=== PATIENT | male | born 1950 | race Caucasian/White ===

== ENCOUNTER 2019-12-12 09:28 | Outpatient (CLI) | payer MEDICARE, SELFPAY ==
[2019-12-12 10:20] LABS: Blood Urea Nitrogen 15 mg/dL (9-20); Calcium 9.4 mg/dL (8.4-10.2); Carbon Dioxide 25 mmol/L (22-30); Chloride 100 mmol/L (98-107); Cholesterol 134 mg/dL (0-200); Estimated Glomerular Filt Rate > 60; Glucose 105 mg/dL (75-110); HDL Direct 41 mg/dL; Potassium 3.6 mmol/L (3.4-5.0); Sodium 136 mmol/L (137-145); Triglycerides 160 mg/dL (<150)
[2019-12-12 10:31] LABS: LDL Cholesterol Direct 80 mg/dL
[2019-12-12 10:50] LABS: Prostate Specific Antigen 0.5 ng/mL (< OR = 4.0)
== END 2019-12-12 09:29 | disposition home or self-care (01) ==
LOC: ANHLAB 09:30
PROVIDERS: PCP Internal Medicine; Visit Provider Internal Medicine
DX: E53.8 Deficiency of other specified B group vitamins (principal); I10 Essential (primary) hypertension; E78.5 Hyperlipidemia, unspecified; Z12.5 Encounter for screening for malignant neoplasm of prostate
CPT/HCPCS: 36415; 80048; 80061; 82607; 84153; G0103

== ENCOUNTER 2020-10-11 12:47 | Outpatient (CLI) | payer MEDICARE, SELFPAY ==
[2020-10-11 13:53] LABS: Anion Gap 7 mmol/L (8-16); Blood Urea Nitrogen 13 mg/dL (9-20); Calcium 9.4 mg/dL (8.4-10.2); Carbon Dioxide 31 mmol/L (22-30); Chloride 92 mmol/L (98-107); Cholesterol 138 mg/dL (0-200); Estimated Glomerular Filt Rate > 60; Glucose 106 mg/dL (75-110); HDL Direct 30 mg/dL; Sodium 130 mmol/L (137-145); Triglycerides 199 mg/dL (<150)
[2020-10-11 14:04] LABS: LDL Cholesterol Direct 85 mg/dL
[2020-10-11 14:24] LABS: Prostate Specific Antigen 0.5 ng/mL (< OR = 4.0)
== END 2020-10-11 12:48 | disposition home or self-care (01) ==
LOC: ANHLAB 12:52
PROVIDERS: PCP Internal Medicine; Visit Provider Nurse Practitioner
DX: Z13.6 Encounter for screening for cardiovascular disorders (principal); I10 Essential (primary) hypertension; F32.9 Major depressive disorder, single episode, unspecified; Z12.5 Encounter for screening for malignant neoplasm of prostate
CPT/HCPCS: 36415; 80048; 80061; 84153; 84443; G0103

== ENCOUNTER 2020-11-13 14:12 | Outpatient (CLI) | payer MEDICARE, SELFPAY ==
[2020-11-13 15:12] LABS: Anion Gap 10 mmol/L (8-16); Blood Urea Nitrogen 14 mg/dL (9-20); Calcium 9.4 mg/dL (8.4-10.2); Carbon Dioxide 27 mmol/L (22-30); Chloride 98 mmol/L (98-107); Estimated Glomerular Filt Rate > 60; Glucose 87 mg/dL (75-110); Potassium 3.9 mmol/L (3.4-5.0); Sodium 135 mmol/L (137-145)
== END 2020-11-13 14:13 | disposition home or self-care (01) ==
LOC: ANHLAB 14:13
PROVIDERS: PCP Internal Medicine; Visit Provider Internal Medicine
DX: I10 Essential (primary) hypertension (principal)
CPT/HCPCS: 36415; 80048

== ENCOUNTER 2021-02-15 08:45 | Outpatient (RCR) | payer MEDICARE, SELFPAY ==
[2021-02-15] MEDS: ACETAMINOPHEN 325 MG TABLET 650 MG PO (12:40)
[2021-02-15] MEDS: FAMOTIDINE 20 MG TABLET PO (12:41)
[2021-02-15] MEDS: diphenhydrAMINE HCl CAP 25 MG CAPSULE PO (12:41)
[2021-02-15 12:43] VITALS: BP 126/55; PULSE 83; RESP 16; TEMP 37.7; O2SAT 94
--- NOTE | 2021-02-15 13:02 | PC.NURSE ---
Patient with cough, low grade fever and tiredness.
--- NOTE | 2021-02-15 13:20 | PC.NURSE ---
Patient given written instruction guide on covid infusion guidelines with understanding stated to instruction.
[2021-02-15 14:55] VITALS: BP 115/54
== END 2021-02-15 11:30 | disposition home or self-care (01) ==
LOC: AMCINF 08:45
PROVIDERS: PCP Internal Medicine; Visit Provider Internal Medicine Hematology & Oncology
DX: Z23 Encounter for immunization (principal); U07.1 COVID-19; I10 Essential (primary) hypertension; J44.9 Chronic obstructive pulmonary disease, unspecified
CPT/HCPCS: A9270; M0239; Q0245

== ENCOUNTER 2021-03-06 14:03 | Outpatient (CLI) | payer MEDICARE, SELFPAY ==
[2021-03-06 15:07] LABS: Alanine Aminotransferase 14 U/L (4-50); Albumin Level 4.2 g/dL (3.5-5.1); Alkaline Phosphatase 91 U/L (38-126); Anion Gap 10 mmol/L (8-16); Aspartate Amino Transferase 22 U/L (17-59); Bilirubin,Total 0.3 mg/dL (0.2-1.3); Blood Urea Nitrogen 10 mg/dL (9-20); Carbon Dioxide 25 mmol/L (22-30); Chloride 104 mmol/L (98-107); Estimated Glomerular Filt Rate > 60; Glucose 94 mg/dL (75-110); Potassium 3.5 mmol/L (3.4-5.0); Sodium 139 mmol/L (137-145)
== END 2021-03-06 14:04 | disposition home or self-care (01) ==
LOC: ANHLAB 14:05
PROVIDERS: PCP Internal Medicine; Visit Provider Internal Medicine
DX: I10 Essential (primary) hypertension (principal); Z87.19 Personal history of other diseases of the digestive system
CPT/HCPCS: 36415; 80053

== ENCOUNTER 2021-04-13 07:51 | Outpatient (CLI) | payer MEDICARE, SELFPAY ==
[2021-04-13 08:37] LABS: Cholesterol 142 mg/dL (0-200); HDL Direct 34 mg/dL; Triglycerides 100 mg/dL (<150)
[2021-04-13 08:48] LABS: LDL Cholesterol Direct 75 mg/dL
== END 2021-04-13 07:52 | disposition home or self-care (01) ==
PROVIDERS: PCP Internal Medicine; Visit Provider Internal Medicine
DX: E78.5 Hyperlipidemia, unspecified (principal); E53.8 Deficiency of other specified B group vitamins
CPT/HCPCS: 36415; 80061; 82607

== ENCOUNTER 2021-04-17 11:54 | Outpatient (CLI) | payer MEDICARE, SELFPAY ==
[2021-04-17 13:39] LABS: Vitamin D 25 Hydroxy 37.5 ng/mL
== END 2021-04-17 11:55 | disposition home or self-care (01) ==
PROVIDERS: PCP Internal Medicine; Visit Provider Internal Medicine
DX: M85.80 Other specified disorders of bone density and structure, unspecified site (principal)
CPT/HCPCS: 36415; 82306

== ENCOUNTER 2021-04-22 16:02 | Outpatient (CLI) | payer MEDICARE, SELFPAY ==
--- NOTE | ~2021-04-22 | MR_ITS ---
EXAMINATION: MR brain/brain stem wo/w con DATE: 04/22/2021 17:53 INDICATION: Amnesia. Altered mental status. TECHNIQUE: Magnetic resonance imaging (MRI) of the brain and brainstem was performed without intraven ous contrast. Sequences included sagittal and axial T1-weighted SE, axial diffusion-weighted FS SE, a xial T2*-weighted GRE, axial T2-weighted FLAIR Propeller, and axial T2-weighted Propeller. Apparent d iffusion coefficient (ADC) maps were created. COMPARISON: None. FINDINGS: No acute intracranial hemorrhage, mass, mass effect infarction or abnormal contrast enhance ment. Mild generalized atrophy. There are scattered mild periventricular and subcortical white matter changes, most likely related to small vessel ischemic disease (microangiopathy). No ventriculomegaly or or midline shift. Structures of the posterior fossa including 7/8th cranial nerve complexes are n ormal. Midline sagittal images are within normal limits. Orbits are symmetric without disconjugate ga ze. There is mucosal thickening of the ethmoid and frontal sinuses. IMPRESSION: 1. No acute intracranial abnormality. 2: Chronic age-related findings. 3: Mild sinus disease. Reviewed, dictated and finalized at location A.
[2021-04-22 17:29] LABS: Estimated Glomerular Filt Rate > 60
== END 2021-04-22 16:03 | disposition home or self-care (01) ==
PROVIDERS: PCP Internal Medicine; Visit Provider Nurse Practitioner
DX: R41.3 Other amnesia (principal); J32.9 Chronic sinusitis, unspecified
CPT/HCPCS: 70553; A9577

== ENCOUNTER 2021-09-16 18:37 | Inpatient (IN) | payer MEDICARE, SELFPAY ==
[2021-09-16] VITALS (8 sets, daily range): BP systolic 149–179; BP diastolic 69–87; PULSE 90–101; RESP 15–26; TEMP 37.2–37.9; O2SAT 74–96
--- NOTE | ~2021-09-16 | XR_ITS ---
EXAMINATION: XR chest 1V portable EXAM DATE: 09/16/2021 19:05 INDICATION: Cough, sob, HX COPD, HTN, TECHNIQUE: Portable AP frontal chest x-ray was obtained. There is no prior study for comparison. FINDINGS: The lungs are clear. There are no pleural effusions. Cardiac silhouette is prominent but magnified on this AP technique. There is no pneumothorax suspected. The bones and soft tissues are unremarkable. IMPRESSION: No acute cardiopulmonary findings. Reviewed, dictated and finalized at location A. ORK SPECIALIST
--- NOTE | ~2021-09-16 | CT_ITS ---
EXAMINATION: CTA chest PE protocol EXAM DATE: 09/16/2021 21:21 INDICATION: Shortness of breath. TECHNIQUE: Spiral CTA of the chest (pulmonary arteries) was performed with 100 cc Omnipaque 350 intr avenous contrast injection. Images were acquired during the pulmonary arterial phase. Coronal maxi mum intensity projection 3D-reconstructions were created by the technologist on dedicated workstation . Axial, coronal and sagittal reformatted images were reviewed. The dose-length product (DLP) for t his examination was 827.75 mGy-cm. The exposure was tailored according to patient size (auto mA exp osure control), and iterative reconstruction (ASIR) was used as additional dose reduction technique. Comparison is made to prior examination from 03/25/2019. FINDINGS: There are no pulmonary emboli in the 1st through 3rd order (central and interlobar) pulmon lindsey arteries. Some loss of attenuation in the segmental pulmonary arteries due to respiratory motion , but no intraluminal filling defects suspected. No thoracic aortic dissection. Some small patchy regions of bilateral lower lobe airspace disease most likely pneumonia. Small bila teral pleural effusions. Tracheobronchial tree is patent. There is mediastinal and prevascular lym phadenopathy, a precarinal lymph node measuring 1.4 x 2.3 cm, a prevascular lymph node measuring 1.2 x 1.6 cm. Borderline sized bilateral hilar lymph nodes. These lymph nodes are larger than on previous examination. There is no pneumothorax. Heart normal in size. Dense coronary artery calcificatio ns and/or stents, correlate with history. Renal lesions consistent with cysts. There is thoracic sp ondylosis without osteoblastic or osteolytic lesions identified. IMPRESSION: 1. Small regions bilateral lower lobe pneumonia. 2. Mediastinal, prevascular, hilar lymphadenopathy. Could be reactive, but lymphoma or other maligna ncy not excludable. Consider 3 month follow-up chest CT. 3. Small bilateral pleural effusions. Reviewed, dictated and finalized at location A. EREAU CLERK IMPRESSION: 1. Small regions bilateral lower lobe pneumonia. 2. Mediastinal, prevascular, hilar lymphadenopathy. Could be reactive, but lym phoma or other malignancy not excludable. Consider 3 month follow-up chest CT. 3. Small bilateral pleural effusions.
--- NOTE | ~2021-09-16 | XR_ITS ---
EXAMINATION: XR chest 2V 09/20/2021 13:31 INDICATION: Pneumonia PROCEDURE: 2 view chest COMPARISON: 09/16/2021 FINDINGS: The lungs are clear. The cardiomediastinal silhouette is within normal limits. There are no pleural effusions. There is no pneumothorax suspected. IMPRESSION: 1: NO ACUTE CARDIOPULMONARY DISEASE. Reviewed, dictated and finalized at location A. ABLE GRINDING MACHINE OPERATOR
--- NOTE | ~2021-09-16 | US_ITS ---
EXAMINATION: US venous doppler LE EXAM DATE: 09/17/2021 17:49 INDICATION: Lower extremity edema, elevated D-dimer TECHNIQUE: Multiple grayscale, color flow and Doppler images of the lower extremity deep venous syste ms bilaterally were obtained and reviewed. There is no prior study for comparison. FINDINGS: Right side: The right common femoral, femoral and profunda veins demonstrate normal color flow, respi ratory variation, augmentation and compressibility. Compressibility, color flow confirmed within the right popliteal, posterior tibial, peroneal, and greater saphenous veins. There is a Scott's cyst m easuring 4.0 x 2.6 x 2.6 cm. Left side: The left common femoral, femoral and profunda veins demonstrate normal color flow, respira tory variation, augmentation and compressibility. Compressibility, color flow confirmed within the l eft popliteal, posterior tibial, peroneal, and greater saphenous veins. IMPRESSION: 1. No lower extremity deep venous thrombosis bilaterally. 2. Moderate-sized Scott's cyst. Reviewed, dictated and finalized at location A. NSE EXAMINER
--- NOTE | 2021-09-16 18:48 | ECG_ITS ---
Measurements Intervals Adams Rate: 86 P: W[place]: 0 QRS: 70 QRSD: 90 T: 62 QT: 340 QTc: 407 Interpretive Statements ATRIAL FIBRILLATION BASELINE ARTIFACT- III, V3-V5 ABNORMAL ECG Electronically Signed On 09-16-2021 19:44:24 [employer]/TRACK AND FIELD COACH by David Cintron D.O.
--- NOTE | 2021-09-16 18:54 | ED.GENADULT ---
HPI - General Adult General Chief complaint: Shortness of Breath/Dyspnea Stated complaint: SOB Time Seen by Provider: 09/16/21 18:51 Source: patient and RN notes reviewed History of Present Illness HPI narrative: Patient is a 71 y/o male complaining of severe SOB since yesterday. He states that he has history of COPD. He has no chest pain or cough. However, he has a fever. His SOB is worse with exertion. Related Data Home Medications Medication Instructions Recorded Confirmed lansoprazole 30 mg capsule,delayed 30 mg PO DAILY 04/11/20 04/16/21 release Allergies Allergy/AdvReac Type Severity Reaction Status Date / Time No Known Allergies Allergy Verified 09/16/21 18:51 Review of Systems Constitutional: Constitutional: Denies chills, Denies fever(s), Denies headache(s) and Denies weakness Eyes: Eyes: Denies blurry vision ENT: Denies headache(s) and Denies neck pain Cardiovascular: Cardiovascular: Denies chest pain and Reports dyspnea Respiratory: Respiratory: Denies cough and Reports dyspnea Gastrointestinal: Gastrointestinal: Denies abdominal pain, Denies diarrhea, Denies nausea and Denies vomiting Genitourinary: Genitourinary: Denies hematuria and Denies dysuria Musculoskeletal: Musculoskeletal: Denies back pain and Denies neck pain Neurologic: Denies headache(s) and Denies weakness [facility] Past Medical History Medical History (Updated 09/17/21 @ 00:35 by Maya Doyle MD) Alcohol-induced acute pancreatitis Anemia B12 deficiency BPH w urinary obs/LUTS Chronic GERD Chronic gout of left ankle COPD (chronic obstructive pulmonary disease) Depression History of colon cancer Hx of chronic hepatitis Hyperlipemia Hypertension Memory impairment Moderate single current episode of major depressive disorder Neuropathy Opioid dependence Osteoarthritis involving multiple joints on both sides of body Tobacco abuse Surgical History Surgical History History of carpal tunnel release Family History Family History Mother Patient's mother is Family history of lupus erythematosus Father Family history of cardiovascular disease Family history of heart disease in male family member before age 55 Patient's father is Sibling Patient's sister is in good health Social History Social History (Reviewed 09/16/21 @ 22:38 by MELINDA Sanchez Smoking packs per day: 1 Smoking cigarettes per day: 20.0 Years smoked: 55 Smoking pack-years: 55.00 Smoking status: Current every day smoker Tobacco type: cigarettes Second hand tobacco smoke exposure: Yes Additional smoking assessment comments: States that he has no intention of stopping smoking. Alcohol intake: current Drinks per week: 10 Spiritual care concerns: No Exam Const: General: no acute distress and well developed Orientation/consciousness: oriented to person, oriented to place, oriented to time and patient oriented x3 HENMT: Head: normocephalic Ears: external ears normal General nose exam: Normal external nose present Eyes: General: appearance normal, both eyes and all related structures Conjunctivae: conjunctivae normal Neck: Neck: normal visual inspection and full ROM Chest: Chest palpation & inspection: normal inspection of the chest and no tenderness Resp: Effort & Inspection: tachypneic Auscultation: wheezes Cardio: Rate: regular rate Rhythm: regular rhythm GI: GI Palp: No abdominal tenderness and Yes Soft to palpation Skin: General skin exam: normal color and turgor normal Neuro: General: oriented to person, oriented to place, oriented to time and patient oriented x3 Cognition (Neuro): normal cognition Extrem: General: normal to inspection, full ROM and no pedal edema Psych: Appearance: grossly normal Mental Status: mental status grossly normal Affec
[2021-09-16 19:33] LABS: Basophils Percent Auto 0.3 % (0.2-1.2); Eosinophils Absolute Auto 0.2 K/mm3 (0-0.3); Eosinophils Percent Auto 1.2 % (0-4.4); Hematocrit 45.8 % (42.0-52.0); Hemoglobin 14.8 g/dL (14.0-18.0); Immature Granulocyte Absolute 0.07 K/mm3 (0.00-0.031); Immature Granulocyte Percent A 0.4 % (0-0.5); Lymphocytes Absolute Auto 0.96 K/mm3 (0.9-3.2); Lymphocytes Percent Auto 6.1 % (18.3-44.2); Mean Corpuscular HGB Conc 32.3 g/dl (32-36); Mean Corpuscular Hemoglobin 31.9 pg (26-34); Mean Corpuscular Volume 98.7 fl (80-100); Mean Platelet Volume 9.9 fl (7.4-10.4); Monocytes Absolute Auto 1.2 K/mm3 (0.1-0.6); Monocytes Percent Auto 7.6 % (2.6-8.5); Neutrophils Absolute Auto 13.2 K/mm3 (1.3-6.7); Neutrophils Percent Auto 84.4 % (45.5-73.1); Platelet Count Result 184 k/mm3 (150-375); Red Blood Count 4.64 M/mm3 (4.6-6.20); Red Cell Distribution Width 13.6 % (11.5-14.5); White Blood Count 15.6 K/mm3 (4.5-10.0)
[2021-09-16 19:43] LABS: Anion Gap 15 mmol/L (8-16); Blood Urea Nitrogen 17 mg/dL (9-20); Calcium 9.2 mg/dL (8.4-10.2); Carbon Dioxide 23 mmol/L (22-30); Chloride 101 mmol/L (98-107); Estimated CRCL calculation 68 ml/min; Estimated Glomerular Filt Rate > 60; Glucose 124 mg/dL (65-110); Lactic Acid Reflex 1.2 mmol/L (0.7-2.1); Potassium 3.8 mmol/L (3.4-5.0); Sodium 139 mmol/L (137-145)
[2021-09-16 19:46] LABS: INR 1.1; Prothrombin Time 14.1 Seconds (11.1-14.7)
[2021-09-16 19:47] LABS: Partial Thromboplastin Time 33.1 SECONDS (22.3-36.8)
[2021-09-16 19:53] LABS: Alveolar/Arterial O2 Gradient 131.6 mmHg; Base Excess ABG 0.7 mEq/l (+/-2.0); Device NASAL CANNULA; Fractional Inspired Oxygen 36 %; HCO3 ABG 26.6 mEq/l (22.0-26.0); Modified Allen's Test Pass; Oxygen Content ABG 19.1 %vol (16.0-22.0); Oxygen Saturation ABG 93.7 % (95.0-100.0); Oxyhemoglobin 91.1 % THb (90.0-100.0); PO2 ABG 70.6 mmHg (80.0-100.0); PO2 FiO2 Ratio Arterial Blood 1.96 %; Site Drawn LEFT RADIAL; Total Hemoglobin 14.9 g/dL (12.0-18.0)
[2021-09-16 19:53] LABS: NT Pro B Type Natriuretic Pept 1500 pg/mL (5-100)
[2021-09-16] MEDS: IPRATROPIUM BR 0.02% INH SOLN 0.5 MG/2.5 ML VIAL INHALATION (20:40)
[2021-09-16] MEDS: ALBUTEROL SULFATE NEB 2.5 MG/0.5 ML INH 5 MG INHALATION (20:40)
[2021-09-16] MEDS: methylPREDNISolone SOD SUCC 125 MG VIAL IV PUSH (20:54)
[2021-09-16 20:56] LABS: D Dimer 3.31 ug/mL (<0.48)
--- NOTE | 2021-09-16 22:36 | PM.IMHP ---
H&P: HPI History of Present Illness Date/Time: 09/16/21 22:36 Chief Complaint: Cough, shortness of breath Narrative: 71-year-old male with a past medical history of COPD, continuous tobacco abuse, hypertension, hyperlipidemia, chronic pain syndrome and GERD who presented to the ER via private vehicle due to shortness of breath. Patient reported that he started having a nonproductive cough 2 or 3 days ago. The cough has increased in severity over the last 24 hours. He came into the ER when he suddenly could not breathe for the last 24 hours. He has been having low-grade temperatures at home between 101 101?. He denies any known recent ill contacts. He did have COVID 19 back in January 2021. He was actually planning to get his COVID vaccine this week but when he went to [facility] they were too busy to give him is vaccine. He reports that he has chronic changes in his sense of taste and smell since his prior COVID infection. He reports that things smell and taste like chemicals. He has had increased generalized myalgias. He does snore and is a restless sleeper. He is frequently fatigued and has been more so over the last couple of days. He has never been tested for sleep apnea. He denies any significant headache. He has chronic low back, hip and knee pain. He has noticed increased lower extremity swelling over the last 4 weeks. He reports that the right leg has been swelling up to about the mid rhoades for the last 4 weeks and that his left lower extremity has started swelling over the last week. He denies any significant calf pain or tenderness. He reports that his chest is uncomfortable with deep breathing and has generalized chest tightness. He has noticed increased wheezing. He has been taking his home controller inhalers. He does not like to take his albuterol inhaler unless he absolutely has to because he does not ?want to become dependent upon it.? He still continues to smoke 1.5 packs of cigarettes per day. He reports that after how he feels today he does not plan on smoking when he returns home. He denies any nausea or vomiting. He has not had any changes in his bowel habits. On arrival to the ER the patient was noted to be markedly hypoxic with sats of 74% on room air. He does not use oxygen at home. He has had increased nasal congestion over the last several days. He denies any dysphagia or odynophagia. Review of Systems Review of Systems: 12 systems were reviewed with pertinent positives and negatives per HPI. Except as documented in the HPI, all other systems were reviewed and are negative. [facility] Past Medical History Medical History (Updated 09/17/21 @ 03:04 by Wendy Hollingsworth DO) Alcohol-induced acute pancreatitis B12 deficiency BPH w urinary obs/LUTS Chronic GERD Chronic gout of left ankle COPD (chronic obstructive pulmonary disease) Depression Hx of chronic hepatitis History of hepatitis C treated with interferon in 1999 with subsequent care Hyperlipemia Hypertension Memory impairment Moderate single current episode of major depressive disorder Neuropathy Opioid dependence Osteoarthritis involving multiple joints on both sides of body Rectal cancer (~1999) Tobacco abuse Surgical History Surgical History (Updated 09/17/21 @ 02:34 by Wendy Hollingsworth DO) History of bowel resection Due to rectal cancer History of carpal tunnel release Family History Family History (Updated 09/17/21 @ 02:40 by Wendy Hollingsworth DO) Mother SLE (systemic lupus erythematosus related syndrome) Father , Age 75 Heart disease CHF (congestive heart failure) Sibling COPD (chronic obstructive pulmonary disease) Sibling Pulmonary embolism Sibling Accidental Sibling Hypertension Social History Social History (Updated 09/17/21 @ 02:43 by Wendy Hollingsworth DO) Social History: He has been since 2011 but lives with a girlfriend. He has 3 daughters who are healt
[2021-09-16] MEDS: ACETAMINOPHEN 325 MG TABLET 650 MG PO (23:00)
[2021-09-17] VITALS (12 sets, daily range): BP systolic 126–161; BP diastolic 64–95; PULSE 54–89; RESP 18–24; TEMP 36.4–36.9; O2SAT 95–100; BMI 29.9
[2021-09-17] MEDS: ALBUTEROL SULFATE (*SP) INHALER 4 PUFF INHALATION ×4 (02:07→21:33)
--- NOTE | 2021-09-17 02:12 | ADMGEN ---
This patient, Matteo Da Silva, was admitted to [facility] Room 328-01. Patient/family oriented to hospital policies and general routines including ID bracelet, bed and alarms, visiting hours, pain management, procedures, bathroom and other care routines, personal items, smoking policy, room service/diet, and visiting hours. Information on how to activate the Rapid Response Team has been discussed. Patient/Family are encouraged to report perceived risks to care and to ask questions if they do not understand what they are told or what they should do.
[2021-09-17 06:36] LABS: Basophils Percent Auto 0.1 % (0.2-1.2); Hematocrit 41.5 % (42.0-52.0); Hemoglobin 13.8 g/dL (14.0-18.0); Immature Granulocyte Absolute 0.04 K/mm3 (0.00-0.031); Immature Granulocyte Percent A 0.4 % (0-0.5); Lymphocytes Absolute Auto 0.28 K/mm3 (0.9-3.2); Lymphocytes Percent Auto 2.8 % (18.3-44.2); Mean Corpuscular HGB Conc 33.3 g/dl (32-36); Mean Corpuscular Hemoglobin 32.2 pg (26-34); Mean Platelet Volume 9.8 fl (7.4-10.4); Monocytes Absolute Auto 0.1 K/mm3 (0.1-0.6); Monocytes Percent Auto 1.3 % (2.6-8.5); Neutrophils Absolute Auto 9.4 K/mm3 (1.3-6.7); Neutrophils Percent Auto 95.4 % (45.5-73.1); Platelet Count Result 153 k/mm3 (150-375); Red Blood Count 4.28 M/mm3 (4.6-6.20); Red Cell Distribution Width 13.5 % (11.5-14.5); White Blood Count 9.8 K/mm3 (4.5-10.0)
[2021-09-17 06:57] LABS: Alanine Aminotransferase 15 U/L (4-50); Albumin Level 4.4 g/dL (3.5-5.1); Alkaline Phosphatase 89 U/L (38-126); Anion Gap 13 mmol/L (8-16); Aspartate Amino Transferase 32 U/L (17-59); Bilirubin,Total 0.6 mg/dL (0.2-1.3); Blood Urea Nitrogen 14 mg/dL (9-20); CRP 7.6 mg/dL (<1.0); Calcium 9.2 mg/dL (8.4-10.2); Carbon Dioxide 23 mmol/L (22-30); Chloride 102 mmol/L (98-107); Estimated CRCL calculation 75 ml/min; Estimated Glomerular Filt Rate > 60; Glucose 179 mg/dL (65-110); Lactate Dehydrogenase 431 U/L (313-618); Potassium 4.1 mmol/L (3.4-5.0); Sodium 138 mmol/L (137-145)
[2021-09-17] MEDS: UMECLIDINIUM/VILANTEROL 62.5-25 MCG ELLIPTA 1 PUFF INHALATION (09:32)
[2021-09-17] MEDS: oxyCODONE HCL (*CRX) 5 MG TAB IR 10 MG PO ×2 (10:18→21:54)
[2021-09-17] MEDS: lisinopriL 20 MG TABLET 40 MG PO (11:20)
[2021-09-17] MEDS: ENOXAPARIN 40 MG/0.4 ML SYRINGE SUB-Q (11:20)
[2021-09-17] MEDS: amLODIPine BESYLATE 5 MG TABLET 10 MG PO (11:21)
--- NOTE | 2021-09-17 16:05 | P.PNIM_ITS ---
Progress Note: A&P Assessment and Plan (1) Sepsis: Qualifiers: Sepsis type: sepsis due to unspecified organism Sepsis acute organ dysfunction status: with acute organ dysfunction Severe sepsis acute organ dysfunction type: acute respiratory failure Acute respiratory failure type: with hypoxia Severe sepsis shock status: without septic shock Qualified Code(s): A41.9 - Sepsis, unspecified organism; R65.20 - Severe sepsis without septic shock; J96.01 - Acute respiratory failure with hypoxia Code(s): A41.9 - Sepsis, unspecified organism Status: Acute Assessment and Plan: Met criteria for sepsis on presentation with fever, tachycardia, tachypnea, and leukocytosis. Source of infection is bilateral pneumonia. Lactic 1.0 * Continue IV antibiotics. * Blood cultures pending * Monitor vital signs, labs, and intake and output (2) Acute and chronic respiratory failure with hypoxia: Code(s): J96.21 - Acute and chronic respiratory failure with hypoxia Status: Acute Assessment and Plan: Noted to be hypoxic down to 74% on presentation. He has required up to 5 L supplemental O2 * Currently requiring 4 L per nasal cannula. * Continue supplemental O2 as needed with goal saturation 92% or above * Likely multifactorial related to COPD exacerbation, bilateral pneumonia (bacterial vs viral) * Continue Anoro Ellipta * CTA negative for PE * Echocardiogram pending to rule out possible component of congestive heart failure, though less likely based on overall clinical picture (3) COPD with acute exacerbation: Code(s): J44.1 - Chronic obstructive pulmonary disease with (acute) exacerbation Status: Acute Assessment and Plan: Diffuse wheezing on exam. * Continue dexamethasone 6 mg IV daily * Albuterol q.6h * Transition to nebulizers if COVID test is negative (4) Pneumonia: Qualifiers: Laterality: bilateral Lung location: unspecified part of lung Pneumonia type: due to unspecified organism Qualified Code(s): J18.9 - Pneumonia, unspecified organism Code(s): J18.9 - Pneumonia, unspecified organism Status: Acute Assessment and Plan: Imaging consistent with bilateral pneumonia and patient was febrile up to 100.2 * Continue azithromycin and Rocephin for coverage for community-acquired pneumonia * Influenza negative * COVID-19 test pending * Supplemental O2 as needed * Supportive care to include bronchodilators, expectorants, antipyretics, and incentive spirometry (5) Suspected COVID-19 virus infection: Code(s): Z20.822 - Contact with and (suspected) exposure to COVID-19 Status: Acute Assessment and Plan: Patient does have history of COVID-19 in January 2020. He has not been vaccinated for COVID-19. * Continue isolation precautions will COVID-19 test is pending * Continue dexamethasone * Will hold off on remdesivir while awaiting final results as his O2 requirements have remained stable * Would discontinue IV antibiotics if COVID 19 test is positive (6) Tobacco abuse: Code(s): Z72.0 - Tobacco use Status: Acute Assessment and Plan: He reports smoking 1.5 packs daily. * Declines need for nicotine patch * Continue to reinforce smoking cessation (7) Alcohol abuse: Code(s): F10.10 - Alcohol abuse, uncomplicated Status: Acute Assessment and Plan: Reports drinking 4 beers nightly. Does endorse history of alcohol withdrawal but denies seizures * [facility] protocol init
--- NOTE | 2021-09-17 16:05 | PM.IMPN ---
Progress Note: A&P Assessment and Plan (1) Sepsis: Qualifiers: Sepsis type: sepsis due to unspecified organism Sepsis acute organ dysfunction status: with acute organ dysfunction Severe sepsis acute organ dysfunction type: acute respiratory failure Acute respiratory failure type: with hypoxia Severe sepsis shock status: without septic shock Qualified Code(s): A41.9 - Sepsis, unspecified organism; R65.20 - Severe sepsis without septic shock; J96.01 - Acute respiratory failure with hypoxia Code(s): A41.9 - Sepsis, unspecified organism Status: Acute Assessment and Plan: Met criteria for sepsis on presentation with fever, tachycardia, tachypnea, and leukocytosis. Source of infection is bilateral pneumonia. Lactic 1.0 Continue IV antibiotics. Blood cultures pending Monitor vital signs, labs, and intake and output (2) Acute and chronic respiratory failure with hypoxia: Code(s): J96.21 - Acute and chronic respiratory failure with hypoxia Status: Acute Assessment and Plan: Noted to be hypoxic down to 74% on presentation. He has required up to 5 L supplemental O2 Currently requiring 4 L per nasal cannula. Continue supplemental O2 as needed with goal saturation 92% or above Likely multifactorial related to COPD exacerbation, bilateral pneumonia (bacterial vs viral) Continue Anoro Ellipta CTA negative for PE Echocardiogram pending to rule out possible component of congestive heart failure, though less likely based on overall clinical picture (3) COPD with acute exacerbation: Code(s): J44.1 - Chronic obstructive pulmonary disease with (acute) exacerbation Status: Acute Assessment and Plan: Diffuse wheezing on exam. Continue dexamethasone 6 mg IV daily Albuterol q.6h Transition to nebulizers if COVID test is negative (4) Pneumonia: Qualifiers: Laterality: bilateral Lung location: unspecified part of lung Pneumonia type: due to unspecified organism Qualified Code(s): J18.9 - Pneumonia, unspecified organism Code(s): J18.9 - Pneumonia, unspecified organism Status: Acute Assessment and Plan: Imaging consistent with bilateral pneumonia and patient was febrile up to 100.2 Continue azithromycin and Rocephin for coverage for community-acquired pneumonia Influenza negative COVID-19 test pending Supplemental O2 as needed Supportive care to include bronchodilators, expectorants, antipyretics, and incentive spirometry (5) Suspected COVID-19 virus infection: Code(s): Z20.822 - Contact with and (suspected) exposure to COVID-19 Status: Acute Assessment and Plan: Patient does have history of COVID-19 in January 2020. He has not been vaccinated for COVID-19. Continue isolation precautions will COVID-19 test is pending Continue dexamethasone Will hold off on remdesivir while awaiting final results as his O2 requirements have remained stable Would discontinue IV antibiotics if COVID 19 test is positive (6) Tobacco abuse: Code(s): Z72.0 - Tobacco use Status: Acute Assessment and Plan: He reports smoking 1.5 packs daily. Declines need for nicotine patch Continue to reinforce smoking cessation (7) Alcohol abuse: Code(s): F10.10 - Alcohol abuse, uncomplicated Status: Acute Assessment and Plan: Reports drinking 4 beers nightly. Does endorse history of alcohol withdrawal but denies seizures CIWA protocol initiated Ativan as needed for CIWA >8 He has not had a drink in a couple of days as he has not been feeling well, perhaps he is out of the acute withdrawal phase as he remains asymptomatic Will need to be monitor closely given his history of withdrawal symptoms (8) Abnormal chest CT: Code(s): R93.89 - Abnormal findings on diagnostic imaging of other specified body structures Status: Acute Assessment and Plan: CT shows
[2021-09-17 16:54] LABS: SARS-CoV-2 RNA PCR Negative
[2021-09-17 18:37] LABS: Add Urine Microscopic? YES; Appearance Urine Clear (Clear); Bilirubin Urine Negative (Negative); Blood Urine Negative (Negative); Color Urine Yellow (Yellow); Glucose Urine UA Negative (Negative); Ketones Urine Negative (Negative); Leukocyte Esterase Ur Negative LEU/UL (Negative); Mucus Urine Rare /lpf; Nitrate Urine Negative (Negative); Protein Urine 2+ mg/dL (Negative); Squamous Epithelial Cell Urine Rare /hpf (Few); WBC Urine 0-3 /hpf
[2021-09-17] MEDS: guaiFENesin 12 HR 600 MG TABCR PO (19:56)
[2021-09-17] MEDS: GABAPENTIN 100 MG CAPSULE 200 MG PO (19:56)
[2021-09-17] MEDS: BENZONATATE 100 MG CAPSULE 200 MG PO (19:56)
[2021-09-17] MEDS: TEMAZEPAM (*CRX) 15 MG CAPSULE PO (21:14)
[2021-09-18] VITALS (15 sets, daily range): BP systolic 140–146; BP diastolic 76–80; PULSE 68–89; RESP 18–20; TEMP 36.4–36.7; O2SAT 86–99
--- NOTE | 2021-09-18 | ECHO_ITS ---
Patient Info Name: Matteo Da Silva Age: 71 years : 1950 Gender: Male Ht: 74 in Wt: 233 lbs BSA: 2.37 m2 HR: 78 bpm BP: 140 / 77 mmHg Technical Quality: Good Exam Date: 09/18/2021 11:23 AM Exam Location: [facility] Pulmonary Exam Room: [facility] Patient Status: Inpatient Admit Date: 09/18/2021 Staff Ordering Physician: Wendy Hollingsworth DO Secure Software Assessor: Veronique Bundy RCS Attending Provider: Nova Wade PA-C Referring Physician: Darrick VYAS; Exam Type: CA echo doppler color flow Study Info Indications - SANDRA Complete two-dimensional, color flow and Doppler transthoracic echocardiogram is performed. Summary 1. Complete two-dimensional, color flow and Doppler transthoracic echocardiogram is performed. 2. Left ventricular chamber dimension is normal. 3. Left ventricular systolic function is normal, estimated at 60-65%. 4. The left ventricular diastolic function is normal. 5. E/e' 9 is minimally elevated. 6. Left atrial chamber dimension is moderately enlarged. 7. Right atrial chamber dimension is moderately enlarged. 8. There is mild mitral valve regurgitation. 9. There is mild tricuspid valve regurgitation. 10. Mild pulmonary hypertension, estimated pulmonary arterial systolic pressure is 44 mmHg. 11. Normal inferior vena cava with <50% collapse upon inspiration consistent with elevated right atrial pressure, 10 mmHg. Left Ventricle E/e' 9 is minimally elevated. Left ventricular chamber dimension is normal. Left ventricular systolic function is normal, estimated at 60-65%. The left ventricular diastolic function is normal. Right Ventricle Right ventricular chamber dimension is normal. Right ventricular systolic function is normal. Left Atria Left atrial chamber dimension is moderately enlarged. Right Atria Right atrial chamber dimension is moderately enlarged. Aortic Valve The aortic valve is trileaflet. There is no aortic valve stenosis. There is no aortic valve regurgitation. Pulmonic Valve There is no pulmonic regurgitation. Mitral Valve There is no mitral valve stenosis. There is mild mitral valve regurgitation. Tricuspid Valve There is mild tricuspid valve regurgitation. Mild pulmonary hypertension, estimated pulmonary arterial systolic pressure is 44 mmHg. Pericardium/Pleural There is no pericardial effusion. Inferior Vena Cava Normal inferior vena cava with <50% collapse upon inspiration consistent with elevated right atrial pressure, 10 mmHg. Aorta The aortic root size at the sinus of Valsalva is normal. Left Ventricular Outflow Tract Name Value Normal LVOT 2D LVOT Diameter 2.1 cm LVOT Doppler LVOT Peak Gradient 5 mmHg LVOT Mean Gradient 3 mmHg LVOT VTI 22 cm LVOT VTI/AV VTI Ratio 0.9 LVOT Stroke Volume 77 ml LVOT CO 17.3 l/min LVOT CI 7.3 l/min/m2 Pulmonic Valve
[2021-09-18] MEDS: ACETAMINOPHEN 325 MG TABLET 650 MG PO (00:34)
[2021-09-18] MEDS: ALBUTEROL SULFATE (*SP) INHALER 4 PUFF INHALATION ×3 (02:16→13:55)
[2021-09-18] MEDS: BENZONATATE 100 MG CAPSULE 200 MG PO ×2 (06:11→20:44)
[2021-09-18 06:39] LABS: Hematocrit 39.3 % (42.0-52.0); Hemoglobin 13.1 g/dL (14.0-18.0); Mean Corpuscular HGB Conc 33.3 g/dl (32-36); Mean Corpuscular Hemoglobin 32.6 pg (26-34); Mean Corpuscular Volume 97.8 fl (80-100); Platelet Count Result 164 k/mm3 (150-375); Red Blood Count 4.02 M/mm3 (4.6-6.20); Red Cell Distribution Width 13.5 % (11.5-14.5); White Blood Count 15.8 K/mm3 (4.5-10.0)
[2021-09-18 07:06] LABS: Anion Gap 10 mmol/L (8-16); Blood Urea Nitrogen 24 mg/dL (9-20); Calcium 9.4 mg/dL (8.4-10.2); Carbon Dioxide 27 mmol/L (22-30); Chloride 103 mmol/L (98-107); Estimated CRCL calculation 83 ml/min; Estimated Glomerular Filt Rate > 60; Glucose 129 mg/dL (65-110); Potassium 4.3 mmol/L (3.4-5.0); Sodium 140 mmol/L (137-145)
[2021-09-18] MEDS: THIAMINE HCL 100 MG TABLET PO (09:22)
[2021-09-18] MEDS: amLODIPine BESYLATE 5 MG TABLET 10 MG PO (09:23)
[2021-09-18] MEDS: lisinopriL 20 MG TABLET 40 MG PO (09:23)
[2021-09-18] MEDS: guaiFENesin 12 HR 600 MG TABCR PO ×2 (09:23→20:44)
[2021-09-18] MEDS: ENOXAPARIN 40 MG/0.4 ML SYRINGE SUB-Q (09:23)
[2021-09-18] MEDS: FOLIC ACID 1 MG TABLET PO (09:23)
[2021-09-18] MEDS: UMECLIDINIUM/VILANTEROL 62.5-25 MCG ELLIPTA 1 PUFF INHALATION (09:30)
--- NOTE | 2021-09-18 17:01 | P.PNIM_ITS ---
Progress Note: A&P Assessment and Plan (1) Sepsis: Qualifiers: Sepsis type: sepsis due to unspecified organism Sepsis acute organ dysfunction status: with acute organ dysfunction Severe sepsis acute organ dysfunction type: acute respiratory failure Acute respiratory failure type: with hypoxia Severe sepsis shock status: without septic shock Qualified Code(s): A41.9 - Sepsis, unspecified organism; R65.20 - Severe sepsis without septic shock; J96.01 - Acute respiratory failure with hypoxia Code(s): A41.9 - Sepsis, unspecified organism Status: Acute Assessment and Plan: Met criteria for sepsis on presentation with fever, tachycardia, tachypnea, and leukocytosis. Source of infection is bilateral pneumonia. Lactic 1.0 * Continue IV antibiotics. * Blood cultures pending, negative to date * Monitor vital signs, labs, and intake and output (2) Acute and chronic respiratory failure with hypoxia: Code(s): J96.21 - Acute and chronic respiratory failure with hypoxia Status: Acute Assessment and Plan: Noted to be hypoxic down to 74% on presentation. He has required up to 5 L supplemental O2 * Currently requiring 1 L per nasal cannula and maintaining adequate O2 sats. * Continue supplemental O2 as needed with goal saturation 92% or above * Likely multifactorial related to COPD exacerbation, bilateral pneumonia * CTA negative for PE * Echocardiogram performed to rule out possible component of congestive heart failure showed normal systolic and diastolic function (3) COPD with acute exacerbation: Code(s): J44.1 - Chronic obstructive pulmonary disease with (acute) exacerbation Status: Acute Assessment and Plan: Diffuse wheezing on exam. * Solu-Medrol 60 mg q8h * Albuterol and ipratropium nebs q6H scheduled * Continue Anoro Ellipta (4) Pneumonia: Qualifiers: Laterality: bilateral Lung location: unspecified part of lung Pneumonia type: due to unspecified organism Qualified Code(s): J18.9 - Pneumo dai, unspecified organism Code(s): J18.9 - Pneumonia, unspecified organism Status: Acute Assessment and Plan: Imaging consistent with bilateral pneumonia and patient was febrile up to 100.2 * Continue azithromycin and Rocephin for coverage of community-acquired pneumonia * Influenza negative, COVID-19 negative. * Supplemental O2 as needed * Supportive care to include bronchodilators, expectorants, antipyretics, and incentive spirometry (5) Tobacco abuse: Code(s): Z72.0 - Tobacco use Status: Acute Assessment and Plan: He reports smoking 1.5 packs daily. * Declines need for nicotine patch * Continue to reinforce smoking cessation (6) Alcohol abuse: Code(s): F10.10 - Alcohol abuse, uncomplicated Status: Acute Assessment and Plan: Reports drinking 4 beers nightly. Does endorse history of alcohol withdrawal but denies seizures * CIWA protocol initiated. CIWA scores have been 0-3 * Ativan as needed for CIWA >8 * He has not had a drink in a couple of days as he had not been feeling well, he is likely out of the acute withdrawal phase as he remains asymptomatic * Will need to be monitor closely given his history of withdrawal symptoms (7) Abnormal chest CT: Code(s): R93.89 - Abnormal findings on diagnostic imaging of other specified body structures Status: Acute Assessment and Plan: CT shows mediastinal and prevascular lymphadenopathy with borderline bilateral hilar lymphade
--- NOTE | 2021-09-18 17:01 | PM.IMPN ---
Progress Note: A&P Assessment and Plan (1) Sepsis: Qualifiers: Sepsis type: sepsis due to unspecified organism Sepsis acute organ dysfunction status: with acute organ dysfunction Severe sepsis acute organ dysfunction type: acute respiratory failure Acute respiratory failure type: with hypoxia Severe sepsis shock status: without septic shock Qualified Code(s): A41.9 - Sepsis, unspecified organism; R65.20 - Severe sepsis without septic shock; J96.01 - Acute respiratory failure with hypoxia Code(s): A41.9 - Sepsis, unspecified organism Status: Acute Assessment and Plan: Met criteria for sepsis on presentation with fever, tachycardia, tachypnea, and leukocytosis. Source of infection is bilateral pneumonia. Lactic 1.0 Continue IV antibiotics. Blood cultures pending, negative to date Monitor vital signs, labs, and intake and output (2) Acute and chronic respiratory failure with hypoxia: Code(s): J96.21 - Acute and chronic respiratory failure with hypoxia Status: Acute Assessment and Plan: Noted to be hypoxic down to 74% on presentation. He has required up to 5 L supplemental O2 Currently requiring 1 L per nasal cannula and maintaining adequate O2 sats. Continue supplemental O2 as needed with goal saturation 92% or above Likely multifactorial related to COPD exacerbation, bilateral pneumonia CTA negative for PE Echocardiogram performed to rule out possible component of congestive heart failure showed normal systolic and diastolic function (3) COPD with acute exacerbation: Code(s): J44.1 - Chronic obstructive pulmonary disease with (acute) exacerbation Status: Acute Assessment and Plan: Diffuse wheezing on exam. Solu-Medrol 60 mg q8h Albuterol and ipratropium nebs q6H scheduled Continue Anoro Ellipta (4) Pneumonia: Qualifiers: Laterality: bilateral Lung location: unspecified part of lung Pneumonia type: due to unspecified organism Qualified Code(s): J18.9 - Pneumonia, unspecified organism Code(s): J18.9 - Pneumonia, unspecified organism Status: Acute Assessment and Plan: Imaging consistent with bilateral pneumonia and patient was febrile up to 100.2 Continue azithromycin and Rocephin for coverage of community-acquired pneumonia Influenza negative, COVID-19 negative. Supplemental O2 as needed Supportive care to include bronchodilators, expectorants, antipyretics, and incentive spirometry (5) Tobacco abuse: Code(s): Z72.0 - Tobacco use Status: Acute Assessment and Plan: He reports smoking 1.5 packs daily. Declines need for nicotine patch Continue to reinforce smoking cessation (6) Alcohol abuse: Code(s): F10.10 - Alcohol abuse, uncomplicated Status: Acute Assessment and Plan: Reports drinking 4 beers nightly. Does endorse history of alcohol withdrawal but denies seizures CIWA protocol initiated. CIWA scores have been 0-3 Ativan as needed for CIWA >8 He has not had a drink in a couple of days as he had not been feeling well, he is likely out of the acute withdrawal phase as he remains asymptomatic Will need to be monitor closely given his history of withdrawal symptoms (7) Abnormal chest CT: Code(s): R93.89 - Abnormal findings on diagnostic imaging of other specified body structures Status: Acute Assessment and Plan: CT shows mediastinal and prevascular lymphadenopathy with borderline bilateral hilar lymphadenopathy Most likely reactive secondary to infectious process Malignancy is not excludable. Given his extensive smoking history, he is at higher risk for malignancy. He will benefit from 3 month follow-up chest CT. Subjective Date/time seen: 09/18/21 17:01 Interval history: Date of service: 09/18/2021 Matteo cox is a 71-year-old male with history of COPD, BPH, hypertension, hyperlipidemia, tobacco abuse,
[2021-09-18] MEDS: GABAPENTIN 100 MG CAPSULE 200 MG PO (20:44)
[2021-09-18] MEDS: ALBUTEROL SULFATE NEB 2.5 MG/0.5 ML INH INHALATION (21:26)
[2021-09-18] MEDS: IPRATROPIUM BR 0.02% INH SOLN 0.5 MG/2.5 ML VIAL INHALATION (21:26)
[2021-09-18] MEDS: methylPREDNISolone SOD SUCC 125 MG VIAL 60 MG IV PUSH (22:19)
[2021-09-18] MEDS: TEMAZEPAM (*CRX) 15 MG CAPSULE PO (23:20)
[2021-09-19] VITALS (15 sets, daily range): BP systolic 139–168; BP diastolic 75–93; PULSE 64–86; RESP 16–20; TEMP 36.2–36.8; O2SAT 93–98
[2021-09-19] MEDS: oxyCODONE HCL (*CRX) 5 MG TAB IR 10 MG PO ×2 (01:47→18:39)
[2021-09-19] MEDS: IPRATROPIUM BR 0.02% INH SOLN 0.5 MG/2.5 ML VIAL INHALATION ×4 (02:01→20:34)
[2021-09-19] MEDS: ALBUTEROL SULFATE NEB 2.5 MG/0.5 ML INH INHALATION ×4 (02:01→20:34)
[2021-09-19] MEDS: methylPREDNISolone SOD SUCC 125 MG VIAL 60 MG IV PUSH ×3 (06:10→21:09)
[2021-09-19 06:59] LABS: Hematocrit 40.2 % (42.0-52.0); Hemoglobin 13.2 g/dL (14.0-18.0); Mean Corpuscular HGB Conc 32.8 g/dl (32-36); Mean Corpuscular Hemoglobin 32.5 pg (26-34); Mean Platelet Volume 9.6 fl (7.4-10.4); Platelet Count Result 163 k/mm3 (150-375); Red Blood Count 4.06 M/mm3 (4.6-6.20); Red Cell Distribution Width 13.9 % (11.5-14.5); White Blood Count 13.1 K/mm3 (4.5-10.0)
[2021-09-19 07:07] LABS: Anion Gap 11 mmol/L (8-16); Blood Urea Nitrogen 23 mg/dL (9-20); Calcium 9.2 mg/dL (8.4-10.2); Carbon Dioxide 27 mmol/L (22-30); Chloride 102 mmol/L (98-107); Estimated CRCL calculation 94 ml/min; Estimated Glomerular Filt Rate > 60; Glucose 132 mg/dL (65-110); Potassium 4.3 mmol/L (3.4-5.0); Sodium 140 mmol/L (137-145)
[2021-09-19] MEDS: UMECLIDINIUM/VILANTEROL 62.5-25 MCG ELLIPTA 1 PUFF INHALATION (08:34)
[2021-09-19] MEDS: lisinopriL 20 MG TABLET 40 MG PO (09:37)
[2021-09-19] MEDS: amLODIPine BESYLATE 5 MG TABLET 10 MG PO (09:37)
[2021-09-19] MEDS: ENOXAPARIN 40 MG/0.4 ML SYRINGE SUB-Q (09:37)
[2021-09-19] MEDS: FOLIC ACID 1 MG TABLET PO (09:37)
[2021-09-19] MEDS: THIAMINE HCL 100 MG TABLET PO (09:38)
[2021-09-19] MEDS: guaiFENesin 12 HR 600 MG TABCR PO ×2 (09:38→21:09)
--- NOTE | 2021-09-19 12:21 | P.PNIM_ITS ---
Progress Note: A&P Assessment and Plan (1) Sepsis: Qualifiers: Acute respiratory failure type: with hypoxia Sepsis acute organ dysfunction status: with acute organ dysfunction Sepsis type: sepsis due to unspecified organism Severe sepsis acute organ dysfunction type: acute respiratory failure Severe sepsis shock status: without septic shock Qualified Code(s): A41.9 - Sepsis, unspecified organism; R65.20 - Severe sepsis without septic shock; J96.01 - Acute respiratory failure with hypoxia Code(s): A41.9 - Sepsis, unspecified organism Status: Acute Assessment and Plan: Met criteria for sepsis on presentation with fever, tachycardia, tachypnea, and leukocytosis. Source of infection is bilateral pneumonia. Lactic 1.0 * Continue IV antibiotics. * Blood cultures pending, negative to date * Monitor vital signs, labs, and intake and output (2) Acute and chronic respiratory failure with hypoxia: Code(s): J96.21 - Acute and chronic respiratory failure with hypoxia Status: Acute Assessment and Plan: Noted to be hypoxic down to 74% on presentation. He has required up to 5 L supplemental O2 * Currently requiring 1 L per nasal cannula and maintaining adequate O2 sats. Wean oxygen as tolerated. * Likely multifactorial related to COPD exacerbation, bilateral pneumonia * CTA negative for PE * Echocardiogram performed to rule out possible component of congestive heart failure showed normal systolic and diastolic function (3) COPD with acute exacerbation: Code(s): J44.1 - Chronic obstructive pulmonary disease with (acute) exacerbation Status: Acute Assessment and Plan: Diffuse wheezing on exam. * Solu-Medrol 60 mg q12h. Transition to p.o. prednisone 50 mg tomorrow * Albuterol and ipratropium nebs q6H scheduled * Continue Anoro Ellipta (4) Pneumonia: Qualifiers: Laterality: bilateral Lung location: unspecified part of lung Pneumonia type: due to unspecified organism Qualified Code(s): J18.9 - P neumonia, unspecified organism Code(s): J18.9 - Pneumonia, unspecified organism Status: Acute Assessment and Plan: Imaging consistent with bilateral pneumonia and patient was febrile up to 100.2 * Continue azithromycin and Rocephin for coverage of community-acquired pneumonia * Influenza negative, COVID-19 negative. * Supplemental O2 as needed * Supportive care to include bronchodilators, expectorants, antipyretics, and incentive spirometry (5) Tobacco abuse: Code(s): Z72.0 - Tobacco use Status: Acute Assessment and Plan: He reports smoking 1.5 packs daily. * Declines need for nicotine patch * Continue to reinforce smoking cessation. He is motivated to quit smoking (6) Alcohol abuse: Code(s): F10.10 - Alcohol abuse, uncomplicated Status: Acute Assessment and Plan: Reports drinking 4 beers nightly. Does endorse history of alcohol withdrawal but denies seizures * CIWA protocol initiated. CIWA scores have been 0-3 * Ativan as needed for CIWA >8 * He has not had a drink in a couple of days as he had not been feeling well, he is likely out of the acute withdrawal phase as he remains asymptomatic * Will need to be monitor closely given his history of withdrawal symptoms (7) Abnormal chest CT: Code(s): R93.89 - Abnormal findings on diagnostic imaging of other specified body structures Status: Acute Assessment and Plan: CT shows mediastinal and prevascular lymphadenopathy with b
--- NOTE | 2021-09-19 12:21 | PM.IMPN ---
Progress Note: A&P Assessment and Plan (1) Sepsis: Qualifiers: Acute respiratory failure type: with hypoxia Sepsis acute organ dysfunction status: with acute organ dysfunction Sepsis type: sepsis due to unspecified organism Severe sepsis acute organ dysfunction type: acute respiratory failure Severe sepsis shock status: without septic shock Qualified Code(s): A41.9 - Sepsis, unspecified organism; R65.20 - Severe sepsis without septic shock; J96.01 - Acute respiratory failure with hypoxia Code(s): A41.9 - Sepsis, unspecified organism Status: Acute Assessment and Plan: Met criteria for sepsis on presentation with fever, tachycardia, tachypnea, and leukocytosis. Source of infection is bilateral pneumonia. Lactic 1.0 Continue IV antibiotics. Blood cultures pending, negative to date Monitor vital signs, labs, and intake and output (2) Acute and chronic respiratory failure with hypoxia: Code(s): J96.21 - Acute and chronic respiratory failure with hypoxia Status: Acute Assessment and Plan: Noted to be hypoxic down to 74% on presentation. He has required up to 5 L supplemental O2 Currently requiring 1 L per nasal cannula and maintaining adequate O2 sats. Wean oxygen as tolerated. Likely multifactorial related to COPD exacerbation, bilateral pneumonia CTA negative for PE Echocardiogram performed to rule out possible component of congestive heart failure showed normal systolic and diastolic function (3) COPD with acute exacerbation: Code(s): J44.1 - Chronic obstructive pulmonary disease with (acute) exacerbation Status: Acute Assessment and Plan: Diffuse wheezing on exam. Solu-Medrol 60 mg q12h. Transition to p.o. prednisone 50 mg tomorrow Albuterol and ipratropium nebs q6H scheduled Continue Anoro Ellipta (4) Pneumonia: Qualifiers: Laterality: bilateral Lung location: unspecified part of lung Pneumonia type: due to unspecified organism Qualified Code(s): J18.9 - Pneumonia, unspecified organism Code(s): J18.9 - Pneumonia, unspecified organism Status: Acute Assessment and Plan: Imaging consistent with bilateral pneumonia and patient was febrile up to 100.2 Continue azithromycin and Rocephin for coverage of community-acquired pneumonia Influenza negative, COVID-19 negative. Supplemental O2 as needed Supportive care to include bronchodilators, expectorants, antipyretics, and incentive spirometry (5) Tobacco abuse: Code(s): Z72.0 - Tobacco use Status: Acute Assessment and Plan: He reports smoking 1.5 packs daily. Declines need for nicotine patch Continue to reinforce smoking cessation. He is motivated to quit smoking (6) Alcohol abuse: Code(s): F10.10 - Alcohol abuse, uncomplicated Status: Acute Assessment and Plan: Reports drinking 4 beers nightly. Does endorse history of alcohol withdrawal but denies seizures CIWA protocol initiated. CIWA scores have been 0-3 Ativan as needed for CIWA >8 He has not had a drink in a couple of days as he had not been feeling well, he is likely out of the acute withdrawal phase as he remains asymptomatic Will need to be monitor closely given his history of withdrawal symptoms (7) Abnormal chest CT: Code(s): R93.89 - Abnormal findings on diagnostic imaging of other specified body structures Status: Acute Assessment and Plan: CT shows mediastinal and prevascular lymphadenopathy with borderline bilateral hilar lymphadenopathy Most likely reactive secondary to infectious process Malignancy is not excludable. Given his extensive smoking history, he is at higher risk for malignancy. He will benefit from 3 month follow-up chest CT. Subjective Date/time seen: 09/19/21 12:21 Interval history: Date of service: 09/19/2021 Matteo Da Silva is a 71-year-old male with history of COPD, BPH, hypert
[2021-09-19] MEDS: BENZONATATE 100 MG CAPSULE 200 MG PO (12:39)
[2021-09-19] MEDS: GABAPENTIN 100 MG CAPSULE 200 MG PO (21:09)
[2021-09-19] MEDS: TEMAZEPAM (*CRX) 15 MG CAPSULE PO (21:09)
[2021-09-20] VITALS (8 sets, daily range): BP systolic 150–162; BP diastolic 87–88; PULSE 74–85; RESP 18–20; TEMP 36.3–36.6; O2SAT 96–99
[2021-09-20] MEDS: ALBUTEROL SULFATE NEB 2.5 MG/0.5 ML INH INHALATION ×2 (02:18→08:40)
[2021-09-20] MEDS: IPRATROPIUM BR 0.02% INH SOLN 0.5 MG/2.5 ML VIAL INHALATION ×2 (02:18→08:40)
[2021-09-20 06:37] LABS: Hematocrit 40.8 % (42.0-52.0); Hemoglobin 13.7 g/dL (14.0-18.0)
[2021-09-20 06:52] LABS: Anion Gap 9 mmol/L (8-16); Blood Urea Nitrogen 22 mg/dL (9-20); Calcium 9.4 mg/dL (8.4-10.2); Carbon Dioxide 27 mmol/L (22-30); Chloride 103 mmol/L (98-107); Estimated CRCL calculation 94 ml/min; Estimated Glomerular Filt Rate > 60; Glucose 136 mg/dL (65-110); Potassium 4.5 mmol/L (3.4-5.0); Sodium 139 mmol/L (137-145)
[2021-09-20] MEDS: UMECLIDINIUM/VILANTEROL 62.5-25 MCG ELLIPTA 1 PUFF INHALATION (08:40)
[2021-09-20] MEDS: ENOXAPARIN 40 MG/0.4 ML SYRINGE SUB-Q (09:33)
[2021-09-20] MEDS: guaiFENesin 12 HR 600 MG TABCR PO (09:34)
[2021-09-20] MEDS: predniSONE 40 MG, predniSONE 10 MG 50 MG PO (09:34)
[2021-09-20] MEDS: amLODIPine BESYLATE 5 MG TABLET 10 MG PO (09:34)
[2021-09-20] MEDS: lisinopriL 20 MG TABLET 40 MG PO (09:34)
[2021-09-20] MEDS: THIAMINE HCL 100 MG TABLET PO (09:35)
[2021-09-20] MEDS: FOLIC ACID 1 MG TABLET PO (09:35)
[2021-09-20] MEDS: AZITHROMYCIN 250 MG TABLET 500 MG PO (14:34)
--- NOTE | 2021-09-20 15:06 | PM.DS ---
DS: Admitting Diagnosis Discharge Date 09/20/2021 Admitting Diagnosis Acute respiratory failure, sepsis DS: Discharge Diagnosis Discharge Diagnosis (1) Sepsis: Qualifiers: Sepsis type: sepsis due to unspecified organism Sepsis acute organ dysfunction status: with acute organ dysfunction Severe sepsis acute organ dysfunction type: acute respiratory failure Acute respiratory failure type: with hypoxia Severe sepsis shock status: without septic shock Qualified Code(s): A41.9 - Sepsis, unspecified organism; R65.20 - Severe sepsis without septic shock; J96.01 - Acute respiratory failure with hypoxia Code(s): A41.9 - Sepsis, unspecified organism Status: Acute Assessment and Plan: Met criteria for sepsis on presentation with fever, tachycardia, tachypnea, and leukocytosis. Source of infection is bilateral pneumonia. Lactic 1.0. He was treated with antibiotics. Sepsis resolved. Preliminary blood cultures negative to date and final cultures will be monitored. (2) Acute and chronic respiratory failure with hypoxia: Code(s): J96.21 - Acute and chronic respiratory failure with hypoxia Status: Acute Assessment and Plan: Noted to be hypoxic down to 74% on presentation. He required up to 5 L supplemental O2. He was able to be weaned to room air and tolerated this without any further desaturations. [place] to be secondary to COPD exacerbation and bilateral pneumonia. CTA negative for PE. Echocardiogram performed to rule out possible component of CHF which showed normal systolic and diastolic function. (3) COPD with acute exacerbation: Code(s): J44.1 - Chronic obstructive pulmonary disease with (acute) exacerbation Status: Acute Assessment and Plan: Diffuse wheezing on exam. Received IV Solu-Medrol as well as albuterol and ipratropium nebs. Wheezing improved significantly. He was transitioned to p.o. prednisone and will continue 50 mg p.o. prednisone to complete 5 days. Continue Anoro Ellipta and albuterol as needed. (4) Pneumonia: Qualifiers: Laterality: bilateral Lung location: unspecified part of lung Pneumonia type: due to unspecified organism Qualified Code(s): J18.9 - Pneumonia, unspecified organism Code(s): J18.9 - Pneumonia, unspecified organism Status: Acute Assessment and Plan: Imaging consistent with bilateral pneumonia and patient was febrile up to 100.2?. Received IV azithromycin and Rocephin for coverage of community-acquired pneumonia. Influenza negative, COVID-19 negative. Supportive care provided including bronchodilators, expectorants, antipyretics, and incentive spirometry. He will continue p.o. cefdinir and azithromycin to complete a full course of antibiotic therapy. (5) Tobacco abuse: Code(s): Z72.0 - Tobacco use Status: Acute Assessment and Plan: He reports smoking 1.5 packs daily. Declined need for nicotine patch during hospitalization. I discussed smoking cessation with him at length and he is motivated to quit smoking. (6) Alcohol abuse: Code(s): F10.10 - Alcohol abuse, uncomplicated Status: Acute Assessment and Plan: Reports drinking 4 beers nightly. Does endorse history of alcohol withdrawal but denies seizures. CIWA protocol initiated during hospital stay and scores were low between 0-3. No withdrawal symptoms. Discussed with him limiting alcohol intake to recommended to beers or less per day. (7) Abnormal chest CT: Code(s): R93.89 - Abnormal findings on diagnostic imaging of other specified body structures Status: Acute Assessment and Plan: CT shows mediastinal and prevascular lymphadenopathy with borderline bilateral hilar lymphadenopathy. Most likely reactive secondary to infectious process. Malignancy not excludable. Given his extensive smoking history, he is at high risk for malignancy. He will benefit from three-month fol
== END 2021-09-20 14:45 | disposition home or self-care (01) | DRG 193 ==
LOC: ANHED 18:51 → ANH3MEDSUR 09-17 00:35
PROVIDERS: Physician Assistant; Admitting Provider Internal Medicine; Emergency Provider Emergency Medicine; PCP Internal Medicine; Visit Provider Internal Medicine
DX: J18.9 Pneumonia, unspecified organism (principal); J96.21 Acute and chronic respiratory failure with hypoxia; J44.1 Chronic obstructive pulmonary disease with (acute) exacerbation; J44.0 Chronic obstructive pulmonary disease with (acute) lower respiratory infection; Z20.822 Contact with and (suspected) exposure to COVID-19; F17.210 Nicotine dependence, cigarettes, uncomplicated; F10.10 Alcohol abuse, uncomplicated; I10 Essential (primary) hypertension; E78.5 Hyperlipidemia, unspecified; K21.9 Gastro-esophageal reflux disease without esophagitis; R93.89 Abnormal findings on diagnostic imaging of other specified body structures; N40.0 Benign prostatic hyperplasia without lower urinary tract symptoms; M19.09 Primary osteoarthritis, other specified site; G89.4 Chronic pain syndrome; Z79.899 Other long term (current) drug therapy
CPT/HCPCS: 36415; 36600; 71045; 71046; 71275; 80048; 80053; 81001; 82728; 82805; 83605; 83615; 83880; 85014; 85018; 85025; 85027; 85380; 85610; 85730; 86140; 87040; 87804; 93005; 93306; 93970; 94640; 96366; 96372; 96374; 96375; 96376; 99291; A9270; C9803; G0378; J0456; J0696; J1100; J1650; J2930; J7512; Q9967; U0003; U0005

== ENCOUNTER 2021-10-16 13:45 | Outpatient (CLI) | payer MEDICARE, SELFPAY ==
[2021-10-16 14:05] LABS: Basophils Percent Auto 0.4 % (0.2-1.2); Eosinophils Absolute Auto 0.4 K/mm3 (0-0.3); Eosinophils Percent Auto 4.2 % (0-4.4); Hematocrit 45.5 % (42.0-52.0); Hemoglobin 15.2 g/dL (14.0-18.0); Immature Granulocyte Absolute 0.05 K/mm3 (0.00-0.031); Immature Granulocyte Percent A 0.6 % (0-0.5); Lymphocytes Absolute Auto 2.23 K/mm3 (0.9-3.2); Lymphocytes Percent Auto 26.8 % (18.3-44.2); Mean Corpuscular HGB Conc 33.4 g/dl (32-36); Mean Corpuscular Hemoglobin 32.1 pg (26-34); Mean Platelet Volume 9.1 fl (7.4-10.4); Monocytes Absolute Auto 0.8 K/mm3 (0.1-0.6); Neutrophils Absolute Auto 4.9 K/mm3 (1.3-6.7); Platelet Count Result 179 k/mm3 (150-375); Red Blood Count 4.74 M/mm3 (4.6-6.20); Red Cell Distribution Width 13.2 % (11.5-14.5); White Blood Count 8.3 K/mm3 (4.5-10.0)
[2021-10-16 14:20] LABS: Alanine Aminotransferase 17 U/L (4-50); Albumin Level 4.5 g/dL (3.5-5.1); Alkaline Phosphatase 103 U/L (38-126); Anion Gap 9 mmol/L (8-16); Aspartate Amino Transferase 26 U/L (17-59); Bilirubin,Total 0.4 mg/dL (0.2-1.3); Blood Urea Nitrogen 15 mg/dL (9-20); Calcium 9.5 mg/dL (8.4-10.2); Carbon Dioxide 29 mmol/L (22-30); Chloride 102 mmol/L (98-107); Cholesterol 182 mg/dL (0-200); Estimated Glomerular Filt Rate > 60; Glucose 127 mg/dL (65-110); HDL Direct 42 mg/dL; Sodium 140 mmol/L (137-145); Triglycerides 76 mg/dL (<150)
[2021-10-16 14:32] LABS: LDL Cholesterol Direct 125 mg/dL
[2021-10-16 16:23] LABS: Prostate Specific Antigen 0.6 ng/mL (< OR = 4.0)
== END 2021-10-16 13:46 | disposition home or self-care (01) ==
PROVIDERS: PCP Internal Medicine; Visit Provider Nurse Practitioner
DX: N40.1 Benign prostatic hyperplasia with lower urinary tract symptoms (principal); E78.5 Hyperlipidemia, unspecified; N13.8 Other obstructive and reflux uropathy; G47.00 Insomnia, unspecified; D64.9 Anemia, unspecified
CPT/HCPCS: 36415; 80053; 80061; 84153; 84443; 85025

== ENCOUNTER 2022-02-04 09:23 | Outpatient (CLI) | payer MEDICARE, SELFPAY ==
--- NOTE | ~2022-02-04 | CT_ITS ---
EXAMINATION: CT diagnostic chest w con EXAM DATE: 02/04/2022 10:03 INDICATION: R93.89 - Abnormal findings on diagnostic imaging of other... TECHNIQUE: Spiral CT of the chest following intravenous injection of 75 mL Omnipaque 350. Axial, cor onal and sagittal images of the chest were reviewed. Coronal maximum intensity pixel images of chest reviewed. The dose-length product (DLP) for this examination was 427.42 mGy-cm. The exposure was t ailored according to patient size (auto mA exposure control), and iterative reconstruction (ASIR) was used as additional dose reduction technique. Comparison is made to prior examination from 09/16/2021. FINDINGS: Stable to minimal interval decrease in size of mildly enlarged mediastinal, right hilar lym ph nodes compared to prior study which would favor benign etiology such as reactive from granulomatou s process/infection over lymphoma. Previously seen scattered basilar groundglass opacities, pneumonia have resolved. There are chronic tree-in-bud pattern reticular nodular opacities probably postinfectious unchanged. Previously seen small pleural effusions have resolved. There is small pericardial effusion. Tracheob ronchial tree is patent. There is no pneumothorax. Heart normal in size. There are likely coron lindsey arterial stent or stents. Correlate with prior cardiac history. Multiple renal lesions, imaged p ortions are consistent with cysts. Mildly nodular liver contour, possible cirrhosis. Patient has dif fuse idiopathic skeletal hyperostosis (DISH). There are no osteoblastic or osteolytic lesions identif ied. IMPRESSION: 1. Resolution of previously seen pneumonia and small pleural effusions. 2. Stable to mildly decreased size of mediastinal lymphadenopathy. This favors reactive etiology. 3. Chronic postinfectious residua. 4. Possible cirrhosis. Reviewed, dictated and finalized at location B.
[2022-02-04 14:27] LABS: Estimated Glomerular Filt Rate > 60
== END 2022-02-04 09:24 | disposition home or self-care (01) ==
LOC: ANHIMG 09:28
PROVIDERS: PCP Internal Medicine; Visit Provider Nurse Practitioner
DX: R93.89 Abnormal findings on diagnostic imaging of other specified body structures (principal)
CPT/HCPCS: 71260; Q9967

== ENCOUNTER 2022-02-18 08:24 | Outpatient (CLI) | payer MEDICARE, SELFPAY ==
--- NOTE | ~2022-02-18 | CT_ITS ---
EXAMINATION: CT abdomen w con EXAM DATE: 02/18/2022 08:47 INDICATION: R93.2 - Abnormal findings on diagnostic imaging of liver ... TECHNIQUE: Spiral CT of the abdomen was performed following intravenous injection of 100 mL Omnipaque 350. Axial, coronal and sagittal images of the abdomen were reviewed. The dose-length product (DLP ) for this examination was 696.52 mGy-cm. The exposure was tailored according to patient size (auto mA exposure control), and iterative reconstruction (ASIR) was used as additional dose reduction techn ique. Comparison is made to prior examination from 04/11/2016, 08/12/2012. Correlation was made with [facility] CT from 02/04/2022. FINDINGS: Liver has undulations to the contour, appearance is suspicious for cirrhosis. gallbladder i s undistended with enhancing mucosa, thickened wall but no adjacent inflammation or calcified choleli thiasis. This gallbladder wall edema could be reactive from underlying liver disease. There are scatt ered geographically shaped regions of increased liver attenuation, slightly more pronounced enhanceme nt than other regions which could be regenerating nodules. No suspicion of hepatocellular cancer. Pne umobilia. Spleen is normal in size as is the portal vein. Pancreas, adrenal glands are unremarkable. Kidneys en tanya symmetrically, no hydronephrosis. Multiple renal cysts bilaterally up to about 5 cm. There is 8 mm left mid calyceal stone. There is no retroperitoneal lymphadenopathy. There is moderate scattere d arteriosclerotic disease. The stomach and small bowel are unremarkable. There is expected amount of colonic stool. No free i ntraperitoneal gas. The heart is normal in size. There are no pericardial or pleural effusions. T he lung bases are unremarkable. There are no osteoblastic or osteolytic lesions identified. IMPRESSION: Gallbladder wall edema probably reactive from underlying liver disease, cirrhosis. Reviewed, dictated and finalized at location B. IMPRESSION: Gallbladder wall edema probably reactive from underlying liver dise ase, cirrhosis.
[2022-02-18 08:48] LABS: Estimated Glomerular Filt Rate > 60
== END 2022-02-18 08:25 | disposition home or self-care (01) ==
PROVIDERS: PCP Internal Medicine; Visit Provider Nurse Practitioner
DX: R93.2 Abnormal findings on diagnostic imaging of liver and biliary tract (principal)
CPT/HCPCS: 74160; Q9967

== ENCOUNTER 2022-04-22 13:30 | Outpatient (CLI) | payer MEDICARE, SELFPAY ==
[2022-04-22 14:16] LABS: Alanine Aminotransferase 12 U/L (6-50); Albumin Level 4.8 g/dL (3.5-5.1); Alkaline Phosphatase 113 U/L (38-126); Anion Gap 11 mmol/L (8-16); Aspartate Amino Transferase 23 U/L (17-59); Bilirubin,Total 0.5 mg/dL (0.2-1.3); Blood Urea Nitrogen 19 mg/dL (9-20); Calcium 9.1 mg/dL (8.4-10.2); Carbon Dioxide 24 mmol/L (22-30); Chloride 103 mmol/L (98-107); Cholesterol 147 mg/dL (0-200); Estimated Glomerular Filt Rate > 60; Glucose 101 mg/dL (65-110); HDL Direct 38 mg/dL; Sodium 138 mmol/L (137-145); Triglycerides 112 mg/dL (<150)
[2022-04-22 14:26] LABS: LDL Cholesterol Direct 87 mg/dL
[2022-04-22 15:05] LABS: Vitamin B12 > 1000.0 pg/mL (239-931)
== END 2022-04-22 13:31 | disposition home or self-care (01) ==
LOC: ANHLAB 13:35
PROVIDERS: PCP Internal Medicine; Visit Provider Internal Medicine
DX: E78.5 Hyperlipidemia, unspecified (principal); I10 Essential (primary) hypertension; E53.8 Deficiency of other specified B group vitamins
CPT/HCPCS: 36415; 80053; 80061; 82607

== ENCOUNTER 2022-06-27 13:39 | Outpatient (CLI) | payer MEDICARE, SELFPAY ==
--- NOTE | ~2022-06-27 | MR_ITS ---
EXAMINATION: MR cervical spine wo/w con DATE: 06/27/2022 15:17 INDICATION: Anesthesia of skin. Left arm tingling. TECHNIQUE: Magnetic resonance imaging (MRI) of the cervical spine was performed without and with 18 m L MultiHance intravenous contrast. COMPARISON: None FINDINGS: There is 2 mm anterolisthesis of C5 on C6. Vertebral body heights are normal. There is mild ly decreased disc height at C5-C6 and severely decreased disc height at C6-C7. There is increased T2- weighted signal intensity in the spinal cord at C3-C4, consistent with myelomalacia. The following di sc levels are specifically discussed: C2-C3: There is a central extrusion. There is mild left uncovertebral joint osteoarthritis. There is severe bilateral facet joint osteoarthritis. There is mild left neural foraminal stenosis. There is n o central canal stenosis. C3-C4: The disc is bulging. There is mild bilateral uncovertebral joint osteoarthritis. There is letty re bilateral facet joint osteoarthritis. There is mild right and moderate left neural foraminal steno sis. There is moderate central canal stenosis with ventral and dorsal indentation of the spinal cord. C4-C5: There is a central extrusion. There is moderate bilateral uncovertebral joint osteoarthritis. There is severe bilateral facet joint osteoarthritis. There is mild bilateral neural foraminal stenos is. There is mild central canal stenosis. C5-C6: There is a central extrusion. There is severe bilateral uncovertebral joint osteoarthritis. Th ere is severe bilateral facet joint osteoarthritis. There is moderate bilateral neural foraminal sten osis. There is mild central canal stenosis. C6-C7: The disc is bulging. There is severe bilateral uncovertebral joint osteoarthritis. There is mo derate right and severe left facet joint osteoarthritis. There is mild right and moderate left neural foraminal stenosis. There is mild central canal stenosis. C7-T1: There is a central extrusion. There is no uncovertebral joint osteoarthritis. There is severe bilateral facet joint osteoarthritis. There is mild bilateral neural foraminal stenosis. There is no central canal stenosis. IMPRESSION: 1. Severe cervical spondylosis. 2. Myelomalacia at C3-C4. Reviewed, dictated and finalized at location A.
--- NOTE | ~2022-06-27 | MR_ITS ---
EXAMINATION: MR brain/brain stem wo/w con DATE: 06/27/2022 15:17 INDICATION: Anesthesia of skin. Left-sided facial numbness. TECHNIQUE: Magnetic resonance imaging (MRI) of the brain and brainstem was performed without and with 18 mL MultiHance intravenous contrast. COMPARISON: Brain MRI 04/22/2021 FINDINGS: There is an acute infarct in right cerebellum. There are scattered areas of nonspecific inc reased T2-weighted signal intensity in the cerebral white matter, which is within normal limits for t he patient's age. There is no intracranial hemorrhage or abnormal mass lesion. The ventricles are nor mal in size. There is mucosal thickening in the paranasal sinuses. Left maxillary sinus is small. The re is a trace left mastoid effusion. IMPRESSION: 1. 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 Reviewed, dictated and finalized at location A.
== END 2022-06-27 13:40 | disposition home or self-care (01) ==
PROVIDERS: PCP Internal Medicine; Visit Provider Psychiatry & Neurology Neurology
DX: R20.0 Anesthesia of skin (principal); M47.892 Other spondylosis, cervical region; I63.9 Cerebral infarction, unspecified
CPT/HCPCS: 70553; 72156; A9577

== ENCOUNTER 2022-10-29 13:08 | Outpatient (CLI) | payer MEDICARE, SELFPAY ==
[2022-10-29 16:31] LABS: Alanine Aminotransferase 16 U/L (6-50); Albumin Level 4.4 g/dL (3.5-5.1); Alkaline Phosphatase 89 U/L (38-126); Anion Gap 9 mmol/L (8-16); Aspartate Amino Transferase 30 U/L (17-59); Bilirubin,Total 0.8 mg/dL (0.2-1.3); Blood Urea Nitrogen 20 mg/dL (9-20); Calcium 9.3 mg/dL (8.4-10.2); Carbon Dioxide 29 mmol/L (22-30); Chloride 100 mmol/L (98-107); Cholesterol 119 mg/dL (0-200); Estimated Glomerular Filt Rate > 60; Glucose 71 mg/dL (65-110); HDL Direct 38 mg/dL; Potassium 4.5 mmol/L (3.4-5.0); Sodium 138 mmol/L (137-145); Triglycerides 170 mg/dL (<150)
[2022-10-29 16:42] LABS: LDL Cholesterol Direct 57 mg/dL
== END 2022-10-29 13:09 | disposition home or self-care (01) ==
LOC: ANHLAB 13:11
PROVIDERS: PCP Internal Medicine; Visit Provider Nurse Practitioner
DX: E78.5 Hyperlipidemia, unspecified (principal); F32.9 Major depressive disorder, single episode, unspecified; E53.8 Deficiency of other specified B group vitamins
CPT/HCPCS: 36415; 80053; 80061; 82607; 84443

== ENCOUNTER 2022-12-09 14:42 | Outpatient (CLI) | payer MEDICARE, SELFPAY ==
[2022-12-12 00:08] LABS: PCP NEGATIVE ng/mL (<25)
[2022-12-15 09:00] LABS: Amphetamines Negative; Barbiturates Negative; Benzodiazepines Positive; Cocaine Metabolites Negative; Marijuana Metabolites Positive
== END 2022-12-09 14:43 | disposition home or self-care (01) ==
LOC: ANHLAB 14:45
PROVIDERS: PCP Internal Medicine; Visit Provider Internal Medicine
DX: Z79.899 Other long term (current) drug therapy (principal)
CPT/HCPCS: 80307

== ENCOUNTER 2022-12-23 17:23 | Emergency (ER) | payer MEDICARE, SELFPAY ==
[2022-12-23 17:26] VITALS: BP 149/76; PULSE 86; RESP 18; TEMP 36.6; O2SAT 98
[2022-12-23 17:42] LABS: Basophils Absolute Auto 0.1 K/mm3 (0.0-0.1); Basophils Percent Auto 0.4 % (0.2-1.2); Eosinophils Absolute Auto 0.1 K/mm3 (0-0.3); Eosinophils Percent Auto 0.5 % (0-4.4); Hemoglobin 14.9 g/dL (14.0-18.0); Immature Granulocyte Absolute 0.07 K/mm3 (0.00-0.031); Immature Granulocyte Percent A 0.5 % (0-0.5); Lymphocytes Absolute Auto 1.75 K/mm3 (0.9-3.2); Lymphocytes Percent Auto 11.7 % (18.3-44.2); Mean Corpuscular HGB Conc 33.1 g/dl (32-36); Mean Corpuscular Hemoglobin 31.3 pg (26-34); Mean Corpuscular Volume 94.5 fl (80-100); Monocytes Absolute Auto 1.6 K/mm3 (0.1-0.6); Monocytes Percent Auto 10.4 % (2.6-8.5); Neutrophils Absolute Auto 11.5 K/mm3 (1.3-6.7); Neutrophils Percent Auto 76.5 % (45.5-73.1); Platelet Count Result 210 k/mm3 (150-375); Red Blood Count 4.76 M/mm3 (4.6-6.20); Red Cell Distribution Width 13.2 % (11.5-14.5)
[2022-12-23 17:51] LABS: Alanine Aminotransferase 14 U/L (6-50); Albumin Level 4.4 g/dL (3.5-5.1); Alkaline Phosphatase 103 U/L (38-126); Anion Gap 6 mmol/L (8-16); Aspartate Amino Transferase 27 U/L (17-59); Bilirubin,Total 0.6 mg/dL (0.2-1.3); Blood Urea Nitrogen 16 mg/dL (9-20); Calcium 8.7 mg/dL (8.4-10.2); Carbon Dioxide 29 mmol/L (22-30); Chloride 95 mmol/L (98-107); Estimated CRCL calculation 77 ml/min; Estimated Glomerular Filt Rate > 60; Glucose 102 mg/dL (65-110); Lipase 36 U/L (23-300); Potassium 3.8 mmol/L (3.4-5.0); Sodium 130 mmol/L (137-145)
[2022-12-23 18:17] LABS: Appearance Urine Clear (Clear); Bilirubin Urine 1+ (Negative); Blood Urine Trace-intact (Negative); Color Urine Amber (Yellow); Glucose Urine UA Negative (Negative); Ketones Urine Trace mg/dL (Negative); Leukocyte Esterase Ur Negative LEU/UL (Negative); Nitrate Urine Negative (Negative); Protein Urine 2+ mg/dL (Negative); pH Urine 5.5 (5.0-9.0)
[2022-12-23 18:18] LABS: Mucus Urine Rare /lpf
[2022-12-23 18:32] LABS: Add Urine Microscopic? YES
[2022-12-23 18:46] LABS: WBC Urine 0-3 /hpf
--- NOTE | 2022-12-23 20:45 | PC.NURSE ---
patyient states i just cant sit here anymore and left from waiting area
== END 2022-12-23 21:31 | disposition left against medical advice (07) ==
PROVIDERS: Emergency Provider Emergency Medicine; PCP Internal Medicine
DX: R10.9 Unspecified abdominal pain (principal)
CPT/HCPCS: 36415; 80053; 81001; 83690; 85025; 99199

== ENCOUNTER 2023-05-15 14:21 | Outpatient (CLI) | payer MEDICARE, SELFPAY ==
[2023-05-15 14:49] LABS: Alanine Aminotransferase 18 U/L (6-50); Albumin Level 4.6 g/dL (3.5-5.1); Alkaline Phosphatase 106 U/L (38-126); Anion Gap 9 mmol/L (8-16); Aspartate Amino Transferase 28 U/L (17-59); Bilirubin,Total 0.5 mg/dL (0.2-1.3); Blood Urea Nitrogen 18 mg/dL (9-20); Calcium 9.1 mg/dL (8.4-10.2); Carbon Dioxide 27 mmol/L (22-30); Chloride 102 mmol/L (98-107); Cholesterol 119 mg/dL (0-200); Estimated Glomerular Filt Rate > 60; Glucose 112 mg/dL (65-110); HDL Direct 41 mg/dL; Potassium 4.1 mmol/L (3.4-5.0); Sodium 138 mmol/L (137-145); Triglycerides 59 mg/dL (<150)
[2023-05-15 15:00] LABS: LDL Cholesterol Direct 62 mg/dL
== END 2023-05-15 14:22 | disposition home or self-care (01) ==
PROVIDERS: PCP Family Medicine; Visit Provider Family Medicine
DX: E53.8 Deficiency of other specified B group vitamins (principal); E78.5 Hyperlipidemia, unspecified; I10 Essential (primary) hypertension; K74.60 Unspecified cirrhosis of liver
CPT/HCPCS: 36415; 80053; 80061; 82607

== ENCOUNTER 2023-10-09 10:13 | Outpatient (CLI) | payer MEDICARE, SELFPAY ==
--- NOTE | ~2023-10-09 | CT_ITS ---
EXAMINATION: CT lung screening DATE: 10/09/2023 11:37 INDICATION: Personal history of nicotine dependence TECHNIQUE: Computed tomography (CT) of the chest was performed without intravenous contrast. The dose -length product was 229.20 mGy-cm. Automated exposure control and iterative reconstruction technique were employed. COMPARISON: CT dated 02/04/2022 FINDINGS: No significant pleural or pericardial effusion. There is mediastinal lymphadenopathy which appears chronic. No significant pleural or pericardial effusion. There are small scattered nodules so me of which have a groundglass appearance measuring 5 mm or less. No endobronchial lesions. There is a new 6 mm left lower lobe nodule adjacent to the diaphragm. There is pneumobilia. There is gas in th e gallbladder lumen. Correlate for prior history of sphincterotomy. There are complicated and simple bilateral renal cysts which appear unchanged from prior studies. There are nonobstructing left renal stones. IMPRESSION: 1. Lung-RADS category 3: Probably benign. Further evaluation is recommended with noncontrast low-dose chest CT in 6 months. Reviewed, dictated and finalized at location B. LY LAW MEDIATOR IMPRESSION: 1. Lung-RADS category 3: Probably benign. Further evaluation is recommended wit h noncontrast low-dose chest CT in 6 months.
== END 2023-10-09 10:14 | disposition home or self-care (01) ==
LOC: ANHIMG 10:14
PROVIDERS: PCP Family Medicine; Visit Provider Internal Medicine Pulmonary Disease
DX: Z12.2 Encounter for screening for malignant neoplasm of respiratory organs (principal); Z87.891 Personal history of nicotine dependence; R91.8 Other nonspecific abnormal finding of lung field
CPT/HCPCS: 71271

== ENCOUNTER 2023-10-09 10:15 | Outpatient (CLI) | payer MEDICARE, SELFPAY ==
[2023-10-09 10:54] LABS: Alveolar/Arterial O2 Gradient 23.3 mmHg; Base Excess ABG 1.1 mEq/l (+/-2.0); Carboxyhemoglobin 5.6 % THb (0-2.0); Fractional Inspired Oxygen 21 %; HCO3 ABG 25.9 mEq/l (22.0-26.0); Methemoglobin ABG 0.3 %THb (0-1.5); Oxygen Content ABG 18.1 %vol (16.0-22.0); Oxygen Saturation ABG 95.4 % (95.0-100.0); Oxyhemoglobin 88.4 % THb (90.0-100.0); PCO2 ABG 41.9 mmHg (35.0-45.0); PO2 ABG 76.3 mmHg (80.0-100.0); PO2 FiO2 Ratio Arterial Blood 3.63 %; Reduced Hemoglobin 5.7 %THb (0-5.0); Total Hemoglobin 14.5 g/dL (12.0-18.0); pH ABG 7.409 (7.350-7.450)
[2023-10-09 10:56] LABS: Device ROOM AIR; Modified Allen's Test Pass
--- NOTE | 2023-10-09 14:04 | WPDPFTINT ---
PFT Procedure Performed PFT Procedure Performed Spirometry with Pre/Post Bronchodilator Plethysmography (Lung Vol) Diffusing Cap (DLCO) Flow Vol Loop PFT Interpretation This is a pulmonary function test with pre and post-bronchodilator spirometry, plethysmography and diffusing capacity. The test was performed and results interpreted in accordance with the 2019 and 2005 ATS/ERS Task Force guidelines respectively using the Global Lung Function Initiative-2012 reference equations. Patient demonstrated good effort and cooperation. Reproducibility criteria were met. The quality of the pre bronchodilator spirometry maneuver was Grade A and post bronchodilator spirometry maneuver was Grade A. Findings: Spirometry: There is decreased maximal expiratory airflow at all lung volumes with concave expiratory flow tracing. The contour the inspiratory flow tracing is normal. The pre bronchodilator FEV1 is 3.21 L, 72% predicted. The pre bronchodilator FEV1 is 1.54 L, 47% predicted. The pre bronchodilator FEV1: FVC ratio is 48%. The post bronchodilator FVC is 3.95 L, representing a 23% increase. The post bronchodilator FEV1 is 1.75 L, representing a 13% increase. The post bronchodilator FEV1: FVC ratio is 44%. Plethysmography: The total lung capacity is 8.39 L, 110% predicted. The functional residual capacity is 5.87 L, 142% predicted. The residual volume is 5.18 L, 191% predicted. Diffusing capacity: The diffusing capacity unadjusted for hemoglobin and carboxyhemoglobin is 10.1, 38% predicted. The diffusing capacity adjusted for alveolar volume is 2.88, 80% predicted. Impression: There is a severe obstructive abnormality with significant improvement after inhaling a single dose of albuterol. The increase in residual volume is consistent with air trapping from an obstructive abnormality. Hyperinflation is present as demonstrated by the increase in functional residual capacity and is consistent with an obstructive abnormality. The diffusing capacity unadjusted for hemoglobin and carboxyhemoglobin is severely decreased and normalizes when adjusted for alveolar volume. There are no prior studies for comparison
--- NOTE | 2023-10-09 16:39 | WPDSIXMINUTE ---
Six Minute Walk Procedure Procedure Performed Pulmonary Stress Test (6 min walk) Six Minute Walk Six Minute Walk: This is a 6 minute walk test. The test was performed and interpreted in accordance with the 2014 ERS/ATS task force guidelines. Findings:? The patient's resting room air oxygen saturation measured by pulse oximetry was 93% and heart rate was 75 bpm.? Patient ambulated for 305 meters and oxygen saturation remained 91 to 96%.? Heart rate at the end of the study was 69 bpm. The patient did not qualify for supplemental oxygen at rest or with ambulation. There are no prior studies for comparison.
== END 2023-10-09 10:16 | disposition home or self-care (01) ==
PROVIDERS: PCP Family Medicine; Visit Provider Internal Medicine Pulmonary Disease
DX: J44.9 Chronic obstructive pulmonary disease, unspecified (principal); R94.2 Abnormal results of pulmonary function studies
CPT/HCPCS: 36600; 82375; 82805; 83050; 94060; 94618; 94726; 94729

== ENCOUNTER 2023-11-26 10:20 | Outpatient (CLI) | payer MEDICARE, SELFPAY ==
[2023-11-26 10:48] LABS: Hematocrit 45.7 % (42.0-52.0); Hemoglobin 14.3 g/dL (14.0-18.0); Mean Corpuscular HGB Conc 31.3 g/dl (32-36); Mean Corpuscular Hemoglobin 30.4 pg (26-34); Mean Platelet Volume 9.1 fl (7.4-10.4); Platelet Count Result 229 k/mm3 (150-375); Red Blood Count 4.71 M/mm3 (4.6-6.20); Red Cell Distribution Width 13.6 % (11.5-14.5); White Blood Count 10.3 K/mm3 (4.5-10.0)
[2023-11-26 10:56] LABS: Add Urine Microscopic? YES; Appearance Urine Clear (Clear); Bacteria Urine None Seen /hpf; Bilirubin Urine Negative (Negative); Blood Urine Negative (Negative); Color Urine Yellow (Yellow); Glucose Urine UA Negative (Negative); Ketones Urine Negative (Negative); Leukocyte Esterase Ur Negative LEU/UL (NEGATIVE); Nitrate Urine Negative (Negative); Non Pathogenic Casts 0-2; Protein Urine 1+ mg/dL (Negative); RBC Urine 0-2 /hpf (0-2); Specific Grav Ur 1.012 (1.001-1.035); Squamous Epithelial Cell Urine None seen /hpf (Few); WBC Urine 0-5 /hpf (0-3)
[2023-11-26 10:58] LABS: Alanine Aminotransferase 12 U/L (6-50); Albumin Level 4.2 g/dL (3.5-5.1); Alkaline Phosphatase 111 U/L (38-126); Anion Gap 9 mmol/L (8-16); Aspartate Amino Transferase 29 U/L (17-59); Bilirubin,Total 0.5 mg/dL (0.2-1.3); Blood Urea Nitrogen 13 mg/dL (9-20); Calcium 9.1 mg/dL (8.4-10.2); Carbon Dioxide 29 mmol/L (22-30); Chloride 101 mmol/L (98-107); Cholesterol 123 mg/dL (0-200); Estimated Glomerular Filt Rate > 60; Glucose 92 mg/dL (65-110); HDL Direct 39 mg/dL; Potassium 4.4 mmol/L (3.4-5.0); Sodium 139 mmol/L (137-145); Triglycerides 57 mg/dL (<150)
[2023-11-26 11:08] LABS: LDL Cholesterol Direct 73 mg/dL
[2023-11-26 11:25] LABS: Vitamin D 25 Hydroxy 15.7 ng/mL
[2023-11-26 11:28] LABS: Prostate Specific Antigen 0.7 ng/mL (< OR = 4.0)
== END 2023-11-26 10:21 | disposition home or self-care (01) ==
LOC: ANHLAB 10:25
PROVIDERS: PCP Family Medicine; Visit Provider Family Medicine
DX: F10.10 Alcohol abuse, uncomplicated (principal); F32.9 Major depressive disorder, single episode, unspecified; G47.00 Insomnia, unspecified; G62.9 Polyneuropathy, unspecified; G89.29 Other chronic pain; I10 Essential (primary) hypertension; J44.9 Chronic obstructive pulmonary disease, unspecified; K21.9 Gastro-esophageal reflux disease without esophagitis; K74.60 Unspecified cirrhosis of liver; A41.9 Sepsis, unspecified organism; J44.1 Chronic obstructive pulmonary disease with (acute) exacerbation; M51.36 Other intervertebral disc degeneration, lumbar region; Z12.5 Encounter for screening for malignant neoplasm of prostate
CPT/HCPCS: 36415; 80053; 80061; 81001; 82306; 82607; 84153; 84443; 85027; G0103

== ENCOUNTER 2024-03-10 15:14 | Outpatient (CLI) | payer MEDICARE, SELFPAY ==
[2024-03-10 15:58] LABS: Alanine Aminotransferase 12 U/L (6-50); Albumin Level 4.4 g/dL (3.5-5.1); Alkaline Phosphatase 94 U/L (38-126); Anion Gap 7 mmol/L (4-12); Aspartate Amino Transferase 25 U/L (17-59); Bilirubin,Total 0.6 mg/dL (0.2-1.3); Blood Urea Nitrogen 22 mg/dL (9-20); Calcium 9.4 mg/dL (8.4-10.2); Carbon Dioxide 23 mmol/L (22-30); Chloride 96 mmol/L (98-107); Estimated Glomerular Filt Rate 49; Glucose 101 mg/dL (65-110); Potassium 5.1 mmol/L (3.4-5.0); Sodium 126 mmol/L (137-145)
[2024-03-10 16:06] LABS: NT Pro B Type Natriuretic Pept 2250 pg/mL (19.9-100)
== END 2024-03-10 15:15 | disposition home or self-care (01) ==
LOC: ANHLAB 15:15
PROVIDERS: PCP Family Medicine; Visit Provider Family Medicine
DX: I50.42 Chronic combined systolic (congestive) and diastolic (congestive) heart failure (principal); M79.89 Other specified soft tissue disorders
CPT/HCPCS: 36415; 80053; 83880

== ENCOUNTER 2024-03-23 15:35 | Outpatient (CLI) | payer MEDICARE, SELFPAY ==
[2024-03-23 16:09] LABS: Anion Gap 8 mmol/L (4-12); Blood Urea Nitrogen 20 mg/dL (9-20); Calcium 9.2 mg/dL (8.4-10.2); Carbon Dioxide 27 mmol/L (22-30); Chloride 97 mmol/L (98-107); Estimated Glomerular Filt Rate 59; Glucose 90 mg/dL (65-110); Potassium 4.3 mmol/L (3.4-5.0); Sodium 132 mmol/L (137-145)
[2024-03-23 21:54] LABS: NT Pro B Type Natriuretic Pept 1590 pg/mL (19.9-100)
== END 2024-03-23 15:36 | disposition home or self-care (01) ==
PROVIDERS: PCP Family Medicine; Visit Provider Family Medicine
DX: E87.1 Hypo-osmolality and hyponatremia (principal); R06.89 Other abnormalities of breathing
CPT/HCPCS: 36415; 80048; 83880

== ENCOUNTER 2024-03-25 12:38 | Outpatient (CLI) | payer MEDICARE, SELFPAY ==
--- NOTE | ~2024-03-25 | XR_ITS ---
XR chest 2V DATE: 03/25/2024 12:58 INDICATION: Cough. History of COPD. TECHNIQUE: PA and lateral views COMPARISON: 10/09/2023 CT lung screening FINDINGS: Normal heart size. No hilar or mediastinal enlargement. Moderate bilateral hyperinflation. No pulmonary infiltrate or consolidation, pleural effusion or pulm onary vascular congestion or pneumothorax. Diffuse hepatic skeletal hyperostosis of the thoracic spine. IMPRESSION: Moderate hyperinflation; no active cardiopulmonary disease Reviewed, dictated and finalized at location B.
== END 2024-03-25 12:39 | disposition home or self-care (01) ==
PROVIDERS: PCP Family Medicine; Visit Provider Family Medicine
DX: R79.89 Other specified abnormal findings of blood chemistry (principal); R60.9 Edema, unspecified; R91.8 Other nonspecific abnormal finding of lung field
CPT/HCPCS: 71046

== ENCOUNTER 2024-04-09 08:59 | Outpatient (CLI) | payer MEDICARE, SELFPAY ==
--- NOTE | ~2024-04-09 | CT_ITS ---
EXAMINATION:CT diagnostic chest w con DATE: 04/09/2024 09:42 INDICATION: Abnormal findings on diagnostic imaging. TECHNIQUE: Computed tomography (CT) of the chest was performed with 75 mL Omnipaque 350 intravenous c ontrast. Automated exposure control and iterative reconstruction technique were employed. The dose-le ngth product (DLP) was 607.34 mGy-cm. COMPARISON: Chest CT 10/09/2023 FINDINGS: There is mild emphysema. Calcified left lung nodules and calcified mediastinal lymph nodes are consistent with old granulomatous disease. There is mild bronchiectasis in right lower lobe. Ther e is minimal atelectasis bilaterally. There is a new 7 mm nodule in left lung lower lobe. Other left lower lobe nodules have resolved. No pleural effusion. Cardiomegaly is noted. There are coronary maria antonia ry calcifications. No pericardial effusion. There is chronic mild mediastinal lymphadenopathy, likely reactive. Pneumobilia is noted, likely secondary to sphincterotomy. There are cysts in the kidneys m easuring up to 6.5 cm on the left. Partially visualized is a 6 mm stone in left kidney. There are idris dging endplate osteophytes at multiple levels in the spine, consistent with diffuse idiopathic skelet al hyperostosis (DISH). There is moderate thoracic spondylosis. IMPRESSION: 1. Lung-RADS category 4A: Suspicious. Noncontrast low-dose chest CT is recommended in 3 months. Reviewed, dictated and finalized at location E. IMPRESSION: 1. Lung-RADS category 4A: Suspicious. Noncontrast low-dose chest CT is recommen ded in 3 months.
== END 2024-04-09 09:00 | disposition home or self-care (01) ==
PROVIDERS: PCP Family Medicine; Visit Provider Internal Medicine Pulmonary Disease
DX: R93.89 Abnormal findings on diagnostic imaging of other specified body structures (principal); R91.8 Other nonspecific abnormal finding of lung field
CPT/HCPCS: 71260; Q9967

== ENCOUNTER 2024-06-04 13:04 | Outpatient (CLI) | payer MEDICARE, SELFPAY ==
[2024-06-04 13:19] LABS: Hematocrit 44.1 % (42.0-52.0); Hemoglobin 14.2 g/dL (14.0-18.0); Mean Corpuscular HGB Conc 32.2 g/dl (32-36); Mean Corpuscular Hemoglobin 29.3 pg (26-34); Mean Corpuscular Volume 91.1 fl (80-100); Mean Platelet Volume 8.8 fl (7.4-10.4); Platelet Count Result 216 k/mm3 (150-375); Red Blood Count 4.84 M/mm3 (4.6-6.20); Red Cell Distribution Width 13.5 % (11.5-14.5); White Blood Count 9.5 K/mm3 (4.5-10.0)
[2024-06-04 13:33] LABS: Alanine Aminotransferase 11 U/L (6-50); Albumin Level 4.6 g/dL (3.5-5.1); Alkaline Phosphatase 109 U/L (38-126); Anion Gap 11 mmol/L (4-12); Aspartate Amino Transferase 26 U/L (17-59); Bilirubin,Total 0.7 mg/dL (0.2-1.3); Blood Urea Nitrogen 19 mg/dL (9-20); Calcium 9.1 mg/dL (8.4-10.2); Carbon Dioxide 29 mmol/L (22-30); Chloride 94 mmol/L (98-107); Estimated Glomerular Filt Rate 59; Glucose 98 mg/dL (65-110); Potassium 4.2 mmol/L (3.4-5.0); Sodium 134 mmol/L (137-145)
[2024-06-04 13:39] LABS: NT Pro B Type Natriuretic Pept 1410 pg/mL (19.9-100)
== END 2024-06-04 13:05 | disposition home or self-care (01) ==
PROVIDERS: PCP Family Medicine; Visit Provider Family Medicine
DX: E87.1 Hypo-osmolality and hyponatremia (principal); R79.89 Other specified abnormal findings of blood chemistry; F10.10 Alcohol abuse, uncomplicated; F32.9 Major depressive disorder, single episode, unspecified; G62.9 Polyneuropathy, unspecified; I10 Essential (primary) hypertension; J44.9 Chronic obstructive pulmonary disease, unspecified; K21.9 Gastro-esophageal reflux disease without esophagitis; K74.60 Unspecified cirrhosis of liver; E78.5 Hyperlipidemia, unspecified; I50.42 Chronic combined systolic (congestive) and diastolic (congestive) heart failure
CPT/HCPCS: 36415; 80053; 83880; 85027

== ENCOUNTER 2024-07-04 12:37 | Outpatient (CLI) | payer MEDICARE, SELFPAY ==
--- NOTE | 2024-07-04 12:48 | ECHO_ITS ---
Patient Info Name: Matteo Da Silva Age: 73 years : 1950 Gender: Male Ht: 74 in Wt: 210 lbs BSA: 2.24 m2 HR: 70 bpm BP: 133 / 68 mmHg Heart Rhythm: Atrial Fibrillation Technical Quality: Fair Exam Date: 07/04/2024 12:56 PM Exam Location: Echo Lab Patient Status: Outpatient Admit Date: 07/04/2024 Staff Ordering Physician: Lucien King MD In Service Educator: Lisa Bush RDCS Attending Provider: Lucien King MD Referring Physician: Fernando CHANDLER; Exam Type: CA echo doppler color flow Study Info Indications R60.9 - Edema, unspecified Complete two-dimensional, color flow and Doppler transthoracic echocardiogram is performed. Summary 1. Complete two-dimensional, color flow and Doppler transthoracic echocardiogram is performed. 2. Left ventricular chamber dimension is mildly enlarged. 3. Left ventricular systolic function is normal, estimated at 55-60%. 4. The left ventricular diastolic function is normal. 5. E/e' 9 is minimally elevated. 6. Left atrial chamber dimension is mildly enlarged. 7. There is trace mitral valve regurgitation. 8. No pulmonary hypertension, estimated pulmonary arterial systolic pressure is 34 mmHg. Left Ventricle E/e' 9 is minimally elevated. Left ventricular chamber dimension is mildly enlarged. Left ventricular systolic function is normal, estimated at 55-60%. The left ventricular diastolic function is normal. Right Ventricle Right ventricular systolic function is normal and with normal TAPSE 1.9 cm. Right ventricular chamber dimension is normal. Left Atria Left atrial chamber dimension is mildly enlarged. Right Atria Right atrial chamber dimension is normal. Aortic Valve The aortic valve is trileaflet. There is no aortic valve stenosis. There is no aortic valve regurgitation. Pulmonic Valve There is no pulmonic regurgitation. Mitral Valve There is no mitral valve stenosis. There is trace mitral valve regurgitation. Tricuspid Valve There is no tricuspid valve regurgitation. No pulmonary hypertension, estimated pulmonary arterial systolic pressure is 34 mmHg. Pericardium/Pleural There is no pericardial effusion. Inferior Vena Cava Normal inferior vena cava with >50% collapse upon inspiration consistent with normal right atrial pressure, 5 mmHg. Aorta The aortic root size at the sinus of Valsalva is normal. Left Ventricular Outflow Tract Name Value Normal LVOT 2D LVOT Diameter 2.1 cm LVOT Doppler LVOT Peak Gradient 3 mmHg LVOT Mean Gradient 2 mmHg LVOT VTI 16 cm LVOT VTI/AV VTI Ratio 0.8 LVOT Stroke Volume 56 ml LVOT CO 3.8 l/min LVOT CI 1.7 l/min/m2 Pulmonic Valve Name Value Normal RVOT Doppler RVOT Peak Gradient 1 mmHg PV Doppler ---------
== END 2024-07-04 12:38 | disposition home or self-care (01) ==
LOC: ANHCARD 12:41
PROVIDERS: PCP Family Medicine; Visit Provider Family Medicine
DX: R60.9 Edema, unspecified (principal); R79.89 Other specified abnormal findings of blood chemistry; Z12.11 Encounter for screening for malignant neoplasm of colon
CPT/HCPCS: 93306

== ENCOUNTER 2024-07-18 13:55 | Outpatient (CLI) | payer MEDICARE, SELFPAY ==
--- NOTE | ~2024-07-18 | CT_ITS ---
CT Scan of the Chest without Contrast: Clinical Indication: Pulmonary nodule Technique: Contiguous sections were acquired throughout the chest without intravenous contrast. Dose reduction technique was used on this scan by utilizing automated exposure control and iterative recon struction technique. The dose-length product (DLP) was 186.53 mGy-cm. COMPARISON: 04/09/2024 Findings: Stable mild mediastinal lymphadenopathy, largest node at the precarinal region. Extensive coronary ar ananya calcifications are present. No aortic aneurysm. There is no evidence of pleural or pericardial effusion. There are probable scattered focal areas of minimal tree-in-bud opacity and mild bronchiolectasis at the lung bases. Previously noted 7 mm left lower lobe pulmonary nodule is improved. Images through the upper abdomen reveal pneumobilia. Impression: Minimal scattered tree-in-bud opacities and minimal bronchiolectasis, suggestive of small airways inf ectious process. 7 mm left lower lobe pulmonary nodule seen on prior exam is improved. Reviewed, dictated and finalized at [facility]. Impression: Minimal scattered tree-in-bud opacities and minimal bronchiolectasis, suggestiv e of small airways infectious process. 7 mm left lower lobe pulmonary nodule seen on prior exam is improved.
== END 2024-07-18 13:56 | disposition home or self-care (01) ==
LOC: ANHIMG 13:59
PROVIDERS: PCP Family Medicine; Visit Provider Internal Medicine Pulmonary Disease
DX: R91.1 Solitary pulmonary nodule (principal)
CPT/HCPCS: 71250

== ENCOUNTER 2024-12-12 14:37 | Outpatient (CLI) | payer MEDICARE, SELFPAY ==
[2024-12-12 15:08] LABS: Hematocrit 41.7 % (42.0-52.0); Hemoglobin 13.6 g/dL (14.0-18.0); Mean Corpuscular HGB Conc 32.6 g/dl (32-36); Mean Corpuscular Volume 88.9 fl (80-100); Mean Platelet Volume 9.2 fl (7.4-10.4); Platelet Count Result 214 k/mm3 (150-375); Red Blood Count 4.69 M/mm3 (4.6-6.20); Red Cell Distribution Width 12.9 % (11.5-14.5); White Blood Count 8.7 K/mm3 (4.5-10.0)
[2024-12-12 15:17] LABS: Alanine Aminotransferase 13 U/L (6-50); Albumin Level 4.3 g/dL (3.5-5.1); Alkaline Phosphatase 128 U/L (38-126); Anion Gap 8 mmol/L (4-12); Aspartate Amino Transferase 27 U/L (17-59); Bilirubin,Total 0.9 mg/dL (0.2-1.3); Blood Urea Nitrogen 20 mg/dL (9-20); Calcium 9.3 mg/dL (8.4-10.2); Carbon Dioxide 32 mmol/L (22-30); Chloride 93 mmol/L (98-107); Cholesterol 114 mg/dL (0-200); Estimated Glomerular Filt Rate > 60; Glucose 93 mg/dL (65-110); HDL Direct 41 mg/dL; Potassium 4.9 mmol/L (3.4-5.0); Sodium 133 mmol/L (137-145); Triglycerides 110 mg/dL (<150)
[2024-12-12 15:28] LABS: LDL Cholesterol Direct 62 mg/dL
--- OUTSIDE RECORDS SUMMARY | 2024-12-12 15:34 | XMS_ITS | Clinical Summary ---
Author Organization [facility] Address [address] [place] [address] Phone Care Team Providers Care Eligibility And Occupancy Interviewer Name Role Phone Provider, None Primary Care Provider Unavailabl e Allergies No known active allergies Medications albuterol 108 (90 Base) MCG/ACT Aerosol Solution take 90 mcg by inhalation 5 times daily as needed. 3 Active amLODIPine (NORVASC) 10 MG Tablet Take 10 mg by mouth daily. 2 Active Benzonatate 200 MG Capsule Take 200 mg by mouth 3 times daily as needed. 3 Active lisinopril (PRINIVIL, ZESTRIL) 40 MG Tablet Take 40 mg by mouth daily. Active thiamine (VITAMIN B1) 100 MG Tablet Take 100 mg by mouth daily. 2 Active oxyCODONE 10 MG Tablet Take 10 mg by mouth every 8 hours as needed. 3 Active albuterol (ACCUNEB) 0.63 MG/3ML Nebulizer Soln 0.63 mg by Nebulization route every 4 hours as needed. 3 Active gabapentin (NEURONTIN) 300 MG Capsule Take 300 mg by mouth nightly. 2 Active temazepam (RESTORIL) 15 MG Capsule Take 15 mg by mouth nightly. 3 Active tamsulosin (FLOMAX) 0.4 MG Capsule Take 1 Capsule by mouth every morning. 90 Capsule 3 Active Active Problems Problem Noted Date Diagnosed Date Acute colitis 12/26/2022 Resolved Problems Problem Noted Date Diagnosed Date Resolved Date Acute cholecystitis 12/25/2022 12/26/19 23 Family History Medical History Relation Name Comments Hypertension Brother No Known Problems Daughter 1 No Known Problems Daughter 2 No Known Problems Daughter 3 Chronic Obstructive Pulmonary Disease Father Heart Attack Father Lupus Mother Chronic Obstructive Pulmonary Disease Sister Relation Name Status Comments Brother Alive Daughter 1 Alive Daughter 2 Alive Daughter 3 Alive Father Mother Sister Alive Social History Tobacco Use Types Packs/Day Years Used Date Smoking Tobacco: Every Day Cigarettes 1.5 59.1 Started: 1967 Smokeless Tobacco: Never Tobacco Cessation:Ready to Q uit: Not Asked; Counseling Given: Not Answered Alcohol Use Standard Drinks/Week Comments Yes 0 (1 standard drink = 0.6 oz pure alcohol) 4-5 beers per day, used to drink 12 pack a day Sexually Active Control Partners Comments Not Currently Female Sex and Gender Information Value Date Recorded Sex Assigned at Not on file Legal Sex Male 5:43 PM CDT Gender Identity Not on file Sexual Orientation Not on file Last Filed Vital Signs Vital Sign Reading Time Taken Comments Blood Pressure 150/86 12/27/2022 5:32 AM ENRICHMENT DIRECTOR Pulse 93 12/27/2022 8:12 AM ENRICHMENT DIRECTOR Temperature 36.6 ??C (97.9 ??F) 12/27/2022 5:32 AM CS T Respiratory Rate 18 12/27/2022 8:12 AM ENRICHMENT DIRECTOR Oxygen Saturation 93% 12/27/2022 8:12 AM ENRICHMENT DIRECTOR Inhaled Oxygen Concentration - - Weight 90.7 kg (200 lb) 12/24/2022 8:02 PM ENRICHMENT DIRECTOR Height 182.9 cm (6') 12/24/2022 8:02 PM ENRICHMENT DIRECTOR Body Mass Index 27.12 12/24/2022 8:02 PM ENRICHMENT DIRECTOR Plan of Treatment Health Maintenance Due Date Last Done Comments Hepatitis C Virus (HCV) Screening 1950 TdaP Immunization 1950 Zoster Immunization (1 of 2) 1998 Pneumococcal Immunization (5 0+ years) (2 of 2 - PCV) 07/08/2016 07/08/2015 Respiratory Syncytial Virus (RSV) Immunization (Adult) (1 - 1-dose 75+ series) 2023 Influenza Immunization (#1) 2024 08/23/2013 SARS-COV-2 Immunization ( season) 2024 Colonoscopy High Risk Discontinued 03/11/2018 Colonoscopy Discontinued 03/11/2018 Colorectal Cancer Screening Discontinued Immunochemical Fecal Occult Blood Discontinued 023 Cologuard Discontinued Hepatitis B Immunization Aged Out No longer eligible based on patient's age to complete this topic Meningococcal Immunization (ACWY) Aged Out No longer eligible based on patient's age to complete this topic Rotavirus Immunization Aged Out No lo nger eligible based on patient's age to complete this topic Procedures Procedure Name Priority Date/Time Associated Diagnosis Comments STOOL, OCCULT BLOOD, DIAGNOSTIC, VIA GUAIAC STAT 12/25/2022 12:39 AM ENRICHMENT DIRECTOR from Last 3 Months or Most Recently Relevant to Health Maintenance Results * Stool Occult Blood - Diagnostic (12/25/2022 12:39 AM ENRICHMENT DIRECTOR) OCCULT BLOOD DIAG, GI BLEED Negative Negative 12/25/2022 12:50 AM ENRICHMENT DIRECTOR [facility] Stool Non-Phlebotomy Collection / Unknown 12/25/2022 12:39 AM ENRICHMENT DIRECTOR 12/25/2022 12:45 AM ENRICHMENT DIRECTOR us Hira Quinteros MD BODY FLUIDS & STOOLS MARIANN SCHMITZ Final Result [facility] [address] [place] [address] from Last 3 Months or Most Recently Relevant to Health Maintenance Insurance [facility]IC[facility] Advance Directives * Full Code (Latest Code Status on File) Date Activated Date Inactivated Comments 12/25/2022 11:11 AM 12/27/2022 5:52 PM CPR-Full Tr eatment: FULL ARREST: Attempt Resuscitation/CPR wit intubation and mechanical ventilation. PRE-ARREST: Use entire range of life support measures to stabilize the patient. Care Teams Eligibility And Occupancy Interviewer Relationship Specialty Start Date End Date Provider, None [place] PCP - General 12/24/22
--- OUTSIDE RECORDS SUMMARY | 2024-12-12 15:34 | XMS_ITS | Clinical Summary ---
Author Organization [facility] [employer] Address [address] [place] [address] Care Team Providers Care Production Graphic Designer Name Role Phone Supa Valentin Primary Care Provider [phone] Source Comments [facility] [employer],non-owned Affiliates and Associated Physician Practices is amultiple site organization consisting of ambulatory clinics and hospital sitesin [place], [place], [place] and [place]. This disclosure is being madepursuant to the Care Everywhere program and may not contain all information available regarding this patient. Last updated 18.[employer] Allergies No known active allergies Medications * Be aware that medications may not be up to date on this document. Alwaysverify current medications with the patient. Medication Sig Dispensed Refills Start Date End Date Status lisinopril (PRINIVIL; ZESTRIL) 40 MG tablet Take 40 mg by mouth once daily Active verapamil CR (ISOPTIN-SR) 240 MG tablet Take 240 mg by mouth daily with breakfast Active buPROPion (WELLBUTRIN) 75 MG tablet Take 75 mg by mouth once daily Active mirtazapine (REMERON) 15 MG tablet Take 20 mg by mouth at bedtime Active lansoprazole (PREVACID) 15 MG capsule Take 40 mg by mouth daily before breakfast Active folic acid (FOLVITE) 1 MG tablet Take 1 mg by mouth once daily Active Multiple Vitamin (MULTI VITAMIN PO) Take 1 tablet by mouth once daily Active fluticasone-salmetero l hfa (ADVAIR HFA) 115-21 MCG/ACT Inhale 2 puffs by mouth 4 times daily Active oxyCODONE, immediate release, 10 MG tablet Take 1 tablet by mouth 3 times daily 0 05/11/2018 Active Active Problems No known active problems Encounters Date Type Department Care Team Description 10/05/2024 Travel 10/05/2024 Telephone [facility] - GI [address] [place] [address] Emanuel Holbrook Future Appointment (Called pt to reschedule) from Last 3 Months Social History Tobacco Use Types Packs/Day Years Used Date Smoking Tobacco: Every Day Cigarettes 1.5 60 Smokeless Tobacco: Never Tobacco Cessation:Ready to Q uit: Yes Alcohol Use Standard Drinks/Week Comments No 0 (1 standard drink = 0.6 oz pur e alcohol) PHQ-2 Answer Date Recorded PHQ2 TOTAL SCORE 0 04/09/2021 Sex and Gender Information Value Date Recorded Sex Assigned at Not on file Gender Identity Male 03/11/2018 9:53 AM CDT Sexual Orientation Not on file Last Filed Vital Signs Vital Sign Reading Time Taken Comments Blood Pressure 161/83 06/24/2018 1:59 PM CDT Pulse 61 06/24/2018 1:59 PM CDT Temperature 36.1 ??C (96.9 ??F) 06/24/2018 1:29 PM CD T Respiratory Rate 20 06/24/2018 1:59 PM CDT Oxygen Saturation 98% 06/24/2018 1:59 PM CDT Inhaled Oxygen Concentration - - Weight 90.7 kg (200 lb) 06/24/2018 9:12 AM CDT Height 188 cm (6' 2 ) 06/24/2018 9:12 AM CDT Body Mass Index 25.68 06/24/2018 9:12 AM CDT Plan of Treatment Upcoming Encounters Date Type Department Care Team (Late st Contact Info) Description 02/27/2025 1:00 PM CDT Office Visit [facility] - GI [address] [place] [address] Merrick Dias MD [address] [place] [address] [place] [address] Health Maintenance Due Date Last Done Comments DTAP/TDAP/TD VACCINES (1 - Tdap) 1967 PNEUMOCOCCAL VACCINE 50+ (1 of 2 - PCV) 1967 LUNG CANCER SCREENING 1998 ZOSTER VACCINE (1 of 2) 1998 HEPATITIS B VACCINE (1 of 3 - Risk 3-dose series) 2008 SCREENING FOR DIABETES 05/31/2021 8, 02/08/2018, 10/15/2017, Additional history exists Respiratory Syncytial Virus (RSV) Vaccine Pt: or over 60 yrs (1 - 1-dose 75+ series) 2023 COVID-19 VACCINE ( - 2023-25 season) 2024 INFLUENZA VACCINE (#1) 2024 10/16/2017 DEPRESSION SCREENING 11/09/2024 MEDICARE AWV ? CALENDAR YEAR 2024 HEPATITIS C SCREENING Completed 10/13/2017 , 08/15/2013, 08/15/2013, Additional history exists HIB VACCINE Aged Out No longer eligi ble based on patient's age to complete this topic HPV VACCINE Aged Out No longer eligi ble based on patient's age to complete this topic MENINGOCOCCAL (Group B) VACCINE Aged Out No longer eligible based on patient's age to complete this topic MENINGOCOCCAL VACCINE Aged Out No juarez sherlyn eligible based on patient's age to complete this topic Goals Goal Patient Goal Type Associated Problems Recent Progress Patient-Stated? Author Safety General On track( 018 12:55 PM CDT) Sofy Madera RN Note: Expected end date: Ongoing Interventions: Your nurse will assess your risk for falls/injury each visit Use appropriate and safe transfer methods Medication Management General On track( 018 12:55 PM CDT) No Sofy Gee RN Note: Expected end date: Ongoing Interventions: Take all medications as prescribed Let your doctor know right away about any changes in your medications Medical Devices Explanted Type Area Sales Account Leader Device Identifier Shelf Expiration Date Model / Serial / Lot Wall Flex Biliary Fully Covered Stent System Implanted:Qty: 1 on 04/30/2018 by Kassie Yeboah MD at [facility] Explanted:Qty: 1 on 06/24/2018 by Kassie Yeboah MD at [facility] N/A: Bile Duct [employer] Tha 02/11/2020 [id number] / / [id number] Procedures Procedure Name Priority Date/Time Associated Diagnosis Comments COMPREHENSIVE METABOLIC PANEL Routine 05/31/2018 11:19 AM CDT Alcoholic cirrhosis of liver without ascites (HCC) HEPATITIS C RNA QUANTITATIVE Routine 10/13/2017 12:49 PM DESIGN CENTER CONSULTANT from Last 3 Months or Most Recently Relevant to Health Maintenance Results * (ABNORMAL) COMPREHENSIVE METABOLIC PANEL (05/31/2018 11:19 AM CDT) BUN 18 7 - 26 mg/dL 05/31/2018 12:39 PM [facility] Creatinine 0.9 0.6 - 1.2 mg/dL 05/31/2018 12:39 PM [facility] Sodium 140 136 - 145 mmol/L 05/31/2018 12:39 PM [facility] Potassium 4.2 3.5 - 4.5 mmol/L 05/31/2018 12:39 PM [facility] Chloride 103 98 - 107 mmol/L 05/31/2018 12:39 PM [facility] CO2 27 22 - 29 mmol/L 05/31/2018 12:39 PM [facility] Glucose 105 70 - 115 mg/dL 05/31/2018 12:39 PM [facility] Calcium 9.2 8.4 - 10.2 mg/dL 05/31/2018 12:39 PM [facility] Protein Total 7.5 6.0 - 8.3 g/dL 05/31/2018 12:39 PM [facility] Albumin 3.7 3.4 - 5.0 g/dL 05/31/2018 12:39 PM [facility] Bilirubin Total 0.4 0.2 - 1.2 mg/dL 05/31/2018 12:39 PM [facility] Alkaline Phosphatase 113 40 - 150 Units/L 05/31/2018 12:39 PM [facility] ALT 11 0 - 55 Units/L 05/31/2018 12:39 PM [facility] AST 17 5 - 34 Units/L 05/31/2018 12:39 PM [facility] Anion Gap 14 8 - 18 05/31/2018 12:39 PM [facility] BUN/Creatinine Ratio 20 7 - 23 05/31/2018 12:39 PM [facility] Osmolality Calculated 292 270 - 300 mOsm/kg 05/31/2018 12:39 PM [facility] Albumin/Globulin Ratio 1.0(L) 1.1 - 2.3 05/31/2018 12:39 PM [facility] eGFR >60 >60 mL/min/1.7 3 m2 05/31/2018 12:39 PM [facility] Blood BLOOD SPECIMEN / Unknown Lab Venipuncture / Unknown 05/31/2018 11:19 AM CDT 05/31/2018 12:05 PM [facility] Anthony Knox MD LAB - [facility] Organization Address City/State/ZIP Co de Phone Number [address] [phone] * HEPATITIS C RNA QUANTITATIVE PCR (10/13/2017 12:49 PM DESIGN CENTER CONSULTANT) Pathologist [facility] Hepatitis C Virus RNA PCR Accession No: [id number] Specimen: Serum Reference: [id number] Test: Hepatitis C RT-PCR (Quantitative) RESULT Not Detected Reference Range Not Detected INTERPRETATION The quantitative Hepatitis C viral RNA RT-PCR determination was performed on a serum sample and is reported in IU/ml. Hepatitis C viral RNA was not detected. COMMENT The Hepatitis C viral (HCV) RNA analysis utilized a serum sample, real-time reverse orthopedic tech PCR, and is reported as Not Detected, Detected (<12 IU/ml), Quantity (IU/ml) or >100,000,000 IU/ml. The limit of quantiation of the assay is 12 IU/ml (100% of samples with this HCV RNA level were detected). The linear range is from 12 IU/ml to 100,000,000 IU/ml. Values less than 12 IU/ml are reported as Detected (<12 IU/ml). Values greater than 100,000,000 IU/ml are reported as >100,000,000 IU/ml. The detection/quantit ation of HCV RNA in serum is based on the isolation of HCV RNA with reverse orthopedic tech of genomic HCV RNA followed by real-time PCR in the presence of an unrelated RNA internal control. The internal control ensures that RNA is isolated, and that no general significant inhibitors of the RT-PCR process are present. This analysis was performed using an [place] FDA approved test methodology ([employer] RealTime HCV). Test performed at [facility], [address] [place] [address] ??[phone] This case has been personally reviewed and interpreted by the attending (teaching) pathologist. Final Diagnosis performed by Fabio Dias PHD. Electronically signed 10/15/2017 [facility] ([facility]) Blood specimen (specimen) BLOOD SPECIMEN / Unknown 10/13/2017 12:49 PM DESIGN CENTER CONSULTANT 10/13/2017 12:49 PM DESIGN CENTER CONSULTANT Dino Manzo MD LAB - CHEMISTRY MARIANN SCHMITZ [facility] ([facility]) [address] [place] [address]. [place] [address], [facility] [phone] from Last 3 Months or Most Recently Relevant to Health Maintenance Care Teams Production Graphic Designer Relationship Specialty Start Date End Date Supa Valentin DO [address] [place], [place] [id number] PCP - General 12/20/19
--- OUTSIDE RECORDS SUMMARY | 2024-12-12 15:34 | XMS_ITS | Referral Summary ---
Author Organization [facility] Address [address] [place] [address] Care Team Providers Care Data Network Architect Name Role Phone Supa Valentin Primary Care Provider [phone] Source Comments [facility],non-owned Affiliates and Associated Physician Practices is amultiple site organization consisting of ambulatory clinics and hospital sitesin [place], [place], [place] and [place]. This disclosure is being madepursuant to the Care Everywhere program and may not contain all information available regarding this patient. Last updated 18.[facility] Encounters Date Type Department Care Team Description 10/05/2024 Travel 10/05/2024 Telephone [facility] [place] [place] [address] Emanuel Holbrook Future Appointment (Called pt to reschedule) from Last 3 Months Allergies No known active allergies Medications * [...] Active Active Problems No known active problems Social History Tobacco Use Types Packs/Day Years [...] Mass Index 25.68 06/24/2018 9:12 AM CDT Functional Status Functional Status Response Date of Assess ment Is person deaf or have serious hearing difficult y? No 04/30/2018 Is person blind or have serious difficulty seein g? No 04/30/2018 Does person have serious dif ficulty walking/climbing stairs? No 04/30/2018 Does person have difficulty dressing/bathing? No 04/30/2018 Does person have difficulty doing errands alone? No 04/30/2018 Cognitive Status Response Date of Assessm ent Does person have difficulty concentrating/remembering/making decisions? No 04/30/2018 Plan of Treatment Upcoming Encounters Date Type Department Care Team (Late st Contact Info) Description 02/27/2025 1:00 PM CDT Office Visit [facility] - GI [address] [place] [address], [place] [address] Merrick Dias MD [address] [place] [address] [address] [facility] [place] [address] Goals Goal Patient Goal Type Associated Problems Recent Progress Patient-Stated? Author Safety General On track( 12:55 PM CDT) No Sofy Gee, ALANA Note: Expected end date: Ongoing Interventions: Your nurse will assess your risk for falls/injury each visit Use appropriate and safe transfer methods Medication Management General On track( 12:55 PM CDT) No Sofy Gee RN Note: Expected end date: Ongoing Interventions: Take all medications as prescribed Let your doctor know right away about any changes in your medications Medical Devices Explanted Type Area Debt And Budget Counselor Device Identifier Shelf Expiration Date Model / Serial / Lot Wall Flex Biliary Fully Covered Stent System Implanted:Qty: 1 on 04/30/2018 by Kassie Yeboah MD at [facility] Explanted:Qty: 1 on 06/24/2018 by Kassie Yeboah MD at [facility] N/A: Bile Duct [employer] 02/11/2020 [id number] / / [id number] Procedures Procedure Name Priority Date/Time Associated Diagnosis Comments COMPREHENSIVE METABOLIC PANEL Routine 05/31/2018 11:19 AM CDT Alcoholic cirrhosis of liver without ascites (HCC) HEPATITIS C RNA QUANTITATIVE Routine 10/13/2017 12:49 PM DIRECTOR BEHAVIORAL HEALTH from Last 3 Months or Most Recently Relevant to Health Maintenance Results * (ABNORMAL) COMPREHENSIVE METABOLIC PANEL (05/31/2018 11:19 AM CDT) BUN 18 7 - 26 mg/dL 05/31/2018 12:39 PM [facility] Creatinine 0.9 0.6 - 1.2 mg/dL 05/31/2018 12:39 PM [facility] Sodium 140 136 - 145 mmol/L 05/31/2018 12:39 PM [facility] Potassium 4.2 3.5 - 4.5 mmol/L 05/31/2018 12:39 PM [facility] Chloride 103 98 - 107 mmol/L 05/31/2018 12:39 PM [facility] CO2 27 22 - 29 mmol/L 05/31/2018 12:39 PM [facility] Glucose 105 70 - 115 mg/dL 05/31/2018 12:39 PM [facility] Calcium 9.2 8.4 - 10.2 mg/dL 05/31/2018 12:39 PM [facility] Protein Total 7.5 6.0 - 8.3 g/dL 05/31/2018 12:39 PM [facility] Albumin 3.7 3.4 - 5.0 g/dL 05/31/2018 12:39 PM [facility] Bilirubin Total 0.4 0.2 - 1.2 mg/dL 05/31/2018 12:39 PM [facility] Alkaline Phosphatase 113 40 - 150 Units/L 05/31/2018 12:39 PM [facility] ALT 11 0 - 55 Units/L 05/31/2018 12:39 PM [facility] AST 17 5 - 34 Units/L 05/31/2018 12:39 PM [facility] Anion Gap 14 8 - 18 05/31/2018 12:39 PM [facility] BUN/Creatinine Ratio 20 7 - 23 05/31/2018 12:39 PM [facility] Osmolality Calculated 292 270 - 300 mOsm/kg 05/31/2018 12:39 PM [facility] Albumin/Globulin Ratio 1.0(L) 1.1 - 2.3 05/31/2018 12:39 PM [facility] eGFR >60 >60 mL/min/1.7 3 m2 05/31/2018 12:39 PM [facility] Blood BLOOD SPECIMEN / Unknown Lab Venipuncture / Unknown 05/31/2018 11:19 AM CDT 05/31/2018 12:05 PM CDT Anthony Knox MD LAB - CHEMISTRY MARIANN SCHMITZ [facility] Organization Address City/State/ZIP Co de Phone Number [facility] [address] [place] [address], [facility] [phone] * HEPATITIS C RNA QUANTITATIVE PCR (10/13/2017 12:49 PM DIRECTOR BEHAVIORAL HEALTH) Hepatitis C Virus RNA PCR Accession No: [id number] Specimen: Serum Reference: [id number] Test: Hepatitis C RT-PCR (Quantitative) RESULT Not Detected Reference Range Not Detected INTERPRETATION The quantitative Hepatitis C viral RNA RT-PCR determination was performed on a serum sample and is reported in IU/ml. Hepatitis C viral RNA was not detected. COMMENT The Hepatitis C viral (HCV) RNA analysis utilized a serum sample, real-time reverse link and link knitting machine operator PCR, and is reported as Not Detected, [...] the isolation of HCV RNA with reverse link and link knitting machine operator of genomic HCV RNA followed by real-time PCR in the presence of an unrelated RNA internal control. The internal control ensures that RNA is isolated, and that no general significant inhibitors of the RT-PCR process are present. This analysis was performed using an [place] FDA approved test methodology ([employer] RealTime HCV). Test performed at [facility], [address] [place] [address] ??[phone] This case has been personally reviewed and interpreted by the attending (teaching) pathologist. Final Diagnosis performed by Fabio Dias PHD. Electronically signed 10/15/2017 [facility] ([facility]) Blood specimen (specimen) BLOOD SPECIMEN / Unknown 10/13/2017 12:49 PM DIRECTOR BEHAVIORAL HEALTH 10/13/2017 12:49 PM DIRECTOR BEHAVIORAL HEALTH Dino Manzo MD LAB - CHEMISTRY MARIANN SCHMITZ [facility] ([facility]) [address] [place] [address], [facility] [phone] from Last 3 Months or Most Recently Relevant to Health Maintenance Care Teams Data Network Architect Relationship Specialty Start Date End Date Supa Valentin DO [address] [place] [id number] PCP - General 12/20/19
--- OUTSIDE RECORDS SUMMARY | 2024-12-12 15:34 | XMS_ITS | Patient Health Summary ---
Author Organization [facility] Address [address] [place] [address] Care Team Providers Care Steam Roller Operator Name Role Phone Supa Valentin DO Primary Care Provider [phone] Note from [facility],non-owned Affiliates and Associated Physician Practices is amultiple site organization consisting of ambulatory clinics and hospital sitesin [place], [place], [place] and [place]. This disclosure is being madepursuant to the Care Everywhere program and may not contain all information available regarding this patient. Last updated 18.[facility] Allergies No known active allergies Medications * Be aware that medications may not be up to date on this document. Alwaysverify current medications with the patient. * lisinopril (PRINIVIL; ZESTRIL) 40 MG tablet Take 40 mg by mouth once daily * verapamil CR (ISOPTIN-SR) 240 MG tablet Take 240 mg by mouth daily with breakfast * buPROPion (WELLBUTRIN) 75 MG tablet Take 75 mg by mouth once daily * mirtazapine (REMERON) 15 MG tablet Take 20 mg by mouth at bedtime * lansoprazole (PREVACID) 15 MG capsule Take 40 mg by mouth daily before breakfast * folic acid (FOLVITE) 1 MG tablet Take 1 mg by mouth once daily * Multiple Vitamin (MULTI VITAMIN PO) Take 1 tablet by mouth once daily * fluticasone-salmeterol hfa (ADVAIR HFA) 115-21 MCG/ACT Inhale 2 puffs by mouth 4 times daily * oxyCODONE, immediate release, 10 MG tablet(Started 05/11/2018) Take 1 tablet by mouth 3 times daily Active Problems No known active problems Social [...] Mass Index 25.68 06/24/2018 9:12 AM CDT Medical Devices Explanted Type Area Mold Unloader Device Identifier Shelf Expiration Date Model / Serial / Lot Wall Flex Biliary Fully Covered Stent System Implanted:Qty: 1 on 04/30/2018 by Kassie Yeboah MD at [facility] Explanted:Qty: 1 on 06/24/2018 by Kassie Yeboah MD at [facility] N/A: Bile Duct [employer] 02/11/2020 [id number] / / [id number] Procedures * ENDOSCOPIC RETROGRADE CHOLANGIOPANCREATOGRAPHY (ERCP)(Performed 06/24/2018) Performed for Bile duct calculus without cholecystitis and no obstruction * ERCP(Performed 06/24/2018) * CT ABDOMEN MULTI PHASE W CONT(Performed 06/24/2018) Performed for Alcoholic cirrhosis of liver without ascites (HCC) * VITAMIN D 25-HYDROXY(Performed 05/31/2018) Performed for Alcoholic cirrhosis, unspecified whether ascites present (HCC) * PT-INR [facility](Performed 05/31/2018) Performed for Alcoholic cirrhosis of liver without ascites (HCC) * COMPREHENSIVE METABOLIC PANEL(Performed 05/31/2018) Performed for Alcoholic cirrhosis of liver without ascites (HCC) * CBC W AUTO DIFFERENTIAL(Performed 05/31/2018) Performed for Alcoholic cirrhosis of liver without ascites (HCC) * ENDOSCOPIC RETROGRADE CHOLANGIOPANCREATOGRAPHY (ERCP)(Performed 04/30/2018) Performed for Dilation of biliary tract * ERCP(Performed 04/30/2018) * PATHOLOGY TISSUE(Performed 03/19/2018) Performed for Acute pancreatitis, unspecified complication status, unspecified pancreatitis type (HCC) * ESOPHAGOGASTRODUODENOSCOPY (EGD) /ESOPHAGOSCOPY WITH ULTRASOUND (EUS) (Performed 03/19/2018) Performed for Acute pancreatitis, unspecified complication status, unspecified pancreatitis type (HCC) * ENDOSCOPIC ULTRASONOGRAPHY, GI(Performed 03/19/2018) * COLONOSCOPY DIAGNOSTIC(Performed 03/11/2018) Performed for History of rectal cancer * ENDOSCOPY, COLON, DIAGNOSTIC(Performed 03/11/2018) * COMPREHENSIVE METABOLIC PANEL(Performed 02/08/2018) * CBC W AUTO DIFFERENTIAL(Performed 02/08/2018) * PT-INR [facility](Performed 02/08/2018) * TRANSFERRIN(Performed 10/16/2017) * IRON BLOOD(Performed 10/16/2017) * FERRITIN(Performed 10/16/2017) * HEPATITIS B SURFACE ANTIGEN W RFLX CONFIRMATION(Performed 10/16/2017) * HEPATITIS B SURFACE ANTIBODY(Performed 10/16/2017) * CERULOPLASMIN(Performed 10/16/2017) * [id number] BLOOD PHENOTYPING PANEL(Performed 10/16/2017) * [place] BLOOD SCREEN W/REFLEX TITER(Performed 10/16/2017) * MITOCHONDRIAL ANTIBODY SCREEN(Performed 10/16/2017) * SMOOTH MUSCLE ANTIBODY(Performed 10/16/2017) * CBC W AUTO DIFFERENTIAL(Performed 10/16/2017) * CBC W AUTO DIFFERENTIAL(Performed 10/16/2017) * C DIFFICILE GDH AG + TOXIN A+B(Performed 10/15/2017) * MRI ABDOMEN W MRCP WWO CONT W3D(Performed 10/15/2017) * CBC W AUTO DIFFERENTIAL(Performed 10/15/2017) * COMPREHENSIVE METABOLIC PANEL(Performed 10/15/2017) * CBC W AUTO DIFFERENTIAL(Performed 10/15/2017) * LIPASE BLOOD(Performed 10/14/2017) * COMPREHENSIVE METABOLIC PANEL(Performed 10/14/2017) * PHOSPHORUS BLOOD(Performed 10/14/2017) * MAGNESIUM BLOOD(Performed 10/14/2017) * CBC W AUTO DIFFERENTIAL(Performed 10/14/2017) * CBC W AUTO DIFFERENTIAL(Performed 10/14/2017) * US ABDOMEN LIMITED(Performed 10/14/2017) * HEPATITIS C RNA QUANTITATIVE(Performed 10/13/2017) * LIPID PROFILE(Performed 10/13/2017) * LDH BLOOD(Performed 10/13/2017) * LIPASE BLOOD(Performed 10/13/2017) * COMPREHENSIVE METABOLIC PANEL(Performed 10/13/2017) * PT-INR [facility](Performed 10/13/2017) * CBC W AUTO DIFFERENTIAL(Performed 10/13/2017) * DIFFERENTIAL MANUAL(Performed 10/13/2017) * CBC W AUTO DIFFERENTIAL(Performed 10/13/2017) * AMMONIA(Performed 10/13/2017) * URINALYSIS REFLEX TO MICROSCOPIC NO CULTURE(Performed 10/13/2017) * CULTURE URINE(Performed 10/13/2017) * EKG 12-LEAD(Performed 10/13/2017) * CULTURE STOOL+ E COLI SHIGA-LIKE TOXIN(Performed 10/17/2014) * CRYPTOSPORIDIUM ANTIGEN(Performed 10/17/2014) * GIARDIA SCREEN DFA(Performed 10/17/2014) * HEPATITIS C RNA QUANTITATIVE(Performed 08/15/2013) * CBC W AUTO DIFFERENTIAL(Performed 11/09/1998) * HEPATITIS C REAL-TIME PCR QUANTASURE(Performed 11/09/1998) * COMPREHENSIVE METABOLIC PANEL(Performed 11/09/1998) Results * ERCP (06/24/2018 12:39 PM CDT) Report Endoscopy POC Endoscopy Department Report _ Patient Name: Matteo Da Silva ?Procedure Date: 06/24/2018 12:39 PM ? Date of : 1950 Classification: Outpatient ?Gender: Male _ Providers: ?Kassie Yeboah Referring MD: ? Procedure: ?ERCP Indications: ?Stent removal Medications: ?Monitored Anesthesia Care Description of Procedure: After obtaining informed consent, the scope was ?passed under direct vision. Throughout the ?procedure, the patient's blood pressure, pulse, and ?oxygen saturations were monitored continuously. The ?TJF-Q180V was introduced through the mouth, and ?advanced to the duodenum and used to inject ?contrast into the bile duct. The ERCP was ?accomplished without difficulty. The patient ?tolerated the procedure well. ? Findings: ? A ammunition assembly i laborer film of the abdomen was obtained. One stent ending in the main ? bile duct was seen. The scope was passed through the upper GI tract ? under direct vision. A benign-appearing, intrinsic stenosis was found at ? the pylorus. Pyloric stricture was successfully dilated with an 18-19-20 ? mm x 5.5 cm CRE balloon (to a maximum balloon size of 20 mm) dilator. ? One covered metal stent originating in the common bile duct was emerging ? from the major papilla. One stent was removed from the common bile duct ? using a snare. A long 0.035 inch Soft Jagwire was passed into the ? biliary tree. The 15 mm balloon was passed over the guidewire and the ? bile duct was then deeply cannulated. Contrast was injected. I ? personally interpreted the bile duct images. Ductal flow of contrast was ? adequate. Image quality was adequate. Contrast extended to the entire ? biliary tree. The main bile duct was diffusely dilated. The largest ? diameter was 11mm. The biliary tree was swept with a 15 mm balloon ? starting at the bifurcation. Nothing was found. ? Estimated Blood Loss: ? Estimated blood loss: none. Complications: ?No immediate complications. Impression: ? - The previously known pyloric stenosis was seen ?- Balloon dilation of the pyloric stricture up to ?20 to allow passage of the duodenoscope. ?- Removal of the old metal biliay stent ?- The entire main bile duct was diffusely dilated ?up to 11 mm with smooth taper at the ampulla. ?- The biliary tree was swept and nothing was found. ?- Good drainage of contrast from the biliary tree Recommendation: ? - Discharge patient to home. ?- Clear liquid diet today. ?- Return to GI clinic as previously scheduled. ? Attending Participation: ??I personally performed the entire procedure. ? Procedure Code(s): ? --- Professional --- ? 90009, Endoscopic retrograde cholangiopancreatography (ERCP); with ? removal of foreign body(s) or stent(s) from biliary/pancreatic duct(s) ? 70595, Endoscopic catheterization of the biliary ductal system, ? radiological supervision and interpretation Diagnosis Code(s): ?--- Professional --- ?K31.1, Adult hypertrophic pyloric stenosis ?Z96.89, Presence of other specified functional ?implants ?Z46.59, Encounter for fitting and adjustment of ?other gastrointestinal appliance and device ?K83.8, Other specified diseases of biliary tract CPT copyright 2016 [employer]. All rights reserved. The codes documented in this report are preliminary and upon engine emission technician review may be revised to meet current compliance requirements. Kassie Yeboah, 06/24/2018 1:27:59 PM Note Initiated On: 06/24/2018 12:39 PM Number of Addenda: 0 ? [facility] ? [address] [place] [address] [facility] PROVATION 06/24/2018 12:3 9 PM CDT Kassie Yeboah MD GI PROCEDURE ORDERAB LES [facility] PROVATION * CT ABDOMEN MULTI PHASE W CONT (06/24/2018 8:30 AM CDT) Anatomical Region Laterality Modality Computed Tomogra phy 06/24/2018 8:42 AM CDT Impressions 06/24/2018 2:28 PM CDT IMPRESSION: 1. No arterially-enhancing hepatic lesion concerning for hepatocellular carcinoma. The previously identified hyperenhancing observation in hepatic segment 3 is not seen on this examination. 2. Hepatic cirrhosis with sequela of portal hypertension. 3. 7 mm nonobstructive left inferior renal pole calculus. Dictated by Jj Ramírez M.D. (vice president compliance) I, Dr. Radha ECHAVARRIA M.D. have personally reviewed and interpreted this examination/study. This report was electronically signed by Radha ECHAVARRIA M.D. ??on 06/24/2018 2:28 PM . Narrative 06/24/2018 2:28 PM CDT EXAMINATION: Computed tomography (CT) of the abdomen with contrast HISTORY: HCC screening in patient with cirrhosis , patient with known LR 3 lesions TECHNIQUE: CT of the abdomen was performed following the uneventful administration of 150 mL of Omnipaque 350 intravenous contrast according to a three-phase liver protocol. COMPARISON: MR abdomen with MRCP with and without contrast dated 10/15/2017 FINDINGS: The aorta is normal in course and caliber. Atherosclerotic calcifications are seen in the descending abdominal aorta and its major branching vessels. The visible lung bases are clear. The heart size is normal without pericardial effusion. The liver is shrunken and has a nodular surface, consistent with hepatic cirrhosis. The previously identified LR 3 lesion on MR abdomen dated 10/15/2017 is not identified on this examination. No arterially enhancing observation is seen. There is interval development of significant intrahepatic and extrahepatic pneumobilia. A biliary stent is identified. Significant amount of air is also present within the gallbladder. The hepatic arterial anatomy is conventional. The portal vein is nondilated. The portal and main hepatic veins are patent without evidence of thrombi. No ascites or varices is identified. The spleen is not enlarged. The gallbladder is moderately distended with intraluminal air. No evidence of wall thickening, pericholecystic fluid, or cholelithiasis is identified to suggest acute cholecystitis. The intrahepatic and extrahepatic bile ducts are nondilated. The pancreas is atrophic. Multiple bilateral simple renal cysts are identified measuring up to 4.3 cm in the right renal midpole and 4.9 cm and the left superior renal pole. The kidneys otherwise enhance symmetrically. No renal mass or hydronephrosis is seen. A 7 mm calcification in the left inferior renal pole represents a nonobstructive stone. No nephrolithiasis is seen on the right. The distal esophagus and stomach appear normal. The visible portions of the small bowel and large bowel are normal in caliber without evidence of wall thickening or obstruction. No free intraperitoneal air is seen. No lymphadenopathy is identified. Bone windows demonstrate no suspicious lytic or blastic lesions. Mild multilevel degenerative joint and disc disease is identified. Partial fusion of the L2 and L3 vertebral bodies is identified. Procedure Note Cecy Echavarria MD - 06/24/2018 EXAMINATION: Computed tomography (CT) of the abdomen with contrast HISTORY: HCC screening in patient with cirrhosis , patient with known LR3 lesions TECHNIQUE: CT of the abdomen was performed following the uneventful administration of 150 mL of Omnipaque 350 intravenous contrast according to a three-phase liver protocol. COMPARISON: MR abdomen with MRCP with and without contrast dated112/16/2016 FINDINGS: The aorta is normal in course and caliber. Atheroscleroticcalcifications are seen in the descending abdominal aorta and its major branching vessels. The visible lung bases are clear. The heart size is normal without pericardial effusion. The liver is shrunken and has a nodular surface, consistent with hepatic cirrhosis. The previously identified LR 3 lesion on MR abdomen dated 10/15/2017 is not identified on this examination. No arterially enhancing observation is seen. There is interval development of significant intrahepatic and extrahepatic pneumobilia. A biliary stent isidentified. Significant amount of air is also present within the gallbladder. The hepatic arterial anatomy is conventional. The portal vein is nondilated. The portal and main hepatic veins are patent withoutevidence of thrombi. No ascites or varices is identified. The spleen is not enlarged. The gallbladder is moderately distended with intraluminal air. Noevidence of wall thickening, pericholecystic fluid, or cholelithiasis isidentified to suggest acute cholecystitis. The intrahepatic and extrahepatic bile ducts are nondilated. The pancreas is atrophic. Multiple bilateralsimple renal cysts are identified measuring up to 4.3 cm in the right renal midpole and 4.9 cm and the left superior renal pole. The kidneysotherwise enhance symmetrically. No renal mass or hydronephrosis is seen. A 7 mm calcification in the left inferior renal pole represents anonobstructive stone. No nephrolithiasis is seen on the right. The distal esophagus and stomach appear normal. The visible portions of the small bowel and large bowel are normal in caliber without evidenceof wall thickening or obstruction. No free intraperitoneal air is seen. No lymphadenopathy is identified. Bone windows demonstrate no suspicious lytic or blastic lesions. Mild multilevel degenerative joint and disc disease is identified. Partial fusion of the L2 and L3 vertebral bodies is identified. IMPRESSION: 1. No arterially-enhancing hepatic lesion concerning for hepatocellular carcinoma. The previously identified hyperenhancing observation inhepatic segment 3 is not seen on this examination. 2. Hepatic cirrhosis with sequela of portal hypertension. 3. 7 mm nonobstructive left inferior renal pole calculus. Dictated by Jj Ramírez M.D. (vice president compliance) I, Dr. Radha ECHAVARRIA M.D. have personally reviewed and interpretedthis examination/study. This report was electronically signed by Radha ECHAVARRIA M.D. on 06/24/2018 2:28 PM . Anthony Knox MD CT ORDERABLES * PT-INR [facility] (05/31/2018 11:19 AM CDT) Only the most recent of3 resultswithin the time period is included. PT 12.7 12.1 - 14.8 Seconds 05/31/2018 12:24 PM T [facility] LABORATORY [facility] INR 1.0 See Comment 05/31/2018 12:24 PM [facility] Comment: The suggested therapeutic range for standard coumadin (warfarin) therapy is an INR of 2.0-3.0. For high-risk patients (Mechanical Mitral Valve Prosthesis, etc.), the suggested prophylactic therapeutic range is an INR of 2.5-3.5. Blood BLOOD SPECIMEN / Unknown Lab Venipuncture / Unknown 05/31/2018 11:19 AM CDT 05/31/2018 12:05 PM CDT Anthony Knox MD LAB - COAGULATION OR DERABLES [facility] [address] [phone] * (ABNORMAL) VITAMIN D 25-HYDROXY (05/31/2018 11:19 AM CDT) Vitamin D, 25 Hydroxy 15.6(L) See comment: ng/mL 05/31/2018 1:02 PM CDT [facility] Comment: The recommendations for 25-Hydroxy Vitamin D clinical decision points are as follows: ? Deficient: ? <20.0 ng/mL ? Insufficient: ??20.0 - 29.9 ng/mL ? Sufficient: ? > or =30.0 ng/mL If the 25-Hydroxy Vitamin D results are inconsitent with clinical evidence, it is recommended that follow-up testing using a method such as LC/MS/MS be performed to confirm the result. Reference: ?The Endocrine Society Clinical Practice Guidelines. 2010 ? Blood BLOOD SPECIMEN / Unknown Lab Venipuncture / Unknown 05/31/2018 11:19 AM CDT 05/31/2018 12:05 PM CDT Anthony Knox MD LAB - CHEMISTRY [facility] [place] [address] [address] [phone] * (ABNORMAL) CBC W AUTO DIFFERENTIAL (05/31/2018 11:19 AM CDT) Only the most recent of11 resultswithin the time period is included. WBC 8.4 3.5 - 10.5 10? 3 /uL 05/31/2018 12:21 PM [facility] RBC 4.95 4.30 - 5.70 10? 6 /uL 05/31/2018 12:21 PM [facility] Hemoglobin 15.0 13.5 - 17.5 g/dL 05/31/2018 12:21 PM [facility] Hematocrit 45.1 39.0 - 50.0 % 05/31/2018 12:21 PM [facility] MCV 91.1 81.0 - 97.0 fL 05/31/2018 12:21 PM [facility] MCH 30.3 28.0 - 34.0 pg 05/31/2018 12:21 PM [facility] MCHC 33.3 32.0 - 36.0 g/dL 05/31/2018 12:21 PM [facility] Platelet Count 189 150 - 400 10? 3 /uL 05/31/2018 12:21 PM [facility] RDW-SD 42.5 36.0 - 50.0 fL 05/31/2018 12:21 PM [facility] RDW-CV 12.8 11.2 - 14.8 % 05/31/2018 12:21 PM [facility] MPV 9.8 9.3 - 12.8 fL 05/31/2018 12:21 PM [facility] Neutrophils % 53.6 35.0 - 70.0 % 05/31/2018 12:21 PM [facility] Lymphocytes % 33.3 19.7 - 55.1 % 05/31/2018 12:21 PM [facility] Monocytes % 10.0 3.0 - 15.0 % 05/31/2018 12:21 PM [facility] Eosinophils % 2.7 0.0 - 6.0 % 05/31/2018 12:21 PM [facility] Basophil % 0.4 0.0 - 1.5 % 05/31/2018 12:21 PM [facility] Neutrophils Absolute 4.5 1.6 - 7.0 10? 3 /uL 05/31/2018 12:21 PM [facility] Lymphocyte Absolute 2.8 0.8 - 2.9 10? 3 /uL 05/31/2018 12:21 PM T [facility] Monocytes Absolute 0.84(H) 0.14 - 0.66 10? 3 /uL 05/31/2018 12:21 PM [facility] Eosinophils Absolute 0.23(H) 0.00 - 0.22 10? 3 /uL 05/31/2018 12:21 PM [facility] Basophils Absolute 0.03 0.00 - 0.06 10? 3 /uL 05/31/2018 12:21 PM [facility] Immature Granulocytes % 0.5 0.0 - 1.0 % 05/31/2018 12:21 PM [facility] Blood BLOOD SPECIMEN / Unknown Lab Venipuncture / Unknown 05/31/2018 11:19 AM CDT 05/31/2018 12:05 PM CDT Anthony Knox MD LAB - HEMATOLOGY ORD ERABLES [facility] [address] [place] [address] * (ABNORMAL) COMPREHENSIVE METABOLIC PANEL (05/31/2018 11:19 AM CDT) Only the most recent of6 resultswithin the time period is included. BUN 18 7 - 26 mg/dL 05/31/2018 12:39 PM [facility] Creatinine 0.9 0.6 - 1.2 mg/dL 05/31/2018 12:39 PM [facility] Sodium 140 136 - 145 mmol/L 05/31/2018 12:39 PM [facility] Potassium 4.2 3.5 - 4.5 mmol/L 05/31/2018 12:39 PM [facility] Chloride 103 98 - 107 mmol/L 05/31/2018 12:39 PM [facility] CO2 27 22 - 29 mmol/L 05/31/2018 12:39 PM [facility] Glucose 105 70 - 115 mg/dL 05/31/2018 12:39 PM [facility] Calcium 9.2 8.4 - 10.2 mg/dL 05/31/2018 12:39 PM [facility] Protein Total 7.5 6.0 - 8.3 g/dL 05/31/2018 12:39 PM [facility] Albumin 3.7 3.4 - 5.0 g/dL 05/31/2018 12:39 PM [facility] Bilirubin Total 0.4 0.2 - 1.2 mg/dL 05/31/2018 12:39 PM [facility] Alkaline Phosphatase 113 40 - 150 Units/L 05/31/2018 12:39 PM [facility] ALT 11 0 - 55 Units/L 05/31/2018 12:39 PM [facility] AST 17 5 - 34 Units/L 05/31/2018 12:39 PM [facility] Anion Gap 14 8 - 18 05/31/2018 12:39 PM [facility] BUN/Creatinine Ratio 20 7 - 23 05/31/2018 12:39 PM [facility] Osmolality Calculated 292 270 - 300 mOsm/kg 05/31/2018 12:39 PM [facility] Albumin/Globulin Ratio 1.0(L) 1.1 - 2.3 05/31/2018 12:39 PM [facility] eGFR >60 >60 mL/min/1.7 3 m2 05/31/2018 12:39 PM [facility] Blood BLOOD SPECIMEN / Unknown Lab Venipuncture / Unknown 05/31/2018 11:19 AM CDT 05/31/2018 12:05 PM [facility] Anthony Knox MD LAB - CHEMISTRY [facility] Organization Address City/State/ZIP Co de Phone Number [address] [phone] * ERCP (04/30/2018 1:54 PM [facility]) Report Endoscopy POC Endoscopy Department Report _ Patient Name: Matteo Da Silva ?Procedure Date: 04/30/2018 1:54 PM ? Date of : 1950 Classification: Outpatient ?Gender: Male _ Providers: ?Kassie Yeboah Referring MD: ? Procedure: ?ERCP Indications: ?Common bile duct stone(s) Medications: ?Monitored Anesthesia Care Description of Procedure: After obtaining informed consent, the scope was ?passed under direct vision. Throughout the ?procedure, the patient's blood pressure, pulse, and ?oxygen saturations were monitored continuously. The ?TJF-Q180V was introduced through the mouth, and ?advanced to the duodenum and used to inject ?contrast into the bile duct. The ERCP was ?accomplished without difficulty. The patient ?tolerated the procedure well. ? Findings: ? The ammunition assembly i laborer film was normal. The scope was passed through the upper GI ? tract under direct vision. A benign-appearing, intrinsic stenosis was ? found at the pylorus. This was after dilation. Pyloric stricture were ? successfully dilated with an 18-19-20 mm balloon (to a maximum balloon ? size of 18 mm) dilator. A biliary sphincterotomy had been performed. The ? sphincterotomy appeared stenosed or narrowed. A 0.035 inch angled ? Glidewire was passed into the biliary tree. The short-nosed traction ? sphincterotome was passed over the guidewire and the bile duct was then ? deeply cannulated. Contrast was injected. I personally interpreted the ? bile duct images. Ductal flow of contrast was adequate. Image quality ? was adequate. Contrast extended to the entire biliary tree. The main ? bile duct was diffusely dilated. The largest diameter was 13 mm. The ? biliary sphincterotomy was extended to a total of 12 mm in length with a ? traction (standard) sphincterotome using [employer] electrocautery. Moderate ? bleeding from the sphincterotomy stopped within 5 minutes. The biliary ? tree was swept with a 15 mm balloon starting at the bifurcation. Debris ? was swept from the duct. Area was successfully injected with of a ? 1:10,000 solution of epinephrine through the ERCP scope for hemostasis. ? One 10 mm by 6 cm transpapillary covered metal stent was placed 4 cm ? into the common bile duct. Bile flowed through the stent. The stent was ? in good position. ? Estimated Blood Loss: ? Estimated blood loss was minimal. Complications: ?No immediate complications. Impression: ? - Pyloric stricture were successfully dilated up to ?18 mm to allow ERCP scope to pass through the ?pylorus. ?- Prior biliary sphincterotomy appeared stenosed or ?narrowed. ?- Cholangiogram showed the entire main bile duct ?was dilated up to 13 mm with smooth taper at the ?ampulla. ?- Extension of biliary sphincterotomy was performed. ?- The biliary tree was swept and debris was found. ?- Bleeding from the sphincterotomy site was ?controlled by epinephrine injection and placement ?of 10-60 covered metal stent into the common bile ?duct. Recommendation: ? - Discharge patient to home. ?- Clear liquid diet today. ?- Repeat ERCP in 6 to 8 weeks to remove stent. ? Attending Participation: ??I personally performed the entire procedure. ? Procedure Code(s): ? --- Professional --- ? 27945, Endoscopic retrograde cholangiopancreatography (ERCP); with ? placement of endoscopic stent into biliary or pancreatic duct, including ? pre- and post-dilation and guide wire passage, when performed, including ? sphincterotomy, when performed, each stent ? 43919, Endoscopic retrograde cholangiopancreatography (ERCP); with ? removal of calculi/debris from biliary/pancreatic duct(s) ? 47576, Endoscopic catheterization of the biliary ductal system, ? radiological supervision and interpretation ? 67712, Unlisted procedure, biliary tract Diagnosis Code(s): ?--- Professional --- ?K31.1, Adult hypertrophic pyloric stenosis ?K80.50, Calculus of bile duct without cholangitis ?or cholecystitis without obstruction ?K83.8, Other specified diseases of biliary tract CPT copyright 2016 [employer]. All rights reserved. The codes documented in this report are preliminary and upon engine emission technician review may be revised to meet current compliance requirements. Kassie Yeboah, 04/30/2018 3:15:44 PM Note Initiated On: 04/30/2018 1:54 PM Number of Addenda: 0 ? [facility] ? [address] at [place] [id number] [facility] 04/30/2018 1:54 PM CDT Kassie Yeboah MD GI PROCEDURE ORDERAB LES [facility] * PATHOLOGY TISSUE (03/19/2018 10:56 AM CDT) Case Report Surgical Pathology Report ? Case: [id number] ? Authorizing Provider: ??Kassie Yeboah MD ? Collected: ? 03/19/2018 10:56 AM ? Ordering Location: ? [facility] ?Received: ?03/19/2018 12:24 PM ? Pathologist: ? Luisa Loo MD ? Specimen: ?Stomach, pyloric stricture ? 03/23/2018 11:32 AM [facility] Final Diagnosis Stomach, biopsy: - Chronic gastritis - Negative for H. pylori - See comment 03/23/2018 11:32 AM [facility] Microscopic Description and Comment Sections show superficial fragments of gastric mucosa with nonspecific chronic inflammation and reactive changes. There is no active inflammation. Additionally, there is a separate fragment of benign unremarkable smooth muscle which may represent either thickened muscularis mucosa or muscularis propria. An H. pylori immunostain was performed and is negative. DC/PF 03/23/2018 11:32 AM [facility] Clinical History 67-year-old man. Pre-op Diagnosis: Acute pancreatitis, unspecified complication status, unspecified pancreatitis type [K85.90]. Operative procedure/findings: EUS/EGD--pyloric stricture. 03/23/2018 11:32 AM [facility] Gross Description The specimen is received fixed in formalin in one container, labeled with the patient's name, Matteo Da Silva, and pyloric stricture , and consists of three soft, irregular, pink-knight tissue fragments measuring 0.4 x 0.3 x 0.2 cm in aggregate. The specimen is submitted entirely in cassette A1. NK/met 03/23/2018 11:32 AM CDT [facility] Disclaimer The performance characteristics of all immunohistochemical and indirect immunofluorescence stains (if any) cited in this report were determined by the Histopathology Laboratory of [facility]. Some of these tests were developed by our own laboratory and have not been cleared or approved by the US Food and Drug Administration. The FDA does not require this test to go through premarket FDA review. These tests are used for clinical purposes. They should not be regarded as investigational or for research. This laboratory is certified under the Clinical Laboratory Improvement Amendments (CLIA) as qualified to perform high complexity clinical laboratory testing. This case has been personally reviewed and interpreted by the attending (teaching) pathologist. 03/23/2018 11:32 AM CDT [facility] Embedded Images 03/23/2018 11:32 AM CDT [facility] Biopsy, NOS ENTIRE STOMACH / Unknown 03/19/2018 10:56 AM CDT 03/19/2018 12:24 PM CDT Kassie Yeboah MD LAB - PATHOLOGY/CYTO LOGY ORDERABLES [facility] [address] [phone] * ENDOSCOPIC ULTRASONOGRAPHY, GI (03/19/2018 10:33 AM CDT) Report Endoscopy POC Endoscopy Department Report _ Patient Name: Matteo Da Silva ?Procedure Date: 03/19/2018 10:33 AM ? Date of : 1950 Classification: Outpatient ?Gender: Male _ Providers: ?Kassie Yeboah Referring MD: ? Mikaela Petty MD (Referring MD) Procedure: ?Upper EUS Indications: ?Common bile duct dilation (acquired) seen on MRCP, ?Dilated pancreatic duct on MRCP, Elevated liver ?enzymes, Acute pancreatitis Medications: ?Monitored Anesthesia Care Description of Procedure: After obtaining informed consent, the endoscope was ?passed under direct vision. Throughout the ?procedure, the patient's blood pressure, pulse, and ?oxygen saturations were monitored continuously. The ?[id number] was introduced through the mouth, and ?advanced to the second part of duodenum. The ?[id number] was introduced through the mouth, and ?advanced to the second part of duodenum. The upper ?EUS was accomplished without difficulty. The ?patient tolerated the procedure well. ? Findings: ? Endoscopic Finding : ? A benign-appearing, intrinsic stenosis was found at the pylorus. This ? was traversed. A TTS dilator was passed through the scope. Dilation with ? an 18-19-20 mm balloon dilator was performed to 20 mm. Biopsies were ? taken with a cold forceps for histology. ? The ampulla and examined duodenum were normal. ? Endosonographic Finding : ? There was dilation in the common bile duct which measured up to 12 mm. ? One stone was visualized endosonographically in the common bile duct. ? The stone measured 3 mm in greatest dimension. The stone was round. It ? was hyperechoic. ? The pancreatic duct had a dilated endosonographic appearance in the ? pancreatic head and genu of the pancreas. The pancreatic duct measured ? up to 6 mm in diameter. ? Anechoic lesions suggestive of two cysts were identified in the ? pancreatic body. The largest lesion measured 5 mm by 4 mm in maximal ? cross-sectional diameter. There was no associated mass. ? There was no sign of significant endosonographic abnormality in the ? ampulla. ? There was no sign of significant endosonographic abnormality in the left ? lobe of the liver. ? Estimated Blood Loss: ? Estimated blood loss was minimal. Complications: ?No immediate complications. Impression: ? 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 Biopsied. ?- Normal ampulla and examined duodenum. ?- There was dilation in the common bile duct which ?measured up to [address] down to the ?ampulla. ?- One small stone was visualized ?endosonographically in the distal common bile duct. ?- The pancreatic duct had a dilated endosonographic ?appearance in the pancreatic head and genu of the ?pancreas all the way to the ampulla with smooth ?taper toward the tail of the pancreas. The ?pancreatic duct measured up to 6 mm in diameter. ?- Two small cystic lesions were seen in the ?pancreatic body. The largest measured 5 by 4 mm. ?- There was no sign of significant pathology in the ?ampulla. ?- There was no evidence of significant pathology in ?the left lobe of the liver. Recommendation: ? - Discharge patient to home. ?- Clear liquid diet today. ?- Await path results. ?- Perform an ERCP at appointment to be scheduled. ?Patient had history of acute biliary pancreatitis. ? Attending Participation: ??I personally performed the entire procedure. ? Procedure Code(s): ? --- Professional --- ? 11367, Esophagogastroduodenos copy, flexible, transoral; with endoscopic ? ultrasound examination limited to the esophagus, stomach or duodenum, ? and adjacent structures ? 17331, Esophagogastroduodenos copy, flexible, transoral; with dilation of ? gastric/duodenal stricture(s) (eg, balloon, bougie) ? 83942, 59, Esophagogastroduodenos copy, flexible, transoral; with biopsy, ? single or multiple Diagnosis Code(s): ?--- Professional --- ?K31.1, Adult hypertrophic pyloric stenosis ?K83.8, Other specified diseases of biliary tract ?K80.50, Calculus of bile duct without cholangitis ?or cholecystitis without obstruction ?K86.2, Cyst of pancreas ?K86.89, Other specified diseases of pancreas ?R74.8, Abnormal levels of other serum enzymes ?K85.90, Acute pancreatitis without necrosis or ?infection, unspecified ?R93.3, Abnormal findings on diagnostic imaging of ?other parts of digestive tract CPT copyright 2016 [employer]. All rights reserved. The codes documented in this report are preliminary and upon engine emission technician review may be revised to meet current compliance requirements. Kassie Yeboah, 03/19/2018 11:28:18 AM Note Initiated On: 03/19/2018 10:33 AM Number of Addenda: 0 ? [facility] ? [address] [place] [address] [facility] 03/19/2018 10:3 3 AM CDT Kassie Yeboah MD GI PROCEDURE ORDERAB LES [facility] * ENDOSCOPY, COLON, DIAGNOSTIC (03/11/2018 10:56 AM CDT) Report Endoscopy POC Endoscopy Department Report _ Patient Name: Matteo Da Silva ?Procedure Date: 03/11/2018 10:56 AM ? Date of : 1950 Classification: Outpatient ?Gender: Male _ Providers: ?Mikaela Petty MD Referring MD: ? Procedure: ?Colonoscopy Indications: ?High risk colon cancer surveillance: Personal ?history of colon cancer Medications: ?Monitored Anesthesia Care Description of Procedure: Pre-Anesthesia Assessment: ?- Prior to the procedure, a History and Physical ?was performed, and patient medications and ?allergies were reviewed. The patient's tolerance of ?previous anesthesia was also reviewed. The risks ?and benefits of the procedure and the sedation ?options and risks were discussed with the patient. ?All questions were answered, and informed consent ?was obtained. Prior Anticoagulants: The patient has ?taken no previous anticoagulant or antiplatelet ?agents. ASA Grade Assessment: II - A patient with ?mild systemic disease. After reviewing the risks ?and benefits, the patient was deemed in ?satisfactory condition to undergo the procedure. ?After I obtained informed consent, the scope was ?passed under direct vision. Throughout the ?procedure, the patient's blood pressure, pulse, and ?oxygen saturations were monitored continuously. The ?[id number] was introduced through the anus and ?advanced to the cecum, identified by appendiceal ?orifice and ileocecal valve. The colonoscopy was ?performed without difficulty. The patient tolerated ?the procedure well. The quality of the bowel ?preparation was good. The terminal ileum, ileocecal ?valve, appendiceal orifice, and rectum were ?photographed. ? Findings: ? The perianal and digital rectal examinations were normal. ? Many small-mouthed diverticula were found in the sigmoid colon. ? The exam was otherwise without abnormality on direct and retroflexion ? views. ? Estimated Blood Loss: ? Estimated blood loss was minimal. Complications: ?No immediate complications. Impression: ? - Diverticulosis in the sigmoid colon. ?- The examination was otherwise normal on direct ?and retroflexion views. ?- No specimens collected. Recommendation: ? - Discharge patient to home (ambulatory). ?- Patient has a contact number available for ?emergencies. The signs and symptoms of potential ?delayed complications were discussed with the ?patient. Return to normal activities tomorrow. ?Written discharge instructions were provided to the ?patient. ?- Resume previous diet. ?- Continue present medications. ?- Repeat colonoscopy in 5 years for surveillance ?given hx of colon cancer. ? Attending Participation: ??I personally performed the entire procedure. ? Procedure Code(s): ? --- Professional --- ? 38201, Colonoscopy, flexible; diagnostic, including collection of ? specimen(s) by brushing or washing, when performed (separate procedure) Diagnosis Code(s): ?--- Professional --- ?Z85.038, Personal history of other malignant ?neoplasm of large intestine ?K57.30, Diverticulosis of large intestine without ?perforation or abscess without bleeding CPT copyright 2016 [employer]. All rights reserved. The codes documented in this report are preliminary and upon engine emission technician review may be revised to meet current compliance requirements. _ Mikaela Petty MD 03/11/2018 11:15:28 AM Note Initiated On: 03/11/2018 10:56 AM Number of Addenda: 0 ? [facility] ? [address] [place] [address] 03/11/2018 10:5 6 AM CDT Mikaela Petty MD GI PROCEDURE MARIANN SCHMITZ Performing Organization Address [facility] Co de Phone Number [facility] * TRANSFERRIN (10/16/2017 2:13 PM DIAL BUFFER) Transferrin 232 174 - 382 mg/dL [facility] Transferrin Saturation % 40 16 - 50 % [facility] Blood specimen (specimen) BLOOD SPECIMEN / Unknown 10/16/2017 2:13 PM DIAL BUFFER 10/16/2017 2:22 PM DIAL BUFFER Rigoberto Mohan MD LAB - CHEMIS TRY ORDERABLES Performing Organization Address [facility] Co de Phone Number [place] [address] [address] [phone] * CERULOPLASMIN (10/16/2017 2:13 PM DIAL BUFFER) Ceruloplasmin 36 20 - 60 mg/dL [facility] Blood specimen (specimen) BLOOD SPECIMEN / Unknown 10/16/2017 2:13 PM DIAL BUFFER 10/16/2017 2:22 PM DIAL BUFFER Rigoberto Mohan MD LAB - CHEMIS TRY ORDERABLES Performing Organization Address [facility]/State/ZIP Co de Phone Number [address] [phone] * IRON BLOOD (10/16/2017 2:13 PM DIAL BUFFER) Pathologist [facility] Iron 115 50 - 175 mcg/dL [facility] Blood specimen (specimen) BLOOD SPECIMEN / Unknown 10/16/2017 2:13 PM DIAL BUFFER 10/16/2017 2:22 PM DIAL BUFFER Rigoberto Mohan MD LAB - CHEMIS TRY ORDERABLES Performing Organization Address [facility] Co de Phone Number [address] [phone] * HEPATITIS B SURFACE ANTIBODY (10/16/2017 2:13 PM DIAL BUFFER) Pathologist [facility] Hepatitis B Virus Surface Antibody Non-react bruce Non-react bruce [facility] Comment: < 8 mIU/mL Hepatitis B surface Antibody (HBsAb). Nonreactive for HBsAb - individual is considered not immune to Hepatitis B Virus infection. Hepatitis B Surface Antibody Quantitative 1.4 <8.0 mIU/mL [facility] Comment: Hepatitis B Surface Antibody Numeric Result Interpretation: ? Nonreactive: ?<8.0 mIU/mL ? Indeterminate: ??8.0 - 12.0 mIU/mL ? Reactive: ?>12.0 mIU/mL ? Blood specimen (specimen) BLOOD SPECIMEN / Unknown 10/16/2017 2:13 PM DIAL BUFFER 10/16/2017 2:22 PM DIAL BUFFER Rigoberto Mohan MD LAB - CHEMIS TRY ORDERABLES Performing Organization Address [facility] de Phone Number [address] [phone] * HEPATITIS B SURFACE ANTIGEN W RFLX CONFIRMATION (10/16/2017 2:13 PM DIAL BUFFER) [facility] Hepatitis B Virus Surface Antigen Non-reacti ve Non-reacti ve [facility] Blood specimen (specimen) BLOOD SPECIMEN / Unknown 10/16/2017 2:13 PM DIAL BUFFER 10/16/2017 2:22 PM DIAL BUFFER Rigoberto Mohan MD LAB - CHEMIS TRY ORDERABLES Performing Organization Address [facility] de Phone Number [address] [phone] * (ABNORMAL) FERRITIN (10/16/2017 2:13 PM DIAL BUFFER) [facility] Ferritin 301(H) 22 - 275 ng/mL [facility] Blood specimen (specimen) BLOOD SPECIMEN / Unknown 10/16/2017 2:13 PM DIAL BUFFER 10/16/2017 2:22 PM DIAL BUFFER Rigoberto Mohan MD LAB - CHEMIS TRY ORDERABLES Performing Organization Address [facility] de Phone Number [address] [phone] * [id number] BLOOD PHENOTYPING PANEL (10/16/2017 2:13 PM DIAL BUFFER) [facility] Kphye-1-Emsitwdeld n 156 90 - 200 mg/dL [facility] ([facility]) Phenotype (PI) MM [facility] ([facility]) Comment: ? Phenotype ?? Population ?A-1-AT Concentration ? Incidence % ?Reference Interval ? MM ?86.5% ?96 - 189 ? MS ? 8.0% ?83 - 161 ? MZ ? 3.9% ?60 - 111 ? FM ? 0.4% ?93 - 191 ? SZ ? 0.3% ?42 - ??75 ? SS ? 0.1% ?62 - 119 ? ZZ ? 0.05% ? 16 - ??38 ? FS ? 0.05% ? 70 - 128 ? FZ ?Unknown ?44 - ??88 ? FF ?Unknown ?Unknown Blood specimen (specimen) BLOOD SPECIMEN / Unknown 10/16/2017 2:13 PM DIAL BUFFER 10/16/2017 2:22 PM DIAL BUFFER Narrative [facility] ([facility]) - 10/19/2017 4:18 PM DIAL BUFFER Performed at: ??01 - [facility] [address] [place], [place] ??[id number] Music Promoter: Dontae Morocho PhD, Phone: ??[phone] Performed at: ??02 - [facility] ??[id number] Music Promoter: Stas Griffin MD, Phone: ??[phone] Rigoberto Mohan MD LAB - CHEMIS TRY ORDERABLES Performing Organization Address [facility] Co de Phone Number [facility] [address] [place] [address] * [place] BLOOD SCREEN W/REFLEX TITER (10/16/2017 2:13 PM DIAL BUFFER) [place] IFA Negative [facility]) Comment: ? Negative ?? <1:80 ? Borderline ??1:80 ? Positive ?? >1:80 Blood specimen (specimen) BLOOD SPECIMEN / Unknown 10/16/2017 2:13 PM DIAL BUFFER 10/16/2017 2:22 PM DIAL BUFFER Narrative [facility] ([facility]) - 10/19/2017 3:11 PM DIAL BUFFER Performed at: ??01 - [facility] [address] [place], [place] ??[id number] Music Promoter: Dontae Morocho PhD, Phone: ??[phone] Rigoberto Mohan MD LAB - CHEMIS TRY ORDERABLES Performing Organization Address [facility] Co de Phone Number [facility]) [address] [place] [address], [facility] * (ABNORMAL) MITOCHONDRIAL ANTIBODY SCREEN (10/16/2017 2:13 PM DIAL BUFFER) Mitochondrial M2 Antibody 32.3(H) 0.0 - 20.0 Units [facility] Comment: Mitochondrial M2 Antibody Numeric Result Interpretation: ?<20.1 Units: ??Negative ?20.1 - 24.9 Units: ??Equivocal ?>24.9 Units: ??Positive ? Blood specimen (specimen) BLOOD SPECIMEN / Unknown 10/16/2017 2:13 PM DIAL BUFFER 10/16/2017 2:22 PM DIAL BUFFER Rigoberto Mohan MD LAB - CHEMДМИТРИЙ JOSEPH ORDERABLES Performing Organization Address [facility] de Phone Number [address] [phone] * (ABNORMAL) SMOOTH MUSCLE ANTIBODY (10/16/2017 2:13 PM DIAL BUFFER) F-Actin Antibody IgG 20.8(H) 0.0 - 19.9 Units [facility] Comment: F-Actin Antibody Numeric Result Interpretation: ?<20.0 Units: ??Negative ?20.0 - 30.0 Units: ??Weak Positive ?>30.0 Units: ??Moderate to Strong Positive ? Blood specimen (specimen) BLOOD SPECIMEN / Unknown 10/16/2017 2:13 PM DIAL BUFFER 10/16/2017 2:22 PM DIAL BUFFER Rigoberto Mohan MD LAB - SERJOSHUA FRENCH ORDERABLES Performing Organization Address [facility] Phone Number [address] [phone] * CLOSTRIDIUM DIFFICILE [facility] + TOXIN A+B (10/15/2017 9:49 AM DIAL BUFFER) C difficile Antigen Negative Negative [facility] C difficile Toxin Negative Negative [facility] Stool specimen (specimen) STOOL SPECIMEN / Unknown 10/15/2017 9:49 AM DIAL BUFFER 10/15/2017 10:19 AM DIAL BUFFER Narrative [facility] - 10/15/2017 4:39 PM DIAL BUFFER Specimen Type->Stool Resulting Lab: ?? [facility] [address] [place] [address] PH: [phone] Rigoberto Mohan MD LAB - MICROB IOLOGY ORDERABLES [facility] [address] [place], [place] [id number] [place] [address] * MRI ABDOMEN W MRCP WWO CONT W3D (10/15/2017 8:37 AM DIAL BUFFER) Anatomical Region Laterality Modality Other Impressions 10/15/2017 10:30 AM DIAL BUFFER IMPRESSION: 1. Nondilated gallbladder with a markedly thickened and edematous wall measuring up to 1.2 cm in thickness as well as a mildly dilated common bile duct without evidence of cholelithiasis or choledocholithiasis. A nuclear medicine hepatobiliary scan may be helpful if there is clinical concern for cholecystitis. 2. Hepatic cirrhosis. 3. Hepatic segment 3 arterially enhancing observation measuring 1.2 cm without washout is indeterminate probability for hepatocellular carcinoma (LR 3). Multiple additional smaller peripheral arterially enhancing observations are indeterminate (LR 3). 4. Subcentimeter pancreatic cysts. Recommend follow-up MRI in 1 year. Dictated by Romulo Corbin MD (vice president compliance). I, Dr. BOWEN TANNER M.D. have personally reviewed and interpreted this examination/study. This report was electronically signed by BOWEN TANNER M.D. ??on 10/15/2017 10:30 AM . Narrative 10/15/2017 10:30 AM DIAL BUFFER EXAMINATION: 1. Magnetic resonance imaging (MRI) of the abdomen without and with contrast 2. Magnetic resonance cholangiopancreatography (MRCP) with 3-D reconstruction and analysis HISTORY: 67-year-old male with a history of rectal cancer and hepatitis C, with abdominal pain and dilatation of the biliary tree seen on prior imaging. TECHNIQUE: MRI of the abdomen was performed prior to and following the uneventful administration of 20 mL of Multihance intravenous gadolinium contrast according to standard protocol, including dynamic imaging for MRCP. Image data was analyzed on a dedicated 3-D workstation for the MRCP portion of the exam. COMPARISON: Comparison is made to a right upper quadrant ultrasound from 10/14/2017 and [address] outside institution CT of the abdomen and pelvis from 10/13/2017. FINDINGS: MRI: The examination is degraded by respiratory motion. There are trace bilateral pleural effusions. The liver has a mildly nodular surface contour with hypertrophy of the left lateral segment and a heterogenous enhancement pattern, consistent with cirrhosis. A 1.2 x 1.1 observation of enhancement in hepatic segment 3 (series 14 image 32) does not demonstrate washout (LR 3). There are multiple additional small peripheral subcentimeter arterially enhancing observations without washout (LR 3). The hepatic arterial anatomy is conventional. The portal vein and its major branches are patent. The hepatic veins are patent. The spleen and adrenal glands are normal. The kidneys contain multiple large cysts, some of which contain septations and small amounts of layering hemorrhage, measuring up to 4.9 cm on the right and 5.1 cm on the left. No free intraperitoneal fluid is identified. Prominent periportal lymph nodes are nonspecific. There are severe degenerative changes in the spine. MRCP: The gallbladder is nondilated without evidence of gallstones. The gallbladder wall is markedly thickened and edematous, measuring 1.2 cm in thickness (series 20 image 12). The intrahepatic bile ducts are nondilated. The common bile duct is mildly dilated, measuring 9 mm in diameter (series 20 image 16). No filling defect is seen within the biliary system. The pancreas demonstrates normal signal intensity. There is no peripancreatic fluid collection. No pancreatic mass is identified. Several cysts are identified in the pancreas, with the largest measuring 8 mm in the uncinate process (series 4 image 22). The pancreatic duct is not dilated. Procedure Note Cm Corbin MD - 02/05/2018 EXAMINATION: 1. Magnetic resonance imaging (MRI) of the abdomen without and withcontrast 2. Magnetic resonance cholangiopancreatography (MRCP) with 3-Dreconstruction and analysis HISTORY: 67-year-old male with a history of rectal cancer and hepatitis C,with abdominal pain and dilatation of the biliary tree seen on priorimaging. TECHNIQUE: MRI of the abdomen was performed prior to and following theuneventful administration of 20 mL of Multihance intravenous gadoliniumcontrast according to standard protocol, including dynamic imaging forMRCP. Image data was analyzed on a dedicated 3-D workstation for the MRCP portion of the exam. COMPARISON: Comparison is made to a right upper quadrant ultrasound from10/14/2017 and an outside institution CT of the abdomen and pelvis from10/13/2017. FINDINGS: MRI: The examination is degraded by respiratory motion. There are trace bilateral pleural effusions. The liver has a mildly nodular surface contour with hypertrophy of theleft lateral segment and a heterogenous enhancement pattern, consistentwith cirrhosis. A 1.2 x 1.1 observation of enhancement in hepatic segment3 (series 14 image 32) does not demonstrate washout (LR 3). There are multiple additional small peripheralsubcentimeter arterially enhancing observations without washout (LR 3). The hepatic arterial anatomy is conventional. The portal vein and itsmajor branches are patent. The hepatic veins are patent. The spleen and adrenal glands are normal. The kidneys contain multiplelarge cysts, some of which contain septations and small amounts oflayering hemorrhage, measuring up to 4.9 cm on the right and 5.1 cm on theleft. No free intraperitoneal fluid is identified. Prominent periportal lymph nodes are nonspecific. There are severe degenerative changes in the spine. MRCP: The gallbladder is nondilated without evidence of gallstones. Thegallbladder wall is markedly thickened and edematous, measuring 1.2 cm inthickness (series 20 image 12). The intrahepatic bile ducts arenondilated. The common bile duct is mildly dilated, measuring 9 mm in diameter (series 20 image 16). No fillingdefect is seen within the biliary system. The pancreas demonstrates normal signal intensity. There is noperipancreatic fluid collection. No pancreatic mass is identified. Severalcysts are identified in the pancreas, with the largest measuring 8 mm inthe uncinate process (series 4 image 22). The pancreatic duct is not dilated. IMPRESSION IMPRESSION: 1. Nondilated gallbladder with a markedly thickened and edematous wallmeasuring up to 1.2 cm in thickness as well as a mildly dilated commonbile duct without evidence of cholelithiasis or choledocholithiasis. Anuclear medicine hepatobiliary scan may be helpful if there is clinical concern for cholecystitis. 2. Hepatic cirrhosis. 3. Hepatic segment 3 arterially enhancing observation measuring 1.2 cmwithout washout is indeterminate probability for hepatocellular carcinoma(LR 3). Multiple additional smaller peripheral arterially enhancingobservations are indeterminate (LR 3). 4. Subcentimeter pancreatic cysts. Recommend follow-up MRI in 1 year. Dictated by Romulo Corbin MD (vice president compliance). I, Dr. BOWEN TANNER M.D. have personally reviewed and interpreted thisexamination/study. This report was electronically signed by BOWEN TANNER M.D. on 10/15/201710:30 AM . Rigoberto Mohan MD MR ORDERABLE S * PHOSPHORUS BLOOD (10/14/2017 9:58 AM DIAL BUFFER) Phosphorus 2.3 2.3 - 4.7 mg/dL [facility] Blood specimen (specimen) BLOOD SPECIMEN / Unknown 10/14/2017 9:58 AM DIAL BUFFER 10/14/2017 10:30 AM DIAL BUFFER Rigoberto Mohan MD LAB - CHEMIS TRY ORDERABLES [address] [phone] * (ABNORMAL) MAGNESIUM BLOOD (10/14/2017 9:58 AM DIAL BUFFER) Magnesium 1.5(L) 1.6 - 2.6 mg/dL [facility] Blood specimen (specimen) BLOOD SPECIMEN / Unknown 10/14/2017 9:58 AM DIAL BUFFER 10/14/2017 10:30 AM DIAL BUFFER Rigoberto Mohan MD LAB - CHEMIS TRY ORDERABLES Performing Organization Address [facility]/State/ZIP Co de Phone Number [address] [phone] * (ABNORMAL) LIPASE BLOOD (10/14/2017 9:58 AM DIAL BUFFER) Only the most recent of2 resultswithin the time period is included. Lipase 84(H) 8 - 78 Units/L [facility] Comment:Confirmed by repeat analysis. Blood specimen (specimen) BLOOD SPECIMEN / Unknown 10/14/2017 9:58 AM DIAL BUFFER 10/14/2017 10:30 AM DIAL BUFFER Rigoberto Mohan MD LAB - CHEMIS TRY ORDERABLES [address] [phone] * US ABDOMEN LIMITED (10/14/2017 9:05 AM DIAL BUFFER) Anatomical Region Laterality Modality Abdomen Other Impressions 10/15/2017 1:43 PM DIAL BUFFER IMPRESSION: 1. Gallbladder sludge with mild pericholecystic edema and wall thickening without sonographic evidence of cholelithiasis. While this may be due to the liver disease, however acute cholecystitis cannot be entirely excluded. 2. Mild to moderate intra and extrahepatic biliary dilatation. The distal most portion of the CBD is not well visualized. MRI/MRCP can be considered for further evaluation if clinically indicated. 3. Mild left hepatic lobe surface nodularity which is nonspecific but can be seen associated with chronic parenchymal disease. No discrete hepatic lesion. Dictated by Mukund Tang MD (resident). This report was approved ??by Nena Tang M.D. ?? on 10/14/2017 10:55 AM . I, Dr. Radha ECHAVARRIA M.D. have personally reviewed and interpreted this examination/study. This report was electronically signed by Radha ECHAVARRIA M.D. ??on 10/15/2017 1:43 PM . Narrative 10/15/2017 1:43 PM DIAL BUFFER EXAMINATION: Limited abdominal sonogram HISTORY: RUQ pain, CBD and GB dilation, pancreatitis COMPARISON: Comparison made with outside hospital CT from 10/13/2017. FINDINGS: The liver is normal in echotexture and echogenicity. Mild surface nodularity seen along the left hepatic lobe. No discrete hepatic mass is seen. There is intrahepatic biliary dilatation. Color Doppler evaluation demonstrates patency of the hepatic and portal veins. There is sludge in the gallbladder. No gallstones is seen. Mild pericholecystic edema is seen. The gallbladder wall is thickened, measuring 6 mm. Sonographic Rodriguez's sign is negative. The visible proximal and mid common duct is dilated, measuring up to 11 mm. The distal CBD is not well visualized. No intraductal stone is identified within the visualized portion of the common duct. The right kidney measures 12.9 x 6.2 x 6.1 cm. Limited views of the right kidney reveal no evidence of hydronephrosis. Multiple cysts are seen in the right kidney, the largest measuring up to 4.7 cm. Thin internal septations are also seen in one of the cysts. The spleen measures 13.1 cm in length. The pancreas is suboptimally visualized due to poor acoustic window. No ascites is present. Procedure Note Cecy Echavarria MD - 02/05/2018 EXAMINATION: Limited abdominal sonogram HISTORY: RUQ pain, CBD and GB dilation, pancreatitis COMPARISON: Comparison made with outside hospital CT from 10/13/2017. FINDINGS: The liver is normal in echotexture and echogenicity. Mild surfacenodularity seen along the left hepatic lobe. No discrete hepatic mass isseen. There is intrahepatic biliary dilatation. Color Doppler evaluationdemonstrates patency of the hepatic and portal veins. There is sludge in the gallbladder. No gallstones is seen. Mildpericholecystic edema is seen. The gallbladder wall is thickened,measuring 6 mm. Sonographic Rodriguez's sign is negative. The visibleproximal and mid common duct is dilated, measuring up to 11 mm. The distal CBD is not well visualized. No intraductal stone isidentified within the visualized portion of the common duct. The right kidney measures 12.9 x 6.2 x 6.1 cm. Limited views of the rightkidney reveal no evidence of hydronephrosis. Multiple cysts are seen inthe right kidney, the largest measuring up to 4.7 cm. Thin internalseptations are also seen in one of the cysts. The spleen measures 13.1 cm in length. The pancreas is suboptimallyvisualized due to poor acoustic window. No ascites is present. IMPRESSION IMPRESSION: 1. Gallbladder sludge with mild pericholecystic edema and wall thickeningwithout sonographic evidence of cholelithiasis. While this may be due tothe liver disease, however acute cholecystitis cannot be entirelyexcluded. 2. Mild to moderate intra and extrahepatic biliary dilatation. The distalmost portion of the CBD is not well visualized. MRI/MRCP can be consideredfor further evaluation if clinically indicated. 3. Mild left hepatic lobe surface nodularity which is nonspecific but canbe seen associated with chronic parenchymal disease. No discrete hepaticlesion. Dictated by Mukund Tang MD (resident). This report was approved by Nena Tang M.D. on 10/14/2017 10:55AM . I, Dr. Radha ECHAVARRIA M.D. have personally reviewed and interpreted thisexamination/study. This report was electronically signed by Radha ECHAVARRIA M.D. on10/15/2017 1:43 PM . Dino Manzo MD ORDERABLES * HEPATITIS C RNA QUANTITATIVE PCR (10/13/2017 12:49 PM DIAL BUFFER) Only the most recent of2 resultswithin the time period is included. Hepatitis C Virus RNA PCR Accession No: [id number] Specimen: Serum Reference: [id number] Test: Hepatitis C RT-PCR (Quantitative) RESULT Not Detected Reference Range Not Detected INTERPRETATION The quantitative Hepatitis C viral RNA RT-PCR determination was performed on a serum sample and is reported in IU/ml. Hepatitis C viral RNA was not detected. COMMENT The Hepatitis C viral (HCV) RNA analysis utilized a serum sample, real-time reverse head sampler PCR, and is reported as Not Detected, [...] the isolation of HCV RNA with reverse head sampler of genomic HCV RNA followed by real-time PCR in the presence of an unrelated RNA internal control. The internal control ensures that RNA is isolated, and that no general significant inhibitors of the RT-PCR process are present. This analysis was performed using an [place] FDA approved test methodology (PFSweb RealTime HCV). Test performed at [facility], [address] [place] [address] [place] ??[id number] This case has been personally reviewed and interpreted by the attending (teaching) pathologist. Final Diagnosis performed by Fabio Dias PHD. Electronically signed 10/15/2017 [facility] ([facility]) Blood specimen (specimen) BLOOD SPECIMEN / Unknown 10/13/2017 12:49 PM DIAL BUFFER 10/13/2017 12:49 PM DIAL BUFFER Dino Manzo MD LAB - CHEMISTRY MARIANN SCHMITZ [facility] ([facility]) [address] [place] [address], [facility] [phone] * LDH BLOOD (10/13/2017 12:48 PM DIAL BUFFER) Pathologist [facility] LDH Total 242 125 - 243 Units/L [facility] Blood specimen (specimen) BLOOD SPECIMEN / Unknown 10/13/2017 12:48 PM DIAL BUFFER 10/13/2017 5:36 PM DIAL BUFFER Dino Manzo MD LAB - [place] [address], [facility] [phone] * (ABNORMAL) LIPID PROFILE (10/13/2017 12:48 PM DIAL BUFFER) Cholesterol Total 106 <200 mg/dL [facility] HDL 6(L) >40 mg/dL [facility] Comment: ATP III Classification of HDL Cholesterol: ? <40 mg/dL: ??Considered a major risk factor. ? >60 mg/dL: ??Considered a negative risk factor. ? LDL Calculated 62 <100 mg/dL [facility] Comment: ATP III Classification of LDL Cholesterol: ?<100 mg/dL: ??Optimal ? 100 - 129 mg/dL: ??Near Optimal/Above Optimal ? 130 - 159 mg/dL: ??Borderline High ? 160 - 189 mg/dL: ??High ?>190 mg/dL: ??Very High ? Triglycerides 189(H) <150 mg/dL [facility] Comment: ATP III Classification of Triglycerides: ?<150 mg/dL: ??Normal ? 150 - 199 mg/dL: ??Borderline High ? 200 - 400 mg/dL: ??High ?>500 mg/dL: ??Very High Blood specimen (specimen) BLOOD SPECIMEN / Unknown 10/13/2017 12:48 PM DIAL BUFFER 10/13/2017 5:36 PM DIAL BUFFER Dino Manzo MD LAB - CHEMISTRY MARIANN SCHMITZ [address] [phone] * (ABNORMAL) DIFFERENTIAL MANUAL (10/13/2017 12:47 PM DIAL BUFFER) WBC (corrected for NRBC) 21.4 10? 3 /uL [facility] Total Cell Count 100 [facility] Neutrophils Absolute Manual 19.69(H) 1.60 - 7.00 10? 3 /uL [facility] Comment:(BANDS+SEGS) x WBC = NEUT # (ANC) Lymphocyte Absolute Manual 0.64(L) 0.80 - 2.90 10? 3 /uL [facility] Monocytes Absolute Manual 1.07(H) 0.14 - 0.66 10? 3 /uL [facility] Band % Manual 25(H) 0 - 10 % [facility] Neutrophil % Manual 67(H) 30 - 60 % [facility] Lymphocyte % Manual 3(L) 20 - 45 % [facility] Monocytes % Manual 5 2 - 10 % [facility] Platelet Estimate Adequate Adequate [facility] RBC Morphology Normal [facility] Blood specimen (specimen) BLOOD SPECIMEN / Unknown 10/13/2017 12:47 PM DIAL BUFFER 10/13/2017 12:47 PM DIAL BUFFER Dino Manzo MD LAB - HEMATOLOGY ORD ERABLES Performing Organization Address [facility]/ZIP Co de Phone Number [address] [phone] * AMMONIA (10/13/2017 12:46 PM DIAL BUFFER) Ammonia 39 11 - 64 umol/L [facility] Blood specimen (specimen) BLOOD SPECIMEN / Unknown 10/13/2017 12:46 PM DIAL BUFFER 10/13/2017 12:46 PM DIAL BUFFER Dino Manzo MD LAB - CHEMISTRY ORDE RABLES Performing Organization Address [facility] Co de Phone Number [address] [phone] * (ABNORMAL) URINALYSIS REFLEX TO MICROSCOPIC NO CULTURE (10/13/2017 11:34 AM DIAL BUFFER) Color UA Laurel(A) Straw, Yellow, Colorless, Light Yellow [facility] Clarity UA Clear Clear [facility] Specific [place]et UA >1.040(H) 1.001 - 1.030 [facility] pH UA 6.0 5.0 - 8.0 [facility] Protein UA 20 <=20 mg/dL [facility] Glucose UA Negative Negative mg/dL [facility] Ketone UA Negative Negative mg/dL [facility] Bilirubin UA 3.0(A) Negative mg/dL [facility] Comment: Urine Bilirubin result confirmed by manual Ictotest. Blood UA Negative Negative [facility] Nitrite UA Negative Negative [facility] Leukocyte Esterase Negative Negative [facility] Urobilinogen UA 6.0(H) <2.0 mg/dL [facility] RBC UA 3 0 - 8 /HPF [facility] WBC UA 2 0 - 2 /HPF [facility] Urine specimen (specimen) 10/13/2017 11:34 AM DIAL BUFFER 10/13/2017 11:34 AM DIAL BUFFER Narrative [facility] - 10/13/2017 11:59 AM DIAL BUFFER Specific gravity results confirmed by refractometer. Dino Manzo MD LAB - URINALYSIS ORD ERABLES Performing Organization Address [facility] [place] [address], [facility] [phone] * CULTURE URINE (10/13/2017 11:33 AM DIAL BUFFER) Culture Urine No growth (<1,000 CFU/mL) [facility] Urine specimen (specimen) URINE / Unknown 10/13/2017 11:33 AM DIAL BUFFER 10/13/2017 11:33 AM DIAL BUFFER Narrative [facility] - 10/14/2017 3:09 PM DIAL BUFFER Specimen Type->Urine Resulting Lab: ?? [facility] MICROBIOLOGY [address] [place] [address] PH: [phone] Resulting Lab: ?? [facility] MICROBIOLOGY [address] [place] [address] PH: [phone] Dino Manzo MD LAB - MICROBIOLOGY O RDERABLES Performing Organization Address [facility] [place] [address], [facility] [phone] * EKG 12-LEAD (10/13/2017 12:00 AM DIAL BUFFER) EKG [facility] Comment: Exam Date/Time: ?? Oct 13 2017 10:28:21 Test Reason : QTc eval Blood Pressure : / mmHG Vent. Rate : 087 BPM ? Atrial Rate : 087 BPM ?? P-R Int : 204 ms ?QRS Dur : 090 ms ?QT Int : 336 ms ? P-R-T Axes : 053 038 063 degrees ?? QTc Int : 404 ms Normal sinus rhythm with 1st degree A-V block Otherwise normal ECG When compared with ECG of 08-MAR-2003 08:28, No significant change was found Confirmed by Shantal FRANKLIN, SACHI ([id number]), supervising editor news reel JOHNATHAN LEVY ([id number]) on 10/28/2017 2:43:29 PM Referred By: REFERRING NO ? Confirmed By:SACHI FRANKLIN M.D. 10/13/2017 Dino Manzo MD ECG ORDERABLES Performing Organization Address City/[facility]/ZIP Co de Phone Number [facility] * GIARDIA SCREEN DFA (10/17/2014 6:00 AM DIAL BUFFER) Giardia Antigen Screen No Giardia Lamblia Cysts seen. Negative [facility] Stool specimen (specimen) STOOL SPECIMEN / Unknown 10/17/2014 6:00 AM DIAL BUFFER 10/18/2014 9:29 AM DIAL BUFFER Narrative [facility] - 10/19/2014 11:28 AM DIAL BUFFER AndersonSpecimen#[id number] Matthew Loc/Rm/Bed: NONPATLAB// Historical Provider LAB - MICROBIOLOG Y ORDERABLES Performing Organization Address [facility]/ZIP Co de Phone Number [address] [phone] * CULTURE STOOL+ E COLI SHIGA-LIKE TOXIN (10/17/2014 6:00 AM DIAL BUFFER) Culture Feces No Salmonella, Shigella, Yersinia, Campylobacter or Escherichia Coli 0157:H7 isolated. Negative for Shiga Toxin by Immunoassay. [facility] Stool specimen (specimen) STOOL SPECIMEN / Unknown 10/17/2014 6:00 AM DIAL BUFFER 10/18/2014 9:29 AM DIAL BUFFER Narrative [facility] - 10/21/2014 1:29 PM DIAL BUFFER AndersonSpecimen#[id number] Matthew Loc/Rm/Bed: NONPATLAB// Historical Provider LAB - MICROBIOLOG Y ORDERABLES Performing Organization Address [facility]/ZIP Co de Phone Number [address] [phone] * CRYPTOSPORIDIUM ANTIGEN (10/17/2014 6:00 AM DIAL BUFFER) Cryptosporidium Antigen Screen No Cryptosporidium Oocysts seen. Negative [facility] Stool specimen (specimen) STOOL SPECIMEN / Unknown 10/17/2014 6:00 AM DIAL BUFFER 10/18/2014 9:29 AM DIAL BUFFER Narrative [facility] - 10/19/2014 11:28 AM DIAL BUFFER AndersonSpecimen#[id number] Matthew Loc/Rm/Bed: NONPATLAB// Historical Provider MD LAB - MICROBIOLOG Y ORDERABLES [address] [phone] * HEPATITIS C REAL-TIME PCR QUANTASURE (11/09/1998 12:00 AM DIAL BUFFER) Heptimax (R) Hepatitis C Virus RNA <5 [facility] ([facility]) Heptimax (R) Hepatitis C Virus RNA <0.70 [facility] ([facility]) 11/09/1998 Narrative [facility] ([facility]) - 11/09/1998 12:00 AM DIAL BUFFER This order was created through External Result Entry Kathy ARZOLA LAB - SEROLOGY ORDER CODIE [facility]) Care Teams Steam Roller Operator Relationship Specialty Start Date End Date Supa Valentin DO [address] [place] [address] PCP - General 12/20/19
--- OUTSIDE RECORDS SUMMARY | 2024-12-12 15:34 | XMS_ITS | CONTINUITY OF CARE DOCUMENT ---
Author Name debbie, debbie Address Unknown Organization [facility] Address [address] [place] [address] Phone [phone] Care Team Providers Care Paradichlorobenzene Tender Name Role Phone Dionicio GALVAN, Reggie Unavailable [phone] JOSE J GALVAN, MANAV Unavailable MASSIEL GALVAN, LISA Unavailable PROBLEMS Condition Status Date Provider Notes ANGINA PECTORIS-06/17 NUC ISCHEMIA INF WALL completed - Reggie Greenberg MD BRADYCARDIA, SINUS;2008, DUE TO CALAN active Reggie Greenberg MD OBESITY active Reggie Greenberg MD HYPERCHOLESTEROLEMIA;LABS PE R PRIMARY active Reggie Greenberg MD GERD active Reggie Greenberg MD ARTHRITIS active Reggie Greenberg MD DYSPNEA ON EXERTION;NML ECHO 2008, DUE TO LUNG DZ active Reggie Greenberg MD SNORING;SAW DR WHITE ABOUT LYN POSSIBLITY active Reggie Greenberg MD TOBACCO ABUSE active Reggie Greenberg MD HEPATITIS C;WILL SEE DR ASHOK Manriquez ABOUT STATINS active Reggie Greenberg MD SILICOSIS;SEES LUNG MD active Reggie Greenberg MD HTN-06/17 NML ECHO, EF 60, WILL TRY LOW DOSE SETH-I 07/18 active Reggie Greenberg MD ABNORMAL STRESS NUCLEAR SCAN;CATH 20% CX active Reggie Greenberg MD CAD-MILD PLAQUING 06/17 BY CATH WITH NEG CAROTID DUP. active ? Reggie Greenberg MD HTN-06/17 NEG DUPLESX active ? Reggie Key KIDNEY CANCER;WILL SEE DR SALAZAR active Reggie Greenberg MD RENAL DISEASE, CHRONIC, MILD;CR 1.35, NO HYDRO active Reggie Greenberg MD COPD;NML KIAN 09 active Reggie Greenberg MD ENCOUNTERS Date Type Provider Location Encounter Diag nosis - In-person encounter Office Visit Reggie Greenberg MD [facility] ANGINA PECTORIS-06/17 NUC ISCHEMIA INF WALLBRADYCARDIA, SINUS;2008, DUE TO CALANDYSPNEA ON EXERTION;NML ECHO 2008, DUE TO LUNG DZSNORING;SAW DR WHITE ABOUT LYN POSSIBLITYHEPATITIS C;WILL SEE DR GREWAL ABOUT STATINSHTN-06/17 NML ECHO, EF 60, WILL TRY LOW DOSE SETH-I 07/18ABNORMAL STRESS NUCLEAR SCAN;CATH 20% CXCAD-MILD PLAQUING 06/17 BY CATH WITH NEG CAROTID DUP.HTN-06/17 NEG DUPLESXKIDNEY CANCER;WILL SEE DR MORALESNAL DISEASE, CHRONIC, MILD;CR 1.35, NO HYDROCOPD;NML KIAN 09 - In-person encounter Office Visit Reggie Greenberg MD [facility] DYSPNEA ON EXERTION;NML ECHO 2008, DUE TO LUNG DZHEPATITIS C;WILL SEE DR GREWAL ABOUT STATINSSILICOSIS;SEES LUNG HTN-06/17 NML ECHO, EF 60, WILL TRY LOW DOSE SETH-I 07/18ABNORMAL STRESS NUCLEAR SCAN;CATH 20% CX - In-person encounter Office Visit Reggie Greenberg MD [facility] ANGINA PECTORIS-06/17 NUC ISCHEMIA INF WALLBRADYCARDIA, SINUS;2008, DUE TO CALANOBESITYHYPERCHOLESTEROLEMIA ;LABS PER PRIMARYGERDARTHRITISDYSPNEA ON EXERTION;NML ECHO 2008, DUE TO LUNG DZSNORING;SAW DR WHITE ABOUT LYN POSSIBLITYTOBACCO ABUSEHEPATITIS C;WILL SEE DR GREWAL ABOUT STATINSSILICOSIS;SEES LUNG VITAL SIGNS Date Observation Value Provider blood pressure, diastolic, left arm 95 mm [Hg] Marisela Vences blood pressure, systolic, left arm 174 mm [Hg] Marisela Ru blood pressure, diastolic, right arm 97 m m[Hg] Marisela Kinston blood pressure, systolic, right arm 156 m m[Hg] Marisela Kinston pulse rate 70 /min Marisela Ru oxygen saturation, oximetry 95 % Marisela Kinston respiratory rate E&M 20 /min Marisela Kinston weight E&M 262 [lb_av] Marisela Kinston blood pressure, diastolic 68 mm[Hg] Lio Mariano RN blood pressure, systolic 117 mm[Hg] Torrey Mariano RN pulse rate 73 /min Torrey Mariano RN oxygen saturation, oximetry 96 % Torrey Mariano RN respiratory rate E&M 18 /min Torrey tan RN weight E&M 263 [lb_av] Torrey Mariano RN blood pressure, diastolic 84 mm[Hg] George Sammy Floyd blood pressure, systolic 130 mm[Hg] Yasmin Floyd pulse rate 56 /min Rico pete oxygen saturation, oximetry 95 % Rico Floyd respiratory rate E&M 20 /min Kendra Floyd weight E&M 263.8 [lb_av] Rico tellez ALLERGIES No Known Drug Allergies HISTORY OF MEDICATION USE Medication Status Instructions Dates Provider Indications Com ments ZESTORETIC 10-12.5 MG ORAL TABLET active ONE TAB. DAILY instead of hydrochlorothiazed 07/26 Reggie Greenberg MD ASPIRIN 81 MG ORAL TABLET active ONE TAB. DAILY 06/06 Reggie Greenberg MD MULTIVITAMINS ORAL CAPSULE active ONE TAB. DAILY Rico Floyd ACYCLOVIR 400 MG ORAL TABLET active twice daily Rico Floyd ZETIA 10 MG ORAL TABLET active ONE TAB. DAILY Rico Floyd HYDROCODONE-ACETAMINO PHEN 10-325 MG ORAL TABLET active 10/650 mg once every 8 hrs for pain Rico Floyd DIAZEPAM 10 MG ORAL TABLET active once daily Rico Floyd BENZONATATE 100 MG ORAL CAPSULE active as needed for cough Rico Floyd ZOLOFT 50 MG ORAL TABLET active ONE TAB. DAILY Rico Floyd ARTHROTEC 75 TABS active twice daily Calvin Floyd NEURONTIN 100 MG ORAL CAPSULE active ONE TAB. 3 times DAILY Rico Floyd PREVACID 15 MG ORAL CAPSULE DELAYED RELEASE active ONE TAB. twice DAILY Rico Floyd HYDROCHLOROTHIAZIDE 12.5 MG ORAL CAPSULE active ONE TAB. DAILY Rico Floyd GUANFACINE HCL 2 MG ORAL TABLET active once daily Rico Floyd VERAPAMIL HCL ER 240 MG ORAL TABLET EXTENDED RELEASE active ONE TAB. twice DAILY Rico Floyd SOCIAL HISTORY Date Observation Value Provider smoking/tobacco cess ation, patient education and counseling yes Torrey Mariano RN social history reviewed E&M reviewed Torrey Mariano RN social history reviewed E&M reviewed Torrey Mariano RN smoking/tobacco cess ation, patient education and counseling yes Torrey Mariano RN social history E&M Marital Statu s: Christ ziegler with family/friends E thnicity: Reggie Greenberg MD social history reviewed E&M reviewed Reggie Greenberg MD smoking/tobacco cess ation, patient education and counseling yes Reggie Greenberg MD physical exercise, f requency, days per week no LinkLog caffeine use, averag e drinks per day yes LinkLog alcohol use, average drinks per day 1-3 drinks per day LinkLog number of years as a smoker 10 years or m [facility] MENTAL STATUS Date Observation Value Provider assessment of judgme nt and insight E&M Alert and oriented to time, place and person. Mood and affect are normal. Torrey Mariano RN assessment of judgme nt and insight E&M Alert and oriented to time, place and person. Mood and affect are normal. Torrey Mariano RN assessment of judgme nt and insight E&M Alert and oriented to time, place and person. Mood and affect are normal. Reggie Greenberg MD TREATMENT PLAN Date Name Performer mild cor dz, ;clear for any surgery: H is updated medication list for this problem includes: Verapamil Hcl Cr 240 Mg Tbcr (Verapamil hcl) ..... One tab. twice daily Diazepam 10 Mg Tabs (Diazepam) ..... Once daily Aspirin 81 Mg Tabs (Aspirin) ..... One tab. daily Zestoretic 10-12.5 Mg Tabs (Lisinopril-hydrochlorothiazide) ..... One tab. daily instead of hydrochlorothiazed B P today: / Prior BP: 117/68 (06/21/2009) N uclear Stress Findings: Abnormal adenosine mediated myocardial perfusion study There is evidence of mild reversible ischemia involving the basal to the mid inferior wall. Normal left ventricular systolic function with a calculated ejection fraction of 62%. (06/12/2009) E chocardiogram: TDS. Normal LV systolic function, size and wall thickness. Normal E/E` 7.0. LV EF 60%. Trace MR. Non-specific thickening of the MVL. Trace to mild physiologic TR. RVSP is wnls. RA pressure is estimated at 20mmHg. Estimated peak PASP is 30mmHg. Non-specific thickening of the TV. The IVC is not well visualized. (06/12/2009) C ardiac Cath: Normal LV systolic function with mildly elevated left heart filling pressures at 15mmHg with normal EF 70%. No obstructive CAD, but coronaries are diffusely calcified. [facility] (07/05/2009) Reggie Greenberg MD mild cor dz, ;clear for any surgery: H is updated medication list for this problem includes: Zetia 10 Mg Tabs (Ezetimibe) ..... One tab. daily BP today: / Prior BP: 117/68 (06/21/2009) Reggie Greenberg MD mild cor dz, ;clear for any surgery: H is updated medication list for this problem includes: Verapamil Hcl Cr 240 Mg Tbcr (Verapamil hcl) ..... One tab. twice daily Hydrochlorothiazide 12.5 Mg Caps (Hydrochlorothiazide) ..... One tab. daily Aspirin 81 Mg Tabs (Aspirin) ..... One tab. daily Zestoretic 10-12.5 Mg Tabs (Lisinopril-hydrochlorothiazide) ..... One tab. daily instead of hydrochlorothiazed BP today: / Prior BP: 117/68 (06/21/2009) N uclear Stress Findings: Abnormal adenosine mediated myocardial perfusion study There is evidence of mild reversible ischemia involving the basal to the mid inferior wall. Normal left ventricular systolic function with a calculated ejection fraction of 62%. (06/12/2009) E chocardiogram: TDS. Normal LV systolic function, size and wall thickness. Normal E/E` 7.0. LV EF 60%. Trace MR. Non-specific thickening of the MVL. Trace to mild physiologic TR. RVSP is wnls. RA pressure is estimated at 20mmHg. Estimated peak PASP is 30mmHg. Non-specific thickening of the TV. The IVC is not well visualized. (06/12/2009) C ardiac Cath: Normal LV systolic function with mildly elevated left heart filling pressures at 15mmHg with normal EF 70%. No obstructive CAD, but coronaries are diffusely calcified. [facility] (07/05/2009) Reggie Greenberg MD mild cor dz, ;clear for any surgery: O rders: T OBACCO USE CESSATION INTERMEDIATE 3-10 MINUTES (CPT-14895) Reggie Greenberg MD mild cor dz, ;clear for any surg halima Reggie Greenberg MD mild cor dz, ;clear for any surgery: H is updated medication list for this problem includes: Verapamil Hcl Cr 240 Mg Tbcr (Verapamil hcl) ..... One tab. twice daily Hydrochlorothiazide 12.5 Mg Caps (Hydrochlorothiazide) ..... One tab. daily Aspirin 81 Mg Tabs (Aspirin) ..... One tab. daily Zestoretic 10-12.5 Mg Tabs (Lisinopril-hydrochlorothiazide) ..... One tab. daily instead of hydrochlorothiazed BP today: / Prior BP: 117/68 (06/21/2009) N uclear Stress Findings: Abnormal adenosine mediated myocardial perfusion study There is evidence of mild reversible ischemia involving the basal to the mid inferior wall. Normal left ventricular systolic function with a calculated ejection fraction of 62%. (06/12/2009) E chocardiogram: TDS. Normal LV systolic function, size and wall thickness. Normal E/E` 7.0. LV EF 60%. Trace MR. Non-specific thickening of the MVL. Trace to mild physiologic TR. RVSP is wnls. RA pressure is estimated at 20mmHg. Estimated peak PASP is 30mmHg. Non-specific thickening of the TV. The IVC is not well visualized. (06/12/2009) C ardiac Cath: Normal LV systolic function with mildly elevated left heart filling pressures at 15mmHg with normal EF 70%. No obstructive CAD, but coronaries are diffusely calcified. [facility] (07/05/2009) Reggie Greenberg MD mild cor dz, ;clear for any surg halima Greenberg MD mild cor dz, ;clear for any surgery: P rior BP: 117/68 (06/21/2009) Reggie Greenberg MD mild cor dz, ;clear for any surgery: B P today: / Prior BP: 117/68 (06/21/2009) N uclear Stress Findings: Abnormal adenosine mediated myocardial perfusion study There is evidence of mild reversible ischemia involving the basal to the mid inferior wall. Normal left ventricular systolic function with a calculated ejection fraction of 62%. (06/12/2009) C ardiac Cath: Normal LV systolic function with mildly elevated left heart filling pressures at 15mmHg with normal EF 70%. No obstructive CAD, but coronaries are diffusely calcified. [facility] (07/05/2009) C arotid Doppler/Duplex: Normal (06/22/2009) E chocardiogram: TDS. Normal LV systolic function, size and wall thickness. Normal E/E` 7.0. LV EF 60%. Trace MR. Non-specific thickening of the MVL. Trace to mild physiologic TR. RVSP is wnls. RA pressure is estimated at 20mmHg. Estimated peak PASP is 30mmHg. Non-specific thickening of the TV. The IVC is not well visualized. (06/12/2009) Reggie Greenberg MD mild cor dz, ;clear for any surg halima Greenberg MD mild cor dz, ;clear for any surgery: H is updated medication list for this problem includes: Verapamil Hcl Cr 240 Mg Tbcr (Verapamil hcl) ..... One tab. twice daily Zetia 10 Mg Tabs (Ezetimibe) ..... One tab. daily Aspirin 81 Mg Tabs (Aspirin) ..... One tab. daily Zestoretic 10-12.5 Mg Tabs (Lisinopril-hydrochlorothiazide) ..... One tab. daily instead of hydrochlorothiazed B P today: / Prior BP: 117/68 (06/21/2009) N uclear Stress Findings: Abnormal adenosine mediated myocardial perfusion study There is evidence of mild reversible ischemia involving the basal to the mid inferior wall. Normal left ventricular systolic function with a calculated ejection fraction of 62%. (06/12/2009) C ardiac Cath: Normal LV systolic function with mildly elevated left heart filling pressures at 15mmHg with normal EF 70%. No obstructive CAD, but coronaries are diffusely calcified. [facility] (07/05/2009) C arotid Doppler/Duplex: Normal (06/22/2009) Reggie Greenberg MD mild cor dz, ;clear for any surgery: P rior BP: 117/68 (06/21/2009) Reggie Greenberg MD postive nuc, will cath Reggie hernandez MD postive nuc, will ca th: H is updated medication list for this problem includes: Verapamil Hcl Cr 240 Mg Tbcr (Verapamil hcl) ..... One tab. twice daily Diazepam 10 Mg Tabs (Diazepam) ..... Once daily Aspirin 81 Mg Tabs (Aspirin) ..... One tab. daily BP today: 117/68 Prior BP: 130/84 (06/06/2009) N uclear Stress Findings: Abnormal adenosine mediated myocardial perfusion study There is evidence of mild reversible ischemia involving the basal to the mid inferior wall. Normal left ventricular systolic function with a calculated ejection fraction of 62%. (06/12/2009) E chocardiogram: TDS. Normal LV systolic function, size and wall thickness. Normal E/E` 7.0. LV EF 60%. Trace MR. Non-specific thickening of the MVL. Trace to mild physiologic TR. RVSP is wnls. RA pressure is estimated at 20mmHg. Estimated peak PASP is 30mmHg. Non-specific thickening of the TV. The IVC is not well visualized. (06/12/2009) Reggie Greenberg MD postive nuc, will ca th: H is updated medication list for this problem includes: Zetia 10 Mg Tabs (Ezetimibe) ..... One tab. daily BP today: 117/68 Prior BP: 130/84 (06/06/2009) Reggie Greenberg MD postive nuc, will ca th: H is updated medication list for this problem includes: Prevacid 15 Mg Cpdr (Lansoprazole) ..... One tab. twice daily BP today: 117/68 Prior BP: 130/84 (06/06/2009) D iscussed lifestyle modifications, diet, antacids/medications, and preventive measures. Handout provided. Reggie Greenberg MD postive nuc, will gallo hernandez MD postive nuc, will ca th: H is updated medication list for this problem includes: Verapamil Hcl Cr 240 Mg Tbcr (Verapamil hcl) ..... One tab. twice daily Hydrochlorothiazide 12.5 Mg Caps (Hydrochlorothiazide) ..... One tab. daily Aspirin 81 Mg Tabs (Aspirin) ..... One tab. daily BP today: 117/68 Prior BP: 130/84 (06/06/2009) N uclear Stress Findings: Abnormal adenosine mediated myocardial perfusion study There is evidence of mild reversible ischemia involving the basal to the mid inferior wall. Normal left ventricular systolic function with a calculated ejection fraction of 62%. (06/12/2009) E chocardiogram: TDS. Normal LV systolic function, size and wall thickness. Normal E/E` 7.0. LV EF 60%. Trace MR. Non-specific thickening of the MVL. Trace to mild physiologic TR. RVSP is wnls. RA pressure is estimated at 20mmHg. Estimated peak PASP is 30mmHg. Non-specific thickening of the TV. The IVC is not well visualized. (06/12/2009) Reggie Greenberg MD postive nuc, will ca th: O rders: T OBACCO USE CESSATION INTERMEDIATE 3-10 MINUTES (CPT-62692) Reggie Greenberg MD postive nuc, will ca th: B P today: 117/68 Prior BP: 130/84 (06/06/2009) N uclear Stress Findings: Abnormal adenosine mediated myocardial perfusion study There is evidence of mild reversible ischemia involving the basal to the mid inferior wall. Normal left ventricular systolic function with a calculated ejection fraction of 62%. (06/12/2009) E chocardiogram: TDS. Normal LV systolic function, size and wall thickness. Normal E/E` 7.0. LV EF 60%. Trace MR. Non-specific thickening of the MVL. Trace to mild physiologic TR. RVSP is wnls. RA pressure is estimated at 20mmHg. Estimated peak PASP is 30mmHg. Non-specific thickening of the TV. The IVC is not well visualized. (06/12/2009) Orders: C ardiac Cath - (*) Reggie Greenberg MD postive nuc, will ca th: H is updated medication list for this problem includes: Verapamil Hcl Cr 240 Mg Tbcr (Verapamil hcl) ..... One tab. twice daily Hydrochlorothiazide 12.5 Mg Caps (Hydrochlorothiazide) ..... One tab. daily Aspirin 81 Mg Tabs (Aspirin) ..... One tab. daily BP today: 117/68 Prior BP: 130/84 (06/06/2009) N uclear Stress Findings: Abnormal adenosine mediated myocardial perfusion study There is evidence of mild reversible ischemia involving the basal to the mid inferior wall. Normal left ventricular systolic function with a calculated ejection fraction of 62%. (06/12/2009) E chocardiogram: TDS. Normal LV systolic function, size and wall thickness. Normal E/E` 7.0. LV EF 60%. Trace MR. Non-specific thickening of the MVL. Trace to mild physiologic TR. RVSP is wnls. RA pressure is estimated at 20mmHg. Estimated peak PASP is 30mmHg. Non-specific thickening of the TV. The IVC is not well visualized. (06/12/2009) Orders: X -Ray, Chest, PA & Lateral (CPT-55061) Reggie Greenberg MD postive nuc, will cath Reggie hernandez MD surg clearance, need s work up, cardiac clear if passes nuc&echo Reggie Greenberg MD surg clearance, need s work up, cardiac clear if passes nuc&echo: H is updated medication list for this problem includes: Verapamil Hcl Cr 240 Mg Tbcr (Verapamil hcl) ..... One tab. twice daily Hydrochlorothiazide 12.5 Mg Caps (Hydrochlorothiazide) ..... One tab. daily Aspirin 81 Mg Tabs (Aspirin) ..... One tab. daily Orders: T OBACCO USE CESSATION INTERMEDIATE 3-10 MINUTES (CPT-93077) S tress Test - Adenosine (96861) BP today: 130/84 Prior BP: / () Reggie Greenberg MD surg clearance, need s work up, cardiac clear if passes nuc&echo: H is updated medication list for this problem includes: Verapamil Hcl Cr 240 Mg Tbcr (Verapamil hcl) ..... One tab. twice daily Aspirin 81 Mg Tabs (Aspirin) ..... One tab. daily BP today: 130/84 Prior BP: / () Reggie Greenberg MD surg clearance, need s work up, cardiac clear if passes nuc&echo Reggie Greenberg MD surg clearance, need s work up, cardiac clear if passes nuc&echo: O rders: T OBACCO USE CESSATION INTERMEDIATE 3-10 MINUTES (CPT-85392) C omplete Echo (CPT-88636) S tress Test - Adenosine (96448) Reggie Greenberg MD surg clearance, need s work up, cardiac clear if passes nuc&echo: H is updated medication list for this problem includes: Verapamil Hcl Cr 240 Mg Tbcr (Verapamil hcl) ..... One tab. twice daily Hydrochlorothiazide 12.5 Mg Caps (Hydrochlorothiazide) ..... One tab. daily Aspirin 81 Mg Tabs (Aspirin) ..... One tab. daily Orders: T OBACCO USE CESSATION INTERMEDIATE 3-10 MINUTES (CPT-31558) C omplete Echo (CPT-57792) S tress Test - Adenosine (59000) S lee Study (*) BP today: 130/84 Prior BP: / () Reggie Greenberg MD surg clearance, need s work up, cardiac clear if passes nuc&echo: O rders: T OBACCO USE CESSATION INTERMEDIATE 3-10 MINUTES (CPT-18540) C omplete Echo (CPT-57303) S tress Test - Adenosine (31088) Reggie Greenberg MD surg clearance, need s work up, cardiac clear if passes nuc&echo: H is updated medication list for this problem includes: Prevacid 15 Mg Cpdr (Lansoprazole) ..... One tab. twice daily & #13;Orders: T OBACCO USE CESSATION INTERMEDIATE 3-10 MINUTES (CPT-60108) C omplete Echo (CPT-82431) S tress Test - Adenosine (37936) BP today: 130/84 Prior BP: / () D iscussed lifestyle modifications, diet, antacids/medications, and preventive measures. Handout provided. Reggie Greenberg MD surg clearance, need s work up, cardiac clear if passes nuc&echo: H is updated medication list for this problem includes: Zetia 10 Mg Tabs (Ezetimibe) ..... One tab. daily Orders: TOBACCO USE CESSATION INTERMEDIATE 3-10 MINUTES (CPT-51284) C omplete Echo (CPT-14968) S tress Test - Adenosine (07828) BP today: 130/84 Prior BP: / () Reggie Greenberg MD surg clearance, need s work up, cardiac clear if passes nuc&echo: O rders: T OBACCO USE CESSATION INTERMEDIATE 3-10 MINUTES (CPT-89849) C omplete Echo (CPT-47952) S tress Test - Adenosine (40338) Reggie Greenberg MD surg clearance, need s work up, cardiac clear if passes nuc&echo: H is updated medication list for this problem includes: Verapamil Hcl Cr 240 Mg Tbcr (Verapamil hcl) ..... One tab. twice daily Diazepam 10 Mg Tabs (Diazepam) ..... Once daily Aspirin 81 Mg Tabs (Aspirin) ..... One tab. daily Orders: T OBACCO USE CESSATION INTERMEDIATE 3-10 MINUTES (CPT-16399) C omplete Echo (CPT-30605) S tress Test - Adenosine (22432) BP today: 130/84 Prior BP: / () Reggie Greenberg MD Date Name Spirometry Carotid Duplex Bilat eral Cardiac Cath - GC X-Ray, Chest, PA & L ateral Sleep Study Stress Test - Adenos ine Complete Echo HISTORY OF PROCEDURES Procedure Date Procedure Name Provider Procedure Notes S tatus EKG Reggie Greenberg MD complete d
[2024-12-12 15:46] LABS: Prostate Specific Antigen 0.5 ng/mL (< OR = 4.0)
[2024-12-12 16:29] LABS: Vitamin D 25 Hydroxy < 12.8 ng/mL
== END 2024-12-12 14:38 | disposition home or self-care (01) ==
PROVIDERS: PCP Family Medicine; Visit Provider Family Medicine
DX: N40.0 Benign prostatic hyperplasia without lower urinary tract symptoms (principal); J44.9 Chronic obstructive pulmonary disease, unspecified; K74.60 Unspecified cirrhosis of liver; Z12.5 Encounter for screening for malignant neoplasm of prostate; J44.1 Chronic obstructive pulmonary disease with (acute) exacerbation; I10 Essential (primary) hypertension; F32.9 Major depressive disorder, single episode, unspecified; G62.9 Polyneuropathy, unspecified; K21.9 Gastro-esophageal reflux disease without esophagitis; M15.9 Polyosteoarthritis, unspecified; G47.00 Insomnia, unspecified; E78.5 Hyperlipidemia, unspecified
CPT/HCPCS: 36415; 80053; 80061; 82306; 82607; 84153; 85027; G0103

== ENCOUNTER → 2025-02-23 01:02 | Day surgery (SDC) | payer MEDICARE, SELFPAY ==
[2025-02-17 13:59] VITALS: BMI 26.3
--- OUTSIDE RECORDS SUMMARY | 2025-02-23 01:05 | XMS_ITS ---
Author Organization [facility] Address [address] [place] [address] Care Team Providers Care Nursing Care Attendant Name Role Phone Negrito Holm Primary Care Provider Ally Bhatia Unavailable [phone] Allergies No Known Allergies Results Component Value Reference Range Notes 12 Panel Urine Drug Screen Reviewed date:12/14/2024 03:15:39 PM Interpretation: Performing Lab: Notes/Report: THC NEG ASHANTI NEG MOP (OPI) NEG AMP NEG MET NEG BAR NEG BZO POS MDMA NEG MTD NEG OXY NEG PCP NEG BUP POS REASON FOR VISIT Walk-In Medications Medication SIG (Take, Route, Frequency, Duration) Notes Start Date End Date Status Gabapentin 400 MG 1 capsule Orally Three times a day Active Suboxone 8-2 MG 1 film under the tongue and allow to dissolve Sublingual Three times a day Active Albuterol Sulfate HFA 108 (9 0 Base) MCG/ACT INHALE 2 PUFFS BY MOUTH EVERY 4-6 HOURS NEEDED FOR SHORTNESS OF BREATH/WHEEZE Inhalation for 17 Days Active diazePAM 5 MG 1 tablet as needed Orally Once a day Active Buprenorphine HCl-Naloxone H Cl 8-2 MG 1 film under the tongue and allow to dissolve Sublingual Three times a day 12/14/2024 Active Donepezil HCl 10 MG PLEASE SEE ATTACHED FOR DETAILED DIRECTIONS Oral for 90 Days Active Anoro Ellipta 62.5-25 MCG/ACT INHALE 1 P UFF BY MOUTH ONCE DAILY Inhalation for 30 Days Active Pantoprazole Sodium 40 MG TAKE 1 TABLET BY MOUTH EVERY DAY IN THE MORNING Oral for 90 Days Active hydroCHLOROthiazide 12.5 MG TAKE 1 CAPSU LE BY MOUTH DAILY NEEDED FOR SWELLING Oral for 90 Days Active Benzonatate 200 MG TAKE 1 CAPSULE (200 MG) BY MOUTH 3 TIMES DAILY NEEDED FOR COUGH Oral for 10 Days Active amLODIPine Besylate 10 MG TAKE 1 TABLET BY MOUTH EVERY DAY Oral for 90 Days Active Lisinopril 40 MG TAKE 1 TABLET BY MOUTH EVERY DAY Oral for 90 Days Active Social History Tobacco Use: Social History Observation Description Date Details (start date - stop date) Current Smoker NA - NA Sex Assigned At : Social History Observation Description Sex Assigned At Male Tobacco Control (Standard) Question Answer Notes Tobacco use: Current every day smoker Additional Findings: Tobacco user Moderate cigar ette smoker (10-19 cigs/day) Vital Signs Height 74 in 12/14/2024 Respiratory Rate 16 /min 12/14/2024 Weight 218 lb 4 oz lbs 12/14/2024 BMI 28.02 kg/m2 12/14/2024 Oximetry 95 % 12/14/2024 Heart Rate 86 /min 12/14/2024 Blood pressure systolic 128 mm Hg 12/14/19 25 Blood pressure diastolic 80 mm Hg 025 Encounters Encounter Location Date Provider Diagnosis [address] [place] [address] 12/14/2024 Ally Bhatia Opioid use disorder F11.90 Assessments Encounter Date Diagnosis (ICD Code) Assessment Notes Treatment Notes Treatment Clinical Notes Section Notes 12/14/2024 Opioid use disorder (ICD-10 - F11.90) 12/14/2024 Other Discussed risks of DENTAL HYGIENIST/respiratory depression, increased fall risk with combination of buprenorphine and benzodiazepines. Do not take medications at the same time. Patient agrees to take medication as prescribed. Discussed medication side effects, adverse effects, risks, benefits, as well as interactions. Encouraged non-use of opioids and other illicit substances. Has naloxone. Discontinuing buprenorphine increases the risk of overdose upon return to illicit opioid use. Use of alcohol or benzodiazepines with buprenorphine increases the risk of overdose and . Education provided about safe storage of medications. Encouraged participation in recovery groups/counseling services. Contact office with questions or concerns. Plan Of Treatment Medication Medication Name Sig Start Date Stop Date Notes Buprenorphine HCl-Naloxone H Cl 8-2 MG 1 film under the tongue and allow to dissolve Sublingual Three times a day 12/14/2024 Treatment Notes Assessment Notes Other Discussed risks of DENTAL HYGIENIST/respiratory depression, increased fall risk with combination of buprenorphine and benzodiazepines. Do not take medications at the same time. Patient agrees to take medication as prescribed. Discussed medication side effects, adverse effects, risks, benefits, as well as interactions. Encouraged non-use of opioids and other illicit substances. Has naloxone. Discontinuing buprenorphine increases the risk of overdose upon return to illicit opioid use. Use of alcohol or benzodiazepines with buprenorphine increases the risk of overdose and . Education provided about safe storage of medications. Encouraged participation in recovery groups/counseling services. Contact office with questions or concerns. Next Appt Details Follow Up: 4 Weeks, Reason: MAR f/u Progress Notes * Matteo RODRIGUEZ EDOB: [birth year] (74 yo M)Acc No.[id number]:12/14/2024 Patient: Matteo BAI Provider: Saud Bhatia, MSN, RAILROAD CRANE OPERATOR, PMHNP- :1950 A ge:74 Y S ex:Male Date:12/14/2024 Address:[address] [place], [place] [id number] Pcp:Negrito Holm Check In:02:58 PM CHEF PASSENGER VESSEL Subjective: * Chief Complaints: * W alk-In * HPI: M AR follow-up: JAN walk-in, 2 week f/u Doing well with current dose. No issues. Denies cravings or setbacks Has PCP appointment next week. Plans to ask PCP to taper diazepam. Medication Monitoring and Risk Mitigation U p-to-date on [facility] recommended lab testing? Y es, P rescribed a buprenorphine product? Y es, H as patient had a buprenorphine and metabolite lab ordered/collected? Y es (see notes for date of last metabolite testing), D ate of last buprenorphine and metabolite 0 12/14/2024, P rescription Drug Monitoring Program Review Y es. No concerns at this time., P elyssa to address any concerns identified: N o concerns identified. Will continue treatment plan as is. gabapentin, diazepam (Lucien King). C ravings, Setbacks, Substance use, and Stressors C ravings since last visit: N o. Patient denies cravings since last visit., S etbacks since last visit? N o, patient denies setbacks since last visit., M isuse of substances since last visit: N o, patient denies., S tressors N o, patient denies stressors at this time.. W ithdrawal and Intoxication Symptoms I ntoxication Symptoms: N o signs of intoxication are present during visit., W ithdrawal Symptoms: N o withdrawal signs are present during visit.. M ental Health, Support System, and Social Determinants M ental Health Status S table., S upport Systems Include: P ersonal support system (see notes). deborah, Regina ourt System Involvement? N o, H ousing Stability: S table and safe housing., C urrently employed? S ocial Security/disability., R eferrals needed: N o referrals needed at this time.. R ecommended Wellness and Prevention Follow-up R ecommended Wellness and Prevention reviewed: Cheryl jenkins. No additional orders/actions needed at this time.. O ther concerns: O ther Concerns? N o., N arcan need N o. Patient already has Narcan.. I nterim History: Emergency room visit N o. W as hospitalized N o.? D epression Screening: PHQ-9 L ittle interest or pleasure in doing things N ot at all, F eeling down, depressed, or hopeless N ot at all, T rouble falling or staying asleep, or sleeping too much S everal days, F eeling tired or having little energy S everal days, P oor appetite or overeating S everal days, F eeling bad about yourself or that you are a failure, or have let yourself or your family down N ot at all, T rouble concentrating on things, such as reading the newspaper or watching television N ot at all, M oving or speaking so slowly that other people could have noticed; or the opposite, being so fidgety or restless that you have been moving around a lot more than usual N ot at all, T houghts that you would be better off or of hurting yourself in some way N ot at all, T otal Score 3 , I nterpretation M inimal Depression. C SSRS Interpretation and Follow Up Plan: CSSRS Interpretation and Follow Up Plan C SSRS Screen documented using SF Y es, R isk Disposition from SF L ow - No Follow Up Plan Required, F ollow Up Plan N o Follow Up Plan required at this time.. S creening: Buckley Suicide Severity Rating Scale (LF) 1 . Wish to be : Have you wished you were or wished you could go to sleep and not wake up? N o, 2 . Suicidal Thoughts: Have you actually had any thoughts of killing yourself? N o, 6 . Suicide Behavior Question: Have you ever done anything,started to do anything, or prepared to end your life? N o, I nterpretation: L ow Risk. * ROS: B asic ROS: Denies C onstipation. D enies S uicidal Thoughts.? * Medical History: * Surgical History: r ectal cancer 1999 * Hospitalization/Major Diagno stic Procedure: p neumonia 2021 * Family History: F ather: . M other: . 3 brother(s) , 2 sister(s) - healthy. 3 daughter(s) - healthy. . * Social History: P rimary Social History: L iving Arrangement L iving Arrangement: I ndependent Living, I s this a supportive environment? Y es. A lcohol Use A lcohol Use Frequency: N ever. I llicit Substance Usage I llicit Substance Usage: Y es, I nterested in quitting: Y es. E mployment Status E mployment Status: U nemployed. T obacco Use: T obacco Control (Standard) T obacco use: C urrent every day smoker, A dditional Findings: Tobacco user M oderate cigarette smoker (10-19 cigs/day). M iscellaneous: M ethod of learning P referred method of learning: R sunny. * Medications: T akingBuprenorphine HCl-Naloxone HCl 8-2 MG Film 1 film under the tongue and allow to dissolve Sublingual Three times a day diazePAM 5 MG Tablet 1 tablet as needed Orally Once a day Gabapentin 400 MG Capsule 1 capsule Orally Three times a day Suboxone 8-2 MG Film 1 film under the tongue and allow to dissolve Sublingual Three times a day amLODIPine Besylate 10 MG Tablet TAKE 1 TABLET BY MOUTH EVERY DAY Oral Lisinopril 40 MG Tablet TAKE 1 TABLET BY MOUTH EVERY DAY Oral Donepezil HCl 10 MG Tablet PLEASE SEE ATTACHED FOR DETAILED DIRECTIONS Oral Anoro Ellipta 62.5-25 MCG/ACT Aerosol Powder Breath Activated INHALE 1 PUFF BY MOUTH ONCE DAILY Inhalation Pantoprazole Sodium 40 MG Tablet Delayed Release TAKE 1 TABLET BY MOUTH EVERY DAY IN THE MORNING Oral hydroCHLOROthiazide 12.5 MG Capsule TAKE 1 CAPSULE BY MOUTH DAILY NEEDED FOR SWELLING Oral Benzonatate 200 MG Capsule TAKE 1 CAPSULE (200 MG) BY MOUTH 3 TIMES DAILY NEEDED FOR COUGH Oral Albuterol Sulfate HFA 108 (90 Base) MCG/ACT Aerosol Solution INHALE 2 PUFFS BY MOUTH EVERY 4-6 HOURS NEEDED FOR SHORTNESS OF BREATH/WHEEZE Inhalation Medication List reviewed and reconciled with the patientTaking Buprenorphine HCl-Naloxone HCl 8-2 MG Film 1 film under the tongue and allow to dissolve Sublingual Three times a day Taking diazePAM 5 MG Tablet 1 tablet as needed Orally Once a day Taking Gabapentin 400 MG Capsule 1 capsule Orally Three times a day Taking Suboxone 8-2 MG Film 1 film under the tongue and allow to dissolve Sublingual Three times a day Taking amLODIPine Besylate 10 MG Tablet TAKE 1 TABLET BY MOUTH EVERY DAY Oral Taking Lisinopril 40 MG Tablet TAKE 1 TABLET BY MOUTH EVERY DAY Oral Taking Donepezil HCl 10 MG Tablet PLEASE SEE ATTACHED FOR DETAILED DIRECTIONS Oral Taking Anoro Ellipta 62.5-25 MCG/ACT Aerosol Powder Breath Activated INHALE 1 PUFF BY MOUTH ONCE DAILY Inhalation Taking Pantoprazole Sodium 40 MG Tablet Delayed Release TAKE 1 TABLET BY MOUTH EVERY DAY IN THE MORNING Oral Taking hydroCHLOROthiazide 12.5 MG Capsule TAKE 1 CAPSULE BY MOUTH DAILY NEEDED FOR SWELLING Oral Taking Benzonatate 200 MG Capsule TAKE 1 CAPSULE (200 MG) BY MOUTH 3 TIMES DAILY NEEDED FOR COUGH Oral Taking Albuterol Sulfate HFA 108 (90 Base) MCG/ACT Aerosol Solution INHALE 2 PUFFS BY MOUTH EVERY 4-6 HOURS NEEDED FOR SHORTNESS OF BREATH/WHEEZE Inhalation Medication List reviewed and reconciled with the patient * Allergies: N .K.D.A.no[Allergies Verified] Objective: * Vitals: I nitials: cv, Wt:218 lb 4 oz, Ht: 74, BMI:28.02, BP:128/80, HR:86, Oxygen sat %:95, RR:16, Pain scale:6. * Examination: [facility] Physical Assessment: Intoxication and Withdrawal signs I ntoxication signs N o signs of intoxication are present during examination.Withdrawal Signs N o withdrawal signs are present during examination.. G eneral Examination: GENERAL APPEARANCE: a lert, pleasant, in no acute distress.? PSYCH: a lert, oriented x4, speech clear, good eye contact.? Assessment: * Assessment: 1. O pioid use disorder - F11.90 (Primary) Plan: * Treatment: Value Reference Range T HC NEG * C OC NEG * M OP (OPI) NEG * A MP NEG * M ET NEG * B AR NEG * B ZO POS * M DMA NEG * M TD NEG * O XY NEG * P CP NEG * B UP POS ?LAB: Buprenorphine and Metabolite (Urine test) (Ordered for 12/14/2024) (Collection Date & Time- 12/14/2024 03:35 PM)2.?Others? Notes:Discussed risks of DENTAL HYGIENIST/respiratory depression, increased fall risk with combination of buprenorphine and benzodiazepines. Do not take medications at the same time. Patient agrees to take medication as prescribed. Discussedmedication side effects, adverse effects,risks, benefits, as well asinteractions. Encouraged non-use of opioids and other illicit substances. Hasnaloxone. Discontinuing buprenorphine increases the risk of overdose uponreturn to illicit opioid use. Use of alcohol or benzodiazepines withbuprenorphine increases the risk of overdose anddeath. Education providedabout safe storage of medications. Encouragedparticipation in recovery groups/counseling services. Contact office withquestions or concerns. ?? * Recommended Wellness and Pre vention Guidelines: * S tatus A lert L ast Done N ext Due A ction Taken N ONCOMPLIANT A lcohol use screening - 0 12/14/2024 - N ONCOMPLIANT C holesterol screen (genl pop) - 0 12/14/2024 - N ONCOMPLIANT I nfluenza vaccine (over 50) - 0 12/14/2024 - N ONCOMPLIANT P neumococcal vaccine - 0 12/14/2024 - * Procedure Codes: 9 9000 SPECIMEN [id number] BODY MASS INDEX [id number] MEDICAL NUTRITION, INDIV, [id number] BEHAV CHNG SMOKING 3-10 [id number] [facility] VIS[facility] ESTABLISHED PATIENT * Preventive Medicine: Counseling: C are goal follow-up plan: B OK management provided Y es, A eileen Normal BMI Follow-up L ifestyle education regarding diet. S MOKING: P atient counselled on the dangers of tobacco use and urged to quit. . . * Follow Up: 4 Weeks (Reason: MAR f/u) * * PASSENGER VESSEL Sign off status: Completed true * Provider: Saud Bhatia, MSN, RAILROAD CRANE OPERATOR, PMHNP-BC Date: 0 12/14/2024 Generated for Printing/Faxing/eTransmitting on: 0 02/23/2025 01:05 AM CDT History and Physical Notes * HPI (History of Present Illness) Category Sub-Category Detail Notes Category Not es Interim History Was hospitalized No Emergency room visit No Depression Screening PHQ-9 Little inte rest or pleasure in doing things: Not at all Feeling down, depressed, or hopeless: No t at all Trouble falling or staying asleep, or sl eeping too much: Several days Feeling tired or having little energy: S everal days Poor appetite or overeating: Several day s Feeling bad about yourself o r that you are a failure, or have let yourself or your family down: Not at all Trouble concentrating on thi ngs, such as reading the newspaper or watching television: Not at all Moving or speaking so slowly that other people could have noticed; or the opposite, being so fidgety or restless that you have been moving around a lot more than usual: Not at all Thoughts that you would be b prashant off or of hurting yourself in some way: Not at all Total Score: 3 Interpretation: Minimal Depression Screening Buckley Suicide Sev erity Rating Scale (LF) 1. Wish to be : Have you wished you were or wished you could go to sleep and not wake up?: No 2. Suicidal Thoughts: Have you actually had any thoughts of killing yourself?: No 6. Suicide Behavior Question: Have you ever done anything,started to do anything, or prepared to end your life?: No Interpretation:: Low Risk MAR follow-up Medication Monitorin g and Risk Mitigation Up-to-date on ASAM recommended lab testing?: Yes Prescribed a buprenorphine product?: Yes Has patient had a buprenorphine and metabolite lab ordered/collected?: Yes (see notes for date of last metabolite testing) Date of last buprenorphine and metabolite: 12/14/2024 Prescription Drug Monitoring Program Review: Yes. No concerns at this time. Plan to address any concerns identified:: No concerns identified. Will continue treatment plan as is. gabapentin, diazepam (Lucien King) Cravings, Setbacks, Substanc e use, and Stressors Cravings since last visit:: No. Patient denies cravings since last visit. Setbacks since last visit?: No, patient denies setbacks since last visit. Misuse of substances since last visit:: No, patient denies. Stressors: No, patient denies stressors at this time. Withdrawal and Intoxication Symptoms Int oxication Symptoms:: No signs of intoxication are present during visit. Withdrawal Symptoms:: No withdrawal sign s are present during visit. Mental Health, Support Syste m, and Social Determinants Mental Health Status: Stable. Support Systems Include:: Personal suppo rt system (see notes). grandson Court System Involvement?: No Housing Stability:: Stable and safe hous ing. Currently employed?: Social Security/dis ability. Referrals needed:: No referrals needed a t this time. Recommended Wellness and Pre vention Follow-up Recommended Wellness and Prevention reviewed:: Yes. No additional orders/actions needed at this time. Other concerns: Other Concerns?: No. Narcan need: No. Patient already has Otto can. CSSRS Interpretation and Follow Up Plan CSSRS Interpretation and Follow Up Plan CSSRS Screen documented using SF: Yes Risk Disposition from SF: Low - No Follo w Up Plan Required Follow Up Plan: No Follow Up Plan requir ed at this time. Examination Category Sub-Category Detail Notes Category Not es General Examination GENERAL APPEARANCE: alert, p leasant, in no acute distress PSYCH: alert, oriented x4, speech clear, good eye contact ASAM Physical Assessment Intoxication an d Withdrawal signs Intoxication signs: No signs of intoxication are present during examination. Withdrawal Signs: No withdrawal signs ar e present during examination.
--- OUTSIDE RECORDS SUMMARY | 2025-02-23 01:05 | XMS_ITS | Patient Health Record ---
Author Organization [facility] Address [address] [place] [address] Care Team Providers Care Office Supervisor Name Role Phone Negrito Holm Primary Care Provider JasminesangeethabonnyeloyAlly Unavailable [phone] Allergies No Known Allergies Results Component Value Reference Range Notes 12 Panel Urine Drug Screen Reviewed date:12/14/2024 03:15:39 PM Interpretation: Performing Lab: Notes/Report: THC NEG ASHANTI NEG MOP (OPI) NEG AMP NEG MET NEG BAR NEG BZO POS MDMA NEG MTD NEG OXY NEG PCP NEG BUP POS Buprenorphine and Metabolite (Urine test) Reviewed date:12/20/2024 11:21:40 AM Interpretation: Performing Lab:[facility], [address], [place], Phone - [phone], Director - PhDAbudu Notes/Report: Clinical Information:CCU:[id number] Buprenorphine Positive Confirmation p erformed by Mass Spectrometry Buprenorphine Positive Buprenorphine Conf, MS, UR 21 Cutoff=10 ng/m L Norbuprenorphine Positive Norbuprenorphine Conf, MS, UR 246 Cutoff=10 n g/mL Written Authorization Reviewed date:12/20/2024 11:20:58 AM Interpretation: Performing Lab:[facility], [address], [place], Phone - [phone], Director - PhDAbudu Notes/Report: Clinical Information:CCU:[id number] Written Authorization Written Authorization Received. Authorization received from PER ORIGINAL ORDER 12-15-2024 Logged by Debbie Baer 12 Panel Urine Drug Screen Reviewed date:01/16/2025 02:58:59 PM Interpretation: Performing Lab: Notes/Report: THC neg ASHANTI neg MOP (OPI) neg AMP neg MET neg BAR neg BZO POS MDMA neg MTD neg OXY neg PCP neg BUP POS 12 Panel Urine Drug Screen Reviewed date:02/16/2025 01:30:21 PM Interpretation: Performing Lab: Notes/Report: THC neg ASHANTI neg MOP (OPI) neg AMP neg MET neg BAR neg BZO POS MDMA neg MTD neg OXY neg PCP neg BUP POS 12 Panel Urine Drug Screen Reviewed date:12/01/2024 01:33:53 PM Interpretation: Performing Lab: Notes/Report: THC neg ASHANTI neg MOP (OPI) neg AMP neg MET neg BAR neg BZO POS MDMA neg MTD neg OXY neg PCP neg BUP POS Reason For Referral No Information Medications Medication SIG (Take, Route, Frequency, Duration) Notes Start Date End Date Status Gabapentin 400 MG 1 capsule Orally Three times a day Active Buprenorphine HCl-Naloxone H Cl 8-2 MG 1 film under the tongue and allow to dissolve Sublingual Three times a day 02/16/2025 Active amLODIPine Besylate 10 MG TAKE 1 TABLET BY MOUTH EVERY DAY Oral for 90 Days Active diazePAM 5 MG 1 tablet as needed Orally Once a day Active Benzonatate 200 MG TAKE 1 CAPSULE (200 MG) BY MOUTH 3 TIMES DAILY NEEDED FOR COUGH Oral for 10 Days Active Albuterol Sulfate HFA 108 (9 0 Base) MCG/ACT INHALE 2 PUFFS BY MOUTH EVERY 4-6 HOURS NEEDED FOR SHORTNESS OF BREATH/WHEEZE Inhalation for 17 Days Active Pantoprazole Sodium 40 MG TAKE 1 TABLET BY MOUTH EVERY DAY IN THE MORNING Oral for 90 Days Active hydroCHLOROthiazide 12.5 MG TAKE 1 CAPSU LE BY MOUTH DAILY NEEDED FOR SWELLING Oral for 90 Days Active Donepezil HCl 10 MG PLEASE SEE ATTACHED FOR DETAILED DIRECTIONS Oral for 90 Days Active Anoro Ellipta 62.5-25 MCG/ACT INHALE 1 P UFF BY MOUTH ONCE DAILY Inhalation for 30 Days Active Lisinopril 40 MG TAKE 1 [...] user Moderate cigar ette smoker (10-19 cigs/day) Problems Problem Type SNOMED Code ICD Code Onset Dates Problem Status W/U Status Risk Notes Problem Overweight (728030769) Over weight (E66.3) Active confirmed Problem Opioid use disorder (6188770022) Opioid use disorder (F11.99) Active confirmed Vital Signs Heart Rate 59 /min 02/16/2025 Temperature 98.2 degrees Fahrenheit 12/01/2024 Respiratory Rate 16 /min 02/16/2025 Blood pressure diastolic 80 mm Hg 02/16/2025 Oximetry 95 % 02/16/2025 Height 74 in 02/16/2025 Blood pressure systolic 130 mm Hg 02/16/2025 Weight 216 lb 2 oz lbs 02/16/2025 BMI 27.75 kg/m2 02/16/2025 Encounters Encounter Location Date Provider Diagnosis [address] [place] [address] 12/01/2024 Ally Bhatia Opioid use disorder F11.[address] [address] 12/14/2024 Ally Bhatia Opioid use disorder F11.[address] [address] 01/16/2025 Negrito Holm Opioid use disorder F11.[address] [address] 02/16/2025 Ally Jasminelufik Opioid use disorder F11.99 and Over weight E66.3 Assessments Encounter Date Diagnosis (ICD Code) Assessment Notes Treatment Notes Treatment Clinical Notes Section Notes 12/01/2024 Opioid use disorder (ICD-10 - F11.90) 12/14/2024 Opioid use disorder (ICD-10 - F11.90) 01/16/2025 Opioid use disorder (ICD-10 - F11.99) 02/16/2025 Opioid use disorder (ICD-10 - F11.99) 02/16/2025 Over weight (ICD-10 - E66.3) 12/01/2024 Other Patient agrees to take medication as prescribed. [...] services. Contact office with questions or concerns. 12/14/2024 Other Discussed risks of PLYWOOD PATCHER/respiratory depression, increased fall risk with combination of [...] services. Contact office with questions or concerns. 02/16/2025 Other Increased risk of PLYWOOD PATCHER/respiratory depression with combination of benzos and buprenorphine. Avoid taking medications at the same time. Patient agrees [...] services. Contact office with questions or concerns. Patient may self-administer their own medications or may self-administer their own oral medications per [facility] Protocol. Plan Of Treatment No Information Insurance Providers Payer Name Payer Address Payer Phone Subscriber Number Group Number Insured Name Patient Relationship to Insured Coverage Start Date Coverage End Date MEDICARE PART A [address] [place] [address] [id number] Matteo Da Silva Self - patient is the insured 5 [facility] [address] [place] [address] [id number] Matteo Da Silva Self - patient is the insured 5 Medical (General) History Medical History History ICD Code neuropathy hypertension COPD Hepatitis C (treated 1999) Surgical History Surgery Date(Month/Year) rectal cancer 1999 Hospitalization History Reason Date(Month/Year) pneumonia 2021
--- OUTSIDE RECORDS SUMMARY | 2025-02-23 01:05 | XMS_ITS | CONTINUITY OF CARE DOCUMENT ---
Author Name debbie, debbie Address Unknown Organization [facility] Address [address] [place] [address] Phone [phone] Care Team Providers Care Dough Puncher Name Role Phone Dionicio GALVAN, Reggie Unavailable [phone] JOSE J GALVAN, MANAV Unavailable [phone] MASSIEL GALVAN, LISA Unavailable [phone] PROBLEMS Condition Status Date Provider Notes ANGINA [...] In-person encounter Office Visit Reggie Greenberg MD [facility] ANGINA PECTORIS-06/17 NUC ISCHEMIA INF WALLBRADYCARDIA, [...] In-person encounter Office Visit Reggie Greenberg MD [facility] DYSPNEA ON EXERTION;NML ECHO 2008, DUE TO LUNG DZHEPATITIS C;WILL SEE DR GREWAL ABOUT STATINSSILICOSIS;SEES LUNG HTN-06/17 NML ECHO, EF 60, WILL TRY LOW DOSE SETH-I 07/18ABNORMAL STRESS NUCLEAR SCAN;CATH 20% CX - In-person encounter Office Visit Reggie Greenberg MD [facility] ANGINA PECTORIS-06/17 NUC ISCHEMIA INF WALLBRADYCARDIA, [...] diastolic, right arm 97 m m[Hg] Marisela Harlingen blood pressure, systolic, right arm 156 m m[Hg] Marisela Ru pulse rate 70 /min Marisela Ru oxygen saturation, oximetry 95 % Marisela Harlingen respiratory rate E&M 20 /min Marisela Harlingen weight E&M 262 [lb_av] Marisela Harlingen blood pressure, diastolic 68 mm[Hg] Lio Mariano [...] a smoker 10 years [facility] m ore [facility] MENTAL STATUS Date Observation Value Provider assessment [...] obstructive CAD, but coronaries are diffusely calcified. [facility] (07/05/2009) Reggie Greenberg MD mild cor dz, [...] obstructive CAD, but coronaries are diffusely calcified. [facility] (07/05/2009) Reggie Greenberg MD mild cor dz, ;clear for any surgery: O rders: T OBACCO USE CESSATION INTERMEDIATE 3-10 MINUTES (CPT-30583) Reggie Greenberg MD mild cor dz, ;clear [...] obstructive CAD, but coronaries are diffusely calcified. [facility] (07/05/2009) Reggie Greenberg MD mild cor dz, [...] obstructive CAD, but coronaries are diffusely calcified. [facility] (07/05/2009) C arotid Doppler/Duplex: Normal (06/22/2009) E [...] obstructive CAD, but coronaries are diffusely calcified. [facility] (07/05/2009) C arotid Doppler/Duplex: Normal (06/22/2009) Reggie [...] T OBACCO USE CESSATION INTERMEDIATE 3-10 MINUTES (CPT-97177) Reggie Greenberg MD postive nuc, will ca [...] Orders: X -Ray, Chest, PA & Lateral (CPT-83741) Reggie Greenberg MD postive nuc, will cath [...] T OBACCO USE CESSATION INTERMEDIATE 3-10 MINUTES (CPT-85182) S tress Test - Adenosine (11910) BP today: 130/84 Prior BP: / () [...] T OBACCO USE CESSATION INTERMEDIATE 3-10 MINUTES (CPT-83849) C omplete Echo (CPT-88897) S tress Test - Adenosine (85885) Reggie Greenberg MD surg clearance, need s work up, cardiac clear if passes nuc&echo: H is updated medication list for this problem includes: Verapamil Hcl Cr 240 Mg Tbcr (Verapamil hcl) ..... One tab. twice daily Hydrochlorothiazide 12.5 Mg Caps (Hydrochlorothiazide) ..... One tab. daily Aspirin 81 Mg Tabs (Aspirin) ..... One tab. daily Orders: T OBACCO USE CESSATION INTERMEDIATE 3-10 MINUTES (CPT-77902) C omplete Echo (CPT-76983) S tress Test - Adenosine (47835) S lee Study (*) BP today: 130/84 Prior BP: / () Reggie Greenberg MD surg clearance, need s work up, cardiac clear if passes nuc&echo: O rders: T OBACCO USE CESSATION INTERMEDIATE 3-10 MINUTES (CPT-62123) C omplete Echo (CPT-56431) S tress Test - Adenosine (51051) Reggie Greenberg MD surg clearance, need s work up, cardiac clear if passes nuc&echo: H is updated medication list for this problem includes: Prevacid 15 Mg Cpdr (Lansoprazole) ..... One tab. twice daily & #13;Orders: T OBACCO USE CESSATION INTERMEDIATE 3-10 MINUTES (CPT-20397) C omplete Echo (CPT-81474) S tress Test - Adenosine (99375) BP today: 130/84 Prior BP: / () D iscussed lifestyle modifications, diet, antacids/medications, and preventive measures. Handout provided. Reggie Greenberg MD surg clearance, need s work up, cardiac clear if passes nuc&echo: H is updated medication list for this problem includes: Zetia 10 Mg Tabs (Ezetimibe) ..... One tab. daily Orders: TOBACCO USE CESSATION INTERMEDIATE 3-10 MINUTES (CPT-90050) C omplete Echo (CPT-72310) S tress Test - Adenosine (54333) BP today: 130/84 Prior BP: / () Reggie Greebnerg MD surg clearance, need s work up, cardiac clear if passes nuc&echo: O rders: T OBACCO USE CESSATION INTERMEDIATE 3-10 MINUTES (CPT-88918) C omplete Echo (CPT-86681) S tress Test - Adenosine (90089) Reggie Greenberg MD surg clearance, need s work up, cardiac clear if passes nuc&echo: H is updated medication list for this problem includes: Verapamil Hcl Cr 240 Mg Tbcr (Verapamil hcl) ..... One tab. twice daily Diazepam 10 Mg Tabs (Diazepam) ..... Once daily Aspirin 81 Mg Tabs (Aspirin) ..... One tab. daily Orders: T OBACCO USE CESSATION INTERMEDIATE 3-10 MINUTES (CPT-90835) C omplete Echo (CPT-03616) S tress Test - Adenosine (71811) BP today: 130/84 Prior BP: / () Reggie Greenberg MD Date Name Spirometry Carotid Duplex Bilat eral Cardiac Cath - GC X-Ray, Chest, PA & L ateral Sleep Study Stress Test - Adenos ine Complete Echo HISTORY OF PROCEDURES Procedure Date Procedure Name Provider Procedure Notes S tatus EKG Reggie Greenberg MD complete d
--- OUTSIDE RECORDS SUMMARY | 2025-02-23 01:05 | XMS_ITS | Clinical Summary ---
Author Organization [facility] Address [address] [place] [address] Care Team Providers Care Band Teacher Name Role Phone Supa Valentin Primary Care Provider [phone] Source Comments [facility],non-owned Affiliates and Associated Physician Practices is amultiple site organization consisting of ambulatory clinics and hospital sitesin [place], [place]. This disclosure is being madepursuant to the Care Everywhere program and may not contain all information available regarding this patient. Last updated 18.[facility] Allergies No known active allergies Medications * This document contains information received from the source organization and may not represent a complete record from that organization. * Be aware that medications may not be up to date on this document. Alwaysverify current medications with the patient. lisinopril (PRINIVIL; ZESTRIL) 40 MG tablet Take [...] 1 tablet by mouth once daily Active fluticasone-ember meterol hfa (ADVAIR HFA) 115-21 MCG/ACT Inhale 2 puffs by mouth 4 times daily Active oxyCODONE, immediate release, 10 MG tablet Take 1 tablet by mouth 3 times daily 0 8 Active Active Problems No known active problems [...] at Not on file Legal Sex Male 5:29 AM TRANSCRIPTION COORDINATOR Gender Identity Male 03/11/2018 9:53 AM CDT Sexual Orientation Not on file Last Filed Vital Signs Vital Sign Reading Time Taken Comments Blood Pressure 161/83 06/24/2018 1:59 PM CDT Pulse 61 06/24/2018 1:59 PM CDT Temperature 36.1 C (96.9 F) 06/24/2018 1:29 PM CDT Respiratory Rate 20 06/24/2018 1:59 PM CDT [...] Description 02/27/2025 1:00 PM CDT Office Visit [facility] [address] [place] [id number] Merrick Dias MD [address] [place] [address] [place] [address] Health Maintenance Due Date Last Done Comments [...] 1-dose 75+ series) 2023 COVID-19 VACCINE ( season) 2024 DEPRESSION SCREENING 11/09/2024 MEDICARE AWV CALENDAR YEAR 2024 INFLUENZA VACCINE (Season Ended) 2025 10/16/2017 HEPATITIS C SCREENING Completed 10/13/2017 , 08/15/2013, 08/15/2013, Additional history exists HIB VACCINE Aged Out No longer eligi ble based on patient's age to complete this topic HPV VACCINE Aged Out No longer eligi ble based on patient's age to complete this topic MENINGOCOCCAL (Group B) VACCINE SHARED DECISION-MAKING Aged Out No longer eligible based on patient's age to complete this topic MENINGOCOCCAL GROUPS A/C/Y/W VACCINE Aged Out No longer eligible based [...] your medications Medical Devices Explanted Type Area Captain Waiter/Waitress Device Identifier Shelf Expiration Date Model / Serial / Lot Wall Flex Biliary Fully Covered Stent System Implanted:Qty: 1 on 04/30/2018 by Kassie Yeboah MD at [facility] Explanted:Qty: 1 on 06/24/2018 by Kassie Yeboah MD at [facility] N/A: Bile Duct [employer] 02/11/2020 [id number] / / [id number] Procedures Procedure Name Priority Date/Time Associated Diagnosis Comments COMPREHENSIVE METABOLIC PANEL Routine 05/31/2018 11:19 AM CDT Alcoholic cirrhosis of liver without ascites HEPATITIS C RNA QUANTITATIVE Routine 10/13/2017 12:49 PM TRANSCRIPTION COORDINATOR from Last 3 Months or Most Recently Relevant to Health Maintenance Results * (ABNORMAL) COMPREHENSIVE METABOLIC PANEL (05/31/2018 11:19 AM CDT) BUN 18 7 - 26 mg/dL 05/31/2018 12:39 PM [facility] Creatinine 0.9 0.6 - 1.2 mg/dL 05/31/2018 12:39 PM [facility] Sodium 140 136 - 145 mmol/L 05/31/2018 12:39 PM [facility] Potassium 4.2 3.5 - 4.5 mmol/L 05/31/2018 12:39 PM [facility] Chloride 103 98 - 107 mmol/L 05/31/2018 12:39 PM [facility] CO2 27 22 - 29 mmol/L 05/31/2018 12:39 PM [facility] Glucose 105 70 - 115 mg/dL 05/31/2018 12:39 PM [facility] Calcium 9.2 8.4 - 10.2 mg/dL 05/31/2018 12:39 PM [facility] Protein Total 7.5 6.0 - 8.3 g/dL 05/31/2018 12:39 PM [facility] Albumin 3.7 3.4 - 5.0 g/dL 05/31/2018 12:39 PM [facility] Bilirubin Total 0.4 0.2 - 1.2 mg/dL 05/31/2018 12:39 PM [facility] Alkaline Phosphatase 113 40 - 150 Units/L 05/31/2018 12:39 PM [facility] ALT 11 0 - 55 Units/L 05/31/2018 12:39 PM [facility] AST 17 5 - 34 Units/L 05/31/2018 12:39 PM [facility] Anion Gap 14 8 - 18 05/31/2018 12:39 PM [facility] BUN/Creatinine Ratio 20 7 - 23 05/31/2018 12:39 PM CDT [facility] Osmolality Calculated 292 270 - 300 mOsm/kg 05/31/2018 12:39 PM T [facility] Albumin/Globulin Ratio 1.0(L) 1.1 - 2.3 05/31/2018 12:39 PM T [facility] eGFR >60 >60 mL/min/1.7 3 m2 05/31/2018 12:39 PM T [facility] Blood BLOOD SPECIMEN / Unknown Lab Venipuncture / Unknown 05/31/2018 11:19 AM CDT 05/31/2018 12:05 PM CDT us Anthony Knox MD LAB - CHEMISTRY ORDERABLES F inal Result [facility] [address] [place] [address] * HEPATITIS C RNA QUANTITATIVE PCR (10/13/2017 12:49 PM TRANSCRIPTION COORDINATOR) Pathologist [facility] Hepatitis C Virus RNA PCR Accession No: [id number] Specimen: Serum Reference: [id number] Test: Hepatitis C RT-PCR (Quantitative) RESULT Not Detected Reference Range Not Detected INTERPRETATION The quantitative Hepatitis C viral RNA RT-PCR determination was performed on a serum sample and is reported in IU/ml. Hepatitis C viral RNA was not detected. COMMENT The Hepatitis C viral (HCV) RNA analysis utilized a serum sample, real-time reverse water systems designer PCR, and is reported as Not Detected, [...] the isolation of HCV RNA with reverse water systems designer of genomic HCV RNA followed by real-time PCR in the presence of an unrelated RNA internal control. The internal control ensures that RNA is isolated, and that no general significant inhibitors of the RT-PCR process are present. This analysis was performed using an [place] FDA approved test methodology ([employer] RealTime HCV). Test performed at [facility], [address] [place] [address] This case has been personally reviewed and interpreted by the attending (teaching) pathologist. Final Diagnosis performed by Fabio Dias PHD. Electronically signed 10/15/2017 [facility] ([facility]) Blood specimen (specimen) BLOOD SPECIMEN / Unknown 10/13/2017 12:49 PM TRANSCRIPTION COORDINATOR 10/13/2017 12:49 PM TRANSCRIPTION COORDINATOR us Dino Manzo MD LAB - CHEMISTRY ORDERABLES Fin al Result [facility] ([facility]) [address] [place] [address]. [place] [address], [facility] [phone] from Last 3 Months or Most Recently Relevant to Health Maintenance Insurance Care Teams Band Teacher Relationship Specialty Start Date End Date Supa Valentin DO [address] [place] [address] PCP - General 12/20/19
--- OUTSIDE RECORDS SUMMARY | 2025-02-23 01:05 | XMS_ITS ---
[facility] Organization [facility] Address [address] [place] [address] Care Team Providers Care Nuclear Physics Teacher Name Role Phone Negrito Holm Primary Care Provider Allergies No Known Allergies Results Component Value Reference Range Notes 12 Panel Urine Drug Screen Reviewed date:01/16/2025 02:58:59 PM Interpretation: Performing Lab: Notes/Report: THC neg ASHANTI neg MOP (OPI) neg AMP neg MET neg BAR neg BZO POS MDMA neg MTD neg OXY neg PCP neg BUP POS REASON FOR VISIT Walk-In Medications Medication SIG (Take, Route, Frequency, Duration) Notes Start Date End Date Status Anoro Ellipta 62.5-25 MCG/ACT INHALE 1 P UFF BY MOUTH ONCE DAILY Inhalation for 30 Days Active Donepezil HCl 10 MG PLEASE SEE ATTACHED FOR DETAILED DIRECTIONS Oral for 90 Days Active Lisinopril 40 MG TAKE 1 TABLET BY MOUTH EVERY DAY Oral for 90 Days Active amLODIPine Besylate 10 MG TAKE 1 TABLET BY MOUTH EVERY DAY Oral for 90 Days Active Gabapentin 400 MG 1 capsule Orally Three times a day Active diazePAM 5 MG 1 tablet as needed Orally Once a day Active Albuterol Sulfate HFA 108 (9 0 Base) MCG/ACT INHALE 2 PUFFS BY MOUTH EVERY 4-6 HOURS NEEDED FOR SHORTNESS OF BREATH/WHEEZE Inhalation for 17 Days Active Benzonatate 200 MG TAKE 1 CAPSULE (200 MG) BY MOUTH 3 TIMES DAILY NEEDED FOR COUGH Oral for 10 Days Active Buprenorphine HCl-Naloxone H Cl 8-2 MG 1 film under the tongue and allow to dissolve Sublingual Three times a day 01/16/2025 Active hydroCHLOROthiazide 12.5 MG TAKE 1 CAPSU LE BY MOUTH DAILY NEEDED FOR SWELLING Oral for 90 Days Active Pantoprazole Sodium 40 MG TAKE 1 TABLET BY MOUTH EVERY DAY IN THE MORNING Oral for 90 Days Active Social History Tobacco Use: Social History Observation Description Date Details (start date - stop date) Current Smoker NA - NA Sex Assigned At : Social History Observation Description Sex Assigned At Male Tobacco Control (Standard) Question Answer Notes Tobacco use: Current every day smoker Additional Findings: Tobacco user Moderate cigar ette smoker (10-19 cigs/day) Vital Signs Weight 211.2 lbs 01/16/2025 Height 74 in 01/16/2025 BMI 27.11 kg/m2 01/16/2025 Blood pressure systolic 128 mm Hg 01/17/20 25 Blood pressure diastolic 82 mm Hg 025 Heart Rate 66 /min 01/16/2025 Oximetry 90 % 01/16/2025 Respiratory Rate 16 /min 01/16/2025 Encounters Encounter Location Date Provider Diagnosis [address] [place] [address] 01/16/2025 Negrito Holm Opioid use disorder F11.99 Assessments Encounter Date Diagnosis (ICD Code) Assessment Notes Treatment Notes Treatment Clinical Notes Section Notes 01/16/2025 Opioid use disorder (ICD-10 - F11.99) Plan Of Treatment Medication Medication Name Sig Start Date Stop Date Notes Suboxone 8-2 MG 1 film under the ton hermelindo and allow to dissolve Sublingual Three times a day Buprenorphine HCl-Naloxone H Cl 8-2 MG 1 film under the tongue and allow to dissolve Sublingual Three times a day 01/16/2025 Next Appt Details Follow Up: 4 Weeks, Reason: MAT Progress Notes * Matteo RODRIGUEZ EDOB: [birth year] (74 yo M)Acc No.[id number]:01/16/2025 Patient: John Matteo ERNST Provider: Phillip Holm :1950 A ge:74 Y S ex:Male Date:01/16/2025 Address:[address] [place], [place] [id number] Check In:01:42 PM [employer] Subjective: * Chief Complaints: * W alk-In * HPI: I nterim History: Emergency room visit N o. Was hospitalized N o. D epression Screening: PHQ-9 L ittle interest or pleasure in doing things?Not at all F eeling down, depressed, or hopeless N ot at all T rouble falling or staying asleep, or sleeping too much S everal days F eeling tired or having little energy N ot at all P oor appetite or overeating S everal days F eeling bad about yourself or that you are a failure, or have let yourself or your family down N ot at all T rouble concentrating on things, such as reading the newspaper or watching television M ore than half the days M oving or speaking so slowly that other people could have noticed; or the opposite, being so fidgety or restless that you have been moving around a lot more than usual N ot at all T houghts that you would be better off or of hurting yourself in some way N ot at all T otal Score 4 I nterpretation M inimal Depression S creening: [place] Suicide Severity Rating Scale (LF) D o you want to initiate with S creener form 1 . Wish to be : Have you wished you were or wished you could go to sleep and not wake up? N o 2 . Suicidal Thoughts: Have you actually had any thoughts of killing yourself? N o 6 . Suicide Behavior Question: Have you ever done anything,started to do anything, or prepared to end your life? N o I nterpretation: L ow Risk C SSRS Interpretation and Follow Up Plan: CSSRS Interpretation and Follow Up Plan C SSRS Screen documented using SF Y es R isk Disposition from L ow - No Follow Up Plan Required F ollow Up Plan N o Follow Up Plan required at this time. M AR follow-up: MAR F/U. SEES DR. NORI KING IN [place], [place] FOR PCP. LABS DONE 12/2024. JEEVAN SIGNED. Medication Monitoring and Risk Mitigation U p-to-date on ASAM recommended lab testing??Yes 12/[address] KING P rescribed a buprenorphine product? Y es H as patient had a buprenorphine and metabolite lab ordered/collected? Y es (see notes for date of last metabolite testing) D ate of last buprenorphine and metabolite?01/16/2025 P rescription Drug Monitoring Program Review?Yes. No concerns at this time. P elyssa to address any concerns identified: N o concerns identified. Will continue treatment plan as is. gabapentin, diazepam (Nori King) Cravings, Setbacks, Substance use, and Stressors C ravings since last visit: N o. Patient denies cravings since last visit. S etbacks since last visit? N o, patient denies setbacks since last visit. M isuse of substances since last visit: N o, patient denies. S tressors N o, patient denies stressors at this time. Withdrawal and Intoxication Symptoms I ntoxication Symptoms: N o signs of intoxication are present during visit. W ithdrawal Symptoms: N o withdrawal signs are present during visit. Mental Health, Support System, and Social Determinants M ental Health Status S table. S upport Systems Include: P ersonal support system (see notes). grandson C ourt System Involvement? N o H ousing Stability: S table and safe housing. C urrently employed? S ocial Security/disability. R eferrals needed: N o referrals needed at this time. Recommended Wellness and Prevention Follow-up R ecommended Wellness and Prevention reviewed:?Yes. No additional orders/actions needed at this time. Other concerns: O ther Concerns? N o. N arcan need N o. Patient already has Narcan. * ROS: B asic ROS: Denies S ubstance Abuse. * Medical History: * Surgical History: r ectal cancer 1999 * Hospitalization/Major Diagno stic Procedure: p neumonia 2021 * Family History: F ather: . M other: . 3 brother(s) , 2 sister(s) - healthy. 3 daughter(s) - healthy. . * Social History: P rimary Social History: L iving Arrangement L iving Arrangement: I ndependent Living I s this a supportive environment? Y es Alcohol Use A lcohol Use Frequency: N ever Illicit Substance Usage I llicit Substance Usage: Y es I nterested in quitting: Y es Employment Status E mployment Status: U nemployed T obacco Use: T obacco Control (Standard) T obacco use: C urrent every day smoker A dditional Findings: Tobacco user M oderate cigarette smoker (10-19 cigs/day) M iscellaneous: M ethod of learning P referred method of learning: D iscussion * Medications: T akingBuprenorphine HCl-Naloxone HCl 8-2 [...] HOURS NEEDED FOR SHORTNESS OF BREATH/WHEEZE Inhalation Taking Buprenorphine HCl-Naloxone HCl 8-2 MG Film 1 [...] HOURS NEEDED FOR SHORTNESS OF BREATH/WHEEZE Inhalation * Allergies: N .K.D.A.no[Allergies Verified] Objective: * Vitals: I nitials: dt, Wt:211.2, Ht: 74, BMI:27.11, BP:128/82, HR:66, Oxygen sat %:90, RR:16, Pain scale:7. * Examination: A [facility] Physical Assessment: Intoxication and Withdrawal signs I ntoxication signs N o signs of intoxication are present during examination. W ithdrawal Signs N o withdrawal signs are present during examination. G eneral Examination: GENERAL APPEARANCE: a lert, pleasant, in no acute distress.? HEART: r egular rate and rhythm, no murmurs. LUNGS: r espirations regular and easy, clear to auscultation bilaterally. EXTREMITIES: n o clubbing, cyanosis, or edema. PSYCH: a lert, oriented x4, speech clear, good eye contact.? Assessment: * Assessment: 1. O pioid use disorder - F11.99 (Primary) Plan: * Treatment: Value Reference Range T HC neg * C OC neg * M OP (OPI) neg * A MP neg * M ET neg * B AR neg * B ZO POS * M DMA neg * M TD neg * O XY neg * P CP neg * B UP POS ?LAB: Buprenorphine and Metabolite (Urine test) (Ordered for 01/16/2025) * Recommended Wellness and Pre vention Guidelines: * S tatus A lert L ast Done N ext Due A ction Taken N ONCOMPLIANT A lcohol use screening - 0 01/16/2025 - N ONCOMPLIANT C holesterol screen (genl pop) - 0 01/16/2025 - N ONCOMPLIANT I nfluenza vaccine (over 50) - 0 01/16/2025 - N ONCOMPLIANT P neumococcal vaccine - 0 01/16/2025 - * Procedure Codes: 3 008F BODY MASS INDEX [id number] MEDICAL NUTRITION, INDIV, [id number] BEHAV CHNG SMOKING 3-10 [id number] SPECIMEN [id number] [facility] VISIT ESTABLISHED PATIENT * Preventive Medicine: Counseling: C are goal follow-up plan: BMI management provided Y es Above Normal BMI Follow-up L ifestyle education regarding diet S MOKING: Patient counselled on the dangers of tobacco use and urged to quit. . * Follow Up: 4 Weeks (Reason: MAT) * * Sign off status: Completed true * Provider: Phillip Holm Date: 0 01/16/2025 Generated for Andrea nunn/Ozzy/Carol on: 0 02/23/2025 01:05 AM CDT History [...] days Feeling tired or having little energy: N ot at all Poor appetite or overeating: Several day s Feeling bad about yourself o r that you are a failure, or have let yourself or your family down: Not at all Trouble concentrating on thi ngs, such as reading the newspaper or watching television: More than half the days Moving or speaking so slowly that other people could have noticed; or the opposite, being so fidgety or restless that you have been moving around a lot more than usual: Not at all Thoughts that you would be b prashant off or of hurting yourself in some way: Not at all Total Score: 4 Interpretation: Minimal Depression Screening [place] Suicide Sev erity Rating Scale (LF) Do you want to initiate with: Screener form 1. Wish to be : Have you [...] Up-to-date on ASAM recommended lab testing?: Yes 12/[address] KING Prescribed a buprenorphine product?: Yes Has patient had a buprenorphine and metabolite lab ordered/collected?: Yes (see notes for date of last metabolite testing) Date of last buprenorphine and metabolite: 01/16/2025 Prescription Drug Monitoring Program Review: Yes. No concerns at this time. Plan to address any concerns identified:: No concerns identified. Will continue treatment plan as is. gabapentin, diazepam (Nori King) Cravings, Setbacks, Substanc e use, and [...] Health Status: Stable. Support Systems Include:: Personal lensgeno rt system (see notes). InHomeVestson Court System Involvement?: No Housing Stability:: Stable [...] alert, p leasant, in no acute distress HEART: regular rate and rhy thm, no murmurs LUNGS: respirations regular and easy, clear to auscultation bilaterally EXTREMITIES: no clubbing, cyanosi s, or edema PSYCH: alert, oriented x4, speech clear, good eye contact ASAM Physical Assessment Intoxication an d Withdrawal signs Intoxication signs: No signs of intoxication are present during examination. Withdrawal Signs: No withdrawal signs ar e present during examination.
--- OUTSIDE RECORDS SUMMARY | 2025-02-23 01:05 | XMS_ITS | Clinical Summary ---
Author Organization [facility] Address [address] [place] [address] Phone Care Team Providers Care Director Consumer Name Role Phone Provider, None Primary Care [...] Date Smoking Tobacco: Every Day Cigarettes 1.5 59.3 Started: 1967 Smokeless Tobacco: Never Tobacco Cessation:Ready [...] Comments Blood Pressure 150/86 12/27/2022 5:32 AM SALES PLANNING MANAGER Pulse 93 12/27/2022 8:12 AM SALES PLANNING MANAGER Temperature 36.6 C (97.9 F) 12/27/2022 5:32 AM SALES PLANNING MANAGER Respiratory Rate 18 12/27/2022 8:12 AM SALES PLANNING MANAGER Oxygen Saturation 93% 12/27/2022 8:12 AM SALES PLANNING MANAGER Inhaled Oxygen Concentration - - Weight 90.7 kg (200 lb) 12/24/2022 8:02 PM SALES PLANNING MANAGER Height 182.9 cm (6') 12/24/2022 8:02 PM SALES PLANNING MANAGER Body Mass Index 27.12 12/24/2022 8:02 PM SALES PLANNING MANAGER Plan of Treatment Health Maintenance Due Date [...] DIAGNOSTIC, VIA GUAIAC STAT 12/25/2022 12:39 AM SALES PLANNING MANAGER from Last 3 Months or Most Recently Relevant to Health Maintenance Results * Stool Occult Blood - Diagnostic (12/25/2022 12:39 AM SALES PLANNING MANAGER) OCCULT BLOOD DIAG, GI BLEED Negative Negative 12/25/2022 12:50 AM SALES PLANNING MANAGER [facility] Stool Non-Phlebotomy Collection / Unknown 12/25/2022 12:39 AM SALES PLANNING MANAGER 12/25/2022 12:45 AM SALES PLANNING MANAGER us Hira Quinteros MD BODY FLUIDS & STOOLS MARIANN SCHMITZ Final Result [facility] [address] [place] [address] from Last 3 Months or Most Recently Relevant to Health Maintenance Insurance [facility] Advance Directives * Full Code (Latest Code Status on File) Date Activated Date Inactivated Comments 12/25/2022 11:11 AM 12/27/2022 5:52 PM CPR-Full Tr eatment: FULL ARREST: Attempt Resuscitation/CPR wit intubation and mechanical ventilation. PRE-ARREST: Use entire range of life support measures to stabilize the patient. Care Teams Director Consumer Relationship Specialty Start Date End Date Provider, None [place] PCP - General 12/24/22
--- OUTSIDE RECORDS SUMMARY | 2025-02-23 01:06 | XMS_ITS ---
Author Organization [facility] Address [address] [place] [address] Care Team Providers Care Photo Equipment Technician Name Role Phone Negrito Holm Primary Care Provider Ally Bhatia Unavailable [phone] Allergies No Known Allergies Results Component Value Reference Range Notes 12 Panel Urine Drug Screen Reviewed date:02/16/2025 01:30:21 PM Interpretation: Performing Lab: Notes/Report: THC neg ASHANTI neg MOP (OPI) neg AMP neg MET neg BAR neg BZO POS MDMA neg MTD neg OXY neg PCP neg BUP POS REASON FOR VISIT Walk-In Medications Medication SIG (Take, Route, Frequency, Duration) Notes Start Date End Date Status Buprenorphine HCl-Naloxone H Cl 8-2 MG 1 film under the tongue and allow to dissolve Sublingual Three times a day 02/16/2025 Active Benzonatate 200 MG TAKE 1 CAPSULE [...] FOR SWELLING Oral for 90 Days Active Gabapentin 400 MG 1 capsule Orally Three times a day Active amLODIPine Besylate 10 MG TAKE 1 TABLET BY MOUTH EVERY DAY Oral for 90 Days Active Donepezil HCl [...] as needed Orally Once a day Active Social History Tobacco Use: Social History [...] Status W/U Status Risk Notes Problem Overweight (992497583) Over weight (E66.3) Active confirmed Vital Signs Weight 216 lb 2 oz lbs 02/16/2025 BMI 27.75 kg/m2 02/16/2025 Height 74 in 02/16/2025 Respiratory Rate 16 /min 02/16/2025 Oximetry 95 % 02/16/2025 Heart Rate 59 /min 02/16/2025 Blood pressure systolic 130 mm Hg 02/17/20 25 Blood pressure diastolic 80 mm Hg 025 Encounters Encounter Location Date Provider Diagnosis [address] [id number] 02/16/2025 Ally Bhatia Opioid use disorder F11.99 and Over weight E66.3 Assessments Encounter Date Diagnosis (ICD Code) Assessment Notes Treatment Notes Treatment Clinical Notes Section Notes 02/16/2025 Opioid use disorder (ICD-10 - F11.99) 02/16/2025 Over weight (ICD-10 - E66.3) 02/16/2025 Other Increased risk of FUEL AGENT/respiratory depression with combination of benzos and buprenorphine. [...] may self-administer their own oral medications per [place] Protocol. Plan Of Treatment Medication Medication Name Sig Start Date Stop Date Notes Buprenorphine HCl-Naloxone H Cl 8-2 MG 1 film under the tongue and allow to dissolve Sublingual Three times a day 02/16/2025 Treatment Notes Assessment Notes Other Increased risk of FUEL AGENT/respiratory depression with combination of benzos and buprenorphine. 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 Denies opioid cravings. Medication Monitoring and Risk Mitigation U p-to-date on ASAM recommended lab testing? Y es 12/2024 WITH Yesica SIDDIQUI rescribed a buprenorphine product??Yes, H as patient had a buprenorphine and metabolite lab ordered/collected? Y es (see notes for date of last metabolite testing), D ate of last buprenorphine and metabolite 0 01/16/2025, P rescription Drug Monitoring Program Review Y es. No concerns at this time., P elyssa to address any concerns identified: N o concerns identified. Will continue treatment plan as is. gabapentin, diazepam (Lucien Quesada). C ravings, Setbacks, Substance use, and Stressors [...] N o withdrawal signs are present during visit..?Mental Health, Support System, and Social Determinants M ental Health Status S table., Support Systems Include: P ersonal support system (see notes). grandson, C ourt System Involvement? N o, H ousing Stability: S table and safe housing., C urrently employed? S ocial Security/disability., R eferrals needed: N o referrals needed at this time..?Recommended Wellness and Prevention Follow-up R ecommended Wellness and Prevention reviewed: Y es. No additional orders/actions needed at this time. Has PCP. O ther concerns: O ther Concerns? N [...] have let yourself or your family down S everal days, T rouble concentrating on things, such as reading the newspaper or watching television S everal days, M oving or speaking so slowly that other people could have noticed; or the opposite, being so fidgety or restless that you have been moving around a lot more than usual S everal days, T houghts that you would be better off or of hurting yourself in some way N ot at all, T otal Score?6, I nterpretation M ild Depression. S creening: [place] Suicide Severity Rating Scale (LF) D o you want to initiate with S creener form, 1 . Wish to be : Have [...] N o, I nterpretation: L ow Risk. C SSRS Interpretation and Follow Up Plan: CSSRS Interpretation and Follow Up Plan C SSRS Screen documented using SF Y es, R isk Disposition from SF L ow - No Follow Up Plan Required, F ollow Up Plan N o Follow Up Plan required at this time., T imeframe of Screening T ashley.? * ROS: B asic ROS: Denies S [...] mployment Status E mployment Status: U nemployed. S nikolas Question Alcohol Screening H ow may times in the past year have you had (4 for women, or 5 for men) or more drinks in a day? 0 . T obacco Use: T obacco Control (Standard) T obacco use: C urrent every day smoker, A dditional Findings: Tobacco user M oderate cigarette smoker (10-19 cigs/day). M iscellaneous: M ethod of learning P referred method of learning: R eading. * Medications: T akingdiazePAM 5 MG Tablet 1 tablet as needed Orally Once a day Gabapentin 400 MG Capsule 1 capsule Orally Three times a day amLODIPine Besylate 10 [...] HOURS NEEDED FOR SHORTNESS OF BREATH/WHEEZE Inhalation Buprenorphine HCl-Naloxone HCl 8-2 MG Film 1 film under the tongue and allow to dissolve Sublingual Three times a day Medication List reviewed and reconciled with the patientTaking diazePAM 5 MG Tablet 1 tablet as needed Orally Once a day Taking Gabapentin 400 MG Capsule 1 capsule Orally Three times a day Taking amLODIPine Besylate [...] to dissolve Sublingual Three times a day Medication List reviewed and reconciled with the patient * Allergies: N .K.D.A.no[Allergies Verified] Objective: * Vitals: I nitials:cv, Wt:216 lb 2 oz, Ht:74, BMI:27.75, BP:130/80, HR:59, Oxygen sat %:95, RR:16, Pain scale:8. * Examination: A [place] Physical Assessment: Intoxication and Withdrawal signs I ntoxication signs N o signs of intoxication are present during examination.Withdrawal Signs N o withdrawal signs are present during examination.. G eneral Examination: GENERAL APPEARANCE: a lert, pleasant, in no acute distress.? PSYCH: a lert, oriented x4, speech clear, good eye contact.? Assessment: * Assessment: 1. O pioid use disorder - F11.99 (Primary) 2 . O john weight - E66.3 ? Plan: * Treatment: Value Reference Range T HC neg * C OC neg * M OP (OPI) neg * A MP neg * M ET neg * B AR neg * B ZO POS * M DMA neg * M TD neg * O XY neg * P CP neg * B UP POS 2.?Others? Notes:Increased risk of FUEL AGENT/respiratory depression with combination of benzos and buprenorphine. [...] services. Contact office withquestions or concerns. ?? Clinical Notes: Patient may self-administer their own medications or may self- administer their own oral medications per [place] Protocol.?? * Recommended Wellness and Pre vention Guidelines: * S tatus A lert L ast Done N ext Due A ction Taken N ONCOMPLIANT A lcohol use screening - 0 02/16/2025 - N ONCOMPLIANT A llergy List Verification - 0 02/16/2025 - N ONCOMPLIANT C holesterol screen (genl pop) - 0 02/16/2025 - N ONCOMPLIANT P neumococcal vaccine - 0 02/16/2025 - * Procedure Codes: 9 9000 SPECIMEN [id number] BODY MASS INDEX [id number] [facility] VISIT ESTABLISHED PATIENT * Preventive Medicine: Counseling: C are goal follow-up plan: B IA management provided Y Soco jenkins Normal BMI Follow-up L ifestyle education regarding diet. S MOKING: P atient counselled on the dangers of tobacco use and urged to quit. . . * Follow Up: 4 Weeks (Reason: MAR f/u) * * Sign off status: Completed true * Provider: Saud Bhatia, MSN, [employer]PER[employer], PMHNP-BC Date: 0 02/16/2025 Generated for Printing/[employer]/eTransmitting on: 0 02/23/2025 01:05 AM CDT History [...] have let yourself or your family down: Several days Trouble concentrating on thi ngs, such as reading the newspaper or watching television: Several days Moving or speaking so slowly that other people could have noticed; or the opposite, being so fidgety or restless that you have been moving around a lot more than usual: Several days Thoughts that you would be b prashant off or of hurting yourself in some way: Not at all Total Score: 6 Interpretation: Mild Depression Screening [place] Suicide Sev erity Rating Scale (LF) Do [...] recommended lab testing?: Yes 12/[address] QUESADA Prescribed a buprenorphine product?: Yes Has patient had a buprenorphine and metabolite lab ordered/collected?: Yes (see notes for date of last metabolite testing) Date of last buprenorphine and metabolite: 01/16/2025 Prescription Drug Monitoring Program Review: Yes. No concerns at this time. Plan to address any concerns identified:: No concerns identified. Will continue treatment plan as is. gabapentin, diazepam ([place]ien [place]) Cravings, Setbacks, Substanc e use, and Stressors [...] Health Status: Stable. Support Systems Include:: Personal [employer] Intelligenceo rt system (see notes). grandson Court System Involvement?: No Housing Stability:: Stable and safe hous ing. Currently employed?: Social Security/dis ability. Referrals needed:: No referrals needed a t this time. Recommended Wellness and Pre vention Follow-up Recommended Wellness and Prevention reviewed:: Yes. No additional orders/actions needed at this time. Has PCP Other concerns: Other Concerns?: No. Narcan need: No. Patient already has Otto can. CSSRS Interpretation and Follow Up Plan CSSRS Interpretation and Follow Up Plan CSSRS Screen documented using SF: Yes Risk Disposition from SF: Low - No Follo w Up Plan Required Follow Up Plan: No Follow Up Plan requir ed at this time. Timeframe of Screening: Today Examination Category Sub-Category Detail Notes Category Not es General Examination GENERAL APPEARANCE: alert, p leasant, in no acute distress PSYCH: alert, oriented x4, speech clear, good eye contact ASAM Physical Assessment Intoxication an d Withdrawal signs Intoxication signs: No signs of intoxication are present during examination. Withdrawal Signs: No withdrawal signs ar e present during examination.
[2025-02-23 11:20] VITALS: BP 169/69; PULSE 79; RESP 20; TEMP 36.6; O2SAT 99
--- NOTE | 2025-02-23 11:21 | WPDANESEPPF ---
Anes - Initial Pre Proc Eval Procedure: Operation Date: 02/23/25 12:30 Proposed Procedures p Screening Colonoscopy - Dillon Mckay MD Date/Time: 02/23/25 11:21 Surgeon: Dillon Mckay MD Pre Op Diagnosis: Screening Patient Data Age: 74 Gender: M Height: 1.93 m Weight: 94.3 kg Last Vital Signs Temp 36.6 C 02/23/25 11:20 Pulse 79 02/23/25 11:20 Resp 20 02/23/25 11:20 BP 169/69 H 02/23/25 11:20 Pulse Ox 99 02/23/25 11:20 Allergies Allergy/AdvReac Type Severity Reaction Status Date / Time No Known Allergies Allergy Verified 02/23/25 11:18 Home Medications ?Medication ?Instructions ?Recorded ?Confirmed ?Type umeclidinium 62.5 mcg-vilanterol See Rx Instructions .Route 03/07/21 02/17/25 Rx 25 mcg/actuation powdr for .COMPLEX ##60 inhalation (Anoro Ellipta) mometasone 0.1 % topical cream 1 applic topical DAILY PRN skin 03/03/24 02/17/25 History irritation albuterol sulfate 0.63 mg/3 mL See Rx Instructions .Route 06/24/24 02/17/25 Rx solution for nebulization .COMPLEX #75 mL umeclidinium 62.5 mcg-vilanterol See Rx Instructions .Route 07/06/24 02/23/25 Rx 25 mcg/actuation powdr for .COMPLEX #60 ea inhalation (Anoro Ellipta) albuterol sulfate 90 mcg/actuation See Rx Instructions .Route 07/13/24 02/17/25 Rx aerosol inhaler .COMPLEX #8.5 ea donepezil 10 mg tablet See Rx Instructions .Route 08/08/24 02/23/25 Rx .COMPLEX #90 tabs benzonatate 200 mg capsule See Rx Instructions .Route 08/09/24 02/17/25 Rx .COMPLEX #30 caps hydrochlorothiazide 12.5 mg capsule See Rx Instructions .Route 08/29/24 02/23/25 Rx .COMPLEX #90 caps gabapentin 400 mg capsule See Rx Instructions .Route 10/25/24 02/23/25 Rx .COMPLEX #90 caps amlodipine 10 mg tablet 10 mg PO DAILY #90 tabs 12/26/24 04/17/25 Rx lisinopril 40 mg tablet 40 mg PO DAILY #90 tabs 11/03/24 02/23/25 Rx pantoprazole 40 mg tablet,delayed See Rx Instructions .Route 12/16/24 02/23/25 Rx release .COMPLEX #90 tabs baclofen 5 mg tablet 5 mg PO QHS #90 tabs 12/19/24 02/23/25 Rx cholecalciferol (vitamin D3) 1,250 1,250 mcg PO WEEKLY #14 tabs 12/19/24 02/17/25 Rx mcg (50,000 unit) tablet Patient hx anesthesia problems: none Family hx anesthesia problems: none Results Review: All pre-operative results and documents have been reviewed as part of the pre-operative evaluation. [facility] Past Medical History Medical History Wellness examination Lumbar degenerative disc disease Rotator cuff arthropathy Alcohol abuse Rectal cancer (~1999) Hyperlipemia B12 deficiency Alcohol-induced acute pancreatitis Chronic gout of left ankle Moderate single current episode of major depressive disorder BPH w urinary obs/LUTS Hx of chronic hepatitis History of hepatitis C treated with interferon in 1999 with subsequent care Memory impairment Osteoarthritis involving multiple joints on both sides of body Opioid dependence COPD (chronic obstructive pulmonary disease) Tobacco abuse Depression Hypertension Chronic GERD Neuropathy Surgical History Surgical History History of bowel resection Due to rectal cancer History of carpal tunnel release Family History Family History Mother SLE (systemic lupus erythematosus related syndrome) Father , Age 75 Heart disease CHF (congestive heart failure) Sibling COPD (chronic obstructive pulmonary disease) Sibling Pulmonary embolism Sibling Accidental Sibling Hypertension Social History Social History Social History: He has been since 2011 but lives with a girlfriend. He has 3 daughters who are healthy. He retired from construction in 1999. He drinks 3-4 beers a day. He has smoked 1.5 packs of cigarettes per day since he was a young teenager. He denies any illicit substance use. He reports having quit smoking on 09/20/21 Primary care physician: Dr. Supa Valentin Code status: DNR/DNI (per patient request) Surrogate decision maker: Ginette Tsai (daughter) Smoking packs per day: 0.5 Smoking cigarettes per day: 10.0 Years smoked: 60 Smoking pack-years: 30.00 Smoking status: Former smoker Tobacco type: cigarettes Second hand tobacco smoke exposure: Yes Smoking end date: 08/21/23 Alcohol intake: current Substance use: never Substance use type: does not use and marijuana Other substance usage details: very seldom Lack of Transportation: No Lack of Food: Never True Current Housing: I Have Housing Concerned About Future Housing: No Difficulty Paying Gas/Electric Bills: No Difficulty Paying for Meds: No Currently Unemployed: No Education: Grade School Difficulty w/ Childcare or Family Care: No Spiritual care concerns: No Anes - Eval Final PreProcedure Day of Procedure 02/23/25 11:21 Patient weight: overweight Heart: regular rate and rhythm Lungs: clear to auscultation Airway: Mallampati scale class II Neurological: alert and oriented Last oral intake: >/= 8 hours ASA classification: IV Emergent: no Anesthetic plan: proceed Anesthesia type and monitoring: general GIVS and standard monitoring Results Review: All pre-operative results and documents have been reviewed as part of the pre-operative evaluation. Informed Consent: The patient's anesthetic plan and its attendant risks and benefits were discussed with the patient/family/POA. Questions were solicited and answers provided to the satisfaction of the patient/family/POA.
[2025-02-23] MEDS: LACTATED RINGERS 1,000 ML 150 ML IV CONT (11:34)
[2025-02-23 11:45] VITALS: PULSE 35
--- NOTE | 2025-02-23 11:55 | ECG_ITS ---
Test Date: 2025-02-23 12:07:06 Measurements Intervals [place] Rate: 43 P: 0 TX: 0 QRS: 40 QRSD: 98 T: 45 QT: 497 QTc: 424 Interpretive Statements ATRIAL FIBRILLATION WITH SLOW VENTRICULAR RESPONSE BASELINE ARTIFACT- I, II, III, AVR, AVL, AVF, V1-V6 ABNORMAL ECG No previous ECG available for comparison Electronically Signed On 02-23-2025 12:48:52 CDT by David Cintron D.O.
[2025-02-23 12:30] VITALS: PULSE 28
--- NOTE | 2025-02-23 13:38 | SUR.PREOP ---
Patient with irregular pulse in pre op. I attached him to the heart monitor and Dr Ruggiero gave order for STAT EKG. Computer Systems Auditor net front end developer recommended to take patient to ER. Patient and family updated to plan of care and agreed to go to ER for further work up. Patient transfered to ER in wheelchair with IV in place at 1330.
== END ==
PROVIDERS: PCP Family Medicine; Referring Provider Family Medicine; Visit Provider Internal Medicine Gastroenterology
PROC: 0DJD8ZZ Inspection of Lower Intestinal Tract, Via Natural or Artificial Opening Endoscopic (ICD-10-PCS; CPT 45378; principal; 2025-02-23 12:30)
DX: Z12.11 Encounter for screening for malignant neoplasm of colon (principal); Z53.8 Procedure and treatment not carried out for other reasons; I48.0 Paroxysmal atrial fibrillation; I08.1 Rheumatic disorders of both mitral and tricuspid valves; I27.20 Pulmonary hypertension, unspecified; E78.5 Hyperlipidemia, unspecified; I10 Essential (primary) hypertension; J44.9 Chronic obstructive pulmonary disease, unspecified; E53.8 Deficiency of other specified B group vitamins; F32.A Depression, unspecified; N40.1 Benign prostatic hyperplasia with lower urinary tract symptoms; K21.9 Gastro-esophageal reflux disease without esophagitis; M15.0 Primary generalized (osteo)arthritis; G31.84 Mild cognitive impairment of uncertain or unknown etiology; Z79.51 Long term (current) use of inhaled steroids; M51.369 Other intervertebral disc degeneration, lumbar region without mention of lumbar back pain or lower extremity pain; K85.20 Alcohol induced acute pancreatitis without necrosis or infection; M1A.9XX0 Chronic gout, unspecified, without tophus (tophi); K74.60 Unspecified cirrhosis of liver; G62.9 Polyneuropathy, unspecified; F17.210 Nicotine dependence, cigarettes, uncomplicated; F12.90 Cannabis use, unspecified, uncomplicated; Z98.890 Other specified postprocedural states; Z90.49 Acquired absence of other specified parts of digestive tract; Z85.048 Personal history of other malignant neoplasm of rectum, rectosigmoid junction, and anus; Z82.49 Family history of ischemic heart disease and other diseases of the circulatory system
CPT/HCPCS: 93005; 99213; G0463; J7120

== ENCOUNTER 2025-02-23 13:13 | Inpatient (IN) | payer MEDICARE, SELFPAY ==
[2025-02-23] VITALS (50 sets, daily range): BP systolic 59–183; BP diastolic 35–96; PULSE 31–83; RESP 13–25; TEMP 36.6–36.9; O2SAT 84–100; BMI 26.9
--- NOTE | ~2025-02-23 | XR_ITS ---
XR chest 1V portable Ordering provider: Bright Unger MD History: 74 years Male with . WEAKNESS . Comparison: March 25, 2024 FINDINGS: MEDIASTINUM: The cardiac silhouette is not enlarged. Prominent monie. LUNGS: No infiltrates, effusions or pneumothorax. OTHER: No free air under the diaphragm. Degenerative changes of the spine. IMPRESSION: No acute cardiopulmonary pathology. Reviewed, dictated and finalized at location A.
--- NOTE | 2025-02-23 13:16 | ECG_ITS ---
Test Date: 2025-02-23 13:29:47 Measurements Intervals [place] Rate: 39 P: 0 [place]: 0 QRS: 50 QRSD: 102 T: 48 QT: 489 QTc: 397 Interpretive Statements ATRIAL FIBRILLATION WITH SLOW VENTRICULAR RESPONSE ABNORMAL ECG Compared to ECG 02/23/2025 12:07:06 NO SIGNIFICANT CHANGE Electronically Signed On 02-23-2025 13:37:59 CDT by David Cintron D.O.
--- OUTSIDE RECORDS SUMMARY | 2025-02-23 13:31 | XMS_ITS | Clinical Summary ---
Author Organization [facility] Address [address] [place] [address] Phone Care Team Providers Care Band Saw Filer Name Role Phone Provider, None Primary Care [...] Comments Blood Pressure 150/86 12/27/2022 5:32 AM MORPHOLOGIST Pulse 93 12/27/2022 8:12 AM MORPHOLOGIST Temperature 36.6 C (97.9 F) 12/27/2022 5:32 AM MORPHOLOGIST Respiratory Rate 18 12/27/2022 8:12 AM MORPHOLOGIST Oxygen Saturation 93% 12/27/2022 8:12 AM MORPHOLOGIST Inhaled Oxygen Concentration - - Weight 90.7 kg (200 lb) 12/24/2022 8:02 PM MORPHOLOGIST Height 182.9 cm (6') 12/24/2022 8:02 PM MORPHOLOGIST Body Mass Index 27.12 12/24/2022 8:02 PM MORPHOLOGIST Plan of Treatment Health Maintenance Due Date [...] DIAGNOSTIC, VIA GUAIAC STAT 12/25/2022 12:39 AM MORPHOLOGIST from Last 3 Months or Most Recently Relevant to Health Maintenance Results * Stool Occult Blood - Diagnostic (12/25/2022 12:39 AM MORPHOLOGIST) OCCULT BLOOD DIAG, GI BLEED Negative Negative 12/25/2022 12:50 AM MORPHOLOGIST [facility] Stool Non-Phlebotomy Collection / Unknown 12/25/2022 12:39 AM MORPHOLOGIST 12/25/2022 12:45 AM MORPHOLOGIST us Hira Quinteros MD BODY FLUIDS & STOOLS MARIANN SCHMITZ Final Result [facility] [address] [place] [address] from Last 3 Months or Most Recently Relevant to Health Maintenance [facility] Advance Directives * Full Code (Latest Code Status on File) Date Activated Date Inactivated Comments 12/25/2022 11:11 AM 12/27/2022 5:52 PM CPR-Full Tr eatment: FULL ARREST: Attempt Resuscitation/CPR wit intubation and mechanical ventilation. PRE-ARREST: Use entire range of life support measures to stabilize the patient. Care Teams Band Saw Filer Relationship Specialty Start Date End Date Provider, None [place] PCP - General 12/24/22
--- OUTSIDE RECORDS SUMMARY | 2025-02-23 13:31 | XMS_ITS | CONTINUITY OF CARE DOCUMENT ---
Author Name debbie, debbie Address Unknown Organization [facility] Address [address] [place] [address] Phone [phone] Care Team Providers Care Vamp Stitcher Name Role Phone Dionicio GALVAN, Reggie Unavailable [phone] JOSE J GALVAN, MANAV Unavailable [phone] MASSIEL GALVAN, LISA Unavailable PROBLEMS Condition Status [...] In-person encounter Office Visit Reggie Greenberg MD [facility] ANGINA PECTORIS-06/17 NUC ISCHEMIA INF WALLBRADYCARDIA, [...] In-person encounter Office Visit Reggie Greenberg MD [facility] DYSPNEA ON EXERTION;NML ECHO 2008, DUE TO LUNG DZHEPATITIS C;WILL SEE DR GREWAL ABOUT STATINSSILICOSIS;SEES LUNG HTN-06/17 NML ECHO, EF 60, WILL TRY LOW DOSE SETH-I 07/18ABNORMAL STRESS NUCLEAR SCAN;CATH 20% CX - In-person encounter Office Visit Reggie Greenberg MD [facility] ([place], [place]) ANGINA PECTORIS-06/17 NUC ISCHEMIA INF WALLBRADYCARDIA, SINUS;2008, [...] diastolic, right arm 97 m m[Hg] Marisela Hillside blood pressure, systolic, right arm 156 m m[Hg] Marisela Ru pulse rate 70 /min Marisela Ru oxygen saturation, oximetry 95 % Marisela Hillside respiratory rate E&M 20 /min Marisela Hillside weight E&M 262 [lb_av] Marisela Hillside blood pressure, diastolic 68 mm[Hg] Lio Mariano [...] Kendra Floyd weight E&M 263.8 [lb_av] Rico telelz ALLERGIES No Known Drug Allergies HISTORY OF [...] a smoker 10 years [facility] m [facility] MENTAL STATUS Date Observation Value Provider assessment [...] obstructive CAD, but coronaries are diffusely calcified. [facility] (07/05/2009) Reggie Greenberg MD mild cor dz, [...] obstructive CAD, but coronaries are diffusely calcified. [facility] (07/05/2009) Reggie Greenberg MD mild cor dz, ;clear for any surgery: O rders: T OBACCO USE CESSATION INTERMEDIATE 3-10 MINUTES (CPT-00381) Reggie Greenberg MD mild cor dz, ;clear [...] obstructive CAD, but coronaries are diffusely calcified. [facility] (07/05/2009) Reggie Greenberg MD mild cor dz, [...] obstructive CAD, but coronaries are diffusely calcified. [facility] (07/05/2009) C arotid Doppler/Duplex: Normal (06/22/2009) E [...] obstructive CAD, but coronaries are diffusely calcified. [facility] (07/05/2009) C arotid Doppler/Duplex: Normal (06/22/2009) eRggie Greenberg MD mild cor dz, ;clear for [...] T OBACCO USE CESSATION INTERMEDIATE 3-10 MINUTES (CPT-09842) Reggie Greenberg MD postive nuc, will ca [...] Orders: C ardiac Cath - (*) Reggie Greneberg MD postive nuc, will ca th: H [...] Orders: X -Ray, Chest, PA & Lateral (CPT-96410) Reggie Greenberg MD postive nuc, will cath [...] T OBACCO USE CESSATION INTERMEDIATE 3-10 MINUTES (CPT-17053) S tress Test - Adenosine (82685) BP today: 130/84 Prior BP: / () [...] T OBACCO USE CESSATION INTERMEDIATE 3-10 MINUTES (CPT-81498) C omplete Echo (CPT-45816) S tress Test - Adenosine (66803) Reggie Greenberg MD surg clearance, need s work up, cardiac clear if passes nuc&echo: H is updated medication list for this problem includes: Verapamil Hcl Cr 240 Mg Tbcr (Verapamil hcl) ..... One tab. twice daily Hydrochlorothiazide 12.5 Mg Caps (Hydrochlorothiazide) ..... One tab. daily Aspirin 81 Mg Tabs (Aspirin) ..... One tab. daily Orders: T OBACCO USE CESSATION INTERMEDIATE 3-10 MINUTES (CPT-55689) C omplete Echo (CPT-75517) S tress Test - Adenosine (21275) S lee Study (*) BP today: 130/84 Prior BP: / () Reggie Greenberg MD surg clearance, need s work up, cardiac clear if passes nuc&echo: O rders: T OBACCO USE CESSATION INTERMEDIATE 3-10 MINUTES (CPT-33299) C omplete Echo (CPT-27079) S tress Test - Adenosine (58958) Reggie Greenberg MD surg clearance, need s work up, cardiac clear if passes nuc&echo: H is updated medication list for this problem includes: Prevacid 15 Mg Cpdr (Lansoprazole) ..... One tab. twice daily & #13;Orders: T OBACCO USE CESSATION INTERMEDIATE 3-10 MINUTES (CPT-84365) C omplete Echo (CPT-37946) S tress Test - Adenosine (98720) BP today: 130/84 Prior BP: / () D iscussed lifestyle modifications, diet, antacids/medications, and preventive measures. Handout provided. Reggie Greenberg MD surg clearance, need s work up, cardiac clear if passes nuc&echo: H is updated medication list for this problem includes: Zetia 10 Mg Tabs (Ezetimibe) ..... One tab. daily Orders: TOBACCO USE CESSATION INTERMEDIATE 3-10 MINUTES (CPT-30565) C omplete Echo (CPT-99557) S tress Test - Adenosine (48205) BP today: 130/84 Prior BP: / () Reggie Greenberg MD surg clearance, need s work up, cardiac clear if passes nuc&echo: O rders: T OBACCO USE CESSATION INTERMEDIATE 3-10 MINUTES (CPT-85316) C omplete Echo (CPT-15944) S tress Test - Adenosine (19265) Reggie Greenberg MD surg clearance, need s work up, cardiac clear if passes nuc&echo: H is updated medication list for this problem includes: Verapamil Hcl Cr 240 Mg Tbcr (Verapamil hcl) ..... One tab. twice daily Diazepam 10 Mg Tabs (Diazepam) ..... Once daily Aspirin 81 Mg Tabs (Aspirin) ..... One tab. daily Orders: T OBACCO USE CESSATION INTERMEDIATE 3-10 MINUTES (CPT-13805) C omplete Echo (CPT-61410) S tress Test - Adenosine (52477) BP today: 130/84 Prior BP: / () Reggie Greenberg MD Date Name Spirometry Carotid Duplex Bilat eral Cardiac Cath - GC X-Ray, Chest, PA & L ateral Sleep Study Stress Test - Adenos ine Complete Echo HISTORY OF PROCEDURES Procedure Date Procedure Name Provider Procedure Notes S tatus EKG Reggie Greenberg MD complete d
--- OUTSIDE RECORDS SUMMARY | 2025-02-23 13:31 | XMS_ITS | Clinical Summary ---
Author Organization [facility] [employer] Address [address] [place] [address] Care Team Providers Care Diving Coach Name Role Phone Supa Valentin Primary Care Provider [phone] Source Comments [facility] [employer],non-owned Affiliates and Associated Physician Practices is amultiple site organization consisting of ambulatory clinics and hospital sitesin [place], [place] and [place]. This disclosure is being madepursuant to the Care Everywhere program and may not contain all information available regarding this patient. Last updated 18.[facility] [employer] Allergies No known active allergies Medications * [...] on file Legal Sex Male 5:29 AM GAS SCRUBBER OPERATOR Gender Identity Male 03/11/2018 9:53 AM CDT [...] Description 02/27/2025 1:00 PM CDT Office Visit [facility] GI [address] [place] [id number] Merrick Dias MD [address] [place] [address] [place] [address] Health Maintenance Due Date Last Done Comments [...] your medications Medical Devices Explanted Type Area Channel Development Director Device Identifier Shelf Expiration Date Model / Serial / Lot Wall Flex Biliary Fully Covered Stent System Implanted:Qty: 1 on 04/30/2018 by Kassie Yeboah MD at [facility] Explanted:Qty: 1 on 06/24/2018 by Kassie Yeboah MD at [facility] N/A: Bile Duct PingTune Tha 02/11/2020 [id number] / / [id number] Procedures Procedure Name Priority Date/Time Associated Diagnosis Comments COMPREHENSIVE METABOLIC PANEL Routine 05/31/2018 11:19 AM CDT Alcoholic cirrhosis of liver without ascites HEPATITIS C RNA QUANTITATIVE Routine 10/13/2017 12:49 PM GAS SCRUBBER OPERATOR from Last 3 Months or Most Recently Relevant to Health Maintenance Results * (ABNORMAL) COMPREHENSIVE METABOLIC PANEL (05/31/2018 11:19 AM CDT) BUN 18 7 - 26 mg/dL 05/31/2018 12:39 PM [facility] Creatinine 0.9 0.6 - 1.2 mg/dL 05/31/2018 12:39 PM [facility] Sodium 140 136 - 145 mmol/L 05/31/2018 12:39 PM [facility] Potassium 4.2 3.5 - 4.5 mmol/L 05/31/2018 12:39 PM [facility] Chloride 103 98 - 107 mmol/L 05/31/2018 12:39 PM [facility] CO2 27 22 - 29 mmol/L 05/31/2018 12:39 PM [facility] Glucose 105 70 - 115 mg/dL 05/31/2018 12:39 PM [facility] Calcium 9.2 8.4 - 10.2 mg/dL 05/31/2018 12:39 PM [facility] Protein Total 7.5 6.0 - 8.3 g/dL 05/31/2018 12:39 PM [facility] Albumin 3.7 3.4 - 5.0 g/dL 05/31/2018 12:39 PM [facility] Bilirubin Total 0.4 0.2 - 1.2 mg/dL 05/31/2018 12:39 PM [facility] Alkaline Phosphatase 113 40 - 150 Units/L 05/31/2018 12:39 PM [facility] ALT 11 0 - 55 Units/L 05/31/2018 12:39 PM [facility] AST 17 5 - 34 Units/L 05/31/2018 12:39 PM [facility] Anion Gap 14 8 - 18 05/31/2018 12:39 PM [facility] BUN/Creatinine Ratio 20 7 - 23 05/31/2018 12:39 PM CDT [facility] Osmolality Calculated 292 270 - 300 mOsm/kg 05/31/2018 12:39 PM [facility] Albumin/Globulin Ratio 1.0(L) 1.1 - 2.3 05/31/2018 12:39 PM [facility] eGFR >60 >60 mL/min/1.7 3 m2 05/31/2018 12:39 PM T [facility] Blood BLOOD SPECIMEN / Unknown Lab Venipuncture / Unknown 05/31/2018 11:19 AM CDT 05/31/2018 12:05 PM CDT us Anthony Knox MD LAB - CHEMISTRY ORDERABLES F inal Result [facility] [address] [place] [address] * HEPATITIS C RNA QUANTITATIVE PCR (10/13/2017 12:49 PM GAS SCRUBBER OPERATOR) Pathologist [facility] Hepatitis C Virus RNA PCR Accession No: [id number] Specimen: Serum Reference: [id number] Test: Hepatitis C RT-PCR (Quantitative) RESULT Not Detected Reference Range Not Detected INTERPRETATION The quantitative Hepatitis C viral RNA RT-PCR determination was performed on a serum sample and is reported in IU/ml. Hepatitis C viral RNA was not detected. COMMENT The Hepatitis C viral (HCV) RNA analysis utilized a serum sample, real-time reverse pathology laboratory aides teacher PCR, and is reported as Not Detected, [...] the isolation of HCV RNA with reverse pathology laboratory aides teacher of genomic HCV RNA followed by real-time PCR in the presence of an unrelated RNA internal control. The internal control ensures that RNA is isolated, and that no general significant inhibitors of the RT-PCR process are present. This analysis was performed using an [place] FDA approved test methodology ([employer] RealTime HCV). Test performed at [facility], [address] [place] [address] This case has been personally reviewed and interpreted by the attending (teaching) pathologist. Final Diagnosis performed by Fabio Dias PHD. Electronically signed 10/15/2017 [facility] ([facility]) Blood specimen (specimen) BLOOD SPECIMEN / Unknown 10/13/2017 12:49 PM GAS SCRUBBER OPERATOR 10/13/2017 12:49 PM GAS SCRUBBER OPERATOR us Dino Manzo MD LAB - CHEMISTRY ORDERABLES Fin al Result [facility] ([facility]) [address] [place] [address]. [place] [address], [facility] [phone] from Last 3 Months or Most Recently Relevant to Health [place] [address] [place] [address] Care Teams Diving Coach Relationship Specialty Start Date End Date Supa Valentin DO [address] [place] [address] PCP - General 12/20/19
[2025-02-23 13:53] LABS: Basophils Percent Auto 0.4 % (0.2-1.2); Eosinophils Absolute Auto 0.1 K/mm3 (0-0.3); Eosinophils Percent Auto 1.1 % (0-4.4); Hematocrit 42.5 % (42.0-52.0); Hemoglobin 13.7 g/dL (14.0-18.0); Immature Granulocyte Absolute 0.03 K/mm3 (0.00-0.031); Immature Granulocyte Percent A 0.4 % (0-0.5); Lymphocytes Absolute Auto 1.41 K/mm3 (0.9-3.2); Lymphocytes Percent Auto 19.3 % (18.3-44.2); Mean Corpuscular HGB Conc 32.2 g/dl (32-36); Mean Corpuscular Hemoglobin 28.7 pg (26-34); Mean Corpuscular Volume 88.9 fl (80-100); Monocytes Absolute Auto 0.7 K/mm3 (0.1-0.6); Monocytes Percent Auto 8.9 % (2.6-8.5); Neutrophils Absolute Auto 5.1 K/mm3 (1.3-6.7); Neutrophils Percent Auto 69.9 % (45.5-73.1); Platelet Count Result 197 k/mm3 (150-375); Red Blood Count 4.78 M/mm3 (4.6-6.20); Red Cell Distribution Width 13.8 % (11.5-14.5); White Blood Count 7.3 K/mm3 (4.5-10.0)
[2025-02-23 14:08] LABS: INR 1.1; Partial Thromboplastin Time 33.4 Seconds (22.3-36.8); Prothrombin Time 14.4 Seconds (11.1-14.7)
[2025-02-23 14:25] LABS: Alanine Aminotransferase 13 U/L (6-50); Albumin Level 4.6 g/dL (3.5-5.1); Alkaline Phosphatase 134 U/L (38-126); Anion Gap 11 mmol/L (4-12); Aspartate Amino Transferase 23 U/L (17-59); Bilirubin,Total 0.7 mg/dL (0.2-1.3); Blood Urea Nitrogen 15 mg/dL (9-20); Calcium 9.5 mg/dL (8.4-10.2); Carbon Dioxide 25 mmol/L (22-30); Chloride 96 mmol/L (98-107); Estimated CRCL calculation 80 ml/min; Estimated Glomerular Filt Rate > 60; Glucose 102 mg/dL (65-110); Potassium 3.9 mmol/L (3.4-5.0); Sodium 132 mmol/L (137-145)
[2025-02-23 14:36] LABS: NT Pro B Type Natriuretic Pept 1820 pg/mL (19.9-100); Troponin I < 0.012 ng/mL (0.000-0.034)
--- NOTE | 2025-02-23 16:36 | ED.ARRPALP ---
HPI - Arrhythmia/Palpitations General Chief Complaint: Arrhythmia/Palpitations Stated Complaint: Afib w SVR Time Seen by Provider: 02/23/25 16:32 Source: patient History of Present Illness HPI narrative: PATIENT WAS SCHEDULED FOR REGULAR COLONOSCOPY TODAY, HEART RATE FOUND TO BE AFIB WITH SLOW VENTRICULAR RESPONSE, PATIENT REPORT GENERAL WEAKNESS AND TIREDNESS FOR A WHILE. HE DENIES CHEST PAIN, LIGHTHEADEDNESS OR DIZZINESS. DENIES ANY FEVER, CHILLS, NAUSEA VOMITING. PATIENT DENIES HISTORY OF ATRIAL FIBRILLATION Related Data Home Medications ?Medication ?Instructions ?Recorded ?Confirmed ?Last Taken ?Type mometasone 0.1 % topical cream 1 applic topical DAILY PRN skin 03/03/24 02/23/25 02/22/25 History irritation buprenorphine 8 mg-naloxone 2 mg 1 film sublingual TID PRN pain 02/23/25 02/23/25 Unknown History sublingual film (scale score 7-10) Allergies Allergy/AdvReac Type Severity Reaction Status Date / Time No Known Allergies Allergy Verified 02/23/25 11:18 Review of Systems Review of Systems: All systems reviewed & are unremarkable except as noted in HPI and below PMFSH Past Medical History Medical History (Updated 02/24/25 @ 08:56 by Bright Unger MD) Cirrhosis Likely multifactorial due to history of previously treated hepatitis-C and alcohol use Bilateral hearing loss Lumbar degenerative disc disease Rotator cuff arthropathy Alcohol abuse Rectal cancer (~1999) Hyperlipemia B12 deficiency Alcohol-induced acute pancreatitis Chronic gout of left ankle BPH w urinary obs/LUTS Hx of chronic hepatitis History of hepatitis C treated with interferon in 1999 with subsequent care Memory impairment Osteoarthritis involving multiple joints on both sides of body Opioid dependence COPD (chronic obstructive pulmonary disease) Tobacco abuse Depression Hypertension Chronic GERD Neuropathy Surgical History Surgical History History of bowel resection Due to rectal cancer History of carpal tunnel release Family History Family History Mother SLE (systemic lupus erythematosus related syndrome) Father , Age 75 Heart disease CHF (congestive heart failure) Sibling COPD (chronic obstructive pulmonary disease) Sibling Pulmonary embolism Sibling Accidental Sibling Hypertension Social History Social History (Updated 02/24/25 @ 08:00 by Wendy Hollingsworth DO) Social History: He has been since 2011 and lives alone in his own apartment. He has 3 daughters who are healthy. He retired from construction in 1999. He drinks 3-4 beers a day. He has smoked 1.5 packs of cigarettes per day since he was a young teenager he is still smoking but has cut back.. He denies any illicit substance use. Code status: DNR/DNI (per patient request) Surrogate decision maker: Ginette Tsai (daughter) Smoking packs per day: 1.5 Smoking cigarettes per day: 30.0 Years smoked: 60 Smoking pack-years: 90.00 Smoking status: Current every day smoker Tobacco type: cigarettes Second hand tobacco smoke exposure: Yes Alcohol intake: current Drinks per week: 14 Substance use: former Substance use type: marijuana Other substance usage details: occasional marijuana use Do You Feel Safe in your Home?: Yes Lack of Transportation: No Lack of Food: Never True Current Housing: I Have Housing Concerned About Future Housing: No Difficulty Paying Gas/Electric Bills: No Difficulty Paying for Meds: No Currently Unemployed: No Education: Decline to Answer Difficulty w/ Childcare or Family Care: No Living arrangements: with family Spiritual care concerns: No Exam Narrative: GENERAL APPEARANCE: WELL-DEVELOPED, WELL-NOURISHED SKIN: NORMAL COLOR HEAD: NORMOCEPHALIC, NONTRAUMATIC EYES: CLEAR CONJUNCTIVA ENT: OROPHARYNX NORMAL, EARS NORMAL, NOSE NORMAL NECK: SUPPLE, NONTENDER CHEST AND RESPIRATORY: AIRWAY PATENT, NO RESPIRATORY DISTRESS, NO ACCESSORY MUSCLE USE HEART: BRADYCARDIA, IRREGULAR IRREGULARITY ABDOMEN: SOFT, NONTENDER, NO ORGANOMEGALY, QUIET BOWEL SOUNDS MUSCULOSKELETAL: NORMAL RANGE OF MOTION, NONTENDER BACK NEUROLOGIC: ALERT AND ORIENTED ?3, PERIPHERAL NEUROPATHY Course Vital Signs Vital signs: Vital Signs Temperature 36.6 C 02/23/25 13:22 Pulse Rate 58 L 02/23/25 13:22 Respiratory Rate 17 02/23/25 13:22 Blood Pressure 113/73 02/23/25 13:22 Pulse Oximetry 98 02/23/25 13:22 Oxygen Delivery Room Air 02/23/25 13:22 Temperature 36.4 C L 02/24/25 08:16 Pulse Rate 42 L 02/24/25 08:16 Respiratory Rate 20 02/24/25 08:16 Blood Pressure 181/73 H 02/24/25 08:16 Pulse Oximetry 97 02/24/25 08:16 Oxygen Delivery Room Air 02/24/25 08:00 MDM - Arrhythmia/Palpitations MDM Narrative Medical decision making narrative: PATIENT REFERRED TO THE ED FROM GI AT BECAUSE OF AFIB WITH SLOW VENTRICULAR RESPONSE VITAL SIGNS SHOWING HEART RATE 58 OTHERWISE INSIGNIFICANT PHYSICAL EXAMINATION REMARKABLE FOR SORENESS OF THE LOWER EXTREMITY SECONDARY TO PERIPHERAL NEUROPATHY AND BRADYCARDIA, IRREGULAR IRREGULARITY DIFFERENTIAL DIAGNOSIS AFIB WITH SLOW VENTRICULAR RESPONSE SECONDARY TO MEDICATION, PATIENT ON AMLODIPINE, SICK SINUS SYNDROME, ELECTROLYTE IMBALANCE BLOOD WORKUP TODAY INCLUDES CBC, CMP, TROPONIN, TSH SHOWED SODIUM 132, BMP 1820 OTHERWISE INSIGNIFICANT ADMIT TO HOSPITALIST, DISCUSSED WITH DR. GROSSMAN. Differential Diagnosis Differential diagnosis: Likely other ( ABOVE) Medical Records Attestation: I reviewed the patient's medical records. Lab Data Attestation: I reviewed the patient's lab results. 02/23/25 13:45 02/23/25 13:45 Labs: Lab Results 02/23/25 Range/Units 13:45 WBC 7.3 (4.5-10.0) K/mm3 RBC 4.78 (4.6-6.20) M/mm3 Hgb 13.7 L (14.0-18.0) g/dL Hct 42.5 (42.0-52.0) % MCV 88.9 (80-100) fl MCH 28.7 (26-34) pg MCHC 32.2 (32-36) g/dl RDW 13.8 (11.5-14.5) % Plt Count 197 (150-375) k/mm3 MPV 9.0 (7.4-10.4) fl Immature Gran % (Auto) 0.4 (0-0.5) % Neut % (Auto) 69.9 (45.5-73.1) % Lymph % (Auto) 19.3 (18.3-44.2) % Jess[place] % (Auto) 8.9 H (2.6-8.5) % Eos % (Auto) 1.1 (0-4.4) % Baso % (Auto) 0.4 (0.2-1.2) % Lymph # (Auto) 1.41 (0.9-3.2) K/mm3 Jessamine # (Auto) 0.7 H (0.1-0.6) K/mm3 Eos # (Auto) 0.1 (0-0.3) K/mm3 Baso # (Auto) 0.0 (0.0-0.1) K/mm3 Abs Immat Gran (auto) 0.03 (0.00-0.031) K/mm3 Absolute Neuts (auto) 5.1 (1.3-6.7) K/mm3 Absolute Nucleated RBC 0.000 (0.0-0.012) K/mm3 Nucleated RBC % 0.0 (0.0-0.2) % PT 14.4 (11.1-14.7) Seconds INR 1.1 APTT 33.4 (22.3-36.8) Seconds Sodium 132 L (137-145) mmol/L Potassium 3.9 (3.4-5.0) mmol/L Chloride 96 L (98-107) mmol/L Carbon Dioxide 25 (22-30) mmol/L Anion Gap 11 (4-12) mmol/L BUN 15 D (9-20) mg/dL Creatinine 0.80 (0.7-1.3) mg/dL Estim Creat Clear Calc 80 ml/min Estimated GFR > 60 (59 - ) Glucose 102 (65-110) mg/dL Calcium 9.5 (8.4-10.2) mg/dL Total Bilirubin 0.7 (0.2-1.3) mg/dL AST 23 (17-59) U/L ALT 13 (6-50) U/L Alkaline Phosphatase 134 H (38-126) U/L Troponin I < 0.012 (0.000-0.034) ng/mL NT-Pro-B Natriuret Pep 1820 H (19.9-100) pg/mL Total Protein 9.0 H (6.3-8.2) g/dL Albumin 4.6 (3.5-5.1) g/dL ECG Data EKG #1: Attestation: I personally reviewed and interpreted this ECG as follows: ECG completion date: 02/23/25 Interpretation: AFIB AT 43 BEATS PER MINUTE, WITH SLOW VENTRICULAR RESPONSE, BASE LINE ARTIFACT, ABNORMAL EKG, NO PREVIOUS EKG AVAILABLE FOR COMPARISON Critical Care Time Critical Care Time Critical Care Time: No Discharge Plan Discharge Clinical Impression: Atrial fibrillation with slow ventricular response Patient Disposition: Still a Patient Condition: Stable
--- OUTSIDE RECORDS SUMMARY | 2025-02-23 16:46 | XMS_ITS | Clinical Summary ---
Author Organization [facility] Address [address] [place] [address] Phone Care Team Providers Care Plant Taxonomy Teacher Name Role Phone Provider, None Primary Care [...] Comments Blood Pressure 150/86 12/27/2022 5:32 AM IP ARCHITECT Pulse 93 12/27/2022 8:12 AM IP ARCHITECT Temperature 36.6 C (97.9 F) 12/27/2022 5:32 AM IP ARCHITECT Respiratory Rate 18 12/27/2022 8:12 AM IP ARCHITECT Oxygen Saturation 93% 12/27/2022 8:12 AM IP ARCHITECT Inhaled Oxygen Concentration - - Weight 90.7 kg (200 lb) 12/24/2022 8:02 PM IP ARCHITECT Height 182.9 cm (6') 12/24/2022 8:02 PM IP ARCHITECT Body Mass Index 27.12 12/24/2022 8:02 PM IP ARCHITECT Plan of Treatment Health Maintenance Due Date [...] DIAGNOSTIC, VIA GUAIAC STAT 12/25/2022 12:39 AM IP ARCHITECT from Last 3 Months or Most Recently Relevant to Health Maintenance Results * Stool Occult Blood - Diagnostic (12/25/2022 12:39 AM IP ARCHITECT) OCCULT BLOOD DIAG, GI BLEED Negative Negative 12/25/2022 12:50 AM IP ARCHITECT [facility] Stool Non-Phlebotomy Collection / Unknown 12/25/2022 12:39 AM IP ARCHITECT 12/25/2022 12:45 AM IP ARCHITECT us Hira Quinteros MD BODY FLUIDS & STOOLS MARIANN SCHMITZ Final Result [facility] [address] [place] [address] from Last 3 Months or Most Recently Relevant to Health Maintenance Insurance [facility]IC[facility] Advance Directives * Full Code (Latest Code Status on File) Date Activated Date Inactivated Comments 12/25/2022 11:11 AM 12/27/2022 5:52 PM CPR-Full Tr eatment: FULL ARREST: Attempt Resuscitation/CPR wit intubation and mechanical ventilation. PRE-ARREST: Use entire range of life support measures to stabilize the patient. Care Teams Plant Taxonomy Teacher Relationship Specialty Start Date End Date Provider, None [place] PCP - General 12/24/22
--- OUTSIDE RECORDS SUMMARY | 2025-02-23 16:46 | XMS_ITS | CONTINUITY OF CARE DOCUMENT ---
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 NUC ISCHEMIA INF WALLBRADYCARDIA, [...] MORALESNAL DISEASE, CHRONIC, MILD;CR 1.35, NO HYDROCOPD;NML KAIN 09 - In-person encounter Office Visit Reggie Greenberg MD [place] [facility] DYSPNEA ON EXERTION;NML ECHO 2008, DUE TO LUNG DZHEPATITIS C;WILL SEE DR GREWAL ABOUT STATINSSILICOSIS;SEES LUNG HTN-06/17 NML ECHO, EF 60, WILL TRY LOW DOSE SETH-I 07/18ABNORMAL STRESS NUCLEAR SCAN;CATH 20% CX - In-person encounter Office Visit Reggie Greenberg MD [place] 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 [facility] (07/05/2009) Reggie Greenberg MD mild cor dz, [...] obstructive CAD, but coronaries are diffusely calcified. [facility] (07/05/2009) Reggie Greenberg MD mild cor dz, ;clear for any surgery: O rders: T OBACCO USE CESSATION INTERMEDIATE 3-10 MINUTES (CPT-31202) Reggie Greenberg MD mild cor dz, ;clear [...] obstructive CAD, but coronaries are diffusely calcified. [facility] (07/05/2009) Reggie Greenberg MD mild cor dz, [...] obstructive CAD, but coronaries are diffusely calcified. [facility] (07/05/2009) C arotid Doppler/Duplex: Normal (06/22/2009) E [...] obstructive CAD, but coronaries are diffusely calcified. [facility] (07/05/2009) C arotid Doppler/Duplex: Normal (06/22/2009) Reggie [...] T OBACCO USE CESSATION INTERMEDIATE 3-10 MINUTES (CPT-42090) Reggie Greenberg MD postive nuc, will ca [...] Orders: X -Ray, Chest, PA & Lateral (CPT-73209) Reggie Greenberg MD postive nuc, will cath [...] T OBACCO USE CESSATION INTERMEDIATE 3-10 MINUTES (CPT-64323) S tress Test - Adenosine (56839) BP today: 130/84 Prior BP: / () [...] T OBACCO USE CESSATION INTERMEDIATE 3-10 MINUTES (CPT-57130) C omplete Echo (CPT-43284) S tress Test - Adenosine (67053) Reggie Greenberg MD surg clearance, need s work up, cardiac clear if passes nuc&echo: H is updated medication list for this problem includes: Verapamil Hcl Cr 240 Mg Tbcr (Verapamil hcl) ..... One tab. twice daily Hydrochlorothiazide 12.5 Mg Caps (Hydrochlorothiazide) ..... One tab. daily Aspirin 81 Mg Tabs (Aspirin) ..... One tab. daily Orders: T OBACCO USE CESSATION INTERMEDIATE 3-10 MINUTES (CPT-65575) C omplete Echo (CPT-28095) S tress Test - Adenosine (49844) S lee Study (*) BP today: 130/84 Prior BP: / () Reggie Greenberg MD surg clearance, need s work up, cardiac clear if passes nuc&echo: O rders: T OBACCO USE CESSATION INTERMEDIATE 3-10 MINUTES (CPT-89910) C omplete Echo (CPT-23967) S tress Test - Adenosine (73277) Reggie Greenberg MD surg clearance, need s work up, cardiac clear if passes nuc&echo: H is updated medication list for this problem includes: Prevacid 15 Mg Cpdr (Lansoprazole) ..... One tab. twice daily & #13;Orders: T OBACCO USE CESSATION INTERMEDIATE 3-10 MINUTES (CPT-08151) C omplete Echo (CPT-13272) S tress Test - Adenosine (07504) BP today: 130/84 Prior BP: / () D iscussed lifestyle modifications, diet, antacids/medications, and preventive measures. Handout provided. Reggie Greenberg MD surg clearance, need s work up, cardiac clear if passes nuc&echo: H is updated medication list for this problem includes: Zetia 10 Mg Tabs (Ezetimibe) ..... One tab. daily Orders: TOBACCO USE CESSATION INTERMEDIATE 3-10 MINUTES (CPT-80947) C omplete Echo (CPT-55886) S tress Test - Adenosine (72032) BP today: 130/84 Prior BP: / () Reggie Greenberg MD surg clearance, need s work up, cardiac clear if passes nuc&echo: O rders: T OBACCO USE CESSATION INTERMEDIATE 3-10 MINUTES (CPT-36406) C omplete Echo (CPT-55576) S tress Test - Adenosine (02777) Reggie Greenberg MD surg clearance, need s work up, cardiac clear if passes nuc&echo: H is updated medication list for this problem includes: Verapamil Hcl Cr 240 Mg Tbcr (Verapamil hcl) ..... One tab. twice daily Diazepam 10 Mg Tabs (Diazepam) ..... Once daily Aspirin 81 Mg Tabs (Aspirin) ..... One tab. daily Orders: T OBACCO USE CESSATION INTERMEDIATE 3-10 MINUTES (CPT-26317) C omplete Echo (CPT-51777) S tress Test - Adenosine (70378) BP today: 130/84 Prior BP: / () Reggie Greenberg MD Date Name Spirometry Carotid Duplex Bilat eral Cardiac Cath - GC X-Ray, Chest, PA & L ateral Sleep Study Stress Test - Adenos ine Complete Echo HISTORY OF PROCEDURES Procedure Date Procedure Name Provider Procedure Notes S tatus EKG Reggie Greenberg MD complete d
--- OUTSIDE RECORDS SUMMARY | 2025-02-23 16:46 | XMS_ITS | Clinical Summary ---
Author Organization [facility] [employer] Address [address] [place] [address] Care Team Providers Care Rayon Coner Name Role Phone Supa Valentin Primary Care Provider [phone] Source Comments [facility] [employer],non-owned Affiliates and Associated Physician Practices is amultiple site organization consisting of ambulatory clinics and hospital sitesin [place], [place], [place] and [place]. This disclosure is being madepursuant to the Care Everywhere program and may not contain all information available regarding this patient. 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 Shelf Expiration Date Model / Serial / Lot Wall Flex Biliary Fully Covered Stent System Implanted:Qty: 1 on 04/30/2018 by Kassie Yeboah MD at [facility] Explanted:Qty: 1 on 06/24/2018 by Kassie Yeboah MD at [facility] N/A: Bile Duct [employer] Tha 02/11/2020 [id number] / / [id number] Procedures Procedure Name Priority Date/Time Associated Diagnosis Comments COMPREHENSIVE METABOLIC PANEL Routine 05/31/2018 11:19 AM CDT Alcoholic cirrhosis of liver without ascites HEPATITIS C RNA QUANTITATIVE Routine 10/13/2017 12:49 PM GAMING CAGE WORKER from Last 3 Months or Most Recently Relevant to Health Maintenance Results * (ABNORMAL) COMPREHENSIVE METABOLIC PANEL (05/31/2018 11:19 AM CDT) BUN 18 7 - 26 mg/dL 05/31/2018 12:39 PM [facility] Creatinine 0.9 0.6 - 1.2 mg/dL 05/31/2018 12:39 PM [facility] Sodium 140 136 - 145 mmol/L 05/31/2018 12:39 PM [facility] Potassium 4.2 3.5 - 4.5 mmol/L 05/31/2018 12:39 PM [facility] Chloride 103 98 - 107 mmol/L 05/31/2018 12:39 PM [facility] CO2 27 22 - 29 mmol/L 05/31/2018 12:39 PM [facility] Glucose 105 70 - 115 mg/dL 05/31/2018 12:39 PM [facility] Calcium 9.2 8.4 - 10.2 mg/dL 05/31/2018 12:39 PM [facility] Protein Total 7.5 6.0 - 8.3 g/dL 05/31/2018 12:39 PM [facility] Albumin 3.7 3.4 - 5.0 g/dL 05/31/2018 12:39 PM [facility] Bilirubin Total 0.4 0.2 - 1.2 mg/dL 05/31/2018 12:39 PM [facility] Alkaline Phosphatase 113 40 - 150 Units/L 05/31/2018 12:39 PM [facility] ALT 11 0 - 55 Units/L 05/31/2018 12:39 PM [facility] AST 17 5 - 34 Units/L 05/31/2018 12:39 PM [facility] Anion Gap 14 8 - 18 05/31/2018 12:39 PM [facility] BUN/Creatinine Ratio 20 7 - 23 05/31/2018 12:39 PM CDT [facility] Osmolality Calculated 292 270 - 300 mOsm/kg 05/31/2018 12:39 PM [facility] Albumin/Globulin Ratio 1.0(L) 1.1 - 2.3 05/31/2018 12:39 PM [facility] eGFR >60 >60 mL/min/1.7 3 m2 05/31/2018 12:39 PM T [facility] Blood BLOOD SPECIMEN / Unknown Lab Venipuncture / Unknown 05/31/2018 11:19 AM CDT 05/31/2018 12:05 PM CDT us Anthony Knox MD LAB - CHEMISTRY ORDERABLES F inal Result [facility] [address] [place] [address] * HEPATITIS C RNA QUANTITATIVE PCR (10/13/2017 12:49 PM GAMING CAGE WORKER) Pathologist [facility] Hepatitis C Virus RNA PCR Accession No: [id number] Specimen: Serum Reference: [id number] Test: Hepatitis C RT-PCR (Quantitative) RESULT Not Detected Reference Range Not Detected INTERPRETATION The quantitative Hepatitis C viral RNA RT-PCR determination was performed on a serum sample and is reported in IU/ml. Hepatitis C viral RNA was not detected. COMMENT The Hepatitis C viral (HCV) RNA analysis utilized a serum sample, real-time reverse transition coach PCR, and is reported as Not Detected, [...] the isolation of HCV RNA with reverse transition coach of genomic HCV RNA followed by real-time PCR in the presence of an unrelated RNA internal control. The internal control ensures that RNA is isolated, and that no general significant inhibitors of the RT-PCR process are present. This analysis was performed using an [place] FDA approved test methodology ([employer] RealTime HCV). Test performed at [facility], [address] [place] [address] This case has been personally reviewed and interpreted by the attending (teaching) pathologist. Final Diagnosis performed by Fabio Dias PHD. Electronically signed 10/15/2017 [facility] ([facility]) Blood specimen (specimen) BLOOD SPECIMEN / Unknown 10/13/2017 12:49 PM GAMING CAGE WORKER 10/13/2017 12:49 PM GAMING CAGE WORKER us Dino Manzo MD LAB - CHEMISTRY ORDERABLES Fin al Result [facility] ([facility]) [address] [place] [address]. [place] [address], [facility] [phone] from Last 3 Months or Most Recently Relevant to Health Maintenance Insurance Care Teams Rayon Coner Relationship Specialty Start Date End Date Supa Valentin DO [address] [place] [address] PCP - General 12/20/19
--- NOTE | 2025-02-23 22:30 | ADMGEN ---
This patient, Matteo Da Silva, was admitted to IMU Room 207-01. Patient/family oriented to hospital policies and general routines including ID bracelet, bed and alarms, visiting hours, pain management, procedures, bathroom and other care routines, personal items, smoking policy, room service/diet, and visiting hours. Information on how to activate the Rapid Response Team has been discussed. Patient/Family are encouraged to report perceived risks to care and to ask questions if they do not understand what they are told or what they should do.
[2025-02-24] VITALS (18 sets, daily range): BP systolic 152–181; BP diastolic 69–78; PULSE 37–90; RESP 16–22; TEMP 36.4–36.9; O2SAT 95–99
--- NOTE | 2025-02-24 | ECHO_ITS ---
Patient Info Name: Matteo Da Silva Age: 74 years : 1950 Gender: Male Ht: 72 in Wt: 198 lbs BSA: 2.15 m2 HR: 45 bpm BP: 165 / 70 mmHg Heart Rhythm: Atrial Fibrillation Technical Quality: Fair Exam Date: 02/24/2025 2:22 PM Exam Location: Echo Lab Patient Status: Inpatient Admit Date: 02/24/2025 Staff Ordering Physician: Wendy Hollingsworth DO Catering Sales Manager: Nancy Cortés RDCS Attending Provider: Greg De La Rosa MD Referring Physician: Darrick VYAS; Exam Type: CA echo doppler color flow Study Info Indications - Afib Complete two-dimensional, color flow and Doppler transthoracic echocardiogram is performed. Summary 1. Complete two-dimensional, color flow and Doppler transthoracic echocardiogram is performed. 2. Left ventricular systolic function is normal, estimated at 60-65%. 3. The left ventricular diastolic function is abnormal. 4. Left atrial chamber dimension is mildly enlarged. 5. Right atrial chamber dimension is mildly enlarged. 6. There is mild mitral valve regurgitation. 7. There is moderate tricuspid valve regurgitation. 8. Severe pulmonary hypertension, estimated pulmonary arterial systolic pressure is 61 mmHg. Left Ventricle Left ventricular chamber dimension is normal. Left ventricular systolic function is normal, estimated at 60-65%. There is no increased left ventricular wall thickness. Left ventricular septal wall motion is normal. The left ventricular diastolic function is abnormal. Right Ventricle Right ventricular chamber dimension is normal. Right ventricular systolic function is normal. Left Atria Left atrial chamber dimension is mildly enlarged. Right Atria Right atrial chamber dimension is mildly enlarged. Aortic Valve The aortic valve is trileaflet. There is no aortic valve sclerosis. There is no aortic valve stenosis. There is no aortic valve regurgitation. Pulmonic Valve The pulmonic valve is normal. There is no pulmonic valve stenosis. There is no pulmonic regurgitation. Mitral Valve The mitral valve has normal leaflets. There is no mitral valve stenosis. There is mild mitral valve regurgitation. Tricuspid Valve The tricuspid valve leaflets are normal. There is no significant tricuspid valve stenosis. There is moderate tricuspid valve regurgitation. Severe pulmonary hypertension, estimated pulmonary arterial systolic pressure is 61 mmHg. Pericardium/Pleural The pericardium appears normal. There is no pericardial effusion. Inferior Vena Cava Normal inferior vena cava with <50% collapse upon inspiration consistent with elevated right atrial pressure, 10 mmHg. Aorta The aortic root size at the sinus of Valsalva is normal. The prox ascending aorta size is normal. Left Ventricular Outflow Tract Name Value Normal LVOT 2D LVOT Diameter 2.0 cm LVOT Doppler LVOT Peak Gradient 6 mmHg LVOT Mean Gradient 3 mmHg LVOT VTI 27 cm LVOT VTI/AV VTI Ratio 1.0 LVOT Stroke Volume 84 ml LVOT CO 13.5 l/min LVOT CI 6.3 l/min/m2 Pulmonic Valve Name Value Normal RVOT Doppler RVOT Peak Gradient 2 mmHg PV Doppler PV Peak Gradient 5 mmHg Mitral Valve Name Value Normal MV Doppler MV Decel Wilkin 516 cm/s2 MV PHT 59 ms MV Area (PHT) 3.7 cm2 4.0-5.0 MV Diastolic Function MV E Peak Velocity 104 cm/s MV A Peak Velocity 1 cm/s MV E/A 74.5 MV Decel Time 203 ms MV Annular TDI MV E/e' (Septal) 12.0 <=8.0 MV E/e' (Lateral) 7.4 <=8.0 MV E/e' (Average) 9.7 Tricuspid Valve Name Value Normal TV Regurgitation Doppler TR Peak Velocity 356 cm/s TR Peak Gradient 42 mmHg Estimated PAP/RSVP RA Pressure 10 mmHg <=5 PA Systolic Pressure 61 mmHg <36 RV Systolic Pressure 61 mmHg <36 Aortic Valve Name Value Normal AV Doppler AV Peak Velocity 121 cm/s AV Peak Gradient 5 mmHg AV Mean Gradient 3 mmHg AV VTI 27 cm AV Area (Cont Eq VTI) 3.1 cm2 >=3.0 AV Area (Cont Eq Kevin) 3.1 cm2 AV Regurgitation 2D LVOT Area 3.1 cm2 Ventricles Name Value Normal LV Dimensions 2D/MM IVS Diastolic Thickness (2D) 1.0 cm 0.6-1.0 LVID Diastole (2D) 4.7 cm 4.2-5.8 LVIW Diastolic Thickness (2D) 1.0 cm 0.6-1.0 LVID Systole (2D) 3.3 cm 2.5-4.0 LVOT Diameter 2.0 cm LV Mass (2D Cubed) 168.81 g 88.00-224.00 LV Mass Index (2D Cubed) 79 g/m2 49-115 Relative Wall Thickness (2D) 0.43 LV Fractional Shortening/Ejection Fraction 2D/MM LV Fractional Shortening (2D) 30 % 25-43 LV EF (2D Teicholz) 57 % 52-72 LV Diastolic Volume (4C MOD) 207 ml LV EF (4C MOD) 69 % LV Diastolic Volume (2C MOD) 189 ml LV EF (2C MOD) 62 % LV Diastolic Volume (BP MOD) 200 ml 62-150 LV Diastolic Volume Index (BP MOD) 93 ml/m2 34-74 LV Systolic Volume (BP MOD) 66 ml 21-61 LV Systolic Volume Index (BP MOD) 31 ml/m2 11-31 LV EF (BP MOD) 67 % 52-72 LV Diastolic Length (4C) 9.4 cm LV Systolic Length (4C) 7.4 cm LV Stroke Volume (4C MOD) 139 ml Atria Name Value Normal LA Dimensions LA Volume (4C A-L) 135 ml LA Volume (BP A-L) 121 ml RA Dimensions RA Area (4C) 27.2 cm2 <=18.0 Report Signatures
[2025-02-24 05:36] LABS: Lipase 69 U/L (23-300)
--- NOTE | 2025-02-24 06:11 | P.HP_ITS ---
H&P: HPI History of Present Illness Date/Time: 02/24/25 06:11 Chief Complaint: Slow heart rate, mild weakness Narrative: 74-year-old male with a past medical history of early cognitive impairment, essential hypertension, COPD, paroxysmal atrial fibrillation, chronic alcohol use and chronic tobacco use who presented to the ER from the GI lab when he was found to be in AFib with slowed ventricular response. The patient reports that he had finished his bowel prep and was at the GI lab to have his colonoscopy. However his heart rate was noted to be low with heart rate is low is 25. He denied any associated chest pain. But he has been having increased fatigue ever since the winter. He reports intermittent sensation of not feeling normal in his chest. Patient denies any chest pain. He reports that he has been feeling cold all winter in continues to feel cold despite the weather changes. He has been having constipation but he relates this to the fact that he has had generalized poor appetite. He reports that he has to make himself eat. He denies any difficulty swallowing. He denies any mood changes or depression that would affect his appetite or activity level. He has not noticed any orthopnea or paroxysmal nocturnal dyspnea. He reports only slight increase in fatigue and weakness from baseline. He does report that the symptoms of fatigue and weakness seem episodic in can occur intermittently throughout the course of the day. Review of Systems 2 Review of Systems: 12 systems were reviewed with pertinent positives and negatives per HPI. Except as documented in the HPI, all other systems were reviewed and are negative. [facility] Past Medical History Medical History Cirrhosis Likely multifactorial due to history of previously treated hepatitis-C and alcohol use Bilateral hearing loss Lumbar degenerative disc disease Rotator cuff arthropathy Alcohol abuse Rectal cancer (~1999) Hyperlipemia B12 deficiency Alcohol-induced acute pancreatitis Chronic gout of left ankle BPH w urinary obs/LUTS Hx of chronic hepatitis History of hepatitis C treated with interferon in 1999 with subsequent care Memory impairment Osteoarthritis involving multiple joints on both sides of body Opioid dependence COPD (chronic obstructive pulmonary disease) Tobacco abuse Depression Hypertension Chronic GERD Neuropathy Surgical History Surgical History History of bowel resection Due to rectal cancer History of carpal tunnel release Family History Family History Mother SLE (systemic lupus erythematosus related syndrome) Father , Age 75 Heart disease CHF (congestive heart failure) Sibling COPD (chronic obstructive pulmonary disease) Sibling Pulmonary embolism Sibling Accidental Sibling Hypertension Social History Social History (Updated 02/24/25 @ 08:00 by Wendy Hollingsworth DO) Social History: He has been since 2011 and lives alone in his own apartment. He has 3 daughters who are healthy. He retired from construction in 1999. He drinks 3-4 beers a day. He has smoked 1.5 packs of cigarettes per day since he was a young teenager he is still smoking but has cut back.. He denies any illicit substance use. Code status: DNR/DNI (per patient request) Surrogate decision maker: Ginette Tsai (daughter) Smoking packs per day: 1.5 Smoking cigarettes per day: 30.0 Years smoked: 60 Smoking pack-years: 90.00 Smoking status: Current every day smoker Tobacco type: cigarettes Second hand tobacco smoke exposure: Yes Alcohol intake: current Drinks per week: 14 Substance use: former Substance use type: marijuana Other substance usage details: occasional marijuana use Do You Feel Safe in your Home?: Yes Lack of Transportation: No Lack of Food: Never True Current Housing: I Have Housing Concerned About Future Housing: No Difficulty Paying Gas/Electric Bills: No Difficulty Paying for Meds: No Currently Unemployed: No Education: Decline to Answer Difficulty w/ Childcare or Family Care: No Living arrangements: with family Spiritual care concerns: No Meds Home Medications and Allergies Home Medications ?Medication ?Instructions ?Recorded ?Confirmed ?Type mometasone 0.1 % topical cream 1 applic topical DAILY PRN skin 03/03/24 02/23/25 History irritation albuterol sulfate 0.63 mg/3 mL See Rx Instructions .Route 06/24/24 02/23/25 Rx solution for nebulization .COMPLEX #75 mL umeclidinium 62.5 mcg-vilanterol See Rx Instructions .Route 07/06/24 02/23/25 Rx 25 mcg/actuation powdr for .COMPLEX #60 ea inhalation (Anoro Ellipta) albuterol sulfate 90 mcg/actuation See Rx Instructions .Route 07/13/24 02/23/25 Rx aerosol inhaler .COMPLEX #8.5 ea donepezil 10 mg tablet See Rx Instructions .Route 08/08/24 02/23/25 Rx .COMPLEX #90 tabs gabapentin 400 mg capsule See Rx Instructions .Route 10/25/24 02/23/25 Rx .COMPLEX #90 caps amlodipine 10 mg tablet 10 mg PO DAILY #90 tabs 11/03/24 02/23/25 Rx lisinopril 40 mg tablet 40 mg PO DAILY #90 tabs 11/03/24 02/23/25 Rx pantoprazole 40 mg tablet,delayed See Rx Instructions .Route 12/16/24 02/23/25 Rx release .COMPLEX #90 tabs baclofen 5 mg tablet 5 mg PO QHS #90 tabs 12/19/24 02/23/25 Rx cholecalciferol (vitamin D3) 1,250 1,250 mcg PO WEEKLY #14 tabs 12/19/24 02/23/25 Rx mcg (50,000 unit) tablet buprenorphine 8 mg-naloxone 2 mg 1 film sublingual TID PRN pain 02/23/25 02/23/25 History sublingual film (scale score 7-10) Allergies Allergy/AdvReac Type Severity Reaction Status Date / Time No Known Allergies Allergy Verified 02/23/25 11:18 Vital Signs Vital Signs - 24 hr 02/23/25 13:22 02/23/25 13:39 02/23/25 13:48 Temperature 98 F Pulse Rate 58 L 38 L 57 L Respiratory Rate 17 16 Blood Pressure 113/73 Pulse Oximetry 98 84 L Oxygen Delivery Room Air 02/23/25 14:00 02/23/25 14:32 02/23/25 14:48 Temperature Pulse Rate Respiratory Rate Blood Pressure 146/65 H 59/35 L Pulse Oximetry 100 Oxygen Delivery 02/23/25 14:54 02/23/25 15:00 02/23/25 15:01 Temperature Pulse Rate 43 L 47 L Respiratory Rate 17 13 Blood Pressure 154/71 H Pulse Oximetry 98 96 98 Oxygen Delivery 02/23/25 15:02 02/23/25 15:15 02/23/25 15:30 Temperature Pulse Rate 57 L 83 68 Respiratory Rate 14 25 H 21 H Blood Pressure 158/67 H Pulse Oximetry 98 99 Oxygen Delivery 02/23/25 15:32 02/23/25 15:47 02/23/25 15:48 Temperature Pulse Rate 47 L Respiratory Rate 16 Blood Pressure 164/85 H 172/79 H Pulse Oximetry 97 96 98 Oxygen Delivery 02/23/25 16:00 02/23/25 16:02 02/23/25 16:15 Temperature Pulse Rate 47 L Respiratory Rate 16 Blood Pressure 178/89 H Pulse Oximetry 97 98 96 Oxygen Delivery 02/23/25 16:17 02/23/25 16:30 02/23/25 16:32 Temperature Pulse Rate 39 L Respiratory Rate Blood Pressure 153/73 H 150/72 H Pulse Oximetry 96 98 97 Oxygen Delivery 02/23/25 16:45 02/23/25 16:47 02/23/25 17:00 Temperature Pulse Rate Respiratory Rate Blood Pressure 146/64 H Pulse Oximetry 98 96 97 Oxygen Delivery 02/23/25 17:02 02/23/25 17:17 02/23/25 17:30 Temperature Pulse Rate Respiratory Rate Blood Pressure 110/96 H Pulse Oximetry 98 92 99 Oxygen Delivery 02/23/25 17:32 02/23/25 17:45 02/23/25 18:00 Temperature Pulse Rate 55 L Respiratory Rate 15 Blood Pressure 183/79 H Pulse Oximetry 98 98 98 Oxygen Delivery 02/23/25 18:02 02/23/25 18:24 02/23/25 18:30 Temperature Pulse Rate Respiratory Rate Blood Pressure 163/74 H Pulse Oximetry 98 95 97 Oxygen Delivery 02/23/25 18:45 02/23/25 19:00 02/23/25 19:15 Temperature Pulse Rate 52 L 58 L 58 L Respiratory Rate 17 21 H 17 Blood Pressure Pulse Oximetry 94 96 99 Oxygen Delivery 02/23/25 19:30 02/23/25 19:45 02/23/25 20:00 Temperature Pulse Rate 56 L 53 L 46 L Respiratory Rate 15 14 19 Blood Pressure Pulse Oximetry 98 96 Oxygen Delivery 02/23/25 20:15 02/23/25 20:30 02/23/25 20:45 Temperature Pulse Rate 46 L 38 L 63 Respiratory Rate 17 18 19 Blood Pressure Pulse Oximetry 97 96 93 Oxygen Delivery 02/23/25 21:00 02/23/25 21:15 02/23/25 21:21 Temperature Pulse Rate 31 L 42 L 47 L Respiratory Rate 18 14 16 Blood Pressure 165/74 H Pulse Oximetry 96 96 97 Oxygen Delivery 02/23/25 21:30 02/23/25 21:32 02/23/25 21:56 Temperature 98.4 F Pulse Rate 50 L 46 L 42 L Respiratory Rate 16 16 20 Blood Pressure 154/77 H 174/66 H Pulse Oximetry 97 98 100 Oxygen Delivery 02/23/25 22:00 02/23/25 22:49 02/23/25 23:32 Temperature Pulse Rate 69 Respiratory Rate Blood Pressure Pulse Oximetry Oxygen Delivery Room Air Room Air 02/23/25 23:46 02/24/25 00:00 02/24/25 02:00 Temperature 98.5 F Pulse Rate 61 39 L 53 L Respiratory Rate 22 H Blood Pressure 179/70 H Pulse Oximetry 98 Oxygen Delivery 02/24/25 04:00 02/24/25 04:00 02/24/25 06:00 Temperature Pulse Rate 37 L 37 L Respiratory Rate Blood Pressure Pulse Oximetry Oxygen Delivery Room Air Exam 2 Narrative: Weight 90.2 kg BMI 27 Const: Other: Well-developed well-nourished, appears older than stated age, no acute distress HENMT: Other: Mucous membranes are tacky, no oral pharyngeal erythema, upper and lower dentures in place Eyes: Other: Pupils are equal and reactive, no scleral icterus, no conjunctival pallor Neck: Other: No JVD, trachea midline Resp: Other: Decreased breath sounds bilaterally, no increased work of breathing Cardio: Other: Irregularly irregular, profoundly bradycardic, no murmur, no JVD GI: Other: Soft, nontender, nondistended, positive bowel sounds Skin: Other: No jaundice, no pallor Neuro: Other: Alert oriented x4, speech is clear, no facial asymmetry, fair historian, no localizing neurologic deficits noted during the course of casual conversation Extrem: Other: No clubbing, cyanosis or edema, moves all extremities equally Psych: Other: Appropriate mood and affect, pleasant and cooperative, judgment and insight intact H&P: Results Labs Labs: Laboratory Tests 02/23/25 13:45 02/23/25 13:45 02/23/25 02/23/25 02/24/25 13:45 20:02 03:57 WBC 7.3 RBC 4.78 Hgb 13.7 L Hct 42.5 MCV 88.9 MCH 28.7 MCHC 32.2 RDW 13.8 Plt Count 197 MPV 9.0 Immature Gran % (Auto) 0.4 Neut % (Auto) 69.9 Lymph % (Auto) 19.3 Greene % (Auto) 8.9 H Eos % (Auto) 1.1 Baso % (Auto) 0.4 Lymph # (Auto) 1.41 Greene # (Auto) 0.7 H Eos # (Auto) 0.1 Baso # (Auto) 0.0 Abs Immat Gran (auto) 0.03 Absolute Neuts (auto) 5.1 Absolute Nucleated RBC 0.000 Nucleated RBC % 0.0 PT 14.4 INR 1.1 APTT 33.4 Sodium 132 L Potassium 3.9 Chloride 96 L Carbon Dioxide 25 Anion Gap 11 BUN 15 D Creatinine 0.80 Estim Creat Clear Calc 80 Estimated GFR > 60 Glucose 102 Calcium 9.5 Total Bilirubin 0.7 AST 23 ALT 13 Alkaline Phosphatase 134 H Troponin I < 0.012 NT-Pro-B Natriuret Pep 1820 H Total Protein 9.0 H Albumin 4.6 Lipase 69 TSH 1.600 Impressions Chest X-Ray 02/23/25 19:50 IMPRESSION: No acute cardiopulmonary pathology. EKG:Test Date: 2025-02-23 13:29:47 Measurements Intervals Calvin Rate: 39 P: 0 VT: 0 QRS: 50 QRSD: 102 T: 48 QT: 489 QTc: 397 Interpretive Statements ATRIAL FIBRILLATION WITH SLOW VENTRICULAR RESPONSE ABNORMAL ECG Compared to ECG 02/23/2025 12:07:06 NO SIGNIFICANT CHANGE All imaging and EKGs personally reviewed and interpreted. And unless stated otherwise agree with radiologic and cardiology interpretation. Assessment and Plan Assessment and plan (1) Atrial fibrillation with slow ventricular response: Code(s): I48.91 - Unspecified atrial fibrillation Status: Acute (2) Fatigue: Qualifiers: Fatigue type: unspecified Qualified Code(s): R53.83 - Other fatigue Code(s): R53.83 - Other fatigue Status: Acute (3) Neuropathy: Code(s): G62.9 - Polyneuropathy, unspecified Status: Acute (4) Hypertension: Qualifiers: Hypertension type: primary hypertension Qualified Code(s): I10 - Essential (primary) hypertension Code(s): I10 - Essential (primary) hypertension Status: Acute Plan Patient has AFib with slowed response he is not on any antiarrhythmics or rate controlling medications. Patient is having fatigue which could be related to his bradycardia. Cardiology has been consulted. Patient does have increased heart rate with activity. The patient is a DNR but states that he would rescind his DNR status if he needed a pacemaker. Will defer further discussion of this to the Cardiology Service. Will obtain echocardiogram to further evaluate patient's cardiac structure and function. Patient's chads Vasc score is high but the patient's high fall risk and history of alcohol use makes chronic anticoagulation not advisable. However patient did have echocardiogram in 2019 for that demonstrated normal ejection fraction. Will check metabolic labs to rule out underlying cause for bradycardia. The patient's TSH is normal suggesting that hypothyroidism is not cause for the patient's bradycardia. Will check other metabolic labs that could be contributing to the patient's fatigue including B12 and folic acid given the patient's chronic alcohol use B12 deficiency could also be contributing the patient's complaints of neuropathy.. Patient denies any symptoms of alcohol withdrawal but usually drinks 2-3 beers a day for many years. Will continue to monitor. Patient remains in IMU on telemetry. Patient does have hypertension but blood and blood pressures have been somewhat variable but will be permissive of some hypertension to help compensate for the patient's bradycardia. Will resume patient's home antihypertensives. Patient has been admitted as observation status. Quality VTE Prophylaxis VTE prophylaxis: mechanical ordered (SCDs)
--- NOTE | 2025-02-24 06:54 | P.CONCA_ITS ---
Assessment and Plan Assessment and plan (1) Atrial fibrillation with slow ventricular response: Code(s): I48.91 - Unspecified atrial fibrillation Status: Acute Plan 74-year-old male with a past medical history of paroxysmal atrial fibrillation (EKG in 2020 shows AFib), hyperlipidemia, essential hypertension, COPD, GERD, BPH, chronic gout, rectal cancer, osteoarthritis, chronic alcohol and tobacco abuse, early cognitive impairment presented to the ER from GI lab when he was found to be in AFib with slowed ventricular response. Ventricular rate was in the 40s. Symptomatic AFib with slow ventricular response with lowest ventricular rate of 29; lightheadedness during low rates as well as chronic fatigue -avoid any AV tereso blocking agents or any antiarrhythmic drugs -check TSH and free T3, T4 -check and replace electrolytes to keep K greater than 4 and Mg greater than 2 -recommend EP evaluation for pacemaker -chest Vasc score of 3 (age greater than 75= 2 points, hypertension= 1 point). Start Eliquis 5mg BID for anticoagulation. Pt has not had any falls but he seems to be unsteady on his feet due to neuropathy. Recommend evaluation for left atrial appendage occlusion as outpatient for reducing risk of stroke History of Present Illness History of Present Illness Consult date/time: 02/24/25 06:54 Reason For Visit: Afib with slow ventricular response Narrative: 74-year-old male with a past medical history of paroxysmal atrial fibrillation (EKG in 2020 shows AFib), hyperlipidemia, essential hypertension, COPD, GERD, BPH, chronic gout, rectal cancer, osteoarthritis, chronic alcohol and tobacco abuse, early cognitive impairment presented to the ER yesterday from GI lab when he was found to be in AFib with slowed ventricular response. Ventricular rate was in the 40s. Overnight his rates were down to the 20s adn 30s. Cardiology is consulted for further recommendations. Patient does not endorse a history of A fib. There is an EKG in 2020 showing AFib. He is not on any AV tereso blocking agents or other antiarrhythmic agents for his AFib. He is not on anticoagulation. He states that he is unsteady on his feet and has risk of fall due to neuropathy. He reports being tired and fatigued. He reports some lightheadedness and feeling cold today. He is unsteady on his feet due to neuropathy. No chest pain, shortness of breath, leg swelling, recent weight gain, presyncope, syncope, orthopnea, PND, confusion. Telemetry shows ventricular rates as low as 29 this morning while patient is awake. He reports lightheadedness during these episodes. Workup: Troponin: <0.012 EKG: AFib with slow ventricular response with a rate of 39 EKG: AFib with slow ventricular response with a rate of 43 EKG in 2020: AFib Chest x-ray: No acute cardiopulmonary pathology TTE in 2023: Normal LVEF of 60%, no significant valvular pathology Review of Systems 2 Cardiovascular: Comments: As presented in the HPI Respiratory: Comments: As presented in the HPI [facility] Past Medical History Medical History (Updated 02/24/25 @ 08:56 by Bright Unger MD) Cirrhosis Likely multifactorial due to history of previously treated hepatitis-C and alcohol use Bilateral hearing loss Lumbar degenerative disc disease Rotator cuff arthropathy Alcohol abuse Rectal cancer (~1999) Hyperlipemia B12 deficiency Alcohol-induced acute pancreatitis Chronic gout of left ankle BPH w urinary obs/LUTS Hx of chronic hepatitis History of hepatitis C treated with interferon in 1999 with subsequent care Memory impairment Osteoarthritis involving multiple joints on both sides of body Opioid dependence COPD (chronic obstructive pulmonary disease) Tobacco abuse Depression Hypertension Chronic GERD Neuropathy Surgical History Surgical History History of bowel resection Due to rectal cancer History of carpal tunnel release Family History Family History Mother SLE (systemic lupus erythematosus related syndrome) Father , Age 75 Heart disease CHF (congestive heart failure) Sibling COPD (chronic obstructive pulmonary disease) Sibling Pulmonary embolism Sibling Accidental Sibling Hypertension Social History Social History (Updated 02/24/25 @ 08:00 by Wendy Hollingsworth DO) Social History: He has been since 2011 and lives alone in his own apartment. He has 3 daughters who are healthy. He retired from construction in 1999. He drinks 3-4 beers a day. He has smoked 1.5 packs of cigarettes per day since he was a young teenager he is still smoking but has cut back.. He denies any illicit substance use. Code status: DNR/DNI (per patient request) Surrogate decision maker: Ginette Tsai (daughter) Smoking packs per day: 1.5 Smoking cigarettes per day: 30.0 Years smoked: 60 Smoking pack-years: 90.00 Smoking status: Current every day smoker Tobacco type: cigarettes Second hand tobacco smoke exposure: Yes Alcohol intake: current Drinks per week: 14 Substance use: former Substance use type: marijuana Other substance usage details: occasional marijuana use Do You Feel Safe in your Home?: Yes Lack of Transportation: No Lack of Food: Never True Current Housing: I Have Housing Concerned About Future Housing: No Difficulty Paying Gas/Electric Bills: No Difficulty Paying for Meds: No Currently Unemployed: No Education: Decline to Answer Difficulty w/ Childcare or Family Care: No Living arrangements: with family Spiritual care concerns: No Meds Home Medications and Allergies Home Medications ?Medication ?Instructions ?Recorded ?Confirmed ?Type mometasone 0.1 % topical cream 1 applic topical DAILY PRN skin 03/03/24 02/23/25 History irritation albuterol sulfate 0.63 mg/3 mL See Rx Instructions .Route 06/24/24 02/23/25 Rx solution for nebulization .COMPLEX #75 mL umeclidinium 62.5 mcg-vilanterol See Rx Instructions .Route 07/06/24 02/23/25 Rx 25 mcg/actuation powdr for .COMPLEX #60 ea inhalation (Anoro Ellipta) albuterol sulfate 90 mcg/actuation See Rx Instructions .Route 07/13/24 02/23/25 Rx aerosol inhaler .COMPLEX #8.5 ea donepezil 10 mg tablet See Rx Instructions .Route 08/08/24 02/23/25 Rx .COMPLEX #90 tabs gabapentin 400 mg capsule See Rx Instructions .Route 10/25/24 02/23/25 Rx .COMPLEX #90 caps amlodipine 10 mg tablet 10 mg PO DAILY #90 tabs 11/03/24 02/23/25 Rx lisinopril 40 mg tablet 40 mg PO DAILY #90 tabs 11/03/24 02/23/25 Rx pantoprazole 40 mg tablet,delayed See Rx Instructions .Route 12/16/24 02/23/25 Rx release .COMPLEX #90 tabs baclofen 5 mg tablet 5 mg PO QHS #90 tabs 12/19/24 02/23/25 Rx cholecalciferol (vitamin D3) 1,250 1,250 mcg PO WEEKLY #14 tabs 12/19/24 02/23/25 Rx mcg (50,000 unit) tablet buprenorphine 8 mg-naloxone 2 mg 1 film sublingual TID PRN pain 02/23/25 02/23/25 History sublingual film (scale score 7-10) Allergies Allergy/AdvReac Type Severity Reaction Status Date / Time No Known Allergies Allergy Verified 02/23/25 11:18 Vital Signs Vital Signs - 24 hr 02/23/25 13:22 02/23/25 13:39 02/23/25 13:48 Temperature 36.6 C Pulse Rate 58 L 38 L 57 L Respiratory Rate 17 16 Blood Pressure 113/73 Pulse Oximetry 98 84 L Oxygen Delivery Room Air 02/23/25 14:00 02/23/25 14:32 02/23/25 14:48 Temperature Pulse Rate Respiratory Rate Blood Pressure 146/65 H 59/35 L Pulse Oximetry 100 Oxygen Delivery 02/23/25 14:54 02/23/25 15:00 02/23/25 15:01 Temperature Pulse Rate 43 L 47 L Respiratory Rate 17 13 Blood Pressure 154/71 H Pulse Oximetry 98 96 98 Oxygen Delivery 02/23/25 15:02 02/23/25 15:15 02/23/25 15:30 Temperature Pulse Rate 57 L 83 68 Respiratory Rate 14 25 H 21 H Blood Pressure 158/67 H Pulse Oximetry 98 99 Oxygen Delivery 02/23/25 15:32 02/23/25 15:47 02/23/25 15:48 Temperature Pulse Rate 47 L Respiratory Rate 16 Blood Pressure 164/85 H 172/79 H Pulse Oximetry 97 96 98 Oxygen Delivery 02/23/25 16:00 02/23/25 16:02 02/23/25 16:15 Temperature Pulse Rate 47 L Respiratory Rate 16 Blood Pressure 178/89 H Pulse Oximetry 97 98 96 Oxygen Delivery 02/23/25 16:17 02/23/25 16:30 02/23/25 16:32 Temperature Pulse Rate 39 L Respiratory Rate Blood Pressure 153/73 H 150/72 H Pulse Oximetry 96 98 97 Oxygen Delivery 02/23/25 16:45 02/23/25 16:47 02/23/25 17:00 Temperature Pulse Rate Respiratory Rate Blood Pressure 146/64 H Pulse Oximetry 98 96 97 Oxygen Delivery 02/23/25 17:02 02/23/25 17:17 02/23/25 17:30 Temperature Pulse Rate Respiratory Rate Blood Pressure 110/96 H Pulse Oximetry 98 92 99 Oxygen Delivery 02/23/25 17:32 02/23/25 17:45 02/23/25 18:00 Temperature Pulse Rate 55 L Respiratory Rate 15 Blood Pressure 183/79 H Pulse Oximetry 98 98 98 Oxygen Delivery 02/23/25 18:02 02/23/25 18:24 02/23/25 18:30 Temperature Pulse Rate Respiratory Rate Blood Pressure 163/74 H Pulse Oximetry 98 95 97 Oxygen Delivery 02/23/25 18:45 02/23/25 19:00 02/23/25 19:15 Temperature Pulse Rate 52 L 58 L 58 L Respiratory Rate 17 21 H 17 Blood Pressure Pulse Oximetry 94 96 99 Oxygen Delivery 02/23/25 19:30 02/23/25 19:45 02/23/25 20:00 Temperature Pulse Rate 56 L 53 L 46 L Respiratory Rate 15 14 19 Blood Pressure Pulse Oximetry 98 96 Oxygen Delivery 02/23/25 20:15 02/23/25 20:30 02/23/25 20:45 Temperature Pulse Rate 46 L 38 L 63 Respiratory Rate 17 18 19 Blood Pressure Pulse Oximetry 97 96 93 Oxygen Delivery 02/23/25 21:00 02/23/25 21:15 02/23/25 21:21 Temperature Pulse Rate 31 L 42 L 47 L Respiratory Rate 18 14 16 Blood Pressure 165/74 H Pulse Oximetry 96 96 97 Oxygen Delivery 02/23/25 21:30 02/23/25 21:32 02/23/25 21:56 Temperature 36.9 C Pulse Rate 50 L 46 L 42 L Respiratory Rate 16 16 20 Blood Pressure 154/77 H 174/66 H Pulse Oximetry 97 98 100 Oxygen Delivery 02/23/25 22:00 02/23/25 22:49 02/23/25 23:32 Temperature Pulse Rate 69 Respiratory Rate Blood Pressure Pulse Oximetry Oxygen Delivery Room Air Room Air 02/23/25 23:46 02/24/25 00:00 02/24/25 02:00 Temperature 36.9 C Pulse Rate 61 39 L 53 L Respiratory Rate 22 H Blood Pressure 179/70 H Pulse Oximetry 98 Oxygen Delivery 02/24/25 04:00 02/24/25 04:00 02/24/25 04:00 Temperature 36.9 C Pulse Rate 37 L 42 L Respiratory Rate 16 Blood Pressure 165/70 H Pulse Oximetry 98 Oxygen Delivery Room Air 02/24/25 06:00 Temperature Pulse Rate 37 L Respiratory Rate Blood Pressure Pulse Oximetry Oxygen Delivery Exam 2 Narrative: General: Alert oriented x3, no acute distress Neck: Supple, no JVD Chest: Bilaterally clear to auscultation, no rales or rhonchi Cardiac: S1, S2 +, irregularly irregular rhythm, no murmurs or rubs Extremities: No pedal edema, no skin rash Neurologic: Alert and oriented x3, no focal neurological deficits Results Labs and Meds 02/23/25 13:45 02/23/25 13:45 Lab results: Cardiac Enzymes 02/23/25 Range/Units 13:45 AST 23 (17-59) U/L Troponin I < 0.012 (0.000-0.034) ng/mL Coagulation 02/23/25 Range/Units 13:45 PT 14.4 (11.1-14.7) Seconds APTT 33.4 (22.3-36.8) Seconds CBC 02/23/25 Range/Units 13:45 WBC 7.3 (4.5-10.0) K/mm3 RBC 4.78 (4.6-6.20) M/mm3 Hgb 13.7 L (14.0-18.0) g/dL Hct 42.5 (42.0-52.0) % Plt Count 197 (150-375) k/mm3 Lymph # (Auto) 1.41 (0.9-3.2) K/mm3 [place] # (Auto) 0.7 H (0.1-0.6) K/mm3 Eos # (Auto) 0.1 (0-0.3) K/mm3 Baso # (Auto) 0.0 (0.0-0.1) K/mm3 Comprehensive Metabolic Panel 02/23/25 Range/Units 13:45 Sodium 132 L (137-145) mmol/L Potassium 3.9 (3.4-5.0) mmol/L Chloride 96 L (98-107) mmol/L Carbon Dioxide 25 (22-30) mmol/L BUN 15 D (9-20) mg/dL Creatinine 0.80 (0.7-1.3) mg/dL Glucose 102 (65-110) mg/dL Calcium 9.5 (8.4-10.2) mg/dL AST 23 (17-59) U/L ALT 13 (6-50) U/L Alkaline Phosphatase 134 H (38-126) U/L Total Protein 9.0 H (6.3-8.2) g/dL Albumin 4.6 (3.5-5.1) g/dL Intake and Output 02/23/25 02/23/25 02/24/25 15:59 23:59 07:59 Intake Total 500 Output Total 225 700 Balance -225 -200 Intake: Oral 500 Output: Urine 225 700 Other: # Unmeasured Voids 1 Patient Weight 02/24/25 23:59 Weight 90.2 kg
[2025-02-24 07:14] LABS: Magnesium 2.1 mg/dL (1.6-2.3); Phosphorus 3.6 mg/dL (2.5-4.5)
[2025-02-24 08:19] LABS: Folic Acid 6.5 ng/mL (2.76->20)
[2025-02-24] MEDS: GABAPENTIN 400 MG CAPSULE PO ×3 (08:38→16:32)
[2025-02-24] MEDS: amLODIPine BESYLATE 10 MG TABLET PO (08:39)
[2025-02-24] MEDS: lisinopriL 20 MG TABLET 40 MG PO (08:39)
[2025-02-24] MEDS: PANTOPRAZOLE 40 MG TABLET PO (08:39)
[2025-02-24] MEDS: UMECLIDINIUM/VILANTEROL 62.5-25 MCG ELLIPTA 1 PUFF INHALATION (08:55)
[2025-02-24] MEDS: POTASSIUM CHLORIDE 20 MEQ ER TABLET 40 MEQ PO (12:09)
--- NOTE | 2025-02-24 14:39 | P.PNIM_ITS ---
Progress Note: A&P Assessment and Plan (1) Atrial fibrillation with slow ventricular response: Code(s): I48.91 - Unspecified atrial fibrillation Status: Acute (2) Fatigue: Qualifiers: Fatigue type: unspecified Qualified Code(s): R53.83 - Other fatigue Code(s): R53.83 - Other fatigue Status: Acute (3) Neuropathy: Code(s): G62.9 - Polyneuropathy, unspecified Status: Acute (4) Hypertension: Qualifiers: Hypertension type: primary hypertension Qualified Code(s): I10 - Essential (primary) hypertension Code(s): I10 - Essential (primary) hypertension Status: Acute Plan Atrial fibrillation with slow ventricular response HR low as 20s cardiology recommends transfer for pacemaker eval continue Eliquis no AV node blocking agents B12 deficiency B12 level 236 started on B12 replacement day 11/11 monitor COPD continue bronchodilators HTN titrate home meds with clinical course Will continue outpatient wit GI for colonoscopy DVT prophylaxis on Eliquis called [facility] for transfer per Cardiology Subjective Date/time seen: 02/24/25 14:39 Interval history: Comfortable at bedside Cardiology determined patient will benefit from pacemaker since he was dropping into his 20s Review of Systems Review of Systems: 12 systems were reviewed with pertinent positives and negatives per HPI. Except as documented in the HPI, all other systems were reviewed and are negative. Exam Narrative: Weight 90.2 kg BMI 27 Objective Data Vital Signs Vital Signs: Vital Signs - 24 hr 02/23/25 14:48 02/23/25 14:54 02/23/25 15:00 Temperature Pulse Rate 43 L Respiratory Rate 17 Blood Pressure 59/35 L 154/71 H Pulse Oximetry 98 96 Oxygen Delivery 02/23/25 15:01 02/23/25 15:02 02/23/25 15:15 Temperature Pulse Rate 47 L 57 L 83 Respiratory Rate 13 14 25 H Blood Pressure 158/67 H Pulse Oximetry 98 98 Oxygen Delivery 02/23/25 15:30 02/23/25 15:32 02/23/25 15:47 Temperature Pulse Rate 68 47 L Respiratory Rate 21 H 16 Blood Pressure 164/85 H Pulse Oximetry 99 97 96 Oxygen Delivery 02/23/25 15:48 02/23/25 16:00 02/23/25 16:02 Temperature Pulse Rate 47 L Respiratory Rate 16 Blood Pressure 172/79 H 178/89 H Pulse Oximetry 98 97 98 Oxygen Delivery 04/17/25 16:15 02/23/25 16:17 02/23/25 16:30 Temperature Pulse Rate Respiratory Rate Blood Pressure 153/73 H Pulse Oximetry 96 96 98 Oxygen Delivery 02/23/25 16:32 02/23/25 16:45 02/23/25 16:47 Temperature Pulse Rate 39 L Respiratory Rate Blood Pressure 150/72 H 146/64 H Pulse Oximetry 97 98 96 Oxygen Delivery 02/23/25 17:00 02/23/25 17:02 02/23/25 17:17 Temperature Pulse Rate Respiratory Rate Blood Pressure 110/96 H Pulse Oximetry 97 98 92 Oxygen Delivery 02/23/25 17:30 02/23/25 17:32 02/23/25 17:45 Temperature Pulse Rate 55 L Respiratory Rate 15 Blood Pressure 183/79 H Pulse Oximetry 99 98 98 Oxygen Delivery 02/23/25 18:00 02/23/25 18:02 02/23/25 18:24 Temperature Pulse Rate Respiratory Rate Blood Pressure 163/74 H Pulse Oximetry 98 98 95 Oxygen Delivery 02/23/25 18:30 02/23/25 18:45 02/23/25 19:00 Temperature Pulse Rate 52 L 58 L Respiratory Rate 17 21 H Blood Pressure Pulse Oximetry 97 94 96 Oxygen Delivery 02/23/25 19:15 02/23/25 19:30 02/23/25 19:45 Temperature Pulse Rate 58 L 56 L 53 L Respiratory Rate 17 15 14 Blood Pressure Pulse Oximetry 99 98 Oxygen Delivery 02/23/25 20:00 02/23/25 20:15 02/23/25 20:30 Temperature Pulse Rate 46 L 46 L 38 L Respiratory Rate 19 17 18 Blood Pressure Pulse Oximetry 96 97 96 Oxygen Delivery 02/23/25 20:45 02/23/25 21:00 02/23/25 21:15 Temperature Pulse Rate 63 31 L 42 L Respiratory Rate 19 18 14 Blood Pressure Pulse Oximetry 93 96 96 Oxygen Delivery 02/23/25 21:21 02/23/25 21:30 02/23/25 21:32 Temperature Pulse Rate 47 L 50 L 46 L Respiratory Rate 16 16 16 Blood Pressure 165/74 H 154/77 H Pulse Oximetry 97 97 98 Oxygen Delivery 02/23/25 21:56 02/23/25 22:00 02/23/25 22:49 Temperature 98.4 F Pulse Rate 42 L 69 Respiratory Rate 20 Blood Pressure 174/66 H Pulse Oximetry 100 Oxygen Delivery Room Air 02/23/25 23:32 02/23/25 23:46 02/24/25 00:00 Temperature 98.5 F Pulse Rate 61 39 L Respiratory Rate 22 H Blood Pressure 179/70 H Pulse Oximetry 98 Oxygen Delivery Room Air 02/24/25 02:00 02/24/25 04:00 02/24/25 04:00 Temperature Pulse Rate 53 L 37 L Respiratory Rate Blood Pressure Pulse Oximetry Oxygen Delivery Room Air 02/24/25 04:00 02/24/25 06:00 02/24/25 08:00 Temperature 98.4 F Pulse Rate 42 L 37 L Respiratory Rate 16 Blood Pressure 165/70 H Pulse Oximetry 98 Oxygen Delivery Room Air 02/24/25 08:00 02/24/25 08:16 02/24/25 08:55 Temperature 97.5 F L Pulse Rate 59 L 42 L 44 L Respiratory Rate 20 20 Blood Pressure 181/73 H Pulse Oximetry 97 95 Oxygen Delivery Room Air 02/24/25 08:55 02/24/25 10:00 02/24/25 11:37 Temperature 97.7 F Pulse Rate 44 L 55 L 44 L Respiratory Rate 20 22 H Blood Pressure 160/69 H Pulse Oximetry 99 Oxygen Delivery Intake/Output Intake/Output: Intake & Output 02/21/25 02/22/25 02/23/25 02/24/25 23:59 23:59 23:59 23:59 Intake Total 860 Output Total 225 1200 Balance -225 -340 Meds/Results Medications: Active Medications Generic Name Dose Route Start Last Admin Trade Name Lizandro PRN Reason Stop Dose Admin Acetaminophen 650 mg 02/23/25 18:42 Acetaminophen 325 Mg Tablet PO Q4H PRN Mild Pain (1-3) or Fever Albuterol 2.5 mg 02/24/25 06:22 Albuterol Sulfate Neb 2.5 Mg/3 Ml Inh INHALATION Q4-6H PRN Shortness Of Breath Or Wheezing Amlodipine Besylate 10 mg 02/24/25 09:00 02/24/25 08:39 Amlodipine Besylate 10 Mg Tablet PO 10 mg DAILY BUCKY Administration Baclofen 5 mg 02/24/25 21:00 Baclofen 5 Mg Tablet PO QHS [facility] Buprenorphine/Naloxone 2 each 02/24/25 07:01 Buprenorphine/Naloxone (*Crx) 4 Mg/1 Mg Sl Film SUBLINGUAL TID PRN pain (scale score 7-10) Gabapentin 400 mg 02/24/25 09:00 02/24/25 12:09 Gabapentin 400 Mg Capsule PO 400 mg TID BUCKY Administration Lisinopril 40 mg 02/24/25 09:00 02/24/25 08:39 Lisinopril 20 Mg Tablet PO 40 mg DAILY BUCKY Administration Pantoprazole Sodium 40 mg 02/24/25 09:00 02/24/25 08:39 Pantoprazole 40 Mg Tablet PO 40 mg DAILY BUCKY Administration Perflutren Lipid Microsphere 0 ml 02/24/25 06:13 Perflutren Lipid Microspheres 1.5 Ml Vial Diluted To 10 Ml Total Volume IV PUSH 02/27/25 06:13 ONCE PRN adequate visualization Protocol Umeclidinium/Vilanterol 1 puff 02/24/25 08:00 02/24/25 08:55 Umeclidinium/Vilanterol 62.5-25 Mcg Ellipta INHALATION 1 puff DAILYRT BUCKY Administration Radiology Results: ITS Impressions Chest X-Ray 02/23/25 19:50 IMPRESSION: No acute cardiopulmonary pathology. Labs Labs: Laboratory Results - last 24 hr 02/23/25 02/24/25 20:02 03:57 Phosphorus 3.6 Magnesium 2.1 Lipase 69 Vitamin B12 236.0 L Folate 6.5 TSH 1.600 Quality VTE Prophylaxis VTE prophylaxis: mechanical ordered (SCDs)
[2025-02-24] MEDS: CYANOCOBALAMIN INJ 1,000 MCG/ML VIAL 1000 MCG IM (16:32)
[2025-02-24] MEDS: BUPRENORPHINE/NALOXONE (*CRX) 4 MG/1 MG SL FILM 2 EACH SUBLINGUAL (21:04)
[2025-02-25] VITALS (8 sets, daily range): BP systolic 161–168; BP diastolic 67–74; PULSE 30–56; RESP 16–19; TEMP 36.6–36.8; O2SAT 95–97
[2025-02-25 04:32] LABS: Basophils Percent Auto 0.4 % (0.2-1.2); Eosinophils Absolute Auto 0.1 K/mm3 (0-0.3); Eosinophils Percent Auto 0.7 % (0-4.4); Hematocrit 41.5 % (42.0-52.0); Hemoglobin 13.3 g/dL (14.0-18.0); Immature Granulocyte Absolute 0.03 K/mm3 (0.00-0.031); Immature Granulocyte Percent A 0.4 % (0-0.5); Lymphocytes Absolute Auto 2.33 K/mm3 (0.9-3.2); Lymphocytes Percent Auto 30.4 % (18.3-44.2); Mean Corpuscular Hemoglobin 28.9 pg (26-34); Mean Corpuscular Volume 90.2 fl (80-100); Mean Platelet Volume 9.2 fl (7.4-10.4); Monocytes Absolute Auto 0.9 K/mm3 (0.1-0.6); Monocytes Percent Auto 11.1 % (2.6-8.5); Neutrophils Absolute Auto 4.4 K/mm3 (1.3-6.7); Platelet Count Result 187 k/mm3 (150-375); Red Cell Distribution Width 13.5 % (11.5-14.5); White Blood Count 7.7 K/mm3 (4.5-10.0)
[2025-02-25 04:40] LABS: Alanine Aminotransferase 12 U/L (6-50); Alkaline Phosphatase 102 U/L (38-126); Anion Gap 11 mmol/L (4-12); Aspartate Amino Transferase 24 U/L (17-59); Bilirubin,Total 0.7 mg/dL (0.2-1.3); Blood Urea Nitrogen 21 mg/dL (9-20); Calcium 9.2 mg/dL (8.4-10.2); Carbon Dioxide 26 mmol/L (22-30); Chloride 96 mmol/L (98-107); Estimated CRCL calculation 68 ml/min; Estimated Glomerular Filt Rate > 60; Glucose 90 mg/dL (65-110); Magnesium 2.1 mg/dL (1.6-2.3); Potassium 4.3 mmol/L (3.4-5.0); Sodium 133 mmol/L (137-145)
[2025-02-25] MEDS: lisinopriL 20 MG TABLET 40 MG PO (08:04)
[2025-02-25] MEDS: PANTOPRAZOLE 40 MG TABLET PO (08:04)
[2025-02-25] MEDS: amLODIPine BESYLATE 10 MG TABLET PO (08:04)
[2025-02-25] MEDS: GABAPENTIN 400 MG CAPSULE PO (08:04)
[2025-02-25] MEDS: UMECLIDINIUM/VILANTEROL 62.5-25 MCG ELLIPTA 1 PUFF INHALATION (08:16)
--- NOTE | 2025-02-25 09:58 | P.TS_ITS ---
Transfer Discharge Sum: Prov Provider Date of admission: 02/24/25 12:12 Primary care physician: Lucien King MD Admitting clinician: Greg De La Rosa MD Consults: 02/23/25 18:43 Consult to Physician Routine Comment: Consulting Provider: Amber oDrsey Reason for consultation: AFIB WITH SLOW VENTRICULAR RESPONSE, NEW FINDINGS Has provider been notified: Yes DS: Admitting Diagnosis Discharge Date 02/25/25 Admitting Diagnosis Bradycardia DS: Discharge Diagnosis Discharge Diagnosis (1) Atrial fibrillation with slow ventricular response: Code(s): I48.91 - Unspecified atrial fibrillation Status: Acute Transfer Discharge Sum: Med Medications Active and Home Medications: Home Medications mometasone 0.1 % topical cream 1 applic topical DAILY PRN skin irritation 03/03/24 [History Confirmed 02/23/25] albuterol sulfate 0.63 mg/3 mL solution for nebulization See Rx Instructions .Route .COMPLEX #75 mL 06/24/24 [Rx Confirmed 02/23/25] umeclidinium 62.5 mcg-vilanterol 25 mcg/actuation powdr for inhalation (Anoro Ellipta) See Rx Instructions .Route .COMPLEX #60 ea 07/06/24 [Rx Confirmed 02/23/25] albuterol sulfate 90 mcg/actuation aerosol inhaler See Rx Instructions .Route .COMPLEX #8.5 ea 07/13/24 [Rx Confirmed 02/23/25] donepezil 10 mg tablet See Rx Instructions .Route .COMPLEX #90 tabs 08/08/24 [Rx Confirmed 02/23/25] gabapentin 400 mg capsule See Rx Instructions .Route .COMPLEX #90 caps 10/25/24 [Rx Confirmed 02/23/25] amlodipine 10 mg tablet 10 mg PO DAILY #90 tabs 11/03/24 [Rx Confirmed 02/23/25] lisinopril 40 mg tablet 40 mg PO DAILY #90 tabs 11/03/24 [Rx Confirmed 02/23/25] pantoprazole 40 mg tablet,delayed release See Rx Instructions .Route .COMPLEX #90 tabs 12/16/24 [Rx Confirmed 02/23/25] baclofen 5 mg tablet 5 mg PO QHS #90 tabs 12/19/24 [Rx Confirmed 02/23/25] cholecalciferol (vitamin D3) 1,250 mcg (50,000 unit) tablet 1,250 mcg PO WEEKLY #14 tabs 12/19/24 [Rx Confirmed 02/23/25] buprenorphine 8 mg-naloxone 2 mg sublingual film 1 film sublingual TID PRN pain (scale score 7-10) 02/23/25 [History Confirmed 02/23/25] Active Medications Acetaminophen (Acetaminophen 325 Mg Tablet) 650 mg PO Q4H PRN PRN Reason: Mild Pain (1-3) or Fever Albuterol (Albuterol Sulfate Neb 2.5 Mg/3 Ml Inh) 2.5 mg INHALATION Q4-6H PRN PRN Reason: Shortness Of Breath Or Wheezing Amlodipine Besylate (Amlodipine Besylate 10 Mg Tablet) 10 mg PO DAILY [facility] Last Admin: 02/25/25 08:04 Dose: 10 mg Baclofen (Baclofen 5 Mg Tablet) 5 mg PO QHS [facility] Last Admin: 02/24/25 21:34 Dose: Not Given Buprenorphine/Naloxone (Buprenorphine/Naloxone (*Crx) 4 Mg/1 Mg Sl Film) 2 each SUBLINGUAL TID PRN PRN Reason: pain (scale score 7-10) Last Admin: 02/24/25 21:04 Dose: 2 each Gabapentin (Gabapentin 400 Mg Capsule) 400 mg PO TID [facility] Last Admin: 02/25/25 08:04 Dose: 400 mg Lisinopril (Lisinopril 20 Mg Tablet) 40 mg PO DAILY [facility] Last Admin: 02/25/25 08:04 Dose: 40 mg Pantoprazole Sodium (Pantoprazole 40 Mg Tablet) 40 mg PO DAILY [facility] Last Admin: 02/25/25 08:04 Dose: 40 mg Perflutren Lipid Microsphere (Perflutren Lipid Microspheres 1.5 Ml Vial Diluted To 10 Ml Total Volume) 0 ml IV PUSH ONCE PRN; Protocol PRN Reason: adequate visualization Stop: 02/27/25 06:13 Umeclidinium/Vilanterol (Umeclidinium/Vilanterol 62.5-25 Mcg Ellipta) [facility] Admin: 02/25/25 08:16 Dose: 1 puff Transfer Discharge Sum: Hosp Hospital Course Hospital course: 74-year-old male with a past medical history of early cognitive impairment, essential hypertension, COPD, paroxysmal atrial fibrillation, chronic alcohol use and chronic tobacco use who presented to the ER from the GI lab when he was found to be in AFib with slowed ventricular response. Cardiology was consulted, evalauted patient and initially planned for SILVIO with DCCV however given patient's age it was determined that chances of conversion is low, and since patient was bradying down into the 20s, recommended transfer to higher level of care for EP eval and possible pacemaker. Started Eliquis. Reached out to [facility] and patient was accepted at [facility] and transferred this morning. Also found to have B12 deficiency and was started on Cyanocobalamin replacement. Assessment and plan Atrial fibrillation with slow ventricular response HR low as 20s cardiology recommends transfer for pacemaker eval continue Eliquis no AV node blocking agents transferred to [facility] B12 deficiency B12 level 236 started on B12 replacement day 11/11 Continue replacement COPD continue bronchodilators HTN titrate home meds with clinical course F/u per providers at [facility] Time Spent with Patient Time attestation: Total time spent providing and/or coordinating transfer services: DS: Data Data Completed and Pending Labs on day of discharge: Labs from last 24 hours 02/25/25 03:52 WBC 7.7 RBC 4.60 Hgb 13.3 L Hct 41.5 L MCV 90.2 MCH 28.9 MCHC 32.0 RDW 13.5 Plt Count 187 MPV 9.2 Immature Gran % (Auto) 0.4 Neut % (Auto) 57.0 Lymph % (Auto) 30.4 [place] % (Auto) 11.1 H Eos % (Auto) 0.7 Baso % (Auto) 0.4 Lymph # (Auto) 2.33 [place] # (Auto) 0.9 H Eos # (Auto) 0.1 Baso # (Auto) 0.0 Abs Immat Gran (auto) 0.03 Absolute Neuts (auto) 4.4 Absolute Nucleated RBC 0.000 Nucleated RBC % 0.0 Sodium 133 L Potassium 4.3 Chloride 96 L Carbon Dioxide 26 Anion Gap 11 BUN 21 H Creatinine 0.89 Estim Creat Clear Calc 68 Estimated GFR > 60 Glucose 90 Calcium 9.2 Magnesium 2.1 Total Bilirubin 0.7 AST 24 ALT 12 Alkaline Phosphatase 102 Total Protein 8.0 Albumin 4.0
== END 2025-02-25 10:58 | disposition short-term general hospital (02) | DRG 310 ==
LOC: ANHED 18:53 → ANH3MEDSUR 20:58 → ANHIMU 21:17
PROVIDERS: Emergency Medicine; Internal Medicine; Admitting Provider Internal Medicine; Emergency Provider Emergency Medicine; PCP Family Medicine; Visit Provider Internal Medicine
DX: I48.0 Paroxysmal atrial fibrillation (principal); I10 Essential (primary) hypertension; J44.9 Chronic obstructive pulmonary disease, unspecified; F10.90 Alcohol use, unspecified, uncomplicated; E53.8 Deficiency of other specified B group vitamins; Z85.048 Personal history of other malignant neoplasm of rectum, rectosigmoid junction, and anus; E78.5 Hyperlipidemia, unspecified; N40.0 Benign prostatic hyperplasia without lower urinary tract symptoms; K21.9 Gastro-esophageal reflux disease without esophagitis; Z66 Do not resuscitate; F17.210 Nicotine dependence, cigarettes, uncomplicated
CPT/HCPCS: 36415; 71045; 80053; 82607; 82746; 83690; 83735; 83880; 84100; 84443; 84484; 85025; 85610; 85730; 93005; 93306; 94640; 99285; A9270; G0378; J0461; J3420

== ENCOUNTER 2025-05-17 09:33 | Outpatient (CLI) | payer MEDICARE, SELFPAY ==
--- NOTE | ~2025-05-17 | CT_ITS ---
CT Scan of the Chest without Contrast: Clinical Indication: Solitary pulmonary nodule, COPD Technique: Contiguous sections were acquired throughout the chest without intravenous contrast. Dose reduction technique was used on this scan by utilizing automated exposure control and iterative recon struction technique. The dose-length product (DLP) was 136.53 mGy-cm. COMPARISON: 07/18/2024 Findings: Mildly shallow lymphadenopathy is stable from prior exam. Extensive coronary artery calcifications ar e present. There is no evidence of pleural or pericardial effusion. There are probable minimal bibasilar tree-in-bud opacities and minimal bibasilar bronchiolectasis. Images through the upper abdomen reveal pneumobilia and bilateral renal cysts. Impression: Minimal bibasilar tree-in-bud opacities and minimal bibasilar bronchiolectasis, similar to prior exam . Findings are compatible with mild acute on chronic small airways infectious process. Stable mild mediastinal lymphadenopathy. Reviewed, dictated and finalized at location . Impression: Minimal bibasilar tree-in-bud opacities and minimal bibasilar bronchiolectasis, similar to prior exam. Findings are compatible with mild acute on chronic smal l airways infectious process. Stable mild mediastinal lymphadenopathy.
--- OUTSIDE RECORDS SUMMARY | 2025-05-17 09:40 | XMS_ITS | Clinical Summary ---
Author Organization [facility] Address [address] [place] [address] Phone Care Team Providers Care Pug Mill Operator Helper Name Role Phone Provider, None Primary Care [...] Date Smoking Tobacco: Every Day Cigarettes 1.5 59.5 Started: 1967 Smokeless Tobacco: Never Tobacco Cessation:Ready [...] Comments Blood Pressure 150/86 12/27/2022 5:32 AM CODING VALIDATOR Pulse 93 12/27/2022 8:12 AM CODING VALIDATOR Temperature 36.6 C (97.9 F) 12/27/2022 5:32 AM CODING VALIDATOR Respiratory Rate 18 12/27/2022 8:12 AM CODING VALIDATOR Oxygen Saturation 93% 12/27/2022 8:12 AM CODING VALIDATOR Inhaled Oxygen Concentration - - Weight 90.7 kg (200 lb) 12/24/2022 8:02 PM CODING VALIDATOR Height 182.9 cm (6') 12/24/2022 8:02 PM CODING VALIDATOR Body Mass Index 27.12 12/24/2022 8:02 PM CODING VALIDATOR Plan of Treatment Upcoming Encounters Date Type Department Care Team (Late st Contact Info) Description 05/17/2025 1:00 PM CDT Office Visit [facility] [place] [address] [place] [address] Celsa Mcintyre MD 2 [facility] [address] [address] Health Maintenance Due Date Last Done Comments Hepatitis C Virus (HCV) Screening 1950 TdaP Immunization 1950 Pneumococcal Immunization (5 0+ years) (2 of 2 - PCV) 07/08/2016 07/08/2015 Respiratory Syncytial Virus (RSV) Immunization (Adult) (1 - 1-dose 75+ series) 2023 SARS-COV-2 Immunization (1 - season) 2024 Zoster Immunization (3 of 3) 02/13/202508/2025, 05/21/2023 Influenza Immunization (#1) 2025 08/23/2013 Colonoscopy Discontinued 03/11/2018 Colorectal Cancer Screening Discontinued Immunochemical Fecal Occult Blood Discontinued 12/25/2022 Cologuard Discontinued Hepatitis B Immunization Aged Out No longer eligible based on patient's age to complete this topic Human Papillomavirus (HPV) Immunization Aged Out No longer eligible based [...] DIAGNOSTIC, VIA GUAIAC STAT 12/25/2022 12:39 AM CODING VALIDATOR from Last 3 Months or Most Recently Relevant to Health Maintenance Results * Stool Occult Blood - Diagnostic (12/25/2022 12:39 AM CODING VALIDATOR) OCCULT BLOOD DIAG Negative Negative 12/25/2022 12:50 AM CODING VALIDATOR [facility] Stool Non-Phlebotomy Collection / Unknown 12/25/2022 12:39 AM CODING VALIDATOR 12/25/2022 12:45 AM CODING VALIDATOR us Hira Quinteros MD BODY FLUIDS & STOOLS MARIANN SCHMITZ Final Result [facility] [address] [place] [address] from Last 3 Months or Most Recently Relevant to Health Maintenance Insurance MEDICARE C [employer] Advance Directives * Full Code (Latest Code Status on File) Date Activated Date Inactivated Comments 12/25/2022 11:11 AM 12/27/2022 5:52 PM CPR-Full Tr eatment: FULL ARREST: Attempt Resuscitation/CPR wit intubation and mechanical ventilation. PRE-ARREST: Use entire range of life support measures to stabilize the patient. Care Teams Pug Mill Operator Helper Relationship Specialty Start Date End Date Provider, None LESLIE PCP - General 12/24/22
--- OUTSIDE RECORDS SUMMARY | 2025-05-17 09:40 | XMS_ITS | Clinical Summary ---
Author Organization [facility] Address [address] [place] [address] Care Team Providers Care Sand Technician Name Role Phone Supa Valentin Primary Care Provider [phone] Source Comments [facility],non-owned Affiliates and Associated Physician Practices is amultiple site organization consisting of ambulatory clinics and hospital sitesin [place], [place], [place] and [place]. This disclosure is being madepursuant to the Care Everywhere program and may not contain all information available regarding this patient. Last updated 18.[facility] Allergies No known active allergies Medications * [...] on file Legal Sex Male 5:29 AM MANAGER PRODUCT Gender Identity Male 03/11/2018 9:53 AM CDT [...] 9:12 AM CDT Height 188 cm (6' 2) 06/24/2018 9:12 AM CDT Body Mass Index 25.68 06/24/2018 9:12 AM CDT Plan of Treatment Health Maintenance Due Date Last Done Comments DTAP/TDAP/TD VACCINES (1 - Tdap) 1967 PNEUMOCOCCAL VACCINE 50+ (1 of 2 - PCV) 1967 LUNG CANCER SCREENING 1998 ZOSTER VACCINE (1 of 2) 1998 HEPATITIS B VACCINE (1 of 3 - Risk 3-dose series) 2008 Respiratory Syncytial Virus (RSV) Vaccine Pt: or over 60 yrs (1 - 1-dose 75+ series) 2023 COVID-19 VACCINE (1 - season) 2024 DEPRESSION SCREENING 11/09/2024 MEDICARE AWV CALENDAR YEAR 2024 INFLUENZA VACCINE (#1) 2025 10/16/2017 SCREENING FOR DIABETES 12/27/2025 3, 12/27/2022, 12/26/2022, Additional history exists HEPATITIS C SCREENING Completed 10/13/2017 , 08/15/2013, [...] your medications Medical Devices Explanted Type Area Client Application Support Engineer Device Identifier Shelf Expiration Date Model / Serial / Lot Wall Flex Biliary Fully Covered Stent System Implanted:Qty: 1 on 04/30/2018 by Kassie Yeboah MD at [facility] Explanted:Qty: 1 on 06/24/2018 by Kassie Yeboah MD at [facility] N/A: [employer] Tha 02/11/2020 [id number] / / [id number] Procedures Procedure Name Priority Date/Time Associated Diagnosis Comments COMPREHENSIVE METABOLIC PANEL Routine 05/31/2018 11:19 AM CDT Alcoholic cirrhosis of liver without ascites HEPATITIS C RNA QUANTITATIVE Routine 10/13/2017 12:49 PM MANAGER PRODUCT from Last 3 Months or Most Recently Relevant to Health Maintenance Results * (ABNORMAL) COMPREHENSIVE METABOLIC PANEL (05/31/2018 11:19 AM CDT) BUN 18 7 - 26 mg/dL 05/31/2018 12:39 PM [facility] Creatinine 0.9 0.6 - 1.2 mg/dL 05/31/2018 12:39 PM [facility] Sodium 140 136 - 145 mmol/L 05/31/2018 12:39 PM [facility] Potassium 4.2 3.5 - 4.5 mmol/L 05/31/2018 12:39 PM [facility] Chloride 103 98 - 107 mmol/L 05/31/2018 12:39 PM [facility] CO2 27 22 - 29 mmol/L 05/31/2018 12:39 PM [facility] Glucose 105 70 - 115 mg/dL 05/31/2018 12:39 PM [facility] Calcium 9.2 8.4 - 10.2 mg/dL 05/31/2018 12:39 PM [facility] Protein Total 7.5 6.0 - 8.3 g/dL 05/31/2018 12:39 PM [facility] Albumin 3.7 3.4 - 5.0 g/dL 05/31/2018 12:39 PM [facility] Bilirubin Total 0.4 0.2 - 1.2 mg/dL 05/31/2018 12:39 PM [facility] Alkaline Phosphatase 113 40 - 150 Units/L 05/31/2018 12:39 PM [facility] ALT 11 0 - 55 Units/L 05/31/2018 12:39 PM [facility] AST 17 5 - 34 Units/L 05/31/2018 12:39 PM [facility] Anion Gap 14 8 - 18 05/31/2018 12:39 PM [facility] BUN/Creatinine Ratio 20 7 - 23 05/31/2018 12:39 PM [facility] Osmolality Calculated 292 270 - 300 mOsm/kg 05/31/2018 12:39 PM [facility] Albumin/Globulin Ratio 1.0(L) 1.1 - 2.3 05/31/2018 12:39 PM [facility] eGFR >60 >60 mL/min/1.7 3 m2 05/31/2018 12:39 PM [facility] Blood BLOOD SPECIMEN / Unknown Lab Venipuncture / Unknown 05/31/2018 11:19 AM CDT 05/31/2018 12:05 PM CDT us Anthony Knox MD LAB - CHEMISTRY ORDERABLES F inal Result [facility] [address] [place] [address], [facility] [phone] * HEPATITIS C RNA QUANTITATIVE PCR (10/13/2017 12:49 PM MANAGER PRODUCT) Hepatitis C Virus RNA PCR Accession No: [id number] Specimen: Serum Reference: [id number] Test: Hepatitis C RT-PCR (Quantitative) RESULT Not Detected Reference Range Not Detected INTERPRETATION The quantitative Hepatitis C viral RNA RT-PCR determination was performed on a serum sample and is reported in IU/ml. Hepatitis C viral RNA was not detected. COMMENT The Hepatitis C viral (HCV) RNA analysis utilized a serum sample, real-time reverse director hedis PCR, and is reported as Not Detected, [...] the isolation of HCV RNA with reverse director hedis of genomic HCV RNA followed by real-time PCR in the presence of an unrelated RNA internal control. The internal control ensures that RNA is isolated, and that no general significant inhibitors of the RT-PCR process are present. This analysis was performed using an [place] FDA approved test methodology ([employer] RealTime HCV). Test performed at [facility], [address] [place] [address] This case has been personally reviewed and interpreted by the attending (teaching) pathologist. Final Diagnosis performed by Fabio Dias PHD. Electronically signed 10/15/2017 [facility] Blood specimen (specimen) BLOOD SPECIMEN / Unknown 10/13/2017 12:49 PM MANAGER PRODUCT 10/13/2017 12:49 PM MANAGER PRODUCT Dino Manzo MD LAB - CHEMISTRY ORDERABLES Fin al Result [facility]) [address] [place] [address], [facility] [phone] from Last 3 Months or Most Recently Relevant to Health Maintenance Insurance UHC MANAGED MEDICARE ADV Care Teams Sand Technician Relationship Specialty Start Date End Date Supa Valentin DO [address] [place] [address] PCP - General 12/20/19
--- OUTSIDE RECORDS SUMMARY | 2025-05-17 09:40 | XMS_ITS | Patient Health Record ---
Author Organization [facility] Address [address] [place] [address] Care Team Providers Care Court Advocate Name Role Phone Negrito Holm Primary Care Provider Zhane Nan Unavailable [phone] Ally Bhatia Unavailable [phone] Allergies No Known Allergies Results Component Value Reference Range Notes 12 Panel Urine Drug Screen Reviewed date:12/14/2024 03:15:39 PM Interpretation: Performing Lab: Notes/Report: THC NEG ASHANTI NEG MOP (OPI) NEG AMP NEG MET NEG BAR NEG BZO POS MDMA NEG MTD NEG OXY NEG PCP NEG BUP POS 12 Panel Urine Drug Screen Reviewed date:03/21/2025 02:15:05 PM Interpretation: Performing Lab: Notes/Report: THC POS ASHANTI neg MOP (OPI) neg AMP neg MET neg BAR neg BZO POS MDMA neg MTD neg OXY neg PCP neg BUP POS 14 Panel Urine Drug Screen Reviewed date:04/21/2025 02:28:28 PM Interpretation: Performing Lab: Notes/Report: THC neg ASHANTI neg MOP (OPI) neg AMP neg MET neg BAR neg BZO neg MDMA neg MTD neg OXY neg PCP neg BUP POS TCA neg FTY neg Buprenorphine and Metabolite (Urine test) Reviewed date:12/20/2024 11:21:40 AM Interpretation: Performing Lab:[facility], [address], [place], Phone - [phone], Director - PhDAbudu Notes/Report: Clinical Information:[id number] LM Buprenorphine Positive Confirmation p erformed by Mass Spectrometry Buprenorphine Positive Buprenorphine Conf, MS, UR 21 Cutoff=10 ng/m L Norbuprenorphine Positive Norbuprenorphine Conf, MS, UR 246 Cutoff=10 n g/mL 12 Panel Urine Drug Screen Reviewed date:12/01/2024 01:33:53 PM Interpretation: Performing Lab: Notes/Report: THC neg ASHANTI neg MOP (OPI) neg AMP neg MET neg BAR neg BZO POS MDMA neg MTD neg OXY neg PCP neg BUP POS Written Authorization Reviewed date:12/20/2024 11:20:58 AM Interpretation: Performing Lab:[facility], [address], [place], Phone - [phone], Director - PhDAbudu Notes/Report: Clinical Information:[id number] Written Authorization Written Authorization Received. Authorization received [...] Duration) Notes Start Date End Date Status diazePAM 5 MG 1 tablet as needed Orally Once a day Active Albuterol Sulfate HFA 108 (9 0 Base) MCG/ACT INHALE 2 PUFFS BY MOUTH EVERY 4-6 HOURS NEEDED FOR SHORTNESS OF BREATH/WHEEZE Inhalation; Duration: 17 Days Active Ibuprofen 400 MG 1 tablet with food o r milk as needed Orally Three times a day; Duration: 14 days 04/21/2025 Active Anoro Ellipta 62.5-25 MCG/ACT INHALE 1 P UFF BY MOUTH ONCE DAILY Inhalation; Duration: 30 Days Active Pantoprazole Sodium 40 MG TAKE 1 TABLET BY MOUTH EVERY DAY IN THE MORNING Oral; Duration: 90 Days Active hydroCHLOROthiazide 12.5 MG TAKE 1 CAPSU LE BY MOUTH DAILY NEEDED FOR SWELLING Oral; Duration: 90 Days Active Benzonatate 200 MG TAKE 1 CAPSULE (200 MG) BY MOUTH 3 TIMES DAILY NEEDED FOR COUGH Oral; Duration: 10 Days Active Gabapentin 400 MG 1 capsule Orally Three times a day Active Buprenorphine HCl-Naloxone H Cl 8-2 MG 1 film under the tongue and allow to dissolve Sublingual Three times a day; Duration: 30 days 04/21/2025 Active amLODIPine Besylate 10 MG TAKE 1 TABLET BY MOUTH EVERY DAY Oral; Duration: 90 Days Active Lisinopril 40 MG TAKE 1 TABLET BY MOUTH EVERY DAY Oral; Duration: 90 Days Active Donepezil HCl 10 MG PLEASE SEE ATTACHED FOR DETAILED DIRECTIONS Oral; Duration: 90 Days Active Social History Tobacco Use: [...] Status W/U Status Risk Notes Problem Overweight (274145138) Over weight (E66.3) Active confirmed Problem History of malignant neoplasm of colon (233323550) History of colon cancer (Z85.038) Active confirmed Problem Opioid use disorder (1568304354) Opioid use disorder (F11.99) Active confirmed Problem Cardiac pacemaker in situ (627614419) Pacemaker (Z95.0) Active confirmed Vital Signs Heart Rate 104 /min 04/21/2025 Temperature 98.2 degrees Fahrenheit 12/01/2024 Respiratory Rate 16 /min 04/21/2025 Blood pressure diastolic 70 mm Hg 04/21/2025 Oximetry 94 % 04/21/2025 Height 74 in 04/21/2025 Blood pressure systolic 124 mm Hg 04/21/2025 Weight 208 lb 0 oz lbs 04/21/2025 BMI 26.7 kg/m2 04/21/2025 Encounters Encounter Location Date Provider Diagnosis [address] [place] [address] 12/01/2024 Ally Bhatia Opioid use disorder F11.[address] [facility] [address] 12/14/2024 Ally Bhatia Opioid use disorder F11.[address] [place] [address] 01/16/2025 Negrito Holm Opioid use disorder F11.[address] [place] [address] 02/16/2025 Ally Jasminekar Opioid use disorder F11.99 and Over weight E66.[address] [place] [address] 03/21/2025 Negrito Holm Opioid use disorder F11.99 ; Pacemaker Z95.0 and History of colon cancer Z85.[address] [place] [address] 04/21/2025 Nan Phelan Opioid use disorder F11.99 and Over weight E66.3 Assessments Encounter Date Diagnosis (ICD Code) Assessment Notes Treatment Notes Treatment Clinical Notes Section Notes 12/01/2024 Opioid use disorder (ICD-10 - F11.90) 12/14/2024 Opioid use disorder (ICD-10 - F11.90) 01/16/2025 Opioid use disorder (ICD-10 - F11.99) 03/21/2025 Opioid use disorder (ICD-10 - F11.99) 03/21/2025 Pacemaker (ICD-10 - Z95.0) 04/21/2025 Over weight (ICD-10 - E66.3) 04/21/2025 Opioid use disorder (ICD-10 - F11.99) May self-administer or be administered own oral medication per [facility] Protocols. Provided informed consent with understanding of side effects, risks and benefits as well as alternative treatments as previously discussed and with the above recommended medications ang other aspects of the treatment program. Agrees to return sooner if symptoms worsen or suicidal or homicidal ideations occur. support and education provided concerning illness and treatment plan, risks and benefits, pt verbalized understanding of the same and agreeable - presents via secure Zoom connection for MAT walk in clinic. Denies concerns, cravings, or missteps. Asking for ibuprofen for pain, his PCP usually prescribes it, but he hasn't seen his PCP. Will fill 2 weeks then pt needs to follow up with PCP. Pt agreeable to the same. - Feels Suboxone at current dose has been working well, prefers to continue with current dose - continue Suboxone for OUD, evaluate at follow up in 4 weeks - [place] PDMP- no concerns - UDS-no concerns 02/16/2025 Opioid use disorder (ICD-10 - F11.99) 03/21/2025 History of colon cancer (ICD-10 - Z85.038) 02/16/2025 Over weight (ICD-10 - E66.3) 12/01/2024 [...] or concerns. 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 02/16/2025 Other Increased risk of VEHICLE SERVICE ATTENDANT/respiratory depression with combination of benzos and buprenorphine. [...] may self-administer their own oral medications per [facility] Protocol. Plan Of Treatment No Information Insurance Providers Payer Name Payer Address Payer Phone Subscriber Number Group Number Insured Name Patient Relationship to Insured Coverage Start Date Coverage End Date UHC A[employer] Medicare [address] [address] [place] [address] [id number] Matteo Da Silva Self - patient is the insured 5 Medical (General) History Medical History History ICD Code neuropathy hypertension COPD Hepatitis C (treated 1999) Surgical History Surgery Date(Month/Year) rectal cancer 1999 pacemaker 2024 Hospitalization History Reason Date(Month/Year) pneumonia 2021 Low heart rate and pacemaker put in ( [place] [facility]) 2024
== END 2025-05-17 09:34 | disposition home or self-care (01) ==
PROVIDERS: PCP Family Medicine; Visit Provider Internal Medicine Pulmonary Disease
DX: R91.1 Solitary pulmonary nodule (principal); R59.1 Generalized enlarged lymph nodes
CPT/HCPCS: 71250

== ENCOUNTER 2025-08-21 08:55 | Outpatient (CLI) | payer MEDICARE, SELFPAY ==
--- OUTSIDE RECORDS SUMMARY | 2025-08-21 09:11 | XMS_ITS | Clinical Summary ---
Author Organization [facility] Address [address] [place] [address] Phone Care Team Providers Care Continuous Mining Machine [employer] Miner Name Role Phone Provider, None Primary Care Provider Celsa Rebollar MD Unavailable Allergies No known active allergies Medications albuterol [...] every 4 hours as needed. 3 Active temazepam (RESTORIL) 15 MG Capsule Take 15 mg by mouth nightly. 3 Active tamsulosin (FLOMAX) 0.4 MG Capsule Take 1 Capsule by mouth every morning. 90 Capsule 3 Active apixaban (ELIQUIS) 5 MG TabletIndication s:Atrial Fibrillation Take 1 Tablet by mouth 2 times daily. Indications: Atrial Fibrillation 60 Tablet 3 5 Active mometasone (ELOCON) 0.1 % Cream Apply daily as needed for Other. Application Site: apply thin film once daily as needed Active Umeclidinium-Katelynn anterol (ANORO ELLIPTA) 62.5-25 MCG/ACT AEROSOL POWDER, BREATH ACTIVATED take 1 Puff by inhalation daily. Active donepezil (ARICEPT) 10 MG Tablet Take 10 mg by mouth nightly. Active hydroCHLOROthiaz sohail 12.5 MG Tablet Take 12.5 mg by mouth daily as needed (Swelling). Active gabapentin (NEURONTIN) 400 MG Capsule Take 400 mg by mouth 3 times daily. Active pantoprazole (PROTONIX) 40 MG Tablet Delayed Response Take 40 mg by mouth daily. Active baclofen (LIORESAL) 5 MG Tablet Take 5 mg by mouth nightly. Active buprenorphine-na loxone (Suboxone) 8-2 MG FILM 1 Film by Sublingual route 3 times daily as needed (Pain). Active Active Problems Problem Noted Date Diagnosed [...] Date Smoking Tobacco: Every Day Cigarettes 1.5 59.8 Started: 1967 Smokeless Tobacco: Never Tobacco Cessation:Ready [...] Sign Reading Time Taken Comments Blood Pressure 138/74 05/17/2025 12:50 PM CDT Pulse 90 05/17/2025 12:50 PM CDT Temperature 36.4 C (97.6 F) 05/17/2025 12:50 PM CDT Respiratory Rate 16 05/17/2025 12:50 PM CDT Oxygen Saturation 96% 05/17/2025 12:50 PM CDT Inhaled Oxygen Concentration - - Weight 92.5 kg (204 lb) 05/17/2025 12:50 PM CDT Height 182.9 cm (6') 05/17/2025 12:50 PM CDT Body Mass Index 27.67 05/17/2025 12:50 PM CDT Plan of Treatment Upcoming Encounters Date Type Department Care Team (Late st Contact Info) Description 09/13/2025 10:30 AM GASOLINE DRAGLINE OPERATOR Office Visit [facility] [place] [address] [place] [address] Celsa Mcintyre MD [address] [address] Health Maintenance Due Date Last Done Comments Hepatitis C Virus (HCV) Screening 1950 TdaP Immunization 1950 Lung Cancer Screening 1998 Pneumococcal Immunization (5 0+ years) (2 of 2 - PCV) 07/08/2016 07/08/2015 Respiratory Syncytial Virus (RSV) Immunization (Adult) (1 - 1-dose 75+ series) 2023 Medicare Initial AWV [id number] 11/09/2023 Zoster Immunization (3 of 3) 02/13/202508/2025, 05/21/2023 Influenza Immunization (#1) 2025 08/23/2013 SARS-COV-2 Immunization ( season) 2025 Colonoscopy Discontinued 03/11/2018 AAA Screening Ultrasound Discontinued 06/24/2018 Colorectal Cancer Screening Discontinued Immunochemical Fecal Occult [...] DIAGNOSTIC, VIA GUAIAC STAT 12/25/2022 12:39 AM GASOLINE DRAGLINE OPERATOR from Last 3 Months or Most Recently Relevant to Health Maintenance Results * Stool Occult Blood - Diagnostic (12/25/2022 12:39 AM GASOLINE DRAGLINE OPERATOR) OCCULT BLOOD DIAG Negative Negative 12/25/2022 12:50 AM GASOLINE DRAGLINE OPERATOR [facility] Stool Non-Phlebotomy Collection / Unknown 12/25/2022 12:39 AM GASOLINE DRAGLINE OPERATOR 12/25/2022 12:45 AM GASOLINE DRAGLINE OPERATOR us Hira Quinteros MD BODY FLUIDS & STOOLS MARIANN SCHMITZ Final Result [facility] [address] [place] [address] from Last 3 Months or Most Recently Relevant to Health Maintenance Insurance MEDICARE [facility] Advance Directives * Full Code (Latest Code Status on File) Date Activated Date Inactivated Comments 12/25/2022 11:11 AM 12/27/2022 5:52 PM CPR-Full Tr eatment: FULL ARREST: Attempt Resuscitation/CPR wit intubation and mechanical ventilation. PRE-ARREST: Use entire range of life support measures to stabilize the patient. Care Teams Continuous Mining [employer] Miner Relationship Specialty Start Date End Date Provider, None [place] PCP - General 12/24/22 Celsa Mcintyre MD 2 [facility], [address] [address] Consulting Physician Cardiovascular Disease - Cardiology 05/17/25
--- OUTSIDE RECORDS SUMMARY | 2025-08-21 09:11 | XMS_ITS | Clinical Summary ---
Author Organization [facility] Address [address] [place] [address] Care Team Providers Care Physical Testing Supervisor Name Role Phone Supa Valentin Primary Care Provider [phone] Source Comments [facility],non-owned Affiliates and Associated Physician Practices is amultiple site organization consisting of ambulatory clinics and hospital sitesin [place], [place], [place] and [place]. This disclosure is being madepursuant to the Care Everywhere program and may not contain all information available regarding this patient. 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 Explanted:Qty: 1 on 06/24/2018 by Kassie Yeboah MD at [facility] N/A: Bile Duct Wordy Tha 02/11/2020 [id number] / / [id number] Procedures Procedure Name Priority Date/Time Associated Diagnosis Comments COMPREHENSIVE METABOLIC PANEL Routine 05/31/2018 11:19 AM CDT Alcoholic cirrhosis of liver without ascites HEPATITIS C RNA QUANTITATIVE Routine 10/13/2017 12:49 PM SETTLEMENT PROCESSOR from Last 3 Months or Most Recently Relevant to Health Maintenance Results * (ABNORMAL) COMPREHENSIVE METABOLIC PANEL (05/31/2018 11:19 AM CDT) BUN 18 7 - 26 mg/dL 05/31/2018 12:39 PM [facility] Creatinine 0.9 0.6 - 1.2 mg/dL 05/31/2018 12:39 PM [facility] Sodium 140 136 - 145 mmol/L 05/31/2018 12:39 PM [facility] Potassium 4.2 3.5 - 4.5 mmol/L 05/31/2018 12:39 PM [facility] Chloride 103 98 - 107 mmol/L 05/31/2018 12:39 PM [facility] CO2 27 22 - 29 mmol/L 05/31/2018 12:39 PM [facility] Glucose 105 70 - 115 mg/dL 05/31/2018 12:39 PM [facility] Calcium 9.2 8.4 - 10.2 mg/dL 05/31/2018 12:39 PM [facility] Protein Total 7.5 6.0 - 8.3 g/dL 05/31/2018 12:39 PM [facility] Albumin 3.7 3.4 - 5.0 g/dL 05/31/2018 12:39 PM [facility] Bilirubin Total 0.4 0.2 - 1.2 mg/dL 05/31/2018 12:39 PM [facility] Alkaline Phosphatase 113 40 - 150 Units/L 05/31/2018 12:39 PM [facility] ALT 11 0 - 55 Units/L 05/31/2018 12:39 PM [facility] AST 17 5 - 34 Units/L 05/31/2018 12:39 PM [facility] Anion Gap 14 8 - 18 05/31/2018 12:39 PM [facility] BUN/Creatinine Ratio 20 7 - 23 05/31/2018 12:39 PM [facility] Osmolality Calculated 292 270 - 300 mOsm/kg 05/31/2018 12:39 PM [facility] Albumin/Globulin Ratio 1.0(L) 1.1 - 2.3 05/31/2018 12:39 PM [facility] eGFR >60 >60 mL/min/1.7 3 m2 05/31/2018 12:39 PM [facility] Blood BLOOD SPECIMEN / Unknown Lab Venipuncture / Unknown 05/31/2018 11:19 AM CDT 05/31/2018 12:05 PM CDT us Anthony Knox MD LAB - CHEMISTRY ORDERABLES F inal Result [facility] [address] [place] [address], [facility] [phone] * HEPATITIS C RNA QUANTITATIVE PCR (10/13/2017 12:49 PM SETTLEMENT PROCESSOR) Hepatitis C Virus RNA PCR Accession No: [id number] Specimen: Serum Reference: [id number] Test: Hepatitis C RT-PCR (Quantitative) RESULT Not Detected Reference Range Not Detected INTERPRETATION The quantitative Hepatitis C viral RNA RT-PCR determination was performed on a serum sample and is reported in IU/ml. Hepatitis C viral RNA was not detected. COMMENT The Hepatitis C viral (HCV) RNA analysis utilized a serum sample, real-time reverse club concierge PCR, and is reported as Not Detected, [...] the isolation of HCV RNA with reverse club concierge of genomic HCV RNA followed by real-time PCR in the presence of an unrelated RNA internal control. The internal control ensures that RNA is isolated, and that no general significant inhibitors of the RT-PCR process are present. This analysis was performed using an [place] FDA approved test methodology (Education Everytime RealTime HCV). Test performed at [facility], [address] [place] [address] This case has been personally reviewed and interpreted by the attending (teaching) pathologist. Final Diagnosis performed by Fabio Dias PHD. Electronically signed 10/15/2017 [facility] Blood specimen (specimen) BLOOD SPECIMEN / Unknown 10/13/2017 12:49 PM SETTLEMENT PROCESSOR 10/13/2017 12:49 PM SETTLEMENT PROCESSOR Dino Manzo MD LAB - CHEMISTRY ORDERABLES Fin al Result [facility] [address] [place] [address], [facility] [phone] from Last 3 Months or Most Recently Relevant to Health Maintenance Insurance UHC MANAGED MEDICARE ADV Care Teams Physical Testing Supervisor Relationship Specialty Start Date End Date Supa Valentin DO [address] [place] [address] PCP - General 12/20/19
--- OUTSIDE RECORDS SUMMARY | 2025-08-21 09:16 | XMS_ITS | Patient Health Record ---
Author Organization [facility] Address [address] [place] [address] Care Team Providers Care Fish Processing Supervisor Name Role Phone Negrito Holm Primary Care Provider [phone] Nan Phelan Unavailable [phone] Terri Ware Unavailable Sriram Ally Unavailable [phone] Allergies No Known Allergies Results Component Value Reference Range Notes 14 Panel Urine Drug Screen Reviewed date:08/16/2025 01:40:47 PM Interpretation: Performing Lab: Notes/Report: THC POS ASHANTI neg MOP (OPI) neg AMP neg MET neg BAR neg BZO POS MDMA neg MTD neg OXY neg PCP neg BUP POS TCA neg FTY neg Buprenorphine and Metabolite (Urine test) Reviewed date:12/20/2024 11:21:40 AM Interpretation: Performing Lab:[facility], [address], [place], Phone - [phone], Director - PhDAbudu Notes/Report: Clinical Information:[id number] Buprenorphine Positive Confirmation p erformed by Mass Spectrometry Buprenorphine Positive Buprenorphine Conf, MS, UR 21 Cutoff=10 ng/m L Norbuprenorphine Positive Norbuprenorphine Conf, MS, UR 246 Cutoff=10 n g/mL 14 Panel Urine Drug Screen Reviewed date:06/22/2025 01:59:52 PM Interpretation: Performing Lab: Notes/Report: THC POS ASHANTI neg MOP (OPI) neg AMP neg MET neg BAR neg BZO neg MDMA neg MTD neg OXY neg PCP neg BUP POS TCA neg FTY neg 14 Panel Urine Drug Screen Reviewed date:05/22/2025 02:33:12 PM Interpretation: Performing Lab: Notes/Report: THC POS ASHANTI neg MOP (OPI) neg AMP neg MET neg BAR neg BZO neg MDMA neg MTD neg OXY neg PCP neg BUP POS TCA neg FTY neg 12 Panel Urine Drug Screen Reviewed date:12/14/2024 [...] Reviewed date:12/20/2024 11:20:58 AM Interpretation: Performing Lab:[facility], [address], [place], Phone - [phone], Director - PhDAbudu Notes/Report: Clinical Information:[id number] Written Authorization Written Authorization Received. Authorization received from PER ORIGINAL ORDER 12-15-2024 Logged by Debbie Baer 14 Panel Urine Drug Screen Reviewed date:07/19/2025 01:59:00 PM Interpretation: Performing Lab: Notes/Report: THC neg ASHANTI neg MOP (OPI) neg AMP neg MET neg BAR neg BZO neg MDMA neg MTD neg OXY neg PCP neg BUP POS TCA neg FTY neg 14 Panel Urine Drug Screen Reviewed date:04/21/2025 02:28:28 PM Interpretation: Performing Lab: Notes/Report: THC neg ASHANTI neg MOP (OPI) neg AMP neg MET neg BAR neg BZO neg MDMA neg MTD neg OXY neg PCP neg BUP POS TCA neg FTY neg 12 Panel Urine Drug Screen Reviewed date:03/21/2025 02:15:05 PM Interpretation: Performing Lab: Notes/Report: THC POS ASHANTI neg MOP (OPI) neg AMP neg MET neg BAR neg BZO POS MDMA neg MTD neg OXY neg PCP neg BUP POS 12 Panel Urine Drug Screen Reviewed date:01/16/2025 02:58:59 PM Interpretation: Performing Lab: Notes/Report: THC neg ASHANTI neg MOP (OPI) neg AMP neg MET neg BAR neg BZO POS MDMA neg MTD neg OXY neg PCP neg BUP POS Reason For Referral No Information Medications Medication SIG (Take, Route, Frequency, Duration) Notes Start Date End Date Status Pantoprazole Sodium 40 MG TAKE 1 TABLET BY MOUTH EVERY DAY IN THE MORNING Oral; Duration: 90 Days Active Lisinopril 40 MG TAKE 1 TABLET BY MOUTH EVERY DAY Oral; Duration: 90 Days Active amLODIPine Besylate 10 MG TAKE 1 TABLET BY MOUTH EVERY DAY Oral; Duration: 90 Days Active Anoro Ellipta 62.5-25 MCG/ACT INHALE 1 P UFF BY MOUTH ONCE DAILY Inhalation; Duration: 30 Days Active Donepezil HCl 10 MG PLEASE SEE ATTACHED FOR DETAILED DIRECTIONS Oral; Duration: 90 Days Active Ibuprofen 400 MG 1 tablet with food o r milk as needed Orally Three times a day; Duration: 14 days 04/21/2025 Active Albuterol Sulfate HFA 108 (9 0 Base) MCG/ACT INHALE 2 PUFFS BY MOUTH EVERY 4-6 HOURS NEEDED FOR SHORTNESS OF BREATH/WHEEZE Inhalation; Duration: 17 Days Active Buprenorphine HCl-Naloxone H Cl 8-2 MG 1 film under the tongue and allow to dissolve Sublingual Three times a day; Duration: 30 days 08/16/2025 Active Gabapentin 400 MG 1 capsule Orally Three times a day Active diazePAM 5 MG 1 tablet as needed Orally Once a day Active Benzonatate 200 MG TAKE 1 CAPSULE (200 MG) BY MOUTH 3 TIMES DAILY NEEDED FOR COUGH Oral; Duration: 10 Days Active hydroCHLOROthiazide 12.5 MG TAKE 1 CAPSU LE BY MOUTH DAILY NEEDED FOR SWELLING Oral; Duration: 90 Days Active Social History [...] Status W/U Status Risk Notes Problem Overweight (067850311) Over weight (E66.3) Active confirmed Problem History of malignant neoplasm of colon (147969968) History of colon cancer (Z85.038) Active confirmed Problem Opioid use disorder (1883276632) Opioid use disorder (F11.99) Active confirmed Problem Cardiac pacemaker in situ (814721382) Pacemaker (Z95.0) Active confirmed Problem Tobacco user (421125650) Nicotine dependence with current use (F17.200) Active confirmed Vital Signs Heart Rate 102 /min 08/16/2025 Temperature 98.1 degrees Fahrenheit 06/22/2025 Respiratory Rate 16 /min 08/16/2025 Oximetry 98 % 08/16/2025 Blood pressure diastolic 82 mm Hg 08/16/2025 Height 74in in 08/16/2025 Blood pressure systolic 132 mm Hg 08/16/2025 Weight 205.8lbs lbs 08/16/2025 BMI 26.42 kg/m2 08/16/2025 Encounters Encounter Location Date Provider Diagnosis [address] [address] 12/01/2024 Ally Dasfik Opioid use disorder F11.[address] [place] [address] 12/14/2024 Ally Ferrarolufik Opioid use disorder F11.[address] [place] [address] 01/16/2025 Negrito Holm Opioid use disorder F11.[address] [address] 02/16/2025 Ally Ferrarolufik Opioid use disorder F11.99 and Over weight E66.[address] [place] [address] 03/21/2025 Negrito Holm Opioid use disorder F11.99 ; Pacemaker Z95.0 and History of colon cancer Z85.[address] [place] [address] 04/21/2025 Nan Phelan Opioid use disorder F11.99 and Over weight E66.[address] [address] 05/22/2025 Terri Ware Opioid use disorder F11.99 and Nicotine dependence with current use F17.[address] [place] [address] 06/22/2025 Negrito Holm Opioid use disorder F11.[address] [place] [address] 07/19/2025 Negrito Holm Opioid use disorder F11.[address] [address] 08/16/2025 Ally Jasminekar Opioid use disorder F11.99 and Over weight E66.3 Assessments Encounter Date Diagnosis (ICD Code) Assessment Notes Treatment Notes Treatment Clinical Notes Section Notes 03/21/2025 Opioid use disorder (ICD-10 - F11.99) 03/21/2025 Pacemaker (ICD-10 - Z95.0) 04/21/2025 Over weight (ICD-10 - E66.3) 04/21/2025 Opioid use disorder (ICD-10 - F11.99) May self-administer or be administered own oral medication per [facility] Protocols. Provided informed consent with understanding of [...] at follow up in 4 weeks - [place] PDMP- no concerns - UDS-no concerns 05/22/2025 Opioid use disorder (ICD-10 - F11.99) 05/22/2025 Nicotine dependence with current use (ICD-10 - F17.200) 06/22/2025 Opioid use disorder (ICD-10 - F11.99) 07/19/2025 Opioid use disorder (ICD-10 - F11.99) 08/16/2025 Over weight (ICD-10 - E66.3) 08/16/2025 Opioid use disorder (ICD-10 - F11.99) 12/01/2024 Opioid use disorder (ICD-10 - F11.90) [...] or concerns. 12/14/2024 Other Discussed risks of GEOPHYSICAL COMPUTER/respiratory depression, increased fall risk with combination of [...] or concerns. 02/16/2025 Other Increased risk of GEOPHYSICAL COMPUTER/respiratory depression with combination of benzos and buprenorphine. [...] may self-administer their own oral medications per [facility] Protocol. 05/22/2025 Other Patient agrees to take medication as prescribed. Discussed medication side effects, adverse effects, risks, benefits, as well as interactions. Encouraged non-use of opioids. Encouraged participation in recovery groups. Patient may contact office with questions or concerns. 08/16/2025 Other Patient agrees to take medication as [...] may self-administer their own oral medications per [facility] Protocol. Plan Of Treatment No Information Insurance Providers Payer Name Payer Address Payer Phone Subscriber Number Group Number Insured Name Patient Relationship to Insured Coverage Start Date Coverage End Date UHC AARP Medicare [address] [address] [place] [address] [phone] [id number] Matteo Da Silva Self - patient is the insured Medical (General) History Medical History History ICD Code neuropathy hypertension COPD Hepatitis C (treated 1999) Surgical History Surgery Date(Month/Year) rectal cancer 1999 pacemaker 2024 Hospitalization History Reason Date(Month/Year[facility] 2021
[2025-08-21 09:49] LABS: Hematocrit 43.0 % (42.0-52.0); Hemoglobin 13.9 g/dL (14.0-18.0); Immature Granulocyte Percent A 0.3 % (0-0.5); Lymphocytes Absolute Auto 2.61 K/mm3 (0.9-3.2); Mean Corpuscular HGB Conc 32.3 g/dl (32-36); Mean Corpuscular Hemoglobin 30.5 pg (26-34); Mean Corpuscular Volume 94.3 fl (80-100); Nucleated Red Blood Cells Absolute Auto 0.000 K/mm3 (0.0-0.012); Nucleated Red Blood Cells Perc 0.0 % (0.0-0.2); Platelet Count Result 197 k/mm3 (150-375); Red Blood Count 4.56 M/mm3 (4.6-6.20); White Blood Count 6.7 K/mm3 (4.5-10.0)
[2025-08-21 10:37] LABS: Alanine Aminotransferase 15 U/L (6-50); Albumin Level 4.3 g/dL (3.5-5.1); Alkaline Phosphatase 87 U/L (38-126); Anion Gap 8 mmol/L (4-12); Aspartate Amino Transferase 30 U/L (17-59); Bilirubin,Total 0.7 mg/dL (0.2-1.3); Blood Urea Nitrogen 25 mg/dL (9-20); Calcium 9.4 mg/dL (8.4-10.2); Carbon Dioxide 29 mmol/L (22-30); Chloride 101 mmol/L (98-107); Cholesterol 143 mg/dL (0-200); Estimated Glomerular Filt Rate > 60; Glucose 90 mg/dL (65-110); HDL Direct 37 mg/dL; Potassium 4.1 mmol/L (3.4-5.0); Sodium 138 mmol/L (137-145); Total Protein 8.0 g/dL (6.3-8.2); Triglycerides 52 mg/dL (<150)
[2025-08-21 11:12] LABS: Thyroid Stimulating Hormone 4.020 uIU/mL (0.465-4.680)
[2025-08-21 11:31] LABS: Vitamin B12 241.0 pg/mL (239-931)
== END 2025-08-21 08:56 | disposition home or self-care (01) ==
PROVIDERS: PCP Family Medicine; Visit Provider Family Medicine
DX: E78.5 Hyperlipidemia, unspecified (principal); F32.9 Major depressive disorder, single episode, unspecified; I10 Essential (primary) hypertension; F10.90 Alcohol use, unspecified, uncomplicated; E53.8 Deficiency of other specified B group vitamins; K21.9 Gastro-esophageal reflux disease without esophagitis; G62.9 Polyneuropathy, unspecified; J44.1 Chronic obstructive pulmonary disease with (acute) exacerbation; G47.00 Insomnia, unspecified; E55.9 Vitamin D deficiency, unspecified
CPT/HCPCS: 36415; 80053; 80061; 82172; 82306; 82607; 84443; 85025